=== PATIENT | female | born 1990 | race Caucasian/White ===

== ENCOUNTER → 2016-07-09 | Outpatient (CLI) | payer BC ==
[~2016-07-09] MED LIST: /DULO30CA PO; /MOXI40TA PO; /ONDA4TA PO; ACET50TA PO; ALBU17IN INH; AMIT50TA2 OR; ASTE137S; CALC0.5C OR; CALC0.5C PO; CALC0.5C6 PO; CALC12502 OR; CALC500C16 PO; CALC600T10 PO; CALC667C2 PO; CALC667T PO; CALCCHW12 OR; CALCIUM + VITAMIN D PO; CALCIUM PO; CALCTAB43 PO; CARA1TAB2 PO; CETI10TA PO; CIPR-250 PO; COLA100C3 PO; D 1010004 PO; FE T325T PO; FERR325T OR; FERR325T3 PO; FLEXERIL PO; GABA100C PO; HYDR1CR TOP; HYDR200T2 PO; HYDR200T3 PO; HYDROXYCHLOROQUINE PO; IBUP200T2 PO; IBUP400T OR; IBUP800T OR; LOPE-3 PO; MACR100C3 PO; MAG-400T7 PO; MAG400TA PO; MAGN400T PO; MAGN400T5 PO; MAGNESIUM OXIDE OR; MUCUTAB PO; NAPR250T2 PO; No Historical Meds; ONDASTERON BUC; PHOS667C PO; PHOS667C5 PO; PHOSLO667 MG OR; PLAQ200T PO; POTA-77 PO; PROM25TA PO; RENV2TAB PO; ROCA0.5C PO; SENN8.6T5 OR; SLOW MAG PO; SLOWTAB PO; SLOWTAB2 PO; STOO100C PO; TYLE325T5 PO; VENTAER IN; VIBR100C PO; VIT D PO; VITAMIN D OR; XANA0.5T PO; ZOFR20TA PO; ZOFR4TAB3 PO; [UNRECOGNIZED DRUG - MIXTURE] PO; [UNRECOGNIZED DRUG - OTHER]; z-pack PO
[2016-07-09 16:41] LABS: BASO % 0.4 % (0.0-1.0); EOS # 0.2 K/mm3 (0.0-0.50); EOS % 2.3 % (0.0-3.0); LYMPH % 21.8 % (24.0-44.0); MEAN CORPUSCULAR HGB CONC 34.5 g/dl (32.0-36.5); MEAN CORPUSCULAR VOLUME 83.9 fl (80.0-96.0); MONO # 0.5 K/mm3 (0.0-0.8); MONO % 5.6 % (0.0-5.0); NEUTROPHILS # 5.8 K/mm3 (1.8-7.7); NEUTROPHILS % 68.4 % (36.0-66.0); RED CELL DISTRIBUTION WIDTH 12.8 % (11.5-14.5); WHITE BLOOD COUNT 8.5 K/mm3 (4.0-10.0)
[2016-07-09 17:33] LABS: ALBUMIN/GLOBULIN RATIO 1.48 (1.00-1.93); ALKALINE PHOSPHATASE 51 U/L (45-117); ALT/SGPT 22 U/L (12-78); ANION GAP 9 MEQ/L (8-16); AST/SGOT 12 U/L (15-37); BILIRUBIN,TOTAL 0.3 MG/DL (0.2-1.0); BLOOD UREA NITROGEN 17 MG/DL (7-18); CALCIUM LEVEL 7.8 MG/DL (8.5-10.1); CARBON DIOXIDE LEVEL 28 MEQ/L (21-32); CHLORIDE LEVEL 105 MEQ/L (98-107); CREATININE FOR GFR 0.86 MG/DL (0.55-1.02); FREE T4 1.06 NG/DL (0.76-1.46); GLOMERULAR FILTRATION RATE > 60.0 (>60); GLUCOSE, FASTING 119 MG/DL (70-105); POTASSIUM SERUM 4.1 MEQ/L (3.5-5.1); SODIUM LEVEL 142 MEQ/L (136-145); TOTAL PROTEIN 6.7 GM/DL (6.4-8.2)
[2016-07-12 00:08] LABS: SJOGREN'S ANTI SS-A <0.2 AI (0.0-0.9)
== END ==
LOC: M WUC 13:38
PROVIDERS: ATTEND Family Medicine
DX: Z00.00 Encounter for general adult medical examination without abnormal findings (principal); E83.51 Hypocalcemia; M32.9 Systemic lupus erythematosus, unspecified

== ENCOUNTER 2016-09-27 10:06 | Emergency (ER) | payer BC ==
[~2016-09-27] VITALS: Ht 165.1 cm; Wt 104.8 kg
[~2016-09-27 10:06] MED LIST changes: -CALC600T10 PO; +CALC600T31 PO; -CALCTAB43 PO; +CALCTAB74 PO; -COLA100C3 PO; +COLA100C5 PO; -NAPR250T2 PO; +NAPR250T4 PO
[2016-09-27] MEDS ORDERED: NAPR250T4 PO (10:28)
[2016-09-27] MEDS ORDERED: ONDA4TAB6 PO (10:28)
[2016-09-27] MEDS ORDERED: NS 1,000 ML IV ONE (11:15)
[2016-09-27] MEDS ORDERED: methylPREDNISolone INJ 125 MG/2 ML VIAL (J2930) IV ONE (11:15)
[2016-09-27 12:05] LABS: BASO % 0.6 % (0.0-1.0); EOS # 0.2 K/mm3 (0.0-0.50); EOS % 2.5 % (0.0-3.0); LARGE UNSTAINED CELL # 0.1 K/mm3 (0.0-0.4); LARGE UNSTAINED CELL % 1.7 % (0.0-4.0); LYMPH # 1.9 K/mm3 (1.5-6.5); LYMPH % 23.5 % (24.0-44.0); MEAN CORPUSCULAR HEMOGLOBIN 29.5 pg (27.0-33.0); MEAN CORPUSCULAR HGB CONC 34.9 g/dl (32.0-36.5); MEAN CORPUSCULAR VOLUME 84.4 fl (80.0-96.0); MONO # 0.3 K/mm3 (0.0-0.8); NEUTROPHILS % 67.7 % (36.0-66.0); PLATELET COUNT, AUTOMATED 203 k/mm3 (150-450); WHITE BLOOD COUNT 7.4 K/mm3 (4.0-10.0)
[2016-09-27 12:49] LABS: ALBUMIN 4.2 GM/DL (3.2-5.2); ALBUMIN/GLOBULIN RATIO 1.24 (1.00-1.93); ALKALINE PHOSPHATASE 51 U/L (45-117); ALT/SGPT 18 U/L (12-78); ANION GAP 6 MEQ/L (8-16); AST/SGOT 13 U/L (15-37); BILIRUBIN,TOTAL 0.5 MG/DL (0.2-1.0); BLOOD UREA NITROGEN 20 MG/DL (7-18); CALCIUM LEVEL 8.1 MG/DL (8.5-10.1); CARBON DIOXIDE LEVEL 27 MEQ/L (21-32); CHLORIDE LEVEL 105 MEQ/L (98-107); CREATININE FOR GFR 0.91 MG/DL (0.55-1.02); GLOMERULAR FILTRATION RATE > 60.0 (>60); GLUCOSE, FASTING 79 MG/DL (70-105); MAGNESIUM LEVEL 2.2 MG/DL (1.8-2.4); SODIUM LEVEL 138 MEQ/L (136-145); TOTAL PROTEIN 7.6 GM/DL (6.4-8.2)
[2016-09-27 12:50] VITALS: BP 136/68
--- NOTE | 2016-09-28 07:31 | ECGEPIP ---
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
== END 2016-09-27 13:37 | disposition home or self-care (01) ==
LOC: M ED 10:06
DX: R11.0 Nausea (principal); R42 Dizziness and giddiness; M32.9 Systemic lupus erythematosus, unspecified; M79.7 Fibromyalgia; F50.89 Other specified eating disorder; E04.9 Nontoxic goiter, unspecified
CPT/HCPCS: 80053; 81025; 83735; 84443; 85025; 93005; 96361; 96374; 99284; J2930

== ENCOUNTER 2016-11-05 06:29 | Emergency (ER) | payer BC ==
[~2016-11-05 06:29] MED LIST changes: +ONDA4TAB6 PO
[2016-11-05] MEDS ORDERED: CLEO300C2 PO (06:45)
[2016-11-05] MEDS ORDERED: IBUP1TAB7 PO (06:45)
[2016-11-05] MEDS ORDERED: IBUP80TA PO (07:18)
[2016-11-05] MEDS ORDERED: ROBA500T PO (07:18)
[2016-11-05] MEDS ORDERED: ONDANSETRON 4 MG ORAL DISINTEGRATING TAB (S0181) PO ONE (07:30)
[2016-11-05] MEDS ORDERED: IBUPROFEN 800 MG TAB PO ONE (07:30)
[2016-11-05] MEDS ORDERED: NORCO, ANEXSIA 5/325MG TABLET (HYDROcodone/ACETAMINOPHEN) PO ONE (07:30)
[2016-11-05] MEDS ORDERED: METHOCARBAMOL 500 MG TAB PO ONE (07:30)
[2016-11-05 07:31] VITALS: BP 130/86
== END 2016-11-05 07:40 | disposition home or self-care (01) ==
LOC: M ED 06:29
DX: S16.1XXA Strain of muscle, fascia and tendon at neck level, initial encounter (principal); J45.909 Unspecified asthma, uncomplicated; M79.7 Fibromyalgia; M32.9 Systemic lupus erythematosus, unspecified; F41.9 Anxiety disorder, unspecified; X58.XXXA Exposure to other specified factors, initial encounter; Y92.9 Unspecified place or not applicable; Y99.9 Unspecified external cause status; Y93.9 Activity, unspecified; Z88.0 Allergy status to penicillin; Z88.5 Allergy status to narcotic agent; Z88.8 Allergy status to other drugs, medicaments and biological substances; Z79.899 Other long term (current) drug therapy

== ENCOUNTER 2017-01-11 08:18 | Emergency (ER) | payer BC ==
[~2017-01-11] VITALS: Ht 165.1 cm; Wt 109.1 kg
[~2017-01-11 08:18] MED LIST changes: +CLEO300C2 PO; +IBUP1TAB7 PO; +IBUP80TA PO; +ROBA500T PO
[2017-01-11] MEDS ORDERED: calcitrol PO (08:51)
[2017-01-11] MEDS ORDERED: ALPH50TA PO (08:51)
[2017-01-11] MEDS ORDERED: PRIL20CA9 PO (09:29)
[2017-01-11] MEDS ORDERED: ZOFR4TAB3 PO (09:29)
[2017-01-11] MEDS ORDERED: GI COCKTAIL 50ML BTL(HYOSCYAMINE/MAALOX/LIDOCAINE VISCOUS)(1:3:1) PO ONE (09:30)
[2017-01-11] MEDS ORDERED: ONDANSETRON 4 MG ORAL DISINTEGRATING TAB (S0181) PO ONE (09:30)
[2017-01-11 09:37] VITALS: BP 142/90
== END 2017-01-11 09:38 | disposition home or self-care (01) ==
LOC: M ED 08:18
DX: K29.50 Unspecified chronic gastritis without bleeding (principal); K21.9 Gastro-esophageal reflux disease without esophagitis; R10.13 Epigastric pain; M79.7 Fibromyalgia; I10 Essential (primary) hypertension; J45.909 Unspecified asthma, uncomplicated; E11.9 Type 2 diabetes mellitus without complications; M32.9 Systemic lupus erythematosus, unspecified; Z88.0 Allergy status to penicillin; Z88.5 Allergy status to narcotic agent; Z88.8 Allergy status to other drugs, medicaments and biological substances; Z79.899 Other long term (current) drug therapy

== ENCOUNTER 2017-01-14 08:44 | Observation (INO) | payer BC ==
[~2017-01-14] VITALS: Ht 165.1 cm; Wt 110.3 kg
[~2017-01-14 08:44] MED LIST changes: +ALPH50TA PO; +PRIL20CA9 PO; +calcitrol PO
[2017-01-14 10:22] LABS: BASO % 0.5 % (0.0-1.0); EOS # 0.2 10^3/uL (0.0-0.50); EOS % 2.1 % (0.0-3.0); IMMATURE GRANULOCYTE % 0.4 % (0-0); LYMPH # 1.9 10^3/uL (1.5-6.5); LYMPH % 25.3 % (24.0-44.0); MEAN CORPUSCULAR HEMOGLOBIN 29.3 pg (27.0-33.0); MEAN CORPUSCULAR HGB CONC 34.1 g/dl (32.0-36.5); MEAN CORPUSCULAR VOLUME 85.8 fl (80.0-96.0); MONO # 0.4 10^3/uL (0.0-0.8); MONO % 5.5 % (0.0-5.0); NEUTROPHILS % 66.2 % (36.0-66.0); PLATELET COUNT, AUTOMATED 205 10^3/uL (150-450); RED CELL DISTRIBUTION WIDTH 12.9 % (11.5-14.5); WHITE BLOOD COUNT 7.5 10^3/uL (4.0-10.0)
[2017-01-14 10:42] LABS: CONTROL LINE HCG INT CTR LINE PRESENT
[2017-01-14 10:57] LABS: ANION GAP 8 MEQ/L (8-16); BLOOD UREA NITROGEN 11 MG/DL (7-18); CALCIUM LEVEL 5.9 MG/DL (8.5-10.1); CARBON DIOXIDE LEVEL 28 MEQ/L (21-32); CHLORIDE LEVEL 106 MEQ/L (98-107); CREATININE FOR GFR 0.78 MG/DL (0.55-1.02); GLOMERULAR FILTRATION RATE > 60.0 (>60); GLUCOSE, FASTING 75 MG/DL (70-105); MAGNESIUM LEVEL 1.9 MG/DL (1.8-2.4); PHOSPHORUS LEVEL 5.7 MG/DL (2.5-4.9); POTASSIUM SERUM 4.2 MEQ/L (3.5-5.1); SODIUM LEVEL 142 MEQ/L (136-145)
[2017-01-14] MEDS ORDERED: CALCIUM GLUCONATE 1,000 MG in D5W MINI-BAG PLUS 100 ML IV ONE ×3 (11:30→16:00)
[2017-01-14] MEDS ORDERED: ACETAMINOPHEN TAB 650MG DOSE (2X325MG) PO PRN (12:00)
[2017-01-14] MEDS ORDERED: ONDANSETRON 4MG/2ML VIAL (J2405) IV PRN (12:00)
[2017-01-14] MEDS ORDERED: CALC1CAP31 PO (12:05)
[2017-01-14] MEDS ORDERED: CALC500C16 PO (12:05)
[2017-01-14] MEDS ORDERED: ZOFR4TAB3 PO (12:05)
[2017-01-14] MEDS ORDERED: ALPH300C PO (12:05)
[2017-01-14] MEDS ORDERED: OMEP20CA3 PO (12:05)
[2017-01-14 14:00] VITALS: BP 129/76
[2017-01-14] MEDS: CALCITRIOL 0.25 MCG CAP (S0169) PO SCH ×2 (15:43→20:48)
[2017-01-14] MEDS: HEPARIN SOD (PORCINE) 5000 UNITS/ML VIAL SC SCH ×2 (15:44→20:49)
--- NOTE | 2017-01-14 15:50 | HPE ---
DATE OF ADMISSION: 01/14/2017 PRIMARY CARE PROVIDER: Dr. 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 HISTORY OF PRESENT ILLNESS: The patient is a 26-year-old female with a past medical history significant for fibromyalgia, hypoparathyroidism who presented to [facility] on 01/14/2017 for worsening muscle cramp, nerve tingling, nausea and vomiting. The patient stated the symptoms started approximately 3-4 days ago and the symptoms are getting worse. The patient stated that she had similar episode usually due to severe hypocalcemia. Later, the laboratory tests show that the patient has extremely low calcium and ionized calcium. The patient stated due to financial reasons that the patient has been cutting down her calcium intake frequency. The patient was instructed by her primary care provider to take the calcium supplement three times a day. However, the patient was having difficulty affording the medication and therefore she has been using it once a day. ALLERGIES: 1. CODEINE (nausea and vomiting). 2. DIAMOX (hypoperfusion causing purplish skin color changes). 3. PENICILLIN (rash). HOME MEDICATIONS: - calcitriol 0.75 mcg by mouth three times a day - calcium carbonate 1500 mg by mouth twice a day - sertraline 10 mg by mouth at bedtime - docusate sodium 100 mg by mouth at bedtime - omeprazole 20 mg by mouth at bedtime - Zofran 4 mg by mouth every four hours as needed PAST MEDICAL HISTORY: 1. Fibromyalgia. 2. Hypothyroidism. PAST SURGICAL HISTORY: None. SOCIAL HISTORY: Denies smoking, alcohol use, or recreational drug use. REVIEW OF SYSTEMS: GENERAL: Denies fever or chills. HEENT: No vision changes. No auditory changes. CARDIOVASCULAR: No chest pain. No palpitations. RESPIRATORY: No shortness of breath. No cough or sputum production. GASTROINTESTINAL (GI): Nausea and vomiting for the past few days. MUSCULOSKELETAL: Complained about worsening muscle spasm and muscle cramp. NEUROLOGICAL: Worsening tingling sensation. Denies any numbness. OBJECTIVE: VITAL SIGNS: Temperature is 97.1, pulse is 67, respiratory rate 16, blood pressure 129/76, pulse oximetry is 98% in room air. GENERAL: No sign of acute distress, alert and oriented times three. HEENT: Normocephalic, atraumatic. Extraocular motor grossly intact. CARDIOVASCULAR: Positive heart murmur. Positive S1, S2, regular rate. LUNGS: Clear to auscultation bilaterally. No wheezes or crackles. ABDOMEN: Obese, soft, nontender, nondistended. Bowel sounds present. MUSCULOSKELETAL: No edema. No sign of cyanosis. NEUROLOGICAL: [place] sign. Sensation to fine touch grossly intact. Muscle strength 5/5. LABORATORY DATA: WBC is 7.5, hemoglobin 11.7, hematocrit 34.3, platelet count is 205. Sodium 142, potassium 4.2, chloride is 106, carbon dioxide 28, BUN 11, creatinine 0.78, GFR greater than 60, fasting glucose is 75, calcium is 5.9, ionized calcium 2.8, phosphorus 5.7, magnesium 1.9, TSH 1.69, hCG is 1.69, PTH level is less than 6.3. ASSESSMENT AND PLAN: 1. Severe hypokalemia. Follow with an EKG. The patient will be admitted on medical/surgical floor with telemetry. We will continue to supplement with IV calcium gluconate. Followup with the calcium level in a few hours. The patient also started on the oral calcitriol and oral calcium supplements. The patient does have a history of hospital admission due to uncontrolled hypocalcemia. The patient has not been compliant with the medication regimen due to financial reasons. 2. History of fibromyalgia. 3. Hypoparathyroidism. Currently being treated for acute hypocalcemia. 4. Deep vein thrombosis (DVT) prophylaxis, on heparin.
--- NOTE | 2017-01-14 18:54 | ECGEPIP ---
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
[2017-01-14] MEDS: OMEPRAZOLE 20 MG CAP PO SCH (20:48)
[2017-01-14] MEDS: CETIRIZINE (ZyrTEC) 10 MG TAB PO SCH (20:49)
[2017-01-14] MEDS: CALCIUM CARBONATE 500 MG CHEW U/D PO SCH (20:49)
[2017-01-14] MEDS: DOCUSATE SODIUM 100 MG CAP PO SCH (20:49)
[2017-01-14 22:00] VITALS: BP 140/103
--- NOTE | 2017-01-14 22:51 | ECGEPIP ---
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
[2017-01-15 06:00] VITALS: BP 119/61
[2017-01-15 06:15] LABS: MEAN CORPUSCULAR HEMOGLOBIN 28.8 pg (27.0-33.0); MEAN CORPUSCULAR HGB CONC 34.1 g/dl (32.0-36.5); MEAN CORPUSCULAR VOLUME 84.2 fl (80.0-96.0); RED CELL DISTRIBUTION WIDTH 12.7 % (11.5-14.5)
[2017-01-15 06:44] LABS: ANION GAP 9 MEQ/L (8-16); BLOOD UREA NITROGEN 12 MG/DL (7-18); CALCIUM LEVEL 6.5 MG/DL (8.5-10.1); CARBON DIOXIDE LEVEL 27 MEQ/L (21-32); CHLORIDE LEVEL 106 MEQ/L (98-107); CREATININE FOR GFR 0.71 MG/DL (0.55-1.02); GLOMERULAR FILTRATION RATE > 60.0 (>60); GLUCOSE, FASTING 88 MG/DL (70-105); POTASSIUM SERUM 3.9 MEQ/L (3.5-5.1); SODIUM LEVEL 142 MEQ/L (136-145)
[2017-01-15] MEDS: HEPARIN SOD (PORCINE) 5000 UNITS/ML VIAL SC SCH ×3 (07:41→20:23)
[2017-01-15] MEDS: CALCIUM CARBONATE 500 MG CHEW U/D PO SCH ×2 (09:13→20:22)
[2017-01-15] MEDS: CALCITRIOL 0.25 MCG CAP (S0169) PO SCH ×3 (09:14→20:21)
[2017-01-15] MEDS ORDERED: MAG SULF 1GM/100ML (MAG RUN) 1 GM in APPROPRIATE DILUENT 1 EA IV ONE (10:00)
[2017-01-15] MEDS: CALCIUM GLUCONATE 1,000 MG in D5W MINI-BAG PLUS 100 ML IV SCH ×3 (11:12→13:30)
[2017-01-15 14:00] VITALS: BP 147/83
--- NOTE | 2017-01-15 16:59 | IPN ---
DATE: 01/15/2017 OBJECTIVE: The patient tells me she is feeling significantly better today. She tells me that she is no longer constipated. She tells me that she is not having muscle spasms. She does not feel as weak. Her mind does not feel as clouded. She denies chest pain, shortness of breath, fevers, chills, nausea, vomiting, or diarrhea. OBJECTIVE: VITAL SIGNS: Temperature 98.1, pulse 63, respiratory rate 18, blood pressure (BP) 119/61, oxygen saturation 96% on room air. GENERAL: She is an obese, pleasant, young female sitting up in bed eating breakfast in no distress. HEENT: Cranial nerves II-XII grossly intact. Moist mucous membranes. No elevation in central venous pressure (CVP). CARDIOVASCULAR: S1, S2, regular. RESPIRATORY: Clear. ABDOMEN: Obese. Bowel sounds present. The abdomen is soft and nontender. EXTREMITIES: No clubbing, cyanosis, or edema. LABORATORY STUDIES: WBC 8.0, hemoglobin 11.3, platelet count 197. Chemistry panel: Sodium 142, potassium 3.9, chloride 106, bicarbonate 27, BUN 12, creatinine 0.7, calcium 6.5 today, up from 5.9. Ionized calcium is 3.4, up from 2.8 yesterday. She has a slight low vitamin D and low PTH. No new imaging. ASSESSMENT AND PLAN: This is a 26-year-old female with hypocalcemia related to medication noncompliance. 1. Hypocalcemia. Patient follows in the [facility] and is normally supposed to take Calcitriol 0.75 mg three times a day; however, she cannot afford this and only takes it once daily. It is likely the etiology for her hypoglycemia. She also did have some nausea and vomiting, which may have worsened her symptoms as well or may have been a symptom of her hypocalcemia in this setting. She has been hospitalized for this in the past. Patient and family services (PFS) consult has been placed. For the time being, she remains on Tums 1500 mg by mouth twice a day. I will give her 3 grams of calcium gluconate. We will continue with calcitriol 0.75 mg three times a day and continue to follow her calcium level tomorrow. 2. Seasonal allergies. Continue with Zyrtec. 3. Hypoparathyroidism, managed by the [facility]. 4. Gastroesophageal reflux disease. Continue with omeprazole. 5. Deep vein thrombosis (DVT) prophylaxis. The patient is up and ambulating. DISPOSITION: I suspect she may be able to be discharged as early as tomorrow.
[2017-01-15] MEDS: OMEPRAZOLE 20 MG CAP PO SCH (20:21)
[2017-01-15] MEDS: DOCUSATE SODIUM 100 MG CAP PO SCH (20:22)
[2017-01-15] MEDS: CETIRIZINE (ZyrTEC) 10 MG TAB PO SCH (20:22)
[2017-01-15 21:21] VITALS: BP 129/81
[2017-01-16] VITALS: BP 140/89
[2017-01-16 00:30] LABS: IONIZED CALCIUM 3.9 MG/DL (4.5-5.3)
[2017-01-16 00:50] LABS: BLOOD UREA NITROGEN 10 MG/DL (7-18); CHLORIDE LEVEL 104 MEQ/L (98-107); CREATININE FOR GFR 0.82 MG/DL (0.55-1.02); GLOMERULAR FILTRATION RATE > 60.0 (>60); GLUCOSE, FASTING 88 MG/DL (70-105); POTASSIUM SERUM 3.6 MEQ/L (3.5-5.1); SODIUM LEVEL 139 MEQ/L (136-145)
[2017-01-16 00:51] LABS: ANION GAP 6 MEQ/L (8-16); CALCIUM LEVEL 8.1 MG/DL (8.5-10.1); CARBON DIOXIDE LEVEL 29 MEQ/L (21-32); MAGNESIUM LEVEL 1.8 MG/DL (1.8-2.4)
--- NOTE | 2017-01-16 04:54 | IPNPDOC ---
Text Note Date of Service The patient was seen on 01/16/17. NOTE Evening resident and attending were called regarding patient was having more tingling sensation of right arm. Charts were reviewed and patient was also interviewed at bedside. It was found that patient had adequate Calcium during the day, therefore no more calcium was given, however we have checked her calcium level again and it was within normal range. Patient stated her symptoms was mild and it was improved since admission. Will continue current regiment without changes, patient agrees. Patient has been discussed with Dr. Myers. GME ATTESTATION My preceptor for this patient encounter was physically present in the building during the encounter and was fully available. As needed, all aspects of the patient interview, examination, medical decision making process, and medical care plan development were reviewed and approved by the preceptor. Preceptor is aware and concurs with the plan as stated in the body of this note and will attest to such by his/her cosignature. VS,Fishbone, I+O VS, Fishbone, I+O Laboratory Tests 01/15/17 05:43 Red Blood Count 3.93 L, Mean Corpuscular Volume 84.2, Mean Corpuscular Hemoglobin 28.8, Mean Corpuscular Hemoglobin Concent 34.1, Red Cell Distribution Width 12.7, Calcium Level 6.5 L 01/16/17 00:22 Calcium Level 8.1 #L Vital Signs Date Time Temp Pulse Resp B/P (MAP) Pulse Ox O2 Delivery O2 Flow Rate FiO2 01/16/17 00:00 99.5 60 18 140/89 (106) 99 Room Air MARTIN PAYNE DO Jan 16, 2017 04:54
[2017-01-16] MEDS ORDERED: MAG SULF 1GM/100ML (MAG RUN) 1 GM in APPROPRIATE DILUENT 1 EA IV ONE (07:00)
[2017-01-16 07:17] LABS: MEAN CORPUSCULAR HEMOGLOBIN 28.7 pg (27.0-33.0); MEAN CORPUSCULAR HGB CONC 33.9 g/dl (32.0-36.5); MEAN CORPUSCULAR VOLUME 84.8 fl (80.0-96.0); RED CELL DISTRIBUTION WIDTH 12.9 % (11.5-14.5); WHITE BLOOD COUNT 9.5 10^3/uL (4.0-10.0)
[2017-01-16 07:38] LABS: ANION GAP 8 MEQ/L (8-16); BLOOD UREA NITROGEN 10 MG/DL (7-18); CALCIUM LEVEL 7.8 MG/DL (8.5-10.1); CARBON DIOXIDE LEVEL 26 MEQ/L (21-32); CHLORIDE LEVEL 105 MEQ/L (98-107); CREATININE FOR GFR 0.74 MG/DL (0.55-1.02); GLOMERULAR FILTRATION RATE > 60.0 (>60); GLUCOSE, FASTING 84 MG/DL (70-105); MAGNESIUM LEVEL 1.9 MG/DL (1.8-2.4); POTASSIUM SERUM 4.7 MEQ/L (3.5-5.1); SODIUM LEVEL 139 MEQ/L (136-145)
[2017-01-16] MEDS: CALCIUM GLUCONATE 1,000 MG in D5W MINI-BAG PLUS 100 ML IV SCH ×2 (07:58→09:10)
[2017-01-16 08:00] VITALS: BP 113/82
[2017-01-16] MEDS: CALCIUM CARBONATE 500 MG CHEW U/D PO SCH (09:10)
[2017-01-16] MEDS: CALCITRIOL 0.25 MCG CAP (S0169) PO SCH (09:10)
[2017-01-16] MEDS: HEPARIN SOD (PORCINE) 5000 UNITS/ML VIAL SC SCH (09:10)
--- NOTE | 2017-01-16 15:52 | DSES ---
DATE OF ADMISSION: 01/14/2017 DATE OF DISCHARGE: 01/16/2017 DISCHARGE DIAGNOSIS: Hypocalcemia. SECONDARY DIAGNOSES: 1. Medication nonadherence. 2. Seasonal allergies. 3. Hypoparathyroidism. 4. Gastroesophageal reflux disease (GERD). HOSPITAL COURSE: The patient is a 26-year-old female who admits that she has not been taking her Calcitriol 0.75 mg three times a day as prescribed and instead has been taking it only once daily as she was having difficulty affording the three times a day dosing. She has began to have feelings of muscle spasm, constipation, clouding of her thoughts, and body aches, which she has felt in the past during episodes of hypocalcemia and she presented to the emergency room with the thought that her calcium was low. Laboratory studies did confirm this and potassium on arrival was 5.9. Her ionized was initially 2.8. She was restarted on Calcitriol, and she was continued on calcium carbonate. She did receive several doses of IV calcium gluconate as well. She did have progressive improvement in her calcium. At this point, her ionized calcium was 3.9 this morning and her symptoms have resolved. SUBJECTIVE: The patient tells me that she has had no more paresthesias, no more spasms, and she is no longer constipated and she is feeling back to normal and would like to go home. OBJECTIVE: VITAL SIGNS: Temperature 98.1, pulse 58, respiratory rate 18, blood pressure 113/82. Oxygen saturation 97% on room air. GENERAL: She is morbidly obese, young, female sitting on the edge of the bed. She does not appear to be in any acute distress. HEENT: Cranial nerves II through XII grossly intact. She has moist mucous membranes. No elevation in central venous pressure. CARDIOVASCULAR EXAM: S1, S2. Regular. RESPIRATORY EXAM: Clear. ABDOMINAL EXAM: Obese. EXTREMITIES: No clubbing, cyanosis or edema. LABORATORY STUDIES: WBC 9.5, hemoglobin 11.7, platelet count 198. Chemistry panel: Sodium 139, potassium 4.7, chloride 108, bicarbonate 25, BUN 10, creatinine 0.7. Ionized calcium this morning was 3.9. TSH within normal limits. HCG was negative. PTH intact was less than 6.3. ASSESSMENT AND PLAN: This is a 26-year-old female with hypocalcemia related to medication nonadherence. 1. Hypocalcemia. The patient normally follows with the [facility] and is supposed to take Calcitriol 0.75 mcg three times a day. However, she could not afford it and was only taking it once a day. This is likely the etiology for her uncontrolled hypocalcemia. Patient and family services (PFS) was able to help and provide her with several coupons, which should help alleviate her cost. The patient is to followup with the [facility] and continue to take all of her medications as prescribed, as her symptoms are controlled well while on this regimen. She is continued on calcium carbonate. 2. Seasonal allergies. She is continued on Zyrtec. 3. Hypoparathyroidism. As per the [facility]. 4. Gastroesophageal reflux disease (GERD). She is on omeprazole. 5. Deep vein thrombosis (DVT) prophylaxis. She is up and ambulating. DISPOSITION: The patient is provided a prescription to be off work for the days she has been in the hospital. She is to followup with primary care provider in 7 days and followup with her official greeter within 2 weeks. Her activity and diet are as prior to admission. She is to return to the emergency room if symptoms worsen. MEDICATIONS: At the time of discharge: - Calcitriol 0.75 mcg three times a day - calcium carbonate 55 mg twice a day - cetirizine 10 mg at night - Docusate 100 mg at night - lipoic acid 300 mg at night - Naproxen 250 mg as needed for pain - omeprazole 20 mg at night - Zofran 4 mg every 4 hours as needed for nausea Greater than 30 minutes was spent organizing disposition.
== END 2017-01-16 12:15 | disposition home or self-care (01) ==
LOC: M ED 08:44 → M ED INP 12:00 → M MSPAV 13:58 → M MS4PR 01-15 21:10
PROVIDERS: ADMIT Internal Medicine; ATTEND Internal Medicine
DX: E83.51 Hypocalcemia (principal); Z91.14 Patient's other noncompliance with medication regimen; J30.2 Other seasonal allergic rhinitis; E20.9 Hypoparathyroidism, unspecified; K21.9 Gastro-esophageal reflux disease without esophagitis; E03.9 Hypothyroidism, unspecified; Z79.899 Other long term (current) drug therapy; M79.7 Fibromyalgia; Z88.0 Allergy status to penicillin; Z88.5 Allergy status to narcotic agent; E87.6 Hypokalemia
CPT/HCPCS: 36415; 80048; 82306; 82330; 83735; 83970; 84100; 84443; 84703; 85025; 85027; 93005; 93041; 94760; 96365; 96366; 96367; 99285; J0610; J3475

== ENCOUNTER 2017-04-03 15:36 | Emergency (ER) | payer SELFPAY, BC ==
[2017-04-03 18:29] LABS: BASO % 0.5 % (0.0-1.0); EOS # 0.2 10^3/uL (0.0-0.50); EOS % 1.8 % (0.0-3.0); HEMATOCRIT 34.7 % (36.0-47.0); HEMOGLOBIN 11.6 g/dl (12.0-16.0); IMMATURE GRANULOCYTE % 0.5 % (0-0); LYMPH # 2.1 10^3/uL (1.5-6.5); LYMPH % 23.6 % (24.0-44.0); MEAN CORPUSCULAR HEMOGLOBIN 28.6 pg (27.0-33.0); MEAN CORPUSCULAR HGB CONC 33.4 g/dl (32.0-36.5); MEAN CORPUSCULAR VOLUME 85.5 fl (80.0-96.0); MONO # 0.5 10^3/uL (0.0-0.8); MONO % 5.6 % (0.0-5.0); PLATELET COUNT, AUTOMATED 271 10^3/uL (150-450); RED BLOOD COUNT 4.06 10^6/uL (4.00-5.40); RED CELL DISTRIBUTION WIDTH 12.9 % (11.5-14.5); WHITE BLOOD COUNT 8.8 10^3/uL (4.0-10.0)
[2017-04-03 18:33] LABS: APPEARANCE, URINE CLEAR (CLEAR); BACTERIA, URINE AUTO NEGATIVE (NEGATIVE); BILIRUBIN, URINE AUTO NEGATIVE (NEGATIVE); BLOOD, URINE BLOOD NEGATIVE (NEGATIVE); COLOR, URINE STRAW (YELLOW); GLUCOSE, URINE (UA) AUTO NEGATIVE (NEGATIVE); KETONE, URINE AUTO NEGATIVE (NEGATIVE); LEUKOCYTE ESTERASE, URINE AUTO NEGATIVE (NEGATIVE); MUCUS, URINE SMALL (NEGATIVE); NITRITE, URINE AUTO NEGATIVE (NEGATIVE); PROTEIN, URINE AUTO NEGATIVE (NEGATIVE); RBC, URINE AUTO 2 /HPF (0-3); SPECIFIC GRAVITY URINE AUTO 1.006 (1.002-1.035); SQUAMOUS EPITHELIAL CELL UR AU 0 /HPF (0-6); UROBILINOGEN, URINE AUTO 0.2 mg/dL (0.0-2.0); WBC, URINE AUTO 1 /HPF (0-3)
[2017-04-03 18:59] LABS: ANION GAP 6 MEQ/L (8-16); BLOOD UREA NITROGEN 17 MG/DL (7-18); CARBON DIOXIDE LEVEL 31 MEQ/L (21-32); CHLORIDE LEVEL 106 MEQ/L (98-107); CREATININE FOR GFR 0.83 MG/DL (0.55-1.02); GLOMERULAR FILTRATION RATE > 60.0 (>60); GLUCOSE, FASTING 74 MG/DL (70-105); MAGNESIUM LEVEL 1.9 MG/DL (1.8-2.4); POTASSIUM SERUM 3.6 MEQ/L (3.5-5.1); SODIUM LEVEL 143 MEQ/L (136-145)
[2017-04-03 19:15] LABS: PTH INTACT < 6.3 PG/ML (14.0-72.0)
[2017-04-03] MEDS: CALCIUM GLUCONATE 1,000 MG in D5W MINI-BAG PLUS 100 ML IV ×2 (20:29→22:00)
== END 2017-04-03 23:19 | disposition home or self-care (01) ==
LOC: M ED 15:36
DX: E20.9 Hypoparathyroidism, unspecified (principal); J45.909 Unspecified asthma, uncomplicated; M79.7 Fibromyalgia; F41.9 Anxiety disorder, unspecified; F33.9 Major depressive disorder, recurrent, unspecified; Z79.899 Other long term (current) drug therapy; Z88.0 Allergy status to penicillin; Z88.5 Allergy status to narcotic agent; Z88.8 Allergy status to other drugs, medicaments and biological substances; Z87.891 Personal history of nicotine dependence
CPT/HCPCS: J0610

== ENCOUNTER 2017-04-26 12:10 | Emergency (ER) | payer SELFPAY ==
[2017-04-26 13:47] LABS: BASO % 0.4 % (0.0-1.0); EOS # 0.1 10^3/uL (0.0-0.50); EOS % 1.9 % (0.0-3.0); HEMOGLOBIN 11.4 g/dl (12.0-16.0); IMMATURE GRANULOCYTE % 0.4 % (0-0); LYMPH # 1.3 10^3/uL (1.5-6.5); LYMPH % 19.1 % (24.0-44.0); MEAN CORPUSCULAR HEMOGLOBIN 28.5 pg (27.0-33.0); MEAN CORPUSCULAR HGB CONC 33.5 g/dl (32.0-36.5); MONO # 0.5 10^3/uL (0.0-0.8); MONO % 7.6 % (0.0-5.0); NEUTROPHILS # 4.8 10^3/uL (1.8-7.7); NEUTROPHILS % 70.6 % (36.0-66.0); PLATELET COUNT, AUTOMATED 213 10^3/uL (150-450); RED CELL DISTRIBUTION WIDTH 12.8 % (11.5-14.5); WHITE BLOOD COUNT 6.8 10^3/uL (4.0-10.0)
[2017-04-26 14:06] LABS: CONTROL LINE HCG INT CTR LINE PRESENT; HCG, SERUM QUALITATIVE NEGATIVE (NEGATIVE)
[2017-04-26 14:11] LABS: ANION GAP 8 MEQ/L (8-16); BLOOD UREA NITROGEN 14 MG/DL (7-18); CALCIUM LEVEL 6.8 MG/DL (8.5-10.1); CARBON DIOXIDE LEVEL 30 MEQ/L (21-32); CHLORIDE LEVEL 105 MEQ/L (98-107); CREATININE FOR GFR 0.75 MG/DL (0.55-1.02); GLOMERULAR FILTRATION RATE > 60.0 (>60); GLUCOSE, FASTING 74 MG/DL (70-100); PHOSPHORUS LEVEL 5.9 MG/DL (2.5-4.9); POTASSIUM SERUM 3.6 MEQ/L (3.5-5.1); SODIUM LEVEL 143 MEQ/L (136-145)
[2017-04-26 14:20] LABS: PTH INTACT < 6.3 PG/ML (14.0-72.0)
[2017-04-26] MEDS: CALCIUM GLUCONATE 1,000 MG in D5W MINI-BAG PLUS 100 ML IV ×2 (15:20→16:30)
== END 2017-04-26 17:49 | disposition home or self-care (01) ==
LOC: M ED 12:10
DX: E20.9 Hypoparathyroidism, unspecified (principal); M32.9 Systemic lupus erythematosus, unspecified; M79.7 Fibromyalgia; F50.89 Other specified eating disorder; Z79.899 Other long term (current) drug therapy; Z88.0 Allergy status to penicillin; Z88.5 Allergy status to narcotic agent; Z88.8 Allergy status to other drugs, medicaments and biological substances
CPT/HCPCS: J0610

== ENCOUNTER 2017-05-24 10:22 | Emergency (ER) | payer SELFPAY ==
[2017-05-24 12:03] LABS: BASO % 0.6 % (0.0-1.0); EOS # 0.1 10^3/uL (0.0-0.50); EOS % 2.3 % (0.0-3.0); HEMATOCRIT 33.2 % (36.0-47.0); HEMOGLOBIN 11.2 g/dl (12.0-16.0); IMMATURE GRANULOCYTE % 0.6 % (0-3.0); LYMPH # 1.6 10^3/uL (1.5-6.5); LYMPH % 48.1 % (24.0-44.0); MEAN CORPUSCULAR HEMOGLOBIN 29.3 pg (27.0-33.0); MEAN CORPUSCULAR HGB CONC 33.7 g/dl (32.0-36.5); MEAN CORPUSCULAR VOLUME 86.9 fl (80.0-96.0); MONO # 0.2 10^3/uL (0.0-0.8); NEUTROPHILS # 1.4 10^3/uL (1.8-7.7); NEUTROPHILS % 41.4 % (36.0-66.0); PLATELET COUNT, AUTOMATED 174 10^3/uL (150-450); RED BLOOD COUNT 3.82 10^6/uL (4.00-5.40); RED CELL DISTRIBUTION WIDTH 15.5 % (11.5-14.5); WHITE BLOOD COUNT 3.4 10^3/uL (4.0-10.0)
[2017-05-24 12:38] LABS: ALBUMIN 3.8 GM/DL (3.2-5.2); ALBUMIN/GLOBULIN RATIO 1.19 (1.00-1.93); ALKALINE PHOSPHATASE 57 U/L (45-117); ALT/SGPT 179 U/L (12-78); ANION GAP 9 MEQ/L (8-16); AST/SGOT 139 U/L (7-37); BILIRUBIN,TOTAL 0.5 MG/DL (0.2-1.0); BLOOD UREA NITROGEN 11 MG/DL (7-18); CARBON DIOXIDE LEVEL 27 MEQ/L (21-32); CHLORIDE LEVEL 108 MEQ/L (98-107); CREATININE FOR GFR 0.77 MG/DL (0.55-1.30); GLOMERULAR FILTRATION RATE > 60.0 (>60); GLUCOSE, FASTING 77 MG/DL (70-100); SODIUM LEVEL 144 MEQ/L (136-145)
[2017-05-24] MEDS: CALCIUM GLUCONATE 1,000 MG in D5W MINI-BAG PLUS 100 ML IV ×2 (13:09→14:07)
[2017-05-24 14:00] LABS: INFLUENZA A AMPLIFICATION NEGATIVE (NEGATIVE); INFLUENZA B AMPLIFICATION NEGATIVE (NEGATIVE)
== END 2017-05-24 15:17 | disposition home or self-care (01) ==
LOC: M ED 10:22
DX: E83.51 Hypocalcemia (principal); J45.909 Unspecified asthma, uncomplicated; E11.9 Type 2 diabetes mellitus without complications; I10 Essential (primary) hypertension; F50.89 Other specified eating disorder; F41.9 Anxiety disorder, unspecified; F33.9 Major depressive disorder, recurrent, unspecified; Z79.899 Other long term (current) drug therapy; Z88.8 Allergy status to other drugs, medicaments and biological substances; Z88.5 Allergy status to narcotic agent; Z88.0 Allergy status to penicillin; Z86.2 Personal history of diseases of the blood and blood-forming organs and certain disorders involving the immune mechanism; Z86.39 Personal history of other endocrine, nutritional and metabolic disease
CPT/HCPCS: J0610

== ENCOUNTER → 2017-07-24 | Outpatient (CLI) | payer BC ==
[2017-07-24 19:36] LABS: THYROGLOBULIN ANTIBODY 19.2 U/ML (<60.0); THYROID PEROXIDASE ANTIBODY 31.2 U/ML (<60.0)
[2017-07-24 19:54] LABS: FREE T3 2.7 PG/ML (2.2-4.0)
== END ==
LOC: M LAB 17:58
DX: E04.9 Nontoxic goiter, unspecified (principal)
CPT/HCPCS: 84443

== ENCOUNTER → 2017-07-24 | Outpatient (CLI) | payer BC | LOC: M RAD 18:11 | DX: E04.9 Nontoxic goiter, unspecified (principal) | CPT/HCPCS: 76536 ==

== ENCOUNTER → 2018-05-11 | Outpatient (CLI) | payer BC ==
[~2018-05-11] MED LIST changes: +ALPH300C PO; +ASPI1TAB20 PO; +CALC1CAP31 PO; +CALC1TAB19 PO; +CALC600T3 PO; +OMEP20CA3 PO; -ZOFR20TA PO; +ZOFR4TAB14 PO; +ZOFR4TAB16 PO
[2018-05-11 09:48] LABS: IONIZED CALCIUM 3.9 MG/DL (4.5-5.3)
[2018-05-11 09:55] LABS: BASO % 0.4 % (0.0-1.0); EOS # 0.2 10^3/uL (0.0-0.50); EOS % 2.5 % (0.0-3.0); HEMATOCRIT 36.8 % (36.0-47.0); HEMOGLOBIN 12.3 g/dl (12.0-15.5); LYMPH # 1.8 10^3/uL (1.5-6.5); LYMPH % 24.3 % (24.0-44.0); MEAN CORPUSCULAR HEMOGLOBIN 28.5 pg (27.0-33.0); MEAN CORPUSCULAR HGB CONC 33.4 g/dl (32.0-36.5); MEAN CORPUSCULAR VOLUME 85.2 fl (80.0-96.0); MONO # 0.4 10^3/uL (0.0-0.8); MONO % 5.6 % (0.0-5.0); NEUTROPHILS # 4.9 10^3/uL (1.8-7.7); NEUTROPHILS % 66.9 % (36.0-66.0); PLATELET COUNT, AUTOMATED 211 10^3/uL (150-450); RED BLOOD COUNT 4.32 10^6/uL (4.00-5.40); WHITE BLOOD COUNT 7.3 10^3/uL (4.0-10.0)
[2018-05-11 10:24] LABS: ALBUMIN 4.1 GM/DL (3.2-5.2); ALT/SGPT 18 U/L (12-78); BILIRUBIN,TOTAL 0.4 MG/DL (0.2-1.0); BLOOD UREA NITROGEN 19 MG/DL (7-18); CALCIUM LEVEL 7.1 MG/DL (8.5-10.1); CARBON DIOXIDE LEVEL 24 MEQ/L (21-32); CHLORIDE LEVEL 109 MEQ/L (98-107); CHOLESTEROL LEVEL 168 MG/DL (<200); CHOLESTEROL RISK RATIO 4.421 (<5); CREATININE FOR GFR 0.84 MG/DL (0.55-1.30); FREE T3 2.5 PG/ML (2.2-4.0); FREE T4 1.02 NG/DL (0.76-1.46); GLOMERULAR FILTRATION RATE > 60.0 (>60); GLUCOSE, FASTING 82 MG/DL (70-100); HDL CHOLESTEROL 38 MG/DL (>40); LDL CHOLESTEROL 110 MG/DL (<100); NON-HDL-C 130 MG/DL; POTASSIUM SERUM 4.4 MEQ/L (3.5-5.1); SODIUM LEVEL 139 MEQ/L (136-145); TOTAL PROTEIN 6.8 GM/DL (6.4-8.2); TRIGLYCERIDES LEVEL 101 MG/DL (<150)
[2018-05-12 10:05] LABS: PTH INTACT < 6.3 PG/ML (18.5-88.0)
== END ==
LOC: M WUC 08:52
PROVIDERS: ATTEND Nurse Practitioner Family
DX: E20.9 Hypoparathyroidism, unspecified (principal); M32.9 Systemic lupus erythematosus, unspecified; Z13.220 Encounter for screening for lipoid disorders; E66.09 Other obesity due to excess calories

== ENCOUNTER 2018-07-30 17:08 | Emergency (ER) | payer BC, SELFPAY ==
[~2018-07-30] VITALS: Ht 165.1 cm; Wt 111.4 kg
[~2018-07-30 17:08] MED LIST changes: -/DULO30CA PO; -/MOXI40TA PO; -/ONDA4TA PO; -ACET50TA PO; +AVEL1TAB2 PO; -CALC0.5C OR; -CALC0.5C PO; +CALC0.5C14 OR; +CALC0.5C14 PO; +CYMB1CAP5 PO; -HYDR1CR TOP; +HYDR1CRE93 TOP; +MAPA500T17 PO; +ONDA-1 PO; +ONDA-228 PO; +PROM-190 PO; -PROM25TA PO; -ZOFR4TAB3 PO
[2018-07-30] MEDS ORDERED: KETOROLAC 30 MG/ML VIAL (J1885) IV ONE (18:00)
[2018-07-30] MEDS ORDERED: NS 1,000 ML IV ONE (18:00)
[2018-07-30 19:21] LABS: BASO # 0.1 10^3/uL (0.0-0.2); BASO % 0.5 % (0.0-1.0); EOS # 0.2 10^3/uL (0.0-0.50); EOS % 1.7 % (0.0-3.0); HEMATOCRIT 36.6 % (36.0-47.0); HEMOGLOBIN 12.2 g/dl (12.0-15.5); LYMPH # 2.6 10^3/uL (1.5-6.5); LYMPH % 26.4 % (24.0-44.0); MEAN CORPUSCULAR HEMOGLOBIN 27.9 pg (27.0-33.0); MEAN CORPUSCULAR HGB CONC 33.3 g/dl (32.0-36.5); MEAN CORPUSCULAR VOLUME 83.8 fl (80.0-96.0); MONO # 0.6 10^3/uL (0.0-0.8); NEUTROPHILS # 6.3 10^3/uL (1.8-7.7); NEUTROPHILS % 65.1 % (36.0-66.0); PLATELET COUNT, AUTOMATED 249 10^3/uL (150-450); RED BLOOD COUNT 4.37 10^6/uL (4.00-5.40); WHITE BLOOD COUNT 9.7 10^3/uL (4.0-10.0)
[2018-07-30 19:31] LABS: HCG, SERUM QUALITATIVE NEGATIVE (NEGATIVE)
[2018-07-30 19:40] LABS: ALBUMIN 4.3 GM/DL (3.2-5.2); ALT/SGPT 23 U/L (12-78); AMYLASE 56 U/L (25-115); BILIRUBIN,DIRECT 0.1 MG/DL (0.0-0.2); BILIRUBIN,TOTAL 0.5 MG/DL (0.2-1.0); BLOOD UREA NITROGEN 14 MG/DL (7-18); CALCIUM LEVEL 7.9 MG/DL (8.5-10.1); CARBON DIOXIDE LEVEL 25 MEQ/L (21-32); CHLORIDE LEVEL 106 MEQ/L (98-107); CREATININE FOR GFR 0.81 MG/DL (0.55-1.30); GLOMERULAR FILTRATION RATE > 60.0 (>60); GLUCOSE, FASTING 74 MG/DL (70-100); LIPASE 124 U/L (73-393); SODIUM LEVEL 140 MEQ/L (136-145); TOTAL PROTEIN 6.8 GM/DL (6.4-8.2)
--- NOTE | 2018-07-30 20:59 | REPVR ---
EXAM: US Abdomen Complete EXAM DATE/TIME: 07/30/2018 8:04 PM CLINICAL HISTORY: 28 years old, female; Abdominal pain; Generalized; Additional info: Right upper quadrant, right flank pain, pelvic pain TECHNIQUE: Imaging protocol: Real-time ultrasound of the abdomen with image documentation. COMPARISON: GALLBLADDER US 03/14/2012 8:00 AM FINDINGS: Liver: The liver demonstrates no focal defects. Gallbladder: Shadowing gallstones are noted in the gallbladder which measure up to 2.2 cm. There is no gallbladder wall thickening. Common bile duct: The CBD measures 3 mm. Pancreas: The pancreas is normal. Right kidney: The right kidney is normal measuring 12.0 cm. Left kidney: The left kidney is normal measuring 12.5 cm. Spleen: The spleen is borderline measuring 13.0 cm. Aorta: The proximal aorta measures 2.6 cm, the mid aorta measures 1.6 cm and the distal aorta measures 1.4 cm. IMPRESSION: 1. Cholelithiasis. 2. Otherwise negative abdominal sonogram. No hydronephrosis is seen. Electronically signed by: Quan Rios On 07/30/2018 20:59:27 PM
[2018-07-30] MEDS ORDERED: ONDANSETRON 4MG/2ML VIAL (J2405) IV ONE (21:00)
--- NOTE | 2018-07-30 21:02 | REPVR ---
EXAM: US Pelvis Complete, Transabdominal EXAM DATE/TIME: 07/30/2018 8:04 PM CLINICAL HISTORY: 28 years old, female; Pelvic pain TECHNIQUE: Imaging protocol: Real-time transabdominal pelvic ultrasound with image documentation. Complete exam. COMPARISON: CT ABD PELVIS WITH CONTRAST 03/06/2014 9:33 AM FINDINGS: Uterus/cervix: The uterus measures 8.2 cm in its cephalocaudad dimension and 3.9 x 5.4 cm in its AP and lateral dimensions. The endometrium measures 3 mm. Right adnexa: The right ovary measures 3.3 x 3.0 x 3.0 cm and demonstrates blood flow and a small cyst/follicle measuring 2.2 x 1.8 x 1.5 cm. Left adnexa: The left ovary measures 3.8 x 1.8 x 2.4 cm. The left ovary measures 2.4 x 3.8 x 1.8 cm. Free fluid: None. Bladder: Normal. IMPRESSION: 1. Right ovarian cyst/follicle measuring 2.2 x 1.8 x 1.5 cm. 2. Otherwise negative pelvic sonogram. Electronically signed by: Quan Rios On 07/30/2018 21:02:21 PM
[2018-07-30] MEDS ORDERED: KETO10TAB PO (21:46)
[2018-07-30] MEDS ORDERED: ONDA4TAB6 PO (21:46)
[2018-07-30 22:01] VITALS: BP 131/79
== END 2018-07-30 22:03 | disposition home or self-care (01) ==
LOC: M ED 17:08
DX: K80.20 Calculus of gallbladder without cholecystitis without obstruction (principal); N83.299 Other ovarian cyst, unspecified side; E20.9 Hypoparathyroidism, unspecified; Z79.899 Other long term (current) drug therapy; Z88.0 Allergy status to penicillin; Z88.5 Allergy status to narcotic agent; Z88.8 Allergy status to other drugs, medicaments and biological substances
CPT/HCPCS: 76700; 76856; 80048; 80076; 81001; 82150; 83605; 83690; 84703; 85025; 96361; 96374; 96375; 99284; J1885; J2405

== ENCOUNTER 2018-08-20 16:48 | Emergency (ER) | payer SELFPAY ==
[~2018-08-20] VITALS: Ht 165.1 cm; Wt 110.5 kg
[~2018-08-20 16:48] MED LIST changes: +KETO10TAB PO
[2018-08-20 19:16] LABS: ALBUMIN 4.2 GM/DL (3.2-5.2); ALT/SGPT 24 U/L (12-78); BILIRUBIN,TOTAL 0.5 MG/DL (0.2-1.0); BLOOD UREA NITROGEN 13 MG/DL (7-18); CALCIUM LEVEL 7.3 MG/DL (8.5-10.1); CARBON DIOXIDE LEVEL 28 MEQ/L (21-32); CHLORIDE LEVEL 105 MEQ/L (98-107); CREATININE FOR GFR 0.87 MG/DL (0.55-1.30); GLOMERULAR FILTRATION RATE > 60.0 (>60); GLUCOSE, FASTING 78 MG/DL (70-100); POTASSIUM SERUM 4.6 MEQ/L (3.5-5.1); SODIUM LEVEL 141 MEQ/L (136-145); TOTAL PROTEIN 7.2 GM/DL (6.4-8.2)
[2018-08-20 20:43] VITALS: BP 147/84
[2018-08-20 20:45] LABS: PHOSPHORUS LEVEL 5.8 MG/DL (2.5-4.9); VITAMIN B12 LEVEL 477 PG/ML (247-911)
--- NOTE | 2018-08-21 20:19 | ECGEPIP ---
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 Order Number: [id number] Reading MD: Mushtaq Gutierrez Measurements Intervals [place] Rate: 59 P: 18 MD: 149 QRS: 44 QRSD: 89 T: 43 QT: 467 QTc: 464 Interpretive Statements SINUS BRADYCARDIA SIMILAR TO 09/09/17 Electronically Signed on 08-21-2018 20:18:40 EDT by Mushtaq Gutierrez
== END 2018-08-20 20:42 | disposition left against medical advice (07) ==
LOC: M ED 16:48
DX: E83.51 Hypocalcemia (principal); E21.3 Hyperparathyroidism, unspecified; Z79.899 Other long term (current) drug therapy; Z88.0 Allergy status to penicillin; Z88.5 Allergy status to narcotic agent; Z88.8 Allergy status to other drugs, medicaments and biological substances

== ENCOUNTER 2018-10-28 09:22 | Day surgery (SDC) | payer BC ==
[~2018-10-28] VITALS: Ht 165.1 cm; Wt 108.9 kg
[~2018-10-28 09:22] MED LIST changes: +ASPI-524 PO; -ASPI1TAB20 PO; +LR 1,000 ML IV ONE; +LevoFLOXacin IV 500 MG in APPROPRIATE DILUENT 1 EA IV ONE; +MM S100C PO; -OMEP20CA3 PO; +OMEP20CA4 PO; -STOO100C PO
[2018-10-28] MEDS ORDERED: ROCURONIUM BROMIDE 50 MG/5 ML VIAL As Ordered ONE (09:41)
[2018-10-28] MEDS ORDERED: ONDANSETRON 4MG/2ML VIAL (J2405) As Ordered ONE (09:41)
[2018-10-28] MEDS ORDERED: LIDOCAINE 2% INJ 100 MG/5 ML SDV (FOR ANES.) As Ordered ONE (09:41)
[2018-10-28] MEDS ORDERED: dexameTHASONE 4 MG/ML 1ML VIAL (J1100) As Ordered ONE (09:41)
[2018-10-28] MEDS ORDERED: PROPOFOL 200 MG/20 ML VIAL As Ordered ONE (09:41)
[2018-10-28] MEDS ORDERED: MIDAZOLAM INJ 2 MG/2 ML VIAL (J2250) As Ordered ONE (09:42)
[2018-10-28] MEDS ORDERED: KETOROLAC 60 MG/2 ML VIAL (J1885) As Ordered ONE (09:42)
[2018-10-28] MEDS ORDERED: fentaNYL 250 MCG/5 ML INJECTION (J3010) As Ordered ONE (09:42)
[2018-10-28 10:09] LABS: URINE PREG TEST NEGATIVE (NEGATIVE)
[2018-10-28] MEDS ORDERED: SCOPOLAMINE 1MG TRANSDERMAL PATCH TOP ONE (10:30)
[2018-10-28] MEDS ORDERED: BUPIVACAINE/EPIN 0.25% 30 ML VIAL As Ordered ONE (11:22)
[2018-10-28] MEDS ORDERED: CONRAY-60 60% 50ML VIAL (Q9961) As Ordered ONE (11:22)
[2018-10-28] MEDS ORDERED: METOCLOPRAMIDE INJ 10MG/2ML VIAL (J2765) As Ordered ONE (11:43)
[2018-10-28] MEDS ORDERED: ACETAMINOPHEN 1000MG 100ML IV BTL (OFIRMEV) (J0131 PER 10MG) As Ordered ONE (11:51)
[2018-10-28] MEDS ORDERED: GLYCOPYRROLATE INJ 0.2 MG/ML 2 ML VIAL As Ordered ONE (11:53)
[2018-10-28] MEDS ORDERED: NEOSTIGMINE 10 MG/10 ML VIAL (J2710) As Ordered ONE (11:53)
[2018-10-28] MEDS ORDERED: fentaNYL 100 MCG/2 ML INJECTION (J3010) As Ordered ONE (11:53)
[2018-10-28] MEDS ORDERED: LR 1,000 ML IV SCH ×2 (12:45→13:00)
[2018-10-28] MEDS ORDERED: traMADol 50 MG TAB As Ordered ONE ×2 (12:46→12:48)
--- NOTE | 2018-10-28 12:49 | RO ---
DATE OF PROCEDURE: 10/28/2018 PREOPERATIVE DIAGNOSIS: Symptomatic gallstones. POSTOPERATIVE DIAGNOSIS: Symptomatic gallstones. PROCEDURE: Laparoscopic cholecystectomy. SURGEON: Gene Tolentino Jr., MD BLOOD BANK SPECIALIST: ANESTHESIA: General endotracheal anesthesia. ESTIMATED BLOOD LOSS: Minimal. FLUIDS: Crystalloid. BRIEF PROCEDURE SUMMARY: The patient was brought to the operating room, was given general anesthesia. After adequate anesthesia and preoperative antibiotics were given, the patient was prepped and draped in the usual sterile fashion. Next, a supraumbilical incision was made with skin knife. Blunt dissection was carried down to fascia. Fascia grasped with Maria C clamps, elevated and Veress needle placed into the abdominal cavity and insufflated to 15 mm of pressure. A dilating 10 mm trocar was placed at this time and under direct visualization an epigastric and two lateral trocars were placed. Next, the gallbladder was grasped, retracted superiorly and the neck of the gallbladder was cleared of peritoneum using the hook cautery, continued on the anterior surface as well as over on the medial aspect where the cystic artery was well visualized. Further dissection behind the neck the gallbladder and the cystic duct area revealed good window behind the neck of the gallbladder revealing a critical view of safety. The cystic artery was taken at this time clipped proximally and distally and transected and the cystic duct was better visualized revealing good tapering from the neck to the cystic duct and the cystic duct was clipped proximally and distally and transected. The gallbladder was removed from the gallbladder bed, brought out through the umbilicus in an EndoCatch bag and the right upper quadrant was copiously irrigated until clear. All trocars were removed under direct visualization. #0 Vicryl was used to close the fascia at the umbilicus and all incisions were closed with #4-0 Vicryl. Steri-Strips and dry sterile dressing was applied. The patient was awakened, extubated, brought to the recovery room awake, alert, and hemodynamically stable. Sponge and needle counts were correct times two.
[2018-10-28] MEDS ORDERED: PERCOCET 5MG/325MG TAB PO PRN (13:00)
[2018-10-28] MEDS ORDERED: fentaNYL 100 MCG/2 ML INJECTION (J3010) IV PRN (13:00)
[2018-10-28] MEDS ORDERED: ONDANSETRON 4MG/2ML VIAL (J2405) IV PRN (13:00)
[2018-10-28] MEDS ORDERED: HYDROMORPHONE HCL 0.5 MG/ 0.5 ML SYRINGE (J1170 PER 1) IV PRN (13:00)
[2018-10-28 15:00] VITALS: BP 110/59
[2018-10-28] MEDS ORDERED: KETOROLAC 30 MG/ML VIAL (J1885) IV SCH (16:00)
[2018-10-28] MEDS ORDERED: traMADol 50 MG TAB PO SCH (18:00)
== END 2018-10-28 15:05 | disposition home or self-care (01) ==
LOC: M SDC 09:22
PROVIDERS: ATTEND Surgery
DX: K80.10 Calculus of gallbladder with chronic cholecystitis without obstruction (principal); K21.9 Gastro-esophageal reflux disease without esophagitis; M79.7 Fibromyalgia; F32.9 Major depressive disorder, single episode, unspecified; F41.9 Anxiety disorder, unspecified; Z88.0 Allergy status to penicillin; Z88.5 Allergy status to narcotic agent; Z79.899 Other long term (current) drug therapy; D64.9 Anemia, unspecified
CPT/HCPCS: 47562; 84703; 88304; J0131; J1100; J1170; J1885; J1956; J2250; J2405; J2710; J2765; J3010

== ENCOUNTER 2019-02-17 08:31 | Emergency (ER) | payer BC ==
[~2019-02-17] VITALS: Ht 165.1 cm; Wt 106.8 kg
[~2019-02-17 08:31] MED LIST changes: -ASPI-524 PO; +ASPI325T57 PO; -LR 1,000 ML IV ONE; -LevoFLOXacin IV 500 MG in APPROPRIATE DILUENT 1 EA IV ONE
--- NOTE | 2019-02-17 09:58 | REP ---
CHEST TWO VIEWS: There is no evidence of acute infiltrate. No pleural effusion is seen. The heart is normal in size. The mediastinal silhouette is unremarkable. The visualized osseous structures are intact. IMPRESSION: No acute pulmonary disease. Electronically Signed by Long Sanabria MD 02/18/2019 10:27 A
[2019-02-17] MEDS: ALBUTEROL SULFATE 2.5 MG/0.5 ML INH NEB SOLN NEB PRN ×3 (10:00→10:32)
[2019-02-17 10:05] LABS: BASO % 0.4 % (0.0-1.0); EOS # 0.3 10^3/uL (0.0-0.5); EOS % 4.2 % (0.0-3.0); HEMATOCRIT 38.8 % (36.0-47.0); HEMOGLOBIN 12.8 g/dl (12.0-15.5); LYMPH # 1.7 10^3/uL (1.5-5.0); LYMPH % 22.8 % (24.0-44.0); MEAN CORPUSCULAR HEMOGLOBIN 29.3 pg (27.0-33.0); MEAN CORPUSCULAR VOLUME 88.8 fl (80.0-96.0); MONO # 0.4 10^3/uL (0.0-0.8); MONO % 5.3 % (0.0-5.0); NEUTROPHILS # 5.1 10^3/uL (1.5-8.5); NEUTROPHILS % 66.9 % (36.0-66.0); PLATELET COUNT, AUTOMATED 231 10^3/uL (150-450); RED BLOOD COUNT 4.37 10^6/uL (4.00-5.40); WHITE BLOOD COUNT 7.6 10^3/uL (4.0-10.0)
[2019-02-17] MEDS ORDERED: methylPREDNISolone INJ 125 MG/2 ML VIAL (J2930) IV ONE (10:15)
[2019-02-17 10:33] LABS: BLOOD UREA NITROGEN 18 MG/DL (7-18); CALCIUM LEVEL 7.9 MG/DL (8.5-10.1); CARBON DIOXIDE LEVEL 29 MEQ/L (21-32); CHLORIDE LEVEL 106 MEQ/L (98-107); CREATININE FOR GFR 0.93 MG/DL (0.55-1.30); GLOMERULAR FILTRATION RATE > 60.0 (>60); GLUCOSE, FASTING 77 MG/DL (70-100); POTASSIUM SERUM 4.3 MEQ/L (3.5-5.1); SODIUM LEVEL 140 MEQ/L (136-145)
[2019-02-17 11:05] VITALS: BP 127/60
[2019-02-17] MEDS ORDERED: PRED20TA PO (11:14)
== END 2019-02-17 11:24 | disposition home or self-care (01) ==
LOC: M ED 08:31
DX: J45.901 Unspecified asthma with (acute) exacerbation (principal); J00 Acute nasopharyngitis [common cold]; J06.9 Acute upper respiratory infection, unspecified; J98.01 Acute bronchospasm; E20.9 Hypoparathyroidism, unspecified; E83.51 Hypocalcemia; Z79.899 Other long term (current) drug therapy; Z88.0 Allergy status to penicillin; Z88.5 Allergy status to narcotic agent; Z88.8 Allergy status to other drugs, medicaments and biological substances
CPT/HCPCS: 71046; 80048; 85025; 94640; 99284; J2930

== ENCOUNTER 2019-04-17 08:22 | Inpatient (IN) | payer SELFPAY ==
[~2019-04-17] VITALS: Ht 165.1 cm; Wt 108.7 kg
[~2019-04-17 08:22] MED LIST changes: +OMEP1CAP73 PO; -OMEP20CA4 PO; +PRED20TA PO
[2019-04-17 08:52] LABS: IONIZED CALCIUM 3.5 MG/DL (4.5-5.3)
[2019-04-17] MEDS: ENOXAPARIN 40 MG/0.4 ML SYRINGE (J1650) SC SCH ×2 (09:00→13:14)
[2019-04-17 09:04] LABS: HEMATOCRIT 36.6 % (36.0-47.0); MEAN CORPUSCULAR HEMOGLOBIN 28.4 pg (27.0-33.0); MEAN CORPUSCULAR HGB CONC 32.8 g/dl (32.0-36.5); MEAN CORPUSCULAR VOLUME 86.5 fl (80.0-96.0); PLATELET COUNT, AUTOMATED 221 10^3/uL (150-450); RED BLOOD COUNT 4.23 10^6/uL (4.00-5.40); WHITE BLOOD COUNT 5.8 10^3/uL (4.0-10.0)
[2019-04-17 09:23] LABS: BLOOD UREA NITROGEN 13 MG/DL (7-18); CALCIUM LEVEL 6.4 MG/DL (8.5-10.1); CARBON DIOXIDE LEVEL 26 MEQ/L (21-32); CHLORIDE LEVEL 109 MEQ/L (98-107); CREATININE FOR GFR 0.91 MG/DL (0.55-1.30); FREE T4 1.14 NG/DL (0.76-1.46); GLOMERULAR FILTRATION RATE > 60.0 (>60); GLUCOSE, FASTING 79 MG/DL (70-100); POTASSIUM SERUM 4.1 MEQ/L (3.5-5.1); SODIUM LEVEL 143 MEQ/L (136-145)
[2019-04-17] MEDS ORDERED: CALCIUM CHLORIDE 10% 1 GM in D5W 100 ML IV ONE (09:30)
[2019-04-17] MEDS ORDERED: ROCA0.5C PO (10:00)
[2019-04-17] MEDS ORDERED: ACETAMINOPHEN TAB 650MG DOSE (2X325MG) PO PRN (11:15)
[2019-04-17] MEDS ORDERED: DOCUSATE SODIUM 100 MG CAP PO PRN (11:30)
[2019-04-17] MEDS ORDERED: NAPROXEN 250 MG TAB PO PRN (11:30)
--- NOTE | 2019-04-17 11:57 | HPEPDOC ---
[facility] Medical History & Physical Date of Admission Apr 17, 2019 Date of Service: Apr 17, 2019 Attending Physician: AGATHA ASH MD History and Physical CHIEF COMPLAINT: Calf muscle cramping and bilateral numbness/tingling of face and lower extremities HISTORY OF PRESENT ILLNESS: Patient is a 28-year-old female with a significant past medical history of hypoparathyroidism and secondary hypocalcemia who presented to the [facility] emergency department complaining of calf muscle cramping and bilateral numbness/tingling of the face and calf muscle area. She began experiencing these symptoms 3 days ago, following a diarrheal disease of unknown etiology which has since resolved. She has baseline constipation with overflow diarrhea, but this was different from the persistent diarrhea that she was experiencing. She is now at the end of her menses, which she states normally induces tingling of her lips and perioral area which resolves at the end of menses. This menstrual period has not been different from her baseline. Pt has baseline urinary incontinence which has not changed. Pt is currently experiencing raspiness of her voice which she also stated is normal for one of her episodes of hypocalcemia per muscle spasm. She denies dysphagia at this time, but states that she has had dysphagia and sensation of her throat closing up during previous episodes. Pt has not had any known exposures to toxins. Patient does not have a history of radiation exposure to the neck, kidney stones, tuberculosis, or complications/toxin exposure while her mother was with her. Pt had been hospitalized at least every 3-4 months for episodes of hypocalcemia between the ages of 20 and 25. Her last hospitalization for hypocalcemia was in 2018. Pt states that her symptoms during this presentation have been consistent with her former hospitalizations. She is felt that her hypoparathyroidism has been well controlled during the interim. Patient follows with the [facility] for ongoing care of hypoparathyroidism. She is on outpatient scheduled calcium and calcitriol supplementation. She does not currently have a primary care physician. PAST MEDICAL HISTORY: 1. Hypoparathyroidism. 2. Episodes of hypocalcemia. 3. Fibromyalgia. 4. Anxiety and depression. 5. Obesity. 6. Urinary incontinence. 7. Positive DEREK worked up by rheumatology, negative for lupus, managed by rheumatology in [place] 8. Gallstones, s/p cholecystectomy PAST SURGICAL HISTORY: 1. Cholecystectomy October 2018. 2. Right fallopian tube cyst excision 2018. 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 REVIEW OF SYSTEMS: CONSTITUTIONAL: Denies fevers, chills, night sweats, fatigue, and unexpected weight loss/gain. HEENT: Denies change in vision and hearing. CARDIOVASCULAR: Denies chest pain, palpitations, exertional dyspnea, claudication, lightheadedness, and syncope. RESPIRATORY: Denies dyspnea, cough, and wheezing. GASTROINTESTINAL: Endorses baseline constipation with overflow diarrhea in addition to diarrheal disease of unknown etiology 3 days ago. Denies nausea, vomiting, abdominal pain, and hematochezia. GENITOURINARY: Endorses incontinence. Denies dysuria, urgency, incomplete emptying, and hematuria. SKIN: Denies rash, lesions, and pruritus. Several professionally-done tattoos present. MUSCULOSKELETAL: Denies arthralgias and myalgias. NEUROLOGICAL: Endorses numbness. Denies headache, weakness, and dizziness. ENDOCRINE: Denies excessive thirst, polyuria, heat intolerance, and cold intolerance. PSYCHIATRIC: Denies change in mood, suicidality, and homicidality. HOME MEDICATIONS: Please see below. PHYSICAL EXAMINATION: VITAL SIGNS: Temperature 97.7, pulse 70, respiratory rate 17, blood pressure 115/67, pulse oximetry 100% on room air. GENERAL: Pt appears stated age and obese and is sitting up in bed in no acute distress. Voice is raspy. HEENT: Normocephalic, atraumatic. CARDIOVASCULAR: Regular rate and rhythm. No murmurs, rubs, or gallops. PULMONARY: Clear to auscultation b/l. No wheezes, rales, or rhonchi. ABDOMEN: Obese abdomen. Bowel sounds present in all 4 quadrants. Abdomen soft with no organomegaly. No focal tenderness. EXTREMITIES: No peripheral edema. Pulses 2+ b/l in upper and lower extremities. MUSCULOSKELETAL: Elbow flexion 5/5 b/l. Elbow extension 5/5 b/l. Wrist extension 5/5 b/l. Finger abduction 5/5 b/l. 3rd finger DIP flexion 5/5 b/l. Hip flexion 5/5 b/l. Knee extension 5/5 b/l. Dorsiflexion 5/5 b/l. Great toe extension 5/5 b/l. Plantarflexion 5/5 b/l. NEUROLOGICAL: CN II-IV and CN -XII intact. CN V motor intact b/l. CN V1-V3 sensation diminished throughout b/l but present and symmetrical. No pronator drift. Jwouar-pf-bzei showed no dysmetria. C5-T1 dermatomes sensation symmetrica l bilaterally. L2-S1 dermatomes sensation symmetrical bilaterally. Diminished sensation b/l in calf area. Trousseau sign (+). Chvostek sign (+) b/l, more right than left. PSYCHIATRIC: Pt is calm and cooperative. Full affect. Pt answers questions appropriately. LABORATORY DATA: See below. MICROBIOLOGY: Please see below. EKG findings, pending official read: Sinus bradycardia without heart block, ST segment changes, or QTc prolongation. ASSESSMENT: Luisa Wilkerson is a 28-year-old female with significant past medical history of hypoparathyroidism and recurrent bouts of hypocalcemia who presented to the [facility] emergency department complaining of calf muscle cramps and numbness and tingling of the lower extremities and face and has been admitted to the hospital for evaluation and treatment of hypocalcemia. PLAN: 1. Hypocalcemia secondary to hypoparathyroidism - Pt is experiencing symptoms congruent with her past episodes of hypocalcemia. She is experiencing numbness, tingling, and cramping of the calf muscles. - Whole blood ionized calcium was found to be low at 3.5 in the emergency department. CBC was unremarkable. EKG showed no ST changes or QTc prolongation indicative of hypocalcemic involvement. - Magnesium was found to be low at 1.6 and phosphorus high at 6.4. Magnesium replacement by magnesium run IV was ordered with initiation of magnesium oxide 200 mg PO BID and follow-up lab tomorrow. - Pt had been given 1 unit of calcium gluconate in the emergency department. 1 g calcium gluconate (10mL) in 100 mL D5 water run at 110 mL/h was ordered. Repeat ionized calcium is ordered for later this afternoon. - Vitamin D3 was found to be within normal limits at 48.2 and home calcitriol 0.5 g PO BID was continued. - TSH (2.9) and free T4 (1.14) were found to be within normal limits. - Patient is placed on telemetry in the progressive care unit for continuous monitoring. Her respiratory status will also be monitored closely. 2. Fibromyalgia - Continue home naproxen 250 mg PO BID PRN pain 3. Obesity - Complicates care 4. DVT prophylaxis: Subcutaneous enoxaparin DISPOSITION: Discharge pending workup of hypocalcemia and stabilization. Likely hospital stay of 24-48 hours. Pt will need assistance in establishing with a new primary care physician. Vital Signs Vital Signs Date Time Temp Pulse Resp B/P (MAP) Pulse Ox O2 Delivery O2 Flow Rate FiO2 04/17/19 10:11 04/17/19 08:23 97.7 70 17 100 Room Air Laboratory Data Labs 24H Laboratory Tests 2 04/17/19 08:41: Nucleated Red Blood Cells % (auto) 0.0, Anion Gap 8, Glomerular Filtration Rate > 60.0, Calcium Level 6.4L, Whole Blood Ionized Calcium 3.5*L, Thyroid Stimulating Hormone (TSH) 2.900, Free Thyroxine 1.14 CBC/BMP Laboratory Tests 04/17/19 08:41 Home Medications Scheduled Calcitriol (Rocaltrol) 0.5 Mcg Capsule, 0.5 MCG PO BID Calcium Carbonate/Vitamin D3 (Calcium 600-Vit D3 800 Tablet) 1 Tab Tab, 3 TAB PO TID Cetirizine HCl (Cetirizine HCl) 10 Mg Tab, 10 MG PO QHS Omeprazole (Omeprazole) 20 Mg Cap, 20 MG PO QHS Scheduled PRN Docusate Sodium (Stool Softener) 100 Mg Cap, 100 MG PO QHS PRN for CONSTIPATION Naproxen (Naproxen) 250 Mg Tab, 250 MG PO BID PRN for PAIN Allergies Coded Allergies: Penicillins (Verified Allergy, Unknown, RASH, 04/17/19) acetazolamide (Verified Allergy, Unknown, MUSCLE CONTRACTIONS, 04/17/19) codeine (Verified Adverse Reaction, Mild, VOMIT, 10/28/18) hydrocodone (Verified Adverse Reaction, Mild, VOMIT, 10/28/18) A-FIB/CHADSVASC A-FIB History Current/History of A-Fib/PAF?: No GME ATTESTATION GME ATTESTATION My faculty preceptor for this patient encounter was physically present during the encounter and was fully available. All aspects of the patient interview, examination, medical decision making process, and medical care plan development were reviewed and approved by the faculty preceptor. The faculty preceptor is aware and concurs with the plan as stated in the body of this note and will attest to such by his/her cosignature. PRANEETH CORTEZ S-III Apr 17, 2019 11:57
[2019-04-17 11:58] LABS: MAGNESIUM LEVEL 1.6 MG/DL (1.8-2.4); PHOSPHORUS LEVEL 6.4 MG/DL (2.5-4.9)
[2019-04-17] MEDS ORDERED: CALCIUM GLUCONATE 1,000 MG in D5W MINI-BAG PLUS 100 ML IV ONE ×3 (12:00→15:45)
[2019-04-17 12:08] VITALS: BP 165/80
[2019-04-17 12:08] LABS: TOTAL 25(OH) VITAMIN D 48.2 NG/ML (30.0-100.0)
[2019-04-17] MEDS ORDERED: SLF 3 ML SYR IV PRN (13:15)
[2019-04-17] MEDS: CALCITRIOL 0.25 MCG CAP (S0169) PO SCH ×2 (13:15→20:13)
[2019-04-17] MEDS ORDERED: PILL CUTTER 1 EACH XX PRN (13:30)
[2019-04-17] MEDS ORDERED: MAG SULF 1GM/100ML (MAG RUN) 1 GM in IV 1 EA IV ONE (14:00)
[2019-04-17] MEDS: SLF 3 ML SYR IV SCH ×2 (14:34→22:00)
[2019-04-17] MEDS: MAGNESIUM OXIDE 400 MG TAB (MAG-OX) PO SCH ×2 (14:34→20:13)
[2019-04-17 16:00] VITALS: BP 127/84
[2019-04-17] MEDS: CALCIUM/VITAMIN D 500 MG TAB PO SCH ×2 (17:00→20:13)
[2019-04-17 20:00] VITALS: BP 148/90
[2019-04-17] MEDS: OMEPRAZOLE 20 MG CAP PO SCH (20:12)
[2019-04-17] MEDS: CETIRIZINE (ZyrTEC) 10 MG TAB PO SCH (20:13)
[2019-04-18] VITALS: BP 119/75
[2019-04-18 04:00] VITALS: BP 146/87
[2019-04-18 05:02] LABS: HEMATOCRIT 35.9 % (36.0-47.0); HEMOGLOBIN 11.8 g/dl (12.0-15.5); MEAN CORPUSCULAR HEMOGLOBIN 28.4 pg (27.0-33.0); MEAN CORPUSCULAR HGB CONC 32.9 g/dl (32.0-36.5); MEAN CORPUSCULAR VOLUME 86.3 fl (80.0-96.0); PLATELET COUNT, AUTOMATED 217 10^3/uL (150-450); RED BLOOD COUNT 4.16 10^6/uL (4.00-5.40); WHITE BLOOD COUNT 6.4 10^3/uL (4.0-10.0)
[2019-04-18] MEDS: SLF 3 ML SYR IV SCH ×3 (05:09→21:47)
[2019-04-18 05:24] LABS: BLOOD UREA NITROGEN 15 MG/DL (7-18); CALCIUM LEVEL 8.3 MG/DL (8.5-10.1); CARBON DIOXIDE LEVEL 28 MEQ/L (21-32); CHLORIDE LEVEL 105 MEQ/L (98-107); CREATININE FOR GFR 0.92 MG/DL (0.55-1.30); GLOMERULAR FILTRATION RATE > 60.0 (>60); GLUCOSE, FASTING 89 MG/DL (70-100); SODIUM LEVEL 140 MEQ/L (136-145)
[2019-04-18] MEDS ORDERED: ONDANSETRON 4MG/2ML VIAL (J2405) IV ONE (05:30)
[2019-04-18 05:52] LABS: ALBUMIN 3.6 GM/DL (3.2-5.2)
[2019-04-18 08:00] VITALS: BP 138/98
[2019-04-18] MEDS: ENOXAPARIN 40 MG/0.4 ML SYRINGE (J1650) SC SCH (09:00)
--- NOTE | 2019-04-18 09:53 | ECGEPIP ---
[facility] - ED Test Date: 2019-04-17 Pat Name: OLIVERIO THOMAS Department: Room: [place] [address] Gender: Female Clerical Coordinator: : 1990 Requested By: SHEILA Wyatt Order Number: [id number] Reading MD: Randi Almanza Measurements Intervals [place] Rate: 54 P: 8 AL: 149 QRS: 15 QRSD: 81 T: 24 QT: 444 QTc: 424 Interpretive Statements SINUS BRADYCARDIA WITH SINUS ARRHYTHMIA LOW QRS VOLTAGE IN PRECORDIAL LEADS NSTTW abnormalities SHORTER QTC COMPARED 08/20/18 Electronically Signed on 04-18-2019 9:53:05 EST by Randi Almanza
[2019-04-18] MEDS: CALCITRIOL 0.25 MCG CAP (S0169) PO SCH ×2 (09:57→21:47)
[2019-04-18] MEDS: MAGNESIUM OXIDE 400 MG TAB (MAG-OX) PO SCH ×2 (09:57→21:46)
[2019-04-18] MEDS: CALCIUM/VITAMIN D 500 MG TAB PO SCH ×3 (09:57→21:46)
[2019-04-18] MEDS: CALCIUM GLUCONATE 1,000 MG in D5W MINI-BAG PLUS 100 ML IV SCH ×2 (10:30→12:14)
[2019-04-18 12:00] VITALS: BP 134/82
[2019-04-18 16:00] VITALS: BP 138/72
[2019-04-18] MEDS ORDERED: CALCIUM GLUCONATE 1,000 MG in D5W MINI-BAG PLUS 100 ML IV ONE (17:00)
--- NOTE | 2019-04-18 18:07 | IPNPDOC ---
Date Seen The patient was seen on 04/18/19. Progress Note SUBJECTIVE: Luisa was seen and examined this morning while lying upright in bed. She reports no adverse events overnight, and that her facial and bilateral hand numbness has resolved. Patient's bilateral calf cramping has also resolved. She is eating and drinking without any incident. Patient denies fever, chills, night sweats, headache, lightheadedness, chest pain or pressure, shortness of breath, or abdominal pain. OBJECTIVE PHYSICAL EXAMINATION: VITAL SIGNS: Please see below. GENERAL: obese female who appears stated age. Well-developed, well- nourished. In no apparent acute distress. Alert and oriented 3. HEENT: Normocephalic, atraumatic. Anicteric and noninjected sclera. Neck is supple. Trachea is midline. CARDIOVASCULAR: Regular rate and regular rhythm. S1, S2 auscultated. No murmurs appreciated. RESPIRATORY: Clear to auscultation bilaterally with no appreciable wheezes, crackles or rhonchi. Speaking in full sentences, breathing on room air. ABDOMINAL: Soft, obese. Nontender, nondistended. Normoactive bowel sounds present all 4 quadrants. EXTREMITIES: No lower extremity edema, loading or cyanosis. 2+ radial and posterior tibial pulses. NEUROLOGICAL: Awake, alert and oriented 3. No focal neurologic deficits appreciated. Responds appropriately to questions commands. PSYCHOLOGICAL: Affect and mood appear appropriate LABORATORY DATA, IMAGING STUDIES, MICROBIOLOGY: Please see below. ASSESSMENT AND PLAN: Luisa Wilkerson is a 28-year-old female with pertinent past medical history of recurrent episodes of hypocalcemia secondary to hypoparathyroidism who presented to the ED complaining of bilateral calf muscle cramping with numbness and tingling of the lower extremities and face and has been admitted to the hospital for evaluation and treatment of hypocalcemia. Patient has received 5 IV doses of calcium gluconate to date with only moderate improvement of serum ionized calcium to 4.14.3. Patient is no longer symptomatic. As her numbness, paresthesias and muscle cramping have resolved, but due to only mild improvement. Serum ionized calcium, we will continue to infuse calcium gluconate and recheck labs. #Hypocalcemia secondary to hypoparathyroidism -Patient's presenting symptoms of her seizures, numbness, and muscle cramping have resolved -To date, patient has received five (5), 1 g calcium gluconate (10mL) in 100 mL D5 water run sat 110 mL/h. Serum ionized calcium is only moderately improved to between 4.1-4.3; has been 4.1 on successive measurements after IV repletion -At this stage, would like to see more significant improvement in her ionized serum calcium prior to discharge. Ultimate goal is to be above 4.5/closer to 5 - Patient on tele in the pcu for continuous monitoring. Her respiratory status will also be monitored. -On discharge, patient should increase daily oral calcium carbonate supplementation to 2400 mg 4 times a day and take oral magnesium oxide 200 mg daily for 7 days. Patient should not drink coffee, tea, or wine, which contains tannins with oral supplementation medication. #Fibromyalgia - Continue home naproxen 250 mg PO BID PRN pain #DVT prophylaxis: Subcutaneous enoxaparin DISPOSITION: Discharge home pending improvement in serum ionized calcium. VS, I&O, 24H, Fishbone Vital Signs/I&O Vital Signs Date Time Temp Pulse Resp B/P (MAP) Pulse Ox O2 Delivery O2 Flow Rate FiO2 04/18/19 16:00 98.0 70 16 138/72 (94) 99 Room Air I&O- Last 24 Hours up to 6 AM 04/18/19 06:00 Intake Total 890 ml Output Total 0 ml Balance 890 ml Laboratory Data 24H LABS Laboratory Tests 2 04/17/19 20:17: Whole Blood Ionized Calcium 3.7L, Magnesium Level 2.0 04/17/19 23:58: Whole Blood Ionized Calcium 3.8L 04/18/19 04:33: Whole Blood Ionized Calcium 4.1L, Nucleated Red Blood Cells % (auto) 0.0, Anion Gap 7L, Glomerular Filtration Rate > 60.0, Calcium Level 8.3L, Albumin 3.6 04/18/19 07:53: Whole Blood Ionized Calcium 4.1L 04/18/19 11:45: Whole Blood Ionized Calcium 4.3L 04/18/19 14:55: Whole Blood Ionized Calcium 4.1L CBC/BMP Laboratory Tests 04/18/19 04:33 RABIA NAIK D.O. Apr 18, 2019 18:07
[2019-04-18 20:00] VITALS: BP 138/71
[2019-04-18] MEDS: CETIRIZINE (ZyrTEC) 10 MG TAB PO SCH (21:46)
[2019-04-18] MEDS: OMEPRAZOLE 20 MG CAP PO SCH (21:47)
[2019-04-19] VITALS: BP 145/83
[2019-04-19 04:00] VITALS: BP 158/57
[2019-04-19] MEDS: SLF 3 ML SYR IV SCH (05:24)
[2019-04-19 05:28] LABS: IONIZED CALCIUM 4.1 MG/DL (4.5-5.3)
[2019-04-19 05:32] LABS: HEMATOCRIT 37.2 % (36.0-47.0); HEMOGLOBIN 12.3 g/dl (12.0-15.5); MEAN CORPUSCULAR HEMOGLOBIN 28.4 pg (27.0-33.0); MEAN CORPUSCULAR HGB CONC 33.1 g/dl (32.0-36.5); MEAN CORPUSCULAR VOLUME 85.9 fl (80.0-96.0); PLATELET COUNT, AUTOMATED 221 10^3/uL (150-450); RED BLOOD COUNT 4.33 10^6/uL (4.00-5.40); WHITE BLOOD COUNT 7.9 10^3/uL (4.0-10.0)
[2019-04-19 06:04] LABS: BLOOD UREA NITROGEN 17 MG/DL (7-18); CALCIUM LEVEL 7.8 MG/DL (8.5-10.1); CARBON DIOXIDE LEVEL 25 MEQ/L (21-32); CHLORIDE LEVEL 105 MEQ/L (98-107); CREATININE FOR GFR 0.97 MG/DL (0.55-1.30); GLOMERULAR FILTRATION RATE > 60.0 (>60); GLUCOSE, FASTING 88 MG/DL (70-100); MAGNESIUM LEVEL 1.9 MG/DL (1.8-2.4); POTASSIUM SERUM 4.2 MEQ/L (3.5-5.1); SODIUM LEVEL 140 MEQ/L (136-145)
--- NOTE | 2019-04-19 07:41 | IPNPDOC ---
Text Note Date of Service The patient was seen on 04/19/19. NOTE CANCELLED VS,Fishbone, I+O VS, Fishbone, I+O Laboratory Tests 04/19/19 05:21 Vital Signs Date Time Temp Pulse Resp B/P (MAP) Pulse Ox O2 Delivery O2 Flow Rate FiO2 04/19/19 04:00 96.8 64 16 158/57 (90) 98 Room Air I&O- Last 24 Hours up to 6 AM 04/19/19 06:00 Intake Total 790 ml Output Total 0 ml Balance 790 ml DHIRAJ BOJORQUEZ MD Apr 19, 2019 07:41
[2019-04-19 08:00] VITALS: BP 110/76
[2019-04-19] MEDS: CALCIUM/VITAMIN D 500 MG TAB PO SCH (08:01)
[2019-04-19] MEDS: CALCITRIOL 0.25 MCG CAP (S0169) PO SCH (08:01)
[2019-04-19] MEDS: ENOXAPARIN 40 MG/0.4 ML SYRINGE (J1650) SC SCH (08:02)
[2019-04-19] MEDS: MAGNESIUM OXIDE 400 MG TAB (MAG-OX) PO SCH (08:02)
[2019-04-19] MEDS ORDERED: MAGN250T11 PO (08:50)
--- NOTE | 2019-04-19 08:56 | DS.PDOC ---
Discharge Summary General Date of Admission Apr 17, 2019 at 10:18 Date of Discharge Apr 19 2019 Attending Physician: DHIRAJ BOJORQUEZ MD Discharge Summary Time of service 8:40 AM ADMITTING DIAGNOSES: Hypocalcemia secondary to hypoparathyroidism Fibromyalgia. Obesity with BMI of 39.9. DISCHARGE DIAGNOSES: Asymptomatic Hypocalcemia secondary to hypoparathyroidism -resolving Asymptomatic Bradycardia Fibromyalgia Obesity with BMI of 39.9. COMPLICATIONS/CHIEF COMPLAINT: Hypocalcemia,Hypoparathyroidism. HISTORY OF PRESENT ILLNESS: Per history of present illness Ms. Wilkerson" is a 28-year-old female with a significant past medical history of hypoparathyroidism and secondary hypocalc emia who presented to the [facility] emergency department complaining of calf muscle cramping and bilateral numbness/tingling of the face and calf muscle area. She began experiencing these symptoms 3 days ago, following a diarrheal disease of unknown etiology which has since resolved. She has baseline constipation with overflow diarrhea, but this was different from the persistent diarrhea that she was experiencing. She is now at the end of her menses, which she states normally induces tingling of her lips and perioral area which resolves at the end of menses. This menstrual period has not been different from her baseline. Pt has baseline urinary incontinence which has not changed. Pt is currently experiencing raspiness of her voice which she also stated is normal for one of her episodes of hypocalcemia per muscle spasm. She denies dysphagia at this time, but states that she has had dysphagia and sensation of her throat closing up during previous episodes. Pt has not had any known exposures to toxins. Patient does not have a history of radiation exposure to the neck, kidney stones, tuberculosis, or complications/toxin exposure while her mother was with her. Pt had been hospitalized at least every 3-4 months for episodes of hypocalcemia between the ages of 20 and 25. Her last hospitalization for hypocalcemia was in 2018. Pt states that her symptoms during this presentation have been consistent with her former hospitalizations. She is felt that her hypoparathyroidism has been well controlled during the interim. Patient follows with the [facility] for ongoing care of hypoparathyroidism. She is on outpatient scheduled calcium and calcitriol supplementation. She does not currently have a primary care physician." HOSPITAL COURSE: Shortly after receiving the first infusion of calcium. The patient's paresthesias and muscle cramps resolved. She received several doses of IV calcium gluconate along with calcium with vitamin D. She is noted to have transient bradycardia on telemetry with the last episode being on the morning of April 18 at around 3:30 in the morning. The patient denies having any awareness of episodes of bradycardia overnight. On the morning of her ionized calcium was still 4.1. Because of financial reasons the patient requested to be discharge home today. Unfortunately, her PCP has retired; I instructed her to return to the ER in one week to have her ionized calcium rechecked. I also instructed her to follow-up with an automotive finance manager within the next month or so. She was discharged with scripts for calcitriol, calcium with vitamin D along with magnesium. DISCHARGE MEDICATIONS: Please see below. ALLERGIES: Please see below. PHYSICAL EXAMINATION ON DISCHARGE: VITAL SIGNS: Please see below. GENERAL: Well-nourished, well-developed, not in apparent distress HEENT: Normocephalic, atraumatic. Mucous membranes moist and pink. Negative [place] sign CARDIOVASCULAR EXAMINATION: Regular rate and rhythm. No murmurs, rubs or gallops RESPIRATORY EXAMINATION: To auscultation bilaterally EXTREMITIES: Range of motion intact in all 4 extremities. Gait is normal PSYCHIATRIC EXAMINATION: Alert and oriented to person, place and time, able to understand and follow commands LABORATORY DATA: Please see below. PROGNOSIS: Fair ACTIVITY: [As tolerated]. DIET: Regular DISCHARGE PLAN: See above DISPOSITION: . DISCHARGE INSTRUCTIONS: 1. Return to the ER in one week to have calcium rechecked 2. Follow-up with automotive finance manager within the next month or so 3. Take calcitriol, calcium, vitamin D, and magnesium ITEMS TO FOLLOWUP ON ON OUTPATIENT: 1. Ionized calcium DISCHARGE CONDITION: [Stable]. TIME SPENT ON DISCHARGE: approx 20 minutes. Vital Signs/I&Os Vital Signs Date Time Temp Pulse Resp B/P (MAP) Pulse Ox O2 Delivery O2 Flow Rate FiO2 04/19/19 08:00 96.9 65 18 110/76 (87) 99 Room Air I&O- Last 24 Hours up to 6 AM 04/19/19 06:00 Intake Total 790 ml Output Total 0 ml Balance 790 ml Laboratory Data Labs 24H Laboratory Tests 2 04/18/19 11:45: Whole Blood Ionized Calcium 4.3L 04/18/19 14:55: Whole Blood Ionized Calcium 4.1L 04/19/19 05:21: Whole Blood Ionized Calcium 4.1L, Nucleated Red Blood Cells % (auto) 0.0, Anion Gap 10, Glomerular Filtration Rate > 60.0, Calcium Level 7.8L, Magnesium Level 1.9 CBC/BMP Laboratory Tests 04/19/19 05:21 Discharge Medications Scheduled Calcitriol (Rocaltrol) 0.5 Mcg Capsule, 0.5 MCG PO BID, (Reported) Calcium Carbonate/Vitamin D3 (Calcium 600-Vit D3 800 Tablet) 1 Tab Tab, 3 TAB PO TID, (Reported) Cetirizine HCl (Cetirizine HCl) 10 Mg Tab, 10 MG PO QHS, (Reported) Magnesium Oxide (Magnesium Oxide) 250 Mg Tablet, 250 MG PO DAILY Omeprazole (Omeprazole) 20 Mg Cap, 20 MG PO QHS, (Reported) Scheduled PRN Docusate Sodium (Stool Softener) 100 Mg Cap, 100 MG PO QHS PRN for CONSTIPATION, (Reported) Naproxen (Naproxen) 250 Mg Tab, 250 MG PO BID PRN for PAIN, (Reported) Allergies Coded Allergies: Penicillins (Verified Allergy, Unknown, RASH, 04/17/19) acetazolamide (Verified Allergy, Unknown, MUSCLE CONTRACTIONS, 04/17/19) codeine (Verified Adverse Reaction, Mild, VOMIT, 10/28/18) hydrocodone (Verified Adverse Reaction, Mild, VOMIT, 10/28/18) DHIRAJ BOJORQUEZ MD Apr 19, 2019 08:56
[2019-04-19] MEDS ORDERED: CALCIUM GLUCONATE 1,000 MG in D5W MINI-BAG PLUS 100 ML IV ONE (09:00)
== END 2019-04-19 09:58 | disposition home or self-care (01) | DRG 425 ==
LOC: M ED 08:22 → M ED INP 10:18 → ENRESERV 11:51 → M PCU 12:08
PROVIDERS: ADMIT Internal Medicine; ATTEND Internal Medicine
DX: E83.51 Hypocalcemia (principal); F32.9 Major depressive disorder, single episode, unspecified; M79.7 Fibromyalgia; F41.9 Anxiety disorder, unspecified; E66.9 Obesity, unspecified; Z68.39 Body mass index [BMI] 39.0-39.9, adult; R32 Unspecified urinary incontinence; R76.0 Raised antibody titer; K80.20 Calculus of gallbladder without cholecystitis without obstruction; Z79.899 Other long term (current) drug therapy; Z88.0 Allergy status to penicillin; Z88.6 Allergy status to analgesic agent; Z88.4 Allergy status to anesthetic agent; Z88.8 Allergy status to other drugs, medicaments and biological substances; R00.1 Bradycardia, unspecified

== ENCOUNTER → 2019-07-16 | Outpatient (REF) | payer BC ==
[~2019-07-16] MED LIST changes: +ALPR0.5T3 PO; +CLIN150C14 PO; +IBUP-1114 PO; +MAGN250T11 PO
== END ==
LOC: M SFHCPLAZ 16:43
DX: M32.9 Systemic lupus erythematosus, unspecified (principal); D50.9 Iron deficiency anemia, unspecified; E20.0 Idiopathic hypoparathyroidism; Z13.1 Encounter for screening for diabetes mellitus

== ENCOUNTER 2019-07-17 13:32 | Emergency (ER) | payer BC ==
[~2019-07-17] VITALS: Ht 165.1 cm; Wt 121.4 kg
[~2019-07-17 13:32] MED LIST changes: -ALPR0.5T3 PO; -CLIN150C14 PO; -IBUP-1114 PO
[2019-07-17] MEDS ORDERED: ALPR0.5T3 PO (13:40)
[2019-07-17] MEDS ORDERED: IBUP-1114 PO (13:40)
[2019-07-17] MEDS ORDERED: CLIN150C14 PO (13:40)
[2019-07-17 14:50] LABS: BASO % 0.5 % (0.0-1.0); EOS # 0.3 10^3/uL (0.0-0.5); EOS % 3.6 % (0.0-3.0); HEMATOCRIT 36.3 % (36.0-47.0); LYMPH % 23.9 % (24.0-44.0); MEAN CORPUSCULAR HEMOGLOBIN 28.2 pg (27.0-33.0); MEAN CORPUSCULAR HGB CONC 33.1 g/dl (32.0-36.5); MEAN CORPUSCULAR VOLUME 85.2 fl (80.0-96.0); MONO # 0.4 10^3/uL (0.0-0.8); MONO % 5.2 % (0.0-5.0); NEUTROPHILS # 5.5 10^3/uL (1.5-8.5); NEUTROPHILS % 66.4 % (36.0-66.0); PLATELET COUNT, AUTOMATED 242 10^3/uL (150-450); RED BLOOD COUNT 4.26 10^6/uL (4.00-5.40); WHITE BLOOD COUNT 8.2 10^3/uL (4.0-10.0)
[2019-07-17] MEDS ORDERED: CLEO300C2 PO (15:16)
[2019-07-17] MEDS ORDERED: PRED20TA PO (15:16)
[2019-07-17 15:24] VITALS: BP 148/87
== END 2019-07-17 15:24 | disposition home or self-care (01) ==
LOC: M ED 13:32
DX: K04.7 Periapical abscess without sinus (principal); Z79.899 Other long term (current) drug therapy; Z88.0 Allergy status to penicillin; Z88.5 Allergy status to narcotic agent; Z88.8 Allergy status to other drugs, medicaments and biological substances

== ENCOUNTER 2020-01-09 23:01 | Emergency (ER) | payer MEDICARE, OTHER ==
[~2020-01-09] VITALS: Ht 165.1 cm; Wt 122.7 kg
[~2020-01-09 23:01] MED LIST changes: +ALPR0.5T3 PO; -CALC600T3 PO; +CALC600T86 PO; +CLIN150C14 PO; +IBUP-1114 PO
[2020-01-09] MEDS ORDERED: NS 1,000 ML IV ONE (23:45)
[2020-01-09] MEDS ORDERED: METOCLOPRAMIDE INJ 10MG/2ML VIAL (J2765 PER 1) IV ONE (23:45)
[2020-01-09] MEDS ORDERED: KETOROLAC 30 MG/ML 1ML VIAL IV ONE (23:45)
[2020-01-10 00:21] LABS: BASO % 0.3 % (0.0-1.0); EOS # 0.2 10^3/uL (0.0-0.5); EOS % 2.2 % (0.0-3.0); HEMATOCRIT 34.8 % (36.0-47.0); HEMOGLOBIN 11.2 g/dl (12.0-15.5); LYMPH # 2.7 10^3/uL (1.5-5.0); LYMPH % 24.7 % (24.0-44.0); MEAN CORPUSCULAR HEMOGLOBIN 27.7 pg (27.0-33.0); MEAN CORPUSCULAR HGB CONC 32.2 g/dl (32.0-36.5); MEAN CORPUSCULAR VOLUME 85.9 fl (80.0-96.0); MONO # 0.6 10^3/uL (0.0-0.8); MONO % 5.7 % (0.0-5.0); NEUTROPHILS # 7.1 10^3/uL (1.5-8.5); NEUTROPHILS % 66.4 % (36.0-66.0); PLATELET COUNT, AUTOMATED 250 10^3/uL (150-450); RED BLOOD COUNT 4.05 10^6/uL (4.00-5.40); WHITE BLOOD COUNT 10.7 10^3/uL (4.0-10.0)
--- NOTE | 2020-01-10 00:50 | REPVR ---
PROCEDURE INFORMATION: Exam: XR Chest, 2 Views Exam date and time: 01/09/2020 12:37 AM Age: 29 years old Clinical indication: Other: Cp TECHNIQUE: Imaging protocol: XR of the chest Views: 2 views. COMPARISON: CR Chest, 2 view PA, Lat 02/17/2019 9:34 AM FINDINGS: Lungs: Unremarkable. No consolidation. Pleural space: Unremarkable. No pleural effusion. No pneumothorax. Heart/Mediastinum: Unremarkable. No cardiomegaly. Bones/joints: Unremarkable. IMPRESSION: No acute infiltrates. Electronically signed by: Thaddeus Self On 01/10/2020 00:49:54 AM
[2020-01-10 00:51] LABS: ALBUMIN 3.5 GM/DL (3.2-5.2); ALT/SGPT 27 U/L (12-78); BILIRUBIN,DIRECT < 0.1 MG/DL (0.0-0.2); BILIRUBIN,TOTAL 0.2 MG/DL (0.2-1.0); CALCIUM LEVEL 6.6 MG/DL (8.5-10.1); CK-MB VALUE MASS < 1.0 NG/ML (<3.6); CPK CREATINE PHOSPHOKINASE 175 U/L (26-192); LIPASE 129 U/L (73-393); MAGNESIUM LEVEL 1.8 MG/DL (1.8-2.4); MB/CK RELATIVE INDEX 0.57 (< OR =4); PHOSPHORUS LEVEL 5.4 MG/DL (2.5-4.9); TOTAL PROTEIN 6.7 GM/DL (6.4-8.2); TROPONIN I < 0.02 NG/ML (< 0.10)
[2020-01-10] MEDS ORDERED: CALC600T86 PO (01:40)
[2020-01-10] MEDS ORDERED: CALCIUM CARBONATE 500 MG CHEW U/D PO ONE (01:45)
[2020-01-10 01:53] VITALS: BP 107/67
--- NOTE | 2020-01-10 07:14 | ECGEPIP ---
[facility] - ED Test Date: 2020-01-09 Pat Name: OLIVERIO THOMAS Department: Room: - Gender: Female Manager Ambulatory: thelma galvan : 1990 Requested By: ELISE HANSEN Order Number: [id number] Reading MD: Randi Almanza Measurements Intervals [place] Rate: 84 P: 22 OR: 145 QRS: 29 QRSD: 84 T: 52 QT: 405 QTc: 480 Interpretive Statements SINUS RHYTHM LOW QRS VOLTAGE IN PRECORDIAL LEADS NSTTW abnormalities INCREASED RATE 04/17/19 Electronically Signed on 01-10-2020 7:14:12 EDT by Randi Almanza
== END 2020-01-10 01:59 | disposition home or self-care (01) ==
LOC: M ED 23:01
DX: R51.9 Headache, unspecified (principal); R20.2 Paresthesia of skin; E83.51 Hypocalcemia; E20.9 Hypoparathyroidism, unspecified; R07.89 Other chest pain; I10 Essential (primary) hypertension; K21.9 Gastro-esophageal reflux disease without esophagitis; J45.909 Unspecified asthma, uncomplicated; M79.7 Fibromyalgia; Z79.899 Other long term (current) drug therapy; Z88.0 Allergy status to penicillin; Z88.5 Allergy status to narcotic agent; Z88.8 Allergy status to other drugs, medicaments and biological substances
CPT/HCPCS: 71046; 80047; 80076; 82306; 82310; 82330; 82550; 82553; 83690; 83735; 84100; 84484; 85025; 85379; 93005; 96361; 96374; 96375; 99284; J1885; J2765

== ENCOUNTER → 2020-02-22 | Outpatient (CLI) | payer OTHER ==
[2020-02-22 17:33] LABS: BASO % 0.4 % (0.0-1.0); EOS # 0.2 10^3/uL (0.0-0.5); EOS % 1.8 % (0.0-3.0); HEMATOCRIT 35.7 % (36.0-47.0); HEMOGLOBIN 11.7 g/dl (12.0-15.5); LYMPH # 2.7 10^3/uL (1.5-5.0); LYMPH % 25.9 % (24.0-44.0); MEAN CORPUSCULAR HEMOGLOBIN 27.8 pg (27.0-33.0); MEAN CORPUSCULAR HGB CONC 32.8 g/dl (32.0-36.5); MEAN CORPUSCULAR VOLUME 84.8 fl (80.0-96.0); MONO # 0.6 10^3/uL (0.0-0.8); MONO % 5.4 % (0.0-5.0); NEUTROPHILS # 6.9 10^3/uL (1.5-8.5); NEUTROPHILS % 65.6 % (36.0-66.0); PLATELET COUNT, AUTOMATED 289 10^3/uL (150-450); RED BLOOD COUNT 4.21 10^6/uL (4.00-5.40); WHITE BLOOD COUNT 10.5 10^3/uL (4.0-10.0)
[2020-02-22 17:40] LABS: APPEARANCE, URINE CLEAR (CLEAR); BACTERIA, URINE AUTO NEGATIVE (NEGATIVE); BILIRUBIN, URINE AUTO NEGATIVE (NEGATIVE); BLOOD, URINE BLOOD NEGATIVE (NEGATIVE); COLOR, URINE YELLOW (YELLOW); GLUCOSE, URINE (UA) AUTO NEGATIVE (NEGATIVE); KETONE, URINE AUTO NEGATIVE (NEGATIVE); LEUKOCYTE ESTERASE, URINE AUTO NEGATIVE (NEGATIVE); NITRITE, URINE AUTO NEGATIVE (NEGATIVE); PROTEIN, URINE AUTO NEGATIVE (NEGATIVE); RBC, URINE AUTO 0 /HPF (0-3); SPECIFIC GRAVITY URINE AUTO 1.018 (1.002-1.035); SQUAMOUS EPITHELIAL CELL UR AU 0 /HPF (0-6); UROBILINOGEN, URINE AUTO 0.2 mg/dL (0.0-2.0); WBC, URINE AUTO 1 /HPF (0-3)
[2020-02-22 17:54] LABS: ALBUMIN 3.8 GM/DL (3.2-5.2); ALT/SGPT 38 U/L (12-78); BILIRUBIN,TOTAL 0.3 MG/DL (0.2-1.0); BLOOD UREA NITROGEN 16 MG/DL (7-18); C REACTIVE PROTEIN QUANTITATIV 1.34 MG/DL (0.00-0.30); CALCIUM LEVEL 7.9 MG/DL (8.5-10.1); CARBON DIOXIDE LEVEL 28 MEQ/L (21-32); CHLORIDE LEVEL 106 MEQ/L (98-107); COMPLEMENT C3 150 MG/DL (90-180); COMPLEMENT C4 32 MG/DL (10-40); CREATININE FOR GFR 1.02 MG/DL (0.55-1.30); FERRITIN 26 NG/ML (8-252); GLOMERULAR FILTRATION RATE > 60.0 (>60); GLUCOSE, FASTING 78 MG/DL (70-100); IRON (FE) 43 UG/DL (50-170); MAGNESIUM LEVEL 1.9 MG/DL (1.8-2.4); PERCENT SATURATION 13.2 % (13.2-45.0); PHOSPHORUS LEVEL 5.3 MG/DL (2.5-4.9); POTASSIUM SERUM 3.9 MEQ/L (3.5-5.1); SODIUM LEVEL 140 MEQ/L (136-145); TOTAL IRON BINDING CAPACITY 325 UG/DL (250-450); TOTAL PROTEIN 6.9 GM/DL (6.4-8.2)
[2020-02-22 17:56] LABS: ERYTHROCYTE SEDIMENTATION RATE 24 mm/hr (0-20)
[2020-02-22 18:28] LABS: PTH INTACT < 6.3 PG/ML (18.5-88.0); TOTAL 25(OH) VITAMIN D 40.7 NG/ML (30.0-100.0)
[2020-02-25 12:07] LABS: ANTI DS-DNA AB Negative (Negative); TRANSFERRIN 254 mg/dL (192-364)
== END ==
LOC: M LAB 16:49
PROVIDERS: ATTEND Hospitalist
DX: M32.9 Systemic lupus erythematosus, unspecified (principal); D50.9 Iron deficiency anemia, unspecified

== ENCOUNTER 2020-06-06 18:53 | Emergency (ER) | payer OTHER, SELFPAY ==
[~2020-06-06] VITALS: Ht 165.1 cm; Wt 127.9 kg
[~2020-06-06 18:53] MED LIST changes: -CLIN150C14 PO; +CLIN150C15 PO; +NAPR-849 PO; -NAPR250T4 PO
[2020-06-06 21:23] LABS: BASO % 0.3 % (0.0-1.0); EOS # 0.2 10^3/uL (0.0-0.5); EOS % 1.2 % (0.0-3.0); HEMATOCRIT 40.2 % (36.0-47.0); HEMOGLOBIN 12.7 g/dl (12.0-15.5); LYMPH # 2.6 10^3/uL (1.5-5.0); MEAN CORPUSCULAR HEMOGLOBIN 26.6 pg (27.0-33.0); MEAN CORPUSCULAR HGB CONC 31.6 g/dl (32.0-36.5); MEAN CORPUSCULAR VOLUME 84.1 fl (80.0-96.0); MONO # 0.8 10^3/uL (0.0-0.8); MONO % 5.2 % (2.0-8.0); NEUTROPHILS # 11.8 10^3/uL (1.5-8.5); NEUTROPHILS % 75.9 % (36.0-66.0); PLATELET COUNT, AUTOMATED 319 10^3/uL (150-450); RED BLOOD COUNT 4.78 10^6/uL (4.00-5.40); WHITE BLOOD COUNT 15.6 10^3/uL (4.0-10.0)
[2020-06-06 21:50] LABS: ALBUMIN 4.1 GM/DL (3.2-5.2); ALT/SGPT 37 U/L (12-78); BILIRUBIN,DIRECT < 0.1 MG/DL (0.0-0.2); BILIRUBIN,TOTAL 0.4 MG/DL (0.2-1.0); LIPASE 112 U/L (73-393); TOTAL PROTEIN 7.5 GM/DL (6.4-8.2)
[2020-06-06] MEDS ORDERED: ISOVUE-370 76% 100ML VIAL As Ordered ONE (22:12)
[2020-06-06] MEDS ORDERED: ONDANSETRON 4MG/2ML VIAL IV ONE (22:40)
--- NOTE | 2020-06-06 23:25 | REPVR ---
PROCEDURE INFORMATION: Exam: CT Abdomen And Pelvis With Contrast Exam date and time: 06/06/2020 10:36 PM Age: 30 years old Clinical indication: Abdominal pain; Generalized TECHNIQUE: Imaging protocol: Computed tomography of the abdomen and pelvis with contrast. Radiation optimization: All CT scans at this facility use at least one of these dose optimization techniques: automated exposure control; mA and/or kV adjustment per patient size (includes targeted exams where dose is matched to clinical indication); or iterative reconstruction. Contrast material: ISOVUE 370; Contrast volume: 100 ml; Contrast route: INTRAVENOUS (IV); COMPARISON: CT ABD PELVIS WITH CONTRAST 03/06/2014 9:33 AM FINDINGS: Liver: Normal. No mass. Gallbladder and bile ducts: Cholecystectomy clips. Pancreas: Normal. No ductal dilation. Spleen: Spleen measures 13 cm and is mildly enlarged. Adrenal glands: Normal. No mass. Kidneys and ureters: Normal. No hydronephrosis. Stomach and bowel: Unremarkable. No obstruction. No mucosal thickening. Appendix: No evidence of appendicitis. Intraperitoneal space: Unremarkable. No free air. No significant fluid collection. Vasculature: Unremarkable. No abdominal aortic aneurysm. Lymph nodes: Unremarkable. No enlarged lymph nodes. Urinary bladder: Unremarkable as visualized. Reproductive: Right ovary measures 2.8 cm. Bones/joints: Unremarkable. No acute fracture. Soft tissues: Unremarkable. Other findings: Nabothian cyst measuring 2 cm. IMPRESSION: No acute abdominal or pelvic abnormality. Mild splenomegaly. Electronically signed by: Chino Isaac On 06/06/2020 23:25:39 PM
[2020-06-07] MEDS ORDERED: CIPR-249 PO ×2 (00:11→00:17)
[2020-06-07] MEDS ORDERED: FLAG500T PO (00:15)
[2020-06-07] MEDS ORDERED: CIPROFLOXACIN 500MG TABLET PO ONE (00:25)
[2020-06-07] MEDS ORDERED: metroNIDAZOLE (FLAGYL) 500MG TABLET PO ONE (00:25)
[2020-06-07 00:30] VITALS: BP 132/79
== END 2020-06-07 00:40 | disposition home or self-care (01) ==
LOC: M ED 18:53
DX: K51.811 Other ulcerative colitis with rectal bleeding (principal); K52.9 Noninfective gastroenteritis and colitis, unspecified; M54.30 Sciatica, unspecified side; K92.2 Gastrointestinal hemorrhage, unspecified; I10 Essential (primary) hypertension; K21.9 Gastro-esophageal reflux disease without esophagitis; E20.9 Hypoparathyroidism, unspecified; M79.7 Fibromyalgia; J45.909 Unspecified asthma, uncomplicated; J44.9 Chronic obstructive pulmonary disease, unspecified; N93.9 Abnormal uterine and vaginal bleeding, unspecified; Z87.448 Personal history of other diseases of urinary system; F17.200 Nicotine dependence, unspecified, uncomplicated; Z79.899 Other long term (current) drug therapy; Z88.0 Allergy status to penicillin; Z88.8 Allergy status to other drugs, medicaments and biological substances; Z88.5 Allergy status to narcotic agent
CPT/HCPCS: 74177; 80047; 80076; 81001; 83690; 84702; 85025; 96374; 99284; J2405; Q9967

== ENCOUNTER → 2020-09-28 | Outpatient (REF) | payer OTHER ==
[~2020-09-28] MED LIST changes: +CALC600T60 PO; +CIPR-249 PO; +FLAG500T PO
[2020-09-28 17:53] LABS: BASO % 0.3 % (0.0-1.0); EOS # 0.2 10^3/uL (0.0-0.5); HEMATOCRIT 35.3 % (36.0-47.0); HEMOGLOBIN 11.5 g/dl (12.0-15.5); LYMPH # 1.9 10^3/uL (1.5-5.0); LYMPH % 19.8 % (24.0-44.0); MEAN CORPUSCULAR HEMOGLOBIN 27.4 pg (27.0-33.0); MEAN CORPUSCULAR HGB CONC 32.6 g/dl (32.0-36.5); MEAN CORPUSCULAR VOLUME 84.2 fl (80.0-96.0); MONO # 0.4 10^3/uL (0.0-0.8); MONO % 4.3 % (2.0-8.0); NEUTROPHILS # 7.1 10^3/uL (1.5-8.5); NEUTROPHILS % 73.1 % (36.0-66.0); PLATELET COUNT, AUTOMATED 262 10^3/uL (150-450); RED BLOOD COUNT 4.19 10^6/uL (4.00-5.40); WHITE BLOOD COUNT 9.7 10^3/uL (4.0-10.0)
[2020-09-28 18:21] LABS: ALBUMIN 3.6 GM/DL (3.2-5.2); ALT/SGPT 42 U/L (12-78); BILIRUBIN,TOTAL 0.3 MG/DL (0.2-1.0); BLOOD UREA NITROGEN 14 MG/DL (7-18); CALCIUM LEVEL 6.7 MG/DL (8.5-10.1); CARBON DIOXIDE LEVEL 25 MEQ/L (21-32); CHLORIDE LEVEL 106 MEQ/L (98-107); CHOLESTEROL LEVEL 160 MG/DL (<200); CHOLESTEROL RISK RATIO 6.666 (<5); CREATININE FOR GFR 0.73 MG/DL (0.55-1.30); GLOMERULAR FILTRATION RATE > 60.0 (>60); GLUCOSE, FASTING 105 MG/DL (70-100); HDL CHOLESTEROL 24 MG/DL (>40); LDL CHOLESTEROL 66 MG/DL (<100); NON-HDL-C 136 MG/DL; POTASSIUM SERUM 3.8 MEQ/L (3.5-5.1); SODIUM LEVEL 142 MEQ/L (136-145); TOTAL PROTEIN 6.6 GM/DL (6.4-8.2); TRIGLYCERIDES LEVEL 351 MG/DL (<150)
== END ==
LOC: M LAB REF 17:24
PROVIDERS: ATTEND Nurse Practitioner Family
DX: K51.019 Ulcerative (chronic) pancolitis with unspecified complications (principal)

== ENCOUNTER → 2020-10-18 | Outpatient (REF) | payer OTHER ==
[2020-10-18 18:36] LABS: BASO % 0.5 % (0.0-1.0); EOS # 0.2 10^3/uL (0.0-0.5); EOS % 2.7 % (0.0-3.0); HEMATOCRIT 35.6 % (36.0-47.0); HEMOGLOBIN 11.7 g/dl (12.0-15.5); LYMPH # 1.7 10^3/uL (1.5-5.0); LYMPH % 21.2 % (24.0-44.0); MEAN CORPUSCULAR HEMOGLOBIN 27.9 pg (27.0-33.0); MEAN CORPUSCULAR HGB CONC 32.9 g/dl (32.0-36.5); MEAN CORPUSCULAR VOLUME 84.8 fl (80.0-96.0); MONO # 0.5 10^3/uL (0.0-0.8); MONO % 6.3 % (2.0-8.0); NEUTROPHILS # 5.6 10^3/uL (1.5-8.5); NEUTROPHILS % 68.8 % (36.0-66.0); PLATELET COUNT, AUTOMATED 270 10^3/uL (150-450); WHITE BLOOD COUNT 8.2 10^3/uL (4.0-10.0)
[2020-10-18 19:05] LABS: ALBUMIN 3.6 GM/DL (3.2-5.2); ALT/SGPT 46 U/L (12-78); BILIRUBIN,TOTAL 0.3 MG/DL (0.2-1.0); BLOOD UREA NITROGEN 13 MG/DL (7-18); CALCIUM LEVEL 7.4 MG/DL (8.5-10.1); CARBON DIOXIDE LEVEL 26 MEQ/L (21-32); CHLORIDE LEVEL 109 MEQ/L (98-107); CREATININE FOR GFR 0.84 MG/DL (0.55-1.30); GLOMERULAR FILTRATION RATE > 60.0 (>60); GLUCOSE, FASTING 80 MG/DL (70-100); POTASSIUM SERUM 3.9 MEQ/L (3.5-5.1); SODIUM LEVEL 143 MEQ/L (136-145); TOTAL PROTEIN 6.7 GM/DL (6.4-8.2)
== END ==
LOC: M LAB REF 16:27
PROVIDERS: ATTEND Nurse Practitioner Family
DX: E21.3 Hyperparathyroidism, unspecified (principal)

== ENCOUNTER 2021-01-10 18:22 | Emergency (ER) | payer OTHER ==
[~2021-01-10] VITALS: Ht 165.1 cm; Wt 132.4 kg
[2021-01-10 18:22] VITALS: BP 139/85
[~2021-01-10 18:22] MED LIST changes: -CLIN150C15 PO; +CLIN150C17 PO
== END 2021-01-10 20:38 | disposition left against medical advice (07) ==
LOC: M ED 18:22
DX: Z53.21 Procedure and treatment not carried out due to patient leaving prior to being seen by health care provider (principal)

== ENCOUNTER → 2021-01-27 | Outpatient (REF) | payer OTHER | LOC: M LAB REF 14:01 | PROVIDERS: ATTEND Physician Assistant | DX: R50.9 Fever, unspecified (principal); R05.9 Cough, unspecified; R09.81 Nasal congestion ==

== ENCOUNTER → 2021-02-18 | Outpatient (REF) | payer OTHER | LOC: M LAB REF 12:28 | PROVIDERS: ATTEND Physician Assistant Medical | DX: R50.9 Fever, unspecified (principal) ==

== ENCOUNTER 2021-02-24 15:21 | Emergency (ER) | payer OTHER ==
[~2021-02-24] VITALS: Ht 165.1 cm; Wt 125.5 kg
--- OUTSIDE RECORDS SUMMARY | 2021-02-24 15:29 | CCD ---
Author Organization Unknown Address [address] [place] [address] Phone [phone] Care Team Providers Care Newspaper Inserter Name Role Phone [facility] 2 [phone] Allergies Code Code System Name Reaction Severity Status Onset 2670 RxNorm Codeine Active 07/15/2019 Penicillin Active 0 Notes: CODIENE Medications Name Status Start Date Stop Date alprazolam 0.5 mg tablet TAKE 1 TABLET BY MOUTHTWICE DAILY IF NEEDED. Active Not available calcitriol 0.5 mcg capsule Active Not a vailable calcium Active Not available calcium carbonate-vitamin D3 600 mg (1,5 00 mg)-800 unit tablet Take 1 tablet 3 times a day by oral route with meals. Active Not available cefdinir 300 mg capsule TAKE 1 CAPSULE BY MOUTH EVERY 12 HOURS FOR 7 DAYS Completed 09/09/2020 ciprofloxacin 500 mg tablet TAKE 1 TABLET BY MOUTH TWICE A DAY FOR 7 DAYS Completed 09/09/2020 clindamycin HCl 150 mg capsule TAKE 1 CAPSULE BY MOUTH EVERY 6 HOURS UNTIL GONE. TAKE WITH FOOD. Completed 09/09/2020 clindamycin HCl 300 mg capsule TAKE 1 CAPSULE BY MOUTH FOUR TIMES A DAY Completed 09/09/2020 escitalopram 10 mg tablet TAKE 1 TABLET BY MOUTH EVERY DAY Completed 2020 fluticasone propionate 50 mcg/actuation nasal spray,suspension A ctive Not available ibuprofen 800 mg tablet Completed 09/27/19 21 metronidazole 500 mg tablet TAKE 1 TABLET BY MOUTH 3 TIMES A DAY FOR 7 DAYS Completed 09/09/2020 Milk of Magnesia 400 mg/5 mL oral suspension Completed 02/16/2021 polyethylene glycol 3350 17 gram/dose oral powder Completed 02/16/2021 prednisone 10 mg tablet TAKE 4 TABLETS BY MOUTH ONCE DAILY FOR 5 DAYS Completed 09/09/2020 Prilosec OTC Active Not available Zyrtec 10 mg capsule Take by oral route. 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 History Dental Caries on Smooth Surface Penetrating into Pulp Active 10/12/2019 History Hyperparathyroidism Active 09/28/2020 Ulcerative Colitis Active 09/28/2020 Body Mass Index 40+ - Severely Obese Active 09/28/2020 Patient Asked to Attend Active 09/28/2020 Procedures Date Name Performed by Cholecystectomy Information not avai lable Results Lab Results Date Name Specimen Result Interpretation Description Value Range Status Address 10/18/2020 CBC W/ Auto Diff Normal White Blood Count 8.2 10 4.0-10.0 10 [facility]: [address] [place] [address] Normal Red Blood Count 4.20 10 4.00-5.40 10 [facility]: [address] [place] [address] Low Hemoglobin 11.7 g/dL 12.0-15.5 g/dL [facility]: [address] [place] [address] Low Hematocrit 35.6 % 36.0-47.0 % [facility]: [address] [place] [address] Normal Mean Corpuscular Volume 84.8 fL 80.0 -96.0 fL [facility]: [address] [place] [address] Normal Mean Corpuscular Hemoglobin 27.9 pg 27.0-33.0 pg [facility]: [address] [place] [address] Normal Mean Corpuscular HGB Conc 32.9 g/dL 32.0-36.5 g/dL [facility]: [address] [place] [address] Normal Red Cell Distribution Width 13.6 % 1 1.5-14.5 % [facility]: [address] [place] [address] Normal Platelet Count, Automated 270 10 150 -450 10 [facility]: 0 [facility] High Neutrophils % 68.8 % 36.0-66.0 % [facility]: 0 [facility] Low Lymph % 21.2 % 24.0-44.0 % [facility]: [address] [facility] Normal [place] % 6.3 % 2.0-8.0 % [facility]: 0 [facility] Normal Eos % 2.7 % 0.0-3.0 % [facility]: [address] [facility] Normal Baso % 0.5 % 0.0-1.0 % [facility]: [address] [place] [address] Normal Immature Granulocyte % 0.5 % 0-3.0 % [facility]: [address] [place] [address] Normal Nucleated Red Blood Cell % 0.0 % 0- 0 % [facility]: 0 [facility] Normal Neutrophils # 5.6 10 1.5-8.5 10 [facility]: [address] [facility] Normal Lymph # 1.7 10 1.5-5.0 10 [facility]: 0 [facility] Normal [place] # 0.5 10 0.0-0.8 10 [facility]: [address] [place] [address] Normal Eos # 0.2 10 0.0-0.5 10 [facility]: [address] [facility] Normal Baso # 0.0 10 0.0-0.2 10 [facility]: [address] [place] [address] 10/18/2020 CMP, Serum or Plasma Blood venous Normal Glu cose, Fasting 80 mg/dL 70-100 mg/dL [facility] nter: 0 [facility] Blood venous Normal Blood Urea Nitrogen 13 mg/dL 7-18 mg/dL [facility]: [address] [place] [address] Blood venous Normal Creatinine for GFR 0.84 mg/dL 0.55-1.30 mg/dL [facility]: [address] [place] [address] Blood venous Normal Glomerular Filtration Rate > 60.0 >60 [facility]: 0 [facility] Blood venous Normal Sodium Level 143 mEq/L 136-14 5 mEq/L [facility]: [address] [place] [address] Blood venous Normal Potassium Serum 3.9 mEq/L 3.5 -5.1 mEq/L [facility]: [address] [place] [address] Blood venous High Chloride Level 109 mEq/L 98-1 07 mEq/L [facility]: [address] [facility] Blood venous Normal Carbon Dioxide Level 26 mEq/L 21-32 mEq/L [facility]: [address] [facility] Blood venous Normal Anion Gap 8 mEq/L 8-16 mEq/L [facility]: [address] [facility] Blood venous Low Calcium Level 7.4 mg/dL 8.5-1 0.1 mg/dL [facility]: [address] [facility] Blood venous Normal AST/SGOT 28 U/L 7-37 U/L [facility]: [address] [facility] Blood venous Normal ALT/SGPT 46 U/L 12-78 U/L [facility]: [address] [facility] Blood venous Normal Alkaline Phosphatase 65 U/L 4 5-117 U/L [facility]: [address] [facility] Blood venous Normal Bilirubin,total 0.3 mg/dL 0.2 -1.0 mg/dL [facility]: [address] [facility] Blood venous Normal Total Protein 6.7 gm/dL 6.4-8 .2 gm/dL [facility]: [address] [facility] Blood venous Normal Albumin 3.6 gm/dL 3.2-5.2 gm/ dL [facility]: [address] [facility] Blood venous Normal Albumin/globulin Ratio 1.2 1.2-2.2 [facility]: [address] [facility] 09/28/2020 CBC W/ Auto Diff Blood venous Normal White Blood C ount 9.7 10 4.0-10.0 10 [facility]: [address] [facility] Blood venous Normal Red Blood Count 4.19 10 4.00- 5.40 10 [facility]: [address] [facility] Blood venous Low Hemoglobin 11.5 g/dL 12.0-15. 5 g/dL [facility]: [address] [facility] Blood venous Low Hematocrit 35.3 % 36.0-47.0 % [facility]: [address] [place] [address] Blood venous Normal Mean Corpuscular Volume 84.2 fL 80.0-96.0 fL [facility]: [address] [place] [address] Blood venous Normal Mean Corpuscular Hemoglob in 27.4 pg 27.0-33.0 pg [facility]: [address] [place] [address] Blood venous Normal Mean Corpuscular HGB Conc 32.6 g/dL 32.0-36.5 g/dL [facility]: [address] [place] [address] Blood venous Normal Red Cell Distribution Wid th 13.8 % 11.5-14.5 % [facility]: [address] [place] [address] Blood venous Normal Platelet Count, Automated 262 10 150-450 10 [facility]: [address] [place] [address] Blood venous High Neutrophils % 73.1 % 36.0-66. 0 % [facility]: [address] [place] [address] Blood venous Low Lymph % 19.8 % 24.0-44.0 % [facility]: [address] [place] [address] Blood venous Normal [place] % 4.3 % 2.0-8.0 % [facility]: [address] [place] [address] Blood venous Normal Eos % 2.0 % 0.0-3.0 % [facility]: [address] [place] [address] venous Normal Baso % 0.3 % 0.0-1.0 % [facility]: [address] [place] [address] Blood venous Normal Immature Granulocyte % 0.5 % 0-3.0 % [facility]: [address] [place] [address] Blood venous Normal Nucleated Red Blood Cell % 0. 0 % 0-0 % [facility]: [address] [place] [address] Blood venous Normal Neutrophils # 7.1 10 1.5-8.5 10 [facility]: [address] [place] [address] Blood venous Normal Lymph # 1.9 10 1.5-5.0 10 [facility]: [address] [place] [address] Blood venous Normal [place] # 0.4 10 0.0-0.8 10 [facility]: [address] [place] [address] Blood venous Normal Eos # 0.2 10 0.0-0.5 10 [facility]: [address] [place] [address] Blood venous Normal Baso # 0.0 10 0.0-0.2 10 [facility]: [address] [place] [address] 09/28/2020 CMP, Serum or Plasma Blood venous High Glu cose, Fasting 105 mg/dL 70-100 mg/dL [facility] nter: [address] [place] [address] Blood venous Normal Blood Urea Nitrogen 14 mg/dL 7-18 mg/dL [facility]: [address] [place] [address] Blood venous Normal Creatinine for GFR 0.73 mg/dL 0.55-1.30 mg/dL [facility]: [address] [place] [address] Blood venous Normal Glomerular Filtration Rate > 60.0 >60 [facility]: [address] [place] [address] Blood venous Normal Sodium Level 142 mEq/L 136-14 5 mEq/L [facility]: [address] [place] [address] Blood venous Normal Potassium Serum 3.8 mEq/L 3.5 -5.1 mEq/L [facility]: [address] [place] [address] Blood venous Normal Chloride Level 106 mEq/L 98-1 07 mEq/L [facility]: [address] [place] [address] Blood venous Normal Carbon Dioxide Level 25 mEq/L 21-32 mEq/L [facility]: [address] [place] [address] Blood venous Normal Anion Gap 11 mEq/L 8-16 mEq/L [facility]: [address] [place] [address] Blood venous Low Calcium Level 6.7 mg/dL 8.5-1 0.1 mg/dL [facility]: [address] [place] [address] Blood venous Normal AST/SGOT 26 U/L 7-37 U/L [facility]: [address] [place] [address] Blood venous Normal ALT/SGPT 42 U/L 12-78 U/L [facility]: [address] [facility] Blood venous Normal Alkaline Phosphatase 67 U/L 4 5-117 U/L [facility]: [address] [facility] Blood venous Normal Bilirubin,total 0.3 mg/dL 0.2 -1.0 mg/dL [facility]: [address] [facility] Blood venous Normal Total Protein 6.6 gm/dL 6.4-8 .2 gm/dL [facility]: [address] [facility] Blood venous Normal Albumin 3.6 gm/dL 3.2-5.2 gm/ dL [facility]: [address] [facility] Blood venous Normal Albumin/globulin Ratio 1.2 1.2-2.2 [facility]: [address] [facility] 09/28/2020 Lipid Panel, Blood Blood venous High Trigl ycerides Level 351 mg/dL <150 mg/dL [facility] nter: [address] [facility] Blood venous Normal Cholesterol Level 160 mg/dL < 200 mg/dL [facility]: [address] [facility] Blood venous Low HDL Cholesterol 24 mg/dL >40 mg/dL [facility]: [address] [facility] Blood venous Normal LDL Cholesterol 66 mg/dL <100 mg/dL [facility]: [address] [facility] Blood venous Normal Non-hdl-c 136 mg/dL [facility]: [address] [facility] Blood venous High Cholesterol Risk Ratio 6.666 <5 [facility]: [address] [facility] 09/19/2020 Lipid Panel, Serum Cholesterol, Tota l 149 mg/dL <200 mg/dL Final [facility]: [address], [place] Low HDL Cholesterol 31 mg/dL > or = 50 m g/dL Final [facility]: [address], [place] Triglycerides 140 mg/dL <150 mg/dL F inal [facility]: [address], [place] LDL-cholesterol 94 mg/dL (calc) <100 mg/dL (calc) Final [facility] [place]: [address] [facility] Chol/hdlc Ratio 4.8 calc <5.0 calc F [facility]: [address] [facility] Non HDL Cholesterol 118 mg/dL (calc) <130 mg/dL (calc) [facility]: [address] [facility] High LDL Particle Number 1237 nmol/L <113 8 nmol/L [facility]: [address] [facility] High LDL Small 302 nmol/L <142 nmol/L [facility]: [address] [facility] High LDL Medium 240 nmol/L <215 nmol/L Fi [facility]: [address] [facility] Low HDL Large 5879 nmol/L >6729 nmol/L F [facility]: [address] [facility] ABNORMAL LDL Pattern B pattern A pattern Fi [facility]: [address] [facility] Low LDL Peak Size 210.5 angstrom >222.9 angstrom [facility]: [address] [facility] Apolipoprotein B 86 mg/dL [facility]: [address] [facility] High Lipoprotein (a) 107 nmol/L <75 nmol/ L [facility]: [address] [facility] 09/19/2020 TSH + Free T4, Serum Normal Tsh 2.97 mIU/L [facility]: [address] [facility] Normal T4, Free 1.0 NG/dL 0.8-1.8 NG/dL [facility]: [address] [facility] 09/19/2020 CMP, Serum or Plasma Normal Glucose 94 mg/dL 6 5-99 mg/dL [facility]: [address] [facility] Normal Urea Nitrogen (BUN) 18 mg/dL 7-25 mg /dL [facility]: [address] [facility] Normal Creatinine 0.80 mg/dL 0.50-1.10 mg/d L [facility]: [address] [facility] Normal eGFR Non-afr. Panamanian 98 mL/m in/1.73m2 > or = 60 mL/min/1.73m2 [facility] [address] [facility] Normal eGFR 114 mL/m in/1.73m2 > or = 60 mL/min/1.73m2 [facility]: [address] [facility] BUN/creatinine Ratio not applicable (calc) 6-22 (calc) [facility]: [address] [facility] Normal Sodium 140 mmol/L 135-146 mmol/L Fin [facility]: [address] [facility] Normal Potassium 4.2 mmol/L 3.5-5.3 mmol/L [facility]: [address] [facility] Normal Chloride 106 mmol/L 98-110 mmol/L Fi nal [facility]: [address] [facility] Normal Carbon Dioxide 25 mmol/L 20-32 mmol/ L [facility]: [address] [facility] Low Calcium 8.0 mg/dL 8.6-10.2 mg/dL Fin [facility]: [address] [facility] Normal Protein, Total 6.6 g/dL 6.1-8.1 g/dL [facility]: [address] [facility] Normal Albumin 4.1 g/dL 3.6-5.1 g/dL [facility]: [address] [facility] Normal Globulin 2.5 g/dL (calc) 1.9-3.7 g/d L (calc) [facility]: [address] [facility] Normal Albumin/globulin Ratio 1.6 (calc) 1. 0-2.5 (calc) [facility]: [address] [facility] Normal Bilirubin, Total 0.3 mg/dL 0.2-1.2 m g/dL [facility]: [address] [facility] Normal Alkaline Phosphatase 57 U/L 31-125 U /L [facility]: [address] [facility] Normal Ast 18 U/L 10-30 U/L Final [facility] [address] [facility] High Alt 30 U/L 6-29 U/L Final [facility]: [address] [facility] 09/19/2020 Acth, Plasma Acth, Plasma 22 pg/mL 6-50 pg/mL Final [facility]: [address] [facility] 09/19/2020 Urinalysis Complete, Reflex Culture Normal Color yellow yellow Final [facility]: [address] [facility] ABNORMAL Appearance cloudy clear Final Qu est [facility]: [address] [facility] Normal Specific [place] 1.022 1.001-1.[address] [facility]: [address] [facility] Normal Ph 5.5 5.0-8.0 Final [facility] [address] [facility] Normal Glucose negative negative Final Que [facility]: [address] [facility] Normal Bilirubin negative negative Final Q uest [facility]: [address] [facility] Normal Ketones negative negative Final [facility]: [address] [facility] Normal Occult Blood negative negative Final [facility]: [address] [facility] Normal Protein negative negative Final Que [facility]: [address] [facility] Normal Nitrite negative negative Final Que [facility]: [address] [facility] Normal Leukocyte Esterase negative negative Final [facility]: [address] [facility] AB[facility] Wbc 6-10 /hpf < or = 5 /hpf Final [facility]: [address] [facility] Normal Rbc none seen /hpf < or = 2 /hpf Fi nal [facility]: [address] [facility] ABNORMAL Squamous Epithelial Cells 10-20 /h pf < or = 5 /hpf Final [facility]: [address] [facility] ABNORMAL Bacteria few /hpf none seen /hpf F inal [facility]: [address] [facility] ABNORMAL Calcium Oxalate Crystals many /hpf none or few /hpf Final [facility]: [address] [facility] Normal Hyaline Cast none seen /lpf none see n /lpf Final [facility]: [address] [facility] 09/19/2020 Culture, Urine Reflexive Urine Culture [facility]: [address] [facility] 09/19/2020 CBC W/ Auto Diff Normal White Blood Cell Co unt 7.7 thousand/uL 3.8-10.8 thousand/uL [facility] [address] [place] Normal Red Blood Cell Count 4.37 mill ion/uL 3.80-5.10 million/uL Final [facility] [place]: [address] [place] Normal Hemoglobin 12.0 g/dL 11.7-15.5 g/dL Final [facility] [place]: [address] [place] Normal Hematocrit 38.0 % 35.0-45.0 % Final [facility] [place]: [address] [place] Normal Mcv 87.0 fL 80.0-100.0 fL Final [facility] [place]: [address] [place] Normal Mch 27.5 pg 27.0-33.[address] [facility] [place]: [address] [place] Low Mchc 31.6 g/dL 32.0-36.0 g/dL Final [facility] [place]: [address] [place] Normal Rdw 14.4 % 11.0-15.0 % Final [facility] [address] Normal Platelet Count 245 thousand/uL 140-4 00 thousand/uL Final [facility]: [address] [facility] Normal Mpv 10.1 fL 7.5-12.5 fL Final [facility] [place]: [address] [place] Normal Absolute Neutrophils 5313 cells/uL 1 500-7800 cells/uL Final [facility] [place]: [address] [facility] Normal Absolute Lymphocytes 1748 cells/uL 8 50-3900 cells/uL Final [facility]: [address] [facility] Normal Absolute Monocytes 408 cells/uL 200- 950 cells/uL Final [facility]: [address] [facility] Normal Absolute Eosinophils 193 cells/uL 15 -500 cells/uL Final [facility] [place]: [address] Normal Absolute Basophils 39 cells/uL 0-200 cells/uL Final [facility] [place]: [address] [place] Normal Neutrophils 69 % 38-80 % Final [facility] [place]: [address] [facility] Normal Lymphocytes 22.7 % 15-49 % Final [facility] [place]: [address] [facility] Normal Monocytes 5.3 % 0-13 % Final [facility]: [address] [facility] Normal Eosinophils 2.5 % 0-8 % Final [facility]: [address] [facility] Normal Basophils 0.5 % 0-2 % Final [facility]: [address] , [place] 09/19/2020 Vitamin D, 25-Hydroxy, Total, Serum Normal Vitamin D,25- Oh,total,ia 33 NG/mL 30-100 NG/mL Final [facility]: [address] [facility] 09/19/2020 HbA1C (Hemoglobin a1C), Blood Normal Hemoglobin a1C 4.8 % of total HGB <5.7 % of total HGB Final [facility]: [address] , [place] 09/19/2020 Culture, Urine Culture, Urine, Routine see note [facility]: [address] , [place] Past Encounters 02/16/2021 Hyperparathyroidism; Vitamin D Deficiency; Menorrhagia; Depression Screening Lida Casillas PA-C: [address] [place] [phone], Ph. 10/18/2020 [facility] [address] [place] [phone], Ph. 09/28/2020 Michelle Persaud [facility]: [address] [place] [phone], Ph. 09/26/2020 Body Mass Index 40+ - Severely Obese; Ulcerative Colitis; Patient Asked to Attend; Hyperparathyroidism; [facility]-surgery Evaluation [facility] [address] [place] [phone], Ph. 09/09/2020 Hyperparathyroidism; Adult Health Examination; Obesity [facility] [address] [place] [phone], Ph. Social History Tobacco Smoking Status Never Smoker Vaccine List None recorded. Plan of Care Patient Instructions Lab results reviewed and discussed with you today. Please continue medications as prescribed. Please try to maintain good nutrition, adequate rest and adequate physical activities and adequate intake of water daily. Will medically optimize for colonoscopy from primary care standpoint after labs are done, results are reviewed and are within acceptable ranges. Lab results reviewed and are not within acceptable ranges. calcium level 6.7. Will delay colonoscopy for now and reevaluate in 3-4 weeks. Physical exam done today. Please continu e medications as prescribed. Please continue healthy diet and physical activities. Please try to limit sugars and carbohydrates in your diet. Please try to maintain adequate intake of water daily. Reminders Provider Appointments None recorded. Lab None recorded. Referral None recorded. Procedures None recorded. Surgeries None recorded. Imaging None recorded. Vitals 02/16/2021 04:20PM ESTABLISHED [id number] Height Weight BMI Blood Pressure 65 in 285 lbs 4 oz 47.5 kg/m2 128/85 mm[Hg] 10/18/2020 01:00PM NURSE LAB COLLECTION Height 65 in 09/26/2020 02:40PM ESTABLISHED [id number] Height Weight BMI Blood Pressure 65 in 290 lbs 6 oz 48.3 kg/m2 108/75 mm[Hg] 09/09/2020 04:20PM NEW PATIENT (11yrs - OLDER) Height Weight BMI Blood Pressure 65 in 287 lbs 2 oz 47.8 kg/m2 121/84 mm[Hg]
--- OUTSIDE RECORDS SUMMARY | 2021-02-24 15:30 | CCD ---
Author Author [facility] Organization [facility] Address Unknown Phone Unavailable Support Name Relationship Address Phone [facility] DOG CONTROL Next Of Kin [address] [place] [address] [address] [place] [address] DOG CONTROL Next Of Kin [address] [place] [address] [address] [place] [address] [facility] DOG CONTROL Next Of Kin [address] [place] [address] [place] [address] [facility] [place] [address] PETCO Next Of Kin [address] [place] [address] NICE EASY Next Of Kin [address] [place] [address] Unavailable CONVERGYS Next Of Kin [address] [place] [address] SARITHA [place] [address] KAREN THOMAS Next Of Kin Unknown Unavailable DISABILITY Next Of Kin [address] [place] [address] [place] [address] DISABLED Next Of Kin Unknown Unavailable Darrel THOMAS Next Of Kin [address] [place] [address] UE Next Of Kin Unknown Unavailable UNEMPLOYED Next Of Kin Unknown VIKTORIA GREGORY Next Of Kin [address] [place] [address] Umm THOMAS [address] [place] [address] Care Team Providers Care Control Technician Name Role Phone SHEILA GALINDO MD Unavailable Unavailable SHEILA GALINDO MD Unavailable Unavailable SHEILA GALINDO MD Unavailable Unavailable SHEILA GALINDO MD Unavailable Unavailable SHEILA GALINDO MD Unavailable Unavailable SHEILA GALINDO MD Unavailable Unavailable SHEILA GALINDO MD Unavailable Unavailable SHEILA GALINDO MD Unavailable Unavailable REINDL, SHEILA DOBBS Unavailable Unavailable REINDL, SHEILA DOBBS Unavailable Unavailable REINDL, SHEILA DOBBS Unavailable Unavailable REINDL, SHEILA DOBBS Unavailable Unavailable REINDL, SHEILA DOBBS Unavailable Unavailable REINDL, SHEILA DOBBS Unavailable Unavailable REINDL, SHEILA DOBBS Unavailable Unavailable REINDL, SHEILA DOBBS Unavailable Unavailable REINDL, SHEILA DOBBS Unavailable Unavailable REINDL, SHEILA DOBBS Unavailable Unavailable REINDL, SHEILA DOBBS Unavailable Unavailable REINDL, SHEILA DOBBS Unavailable Unavailable REINDL, SHEILA DOBBS Unavailable Unavailable REINDL, SHEILA DOBBS Unavailable Unavailable REINDL, SHEILA DOBBS Unavailable Unavailable REINDL, SHEILA DOBBS Unavailable Unavailable REINDL, SHEILA DOBBS Unavailable Unavailable REINDL, SHEILA DOBBS Unavailable Unavailable REINDL, SHEILA DOBBS Unavailable Unavailable REINDL, SHEILA DOBBS Unavailable Unavailable REINDL, SHEILA DOBBS Unavailable Unavailable REINDL, SHEILA DOBBS Unavailable Unavailable REINDL, SHEILA DOBBS Unavailable Unavailable REINDL, SHEILA DOBBS Unavailable Unavailable REINDL, SHEILA DOBBS Unavailable Unavailable REINDL, SHEILA DOBBS Unavailable Unavailable REINDL, SHEILA DOBBS Unavailable Unavailable REINDL, SHEILA DOBBS Unavailable Unavailable REINDL, SHEILA DOBBS Unavailable Unavailable REINDL, SHEILA DOBBS Unavailable Unavailable REINDL, SHEILA DOBBS Unavailable Unavailable REINDL, SHEILA DOBBS Unavailable Unavailable REINDL, SHEILA DOBBS Unavailable Unavailable REINDL, SHEILA DOBBS Unavailable Unavailable Feola, T Patricia PA Unavailable Unavailable Feola, T Patricia PA Unavailable Unavailable Feola, T Patricia PA Unavailable Unavailable Feola, T Patricia PA Unavailable Unavailable Feola, T Patricia PA Unavailable Unavailable Feola, T Patricia PA Unavailable Unavailable Feola, T Patricia PA Unavailable Unavailable Feola, T Patricia PA Unavailable Unavailable Feola, T Patricia PA Unavailable Unavailable Feola, T Patricia PA Unavailable Unavailable Feola, T Patricia PA Unavailable Unavailable Feola, T Patricia PA Unavailable Unavailable Feola, T Patricia PA Unavailable Unavailable Feola, T Patricia PA Unavailable Unavailable Feola, T Patricia PA Unavailable Unavailable Feola, T Patricia PA Unavailable Unavailable Feola, T Patricia PA Unavailable Unavailable Feola, T Patricia PA Unavailable Unavailable Feola, T Patricia PA Unavailable Unavailable Feola, T Patricia PA Unavailable Unavailable Feola, T Patricia PA Unavailable Unavailable Feola, T Patricia PA Unavailable Unavailable Feola, T Patricia PA Unavailable Unavailable Feola, T Patricia PA Unavailable Unavailable Feola, T Patricia PA Unavailable Unavailable Feola, T Patricia PA Unavailable Unavailable Feola, T Patricia PA Unavailable Unavailable Feola, T Patricia PA Unavailable Unavailable Feola, T Patricia PA Unavailable Unavailable Feola, T Patricia PA Unavailable Unavailable Feola, T Patricia PA Unavailable Unavailable Feola, T Patricia PA Unavailable Unavailable Feola, T Patricia PA Unavailable Unavailable Feola, T Patricia PA Unavailable Unavailable Feola, T Patricia PA Unavailable Unavailable Feola, T Patricia PA Unavailable Unavailable Feola, T Patricia PA Unavailable Unavailable Feola, T Patricia PA Unavailable Unavailable Feola, T Patricia PA Unavailable Unavailable Feola, T Patricia PA Unavailable Unavailable Feola, T Patricia PA Unavailable Unavailable Hung, A Michelle LAND SALES AGENT Unavailable Unavailable Hung, A Michelle LAND SALES AGENT Unavailable Unavailable Hung, A Michelle LAND SALES AGENT Unavailable Unavailable Hung, A Michelle LAND SALES AGENT Unavailable Unavailable Hung, A Michelle LAND SALES AGENT Unavailable Unavailable Hung, A Michelle LAND SALES AGENT Unavailable Unavailable Hung, A Michelle LAND SALES AGENT Unavailable Unavailable Hung, A Michelle LAND SALES AGENT Unavailable Unavailable Hung, A Michelle LAND SALES AGENT Unavailable Unavailable Hung, A Michelle LAND SALES AGENT Unavailable Unavailable Hung, A Michelle LAND SALES AGENT Unavailable Unavailable Hung, A Michelle LAND SALES AGENT Unavailable Unavailable Hung, A Michelle LAND SALES AGENT Unavailable Unavailable Hung, A Michelle LAND SALES AGENT Unavailable Unavailable Hung, A Michelle LAND SALES AGENT Unavailable Unavailable Hung, A Michelle LAND SALES AGENT Unavailable Unavailable Hung, A Michelle LAND SALES AGENT Unavailable Unavailable Hung, A Michelle LAND SALES AGENT Unavailable Unavailable Hung, A Michelle LAND SALES AGENT Unavailable Unavailable Hung, A Michelle LAND SALES AGENT Unavailable Unavailable Hung, A Michelle LAND SALES AGENT Unavailable Unavailable Hung, A Michelle LAND SALES AGENT Unavailable Unavailable Hung, A Michelle LAND SALES AGENT Unavailable Unavailable Hung, A Michelle LAND SALES AGENT Unavailable Unavailable Hung, A Michelle LAND SALES AGENT Unavailable Unavailable Hung, A Michelle LAND SALES AGENT Unavailable Unavailable Hung, A Michelle LAND SALES AGENT Unavailable Unavailable Hung, A Michelle LAND SALES AGENT Unavailable Unavailable Hung, A Michelle LAND SALES AGENT Unavailable Unavailable Hung, A Michelle LAND SALES AGENT Unavailable Unavailable Hung, A Michelle LAND SALES AGENT Unavailable Unavailable Candace Solo DDS Unavailable Unavailable DilCandace franco DDS Unavailable Unavailable DilCandace franco DDS Unavailable Unavailable DilCandace franco DDS Unavailable Unavailable Yana Casillas PA Unavailable Unavailable Yana Casillas PA Unavailable Unavailable Yana Casillas PA Unavailable Unavailable Yana Casillas PA Unavailable Unavailable Scordo, M Lida PA Unavailable Unavailable Scordo, M Lida PA Unavailable Unavailable Scordo, M Lida PA Unavailable Unavailable Scordo, M Lida PA Unavailable Unavailable Scordo, M Lida PA Unavailable Unavailable Scordo, M Lida PA Unavailable Unavailable Scordo, M Lida PA Unavailable Unavailable Scordo, M Lida PA Unavailable Unavailable Scordo, M Lida PA Unavailable Unavailable Scordo, M Lida PA Unavailable Unavailable Scordo, M Lida PA Unavailable Unavailable Scordo, M Lida PA Unavailable Unavailable Scordo, M Lida PA Unavailable Unavailable Scordo, M Lida PA Unavailable Unavailable Scordo, M Lida PA Unavailable Unavailable Scordo, M Lida PA Unavailable Unavailable Scordo, M Lida PA Unavailable Unavailable Scordo, M Lida PA Unavailable Unavailable Scordo, M Lida PA Unavailable Unavailable Scordo, M Lida PA Unavailable Unavailable Scordo, M Lida PA Unavailable Unavailable Scordo, M Lida PA Unavailable Unavailable Scordo, M Lida PA Unavailable Unavailable Scordo, M Lida PA Unavailable Unavailable Scordo, M Lida PA Unavailable Unavailable Scordo, M Lida PA Unavailable Unavailable Scordo, M Lida PA Unavailable Unavailable Scordo, M Lida PA Unavailable Unavailable Scordo, M Lida PA Unavailable Unavailable Scordo, M Lida PA Unavailable Unavailable Scordo, M Lida PA Unavailable Unavailable Scordo, M Lida PA Unavailable Unavailable Scordo, M Lida PA Unavailable Unavailable Scordo, M Lida PA Unavailable Unavailable Scordo, M Lida PA Unavailable Unavailable Scordo, M Lida PA Unavailable Unavailable Scordo, M Lida PA Unavailable Unavailable Scordo, M Lida PA Unavailable Unavailable Scordo, M Lida PA Unavailable Unavailable Scordo, M Lida PA Unavailable Unavailable Scordo, M Lida PA Unavailable Unavailable Scordo, M Lida PA Unavailable Unavailable Scordo, M Lida PA Unavailable Unavailable Re-disclosure Warning The records that you are about to access may contain information from federally-assisted alcohol or drug abuse programs. If such information is present, then the following federally mandated warning applies: This information has been disclosed to you from records protected by federal confidentiality rules (42 CFR part 2). The federal rules prohibit you from making any further disclosure of this information unless further disclosure is expressly permitted by the written consent of the person to whom it pertains or as otherwise permitted by 42 CFR part 2. A general authorization for the release of medical or other information is NOT sufficient for this purpose. The Federal rules restrict any use of the information to criminally investigate or prosecute any alcohol or drug abuse patient.The records that you are about to access may contain highly sensitive health information, the redisclosure of which is protected by Article 27-F of the [facility] Public Health law. If you continue you may have access to information: Regarding HIV / AIDS; Provided by facilities licensed or operated by the [facility] Office of Mental Health; or Provided by the [facility] Office for People With Developmental Disabilities. If such information is present, then the following [facility] mandated warning applies: This information has been disclosed to you from confidential records which are protected by state law. State law prohibits you from making any further disclosure of this information without the specific written consent of the person to whom it pertains, or as otherwise permitted by law. Any unauthorized further disclosure in violation of state law may result in a fine or assisted sentence or both. A general authorization for the release of medical or other information is NOT sufficient authorization for further disc losure. Family History Family Member Name Family Member Gender Family Member Status Date o f Status Description Data Source(s) Unknown Unknown Problem MEDENT ([facility]in [facility]) Encounters Encounter Providers Location Date Indications Data Source(s ) Lida Casillas PA-C: [address] [place] [address], Ph. Attender: Lida TELLES [facility] Medical 02/16/2021 12:00:00 AM EST [facility] ([facility]) [place] Acu[place]: [address] [place] [address], Ph. Attender: Michelle SIDDIQUI [facility] Medical 10/18/2020 12:00:00 AM EDT [facility] ([facility]) [place]: [address], [place] [address], Ph. Attender: Michelle Persaud [facility] Medical 10/18/2020 12:00:00 AM EDT [place] ([facility]) Michelle Persaud [facility]: [address], [place] [address], Ph. Attender: Michelle Persaud [facility] Medical 09/28/2020 12:00:00 AM EDT [place] ([facility]) Michelle Persaud [facility]: [address], [place] [address], Ph. Attender: Michelle Persaud [facility] Medical 09/28/2020 12:00:00 AM EDT [facility]) Michelle Persaud [facility]: [address], [place] [address], Ph. Attender: Michelle Persaud [facility] Medical 09/28/2020 12:00:00 AM EDT [place] ([facility]) Michelle Persaud [facility]: [address], [place] [address], Ph. Attender: Michelle Persaud [facility] Medical 09/28/2020 12:00:00 AM EDT [place] ([facility]) Michelle Persaud [facility]: [address], [place] [address], Ph. Attender: Michelle Persaud [facility] Medical 09/26/2020 12:00:00 AM EDT [facility]) Michelle Persaud [facility]: [address], [place] [address], Ph. Attender: Michelle Persaud [facility] Medical 09/26/2020 12:00:00 AM EDT [place] ([facility]) [facility] [address], [place] [address], Ph. Attender: Michelle Persaud [facility] Medical 09/26/2020 12:00:00 AM EDT [place] ([facility]) [facility] [address], [place] [address], Ph. Attender: Michelle Persaud [facility] Medical 09/26/2020 12:00:00 AM EDT [place] ([facility]) [facility] [address], [place] [address], Ph. Attender: Michelle Persaud [facility] Medical 09/26/2020 12:00:00 AM EDT [place] ([facility]) Unknown [address] [facility] [address] 09/14/2020 12:00:00 AM EDT eCW1 ([facility]) [facility] [address], [place] [address], Ph. Attender: Michelle Persaud [facility] Medical 09/09/2020 12:00:00 AM EDT [place] ([facility]) Michelle Persaud [facility]: [address], [place] [address], Ph. Attender: Michelle Persaud [facility] Medical 09/09/2020 12:00:00 AM EDT [place] ([facility]) Michelle Persaud [facility]: [address], [place] [address], Ph. Attender: Michelle Persaud [facility] Medical 09/09/2020 12:00:00 AM EDT [place] ([facility]) Michelle Persaud [facility]: [address], [place] [address], Ph. Attender: Michelle Persaud [facility] Medical 09/09/2020 12:00:00 AM EDT [place] ([facility]) Michelle Presaud [facility]: [address], [place] [address], Ph. Attender: Michelle Persaud [facility] Medical 09/09/2020 12:00:00 AM EDT [place] ([facility]) Michelle Persaud [facility]: [address], [place] [address], Ph. Attender: Michelle Persaud [facility] Medical 09/09/2020 12:00:00 AM EDT [place] ([facility]) Unknown [address] [facility] [address] 08/17/2020 12:00:00 AM EDT eCW1 ([facility]) Outpatient Attender: SHEILA Rosas/Courtney/Gustavo/Karen elmore 08/04/2020 11:00:00 AM EDT MED[facility] ([facility]) Outpatient Attender: Patricia TELLES 021 11:21:40 AM EDT - 07/20/2020 12:33:43 PM EDT [facility] ([facility] ) Unknown [address] [facility] [address] 07/19/2020 12:00:00 AM EDT eCW1 ([facility]) [place] [address] [facility] [address] 06/21/2020 12:00:00 AM EDT eCW1 ([facility]) [place] [address] [facility] [address] 06/09/2020 12:00:00 AM EST eCW1 ([facility]) Unknown [address] [facility] [address] 06/09/2020 12:00:00 AM EST eCW1 ([facility]) Unknown [address] [facility] [address] 05/12/2020 12:00:00 AM EST eCW1 ([facility]) [place] [address] [facility] [address] 05/05/2020 12:00:00 AM EST eCW1 ([facility]) Unknown [address] [facility] [address] 02/25/2020 12:00:00 AM EST eCW1 ([facility]) [place] [address] [facility] [address] 02/24/2020 12:00:00 AM EST eCW1 ([facility]) Out[place] [address] [facility] [address] 02/23/2020 12:00:00 AM EST eCW1 ([facility]) Outpatient Attender: Lynsey FRYE 02/03/2020 12:02:00 A M [facility] Outpatient Attender: Lynsey FRYE 02/02/2020 02:56:05 P M [facility] Outpatient Attender: Lynsey FRYE 02/02/2020 02:56:04 P M [facility] Outpatient Attender: Lynsey FRYE 02/02/2020 02:02:00 P M [facility] Outpatient Attender: Lynsey FRYE 02/02/2020 02:01:00 P M EST [facility] Unknown [address] [facility] [address] 01/29/2020 12:00:00 AM EDT eCW1 ([facility]) [place] [address] [facility] [address] 01/20/2020 12:00:00 AM EDT eCW1 ([facility]) Medications Medication Brand Name Start Date Product Form Dose Route Admi nistrative Instructions Pharmacy Instructions Status Indications Reaction Description Data Source(s) POLYETHYLENE GLYCOL 3350 142 MG/ML Oral Solution [Miralax] M iralax 08/04/2020 12:00:00 AM EDT active M EDENT ([facility], ) Magnesium Hydroxide 80 MG/ML Oral Suspension Milk Of Magnesi a 08/04/2020 12:00:00 AM EDT ORAL active M EDENT ([facility], ) Escitalopram 10 MG Oral Tablet Escitalopram Oxalate 10 MG Escitalopram Oxalate 10 MG 02/25/2020 12:00:00 AM EST 1.0 {tablet} activ e Escitalopram Oxalate 10 MG eCW1 ([facility]) Escitalopram 10 MG Oral Tablet Escitalopram Oxalate 10 MG Escitalopram Oxalate 10 MG 02/25/2020 12:00:00 AM EST 1.0 {tablet} activ e Escitalopram Oxalate 10 MG eCW1 ([facility]) Escitalopram 10 MG Oral Tablet Escitalopram Oxalate 10 MG Escitalopram Oxalate 10 MG 02/25/2020 12:00:00 AM EST 1.0 {tablet} activ e Escitalopram Oxalate 10 MG eCW1 ([facility]) Metronidazole 500 MG Oral Tablet metroni dazole 500 mg tablet TAKE 1 TABLET BY MOUTH 3 TIMES A DAY FOR 7 DAYS metronidazole 500 mg tablet TAKE 1 TABLE T BY MOUTH 3 TIMES A DAY FOR 7 DAYS complet ed metronidazole 500 MG Oral Tablet [place] ([facility]) Clindamycin 300 MG Oral Capsule clindamy gino HCl 300 mg capsule TAKE 1 CAPSULE BY MOUTH FOUR TIMES A DAY clindamycin HCl 300 mg capsule TAKE 1 CA PSULE BY MOUTH FOUR TIMES A DAY completed clind amycin 300 MG Oral Capsule [place] ([facility]) Prednisone 10 MG Oral Tablet prednisone 10 mg tablet TAKE 4 TABLETS BY MOUTH ONCE DAILY FOR 5 DAYS prednisone 10 mg tablet TAKE 4 TABLETS B Y MOUTH ONCE DAILY FOR 5 DAYS completed prednisone 10 MG Oral Tablet [place] ([facility]) Ciprofloxacin 500 MG Oral Tablet ciprofl oxacin 500 mg tablet TAKE 1 TABLET BY MOUTH TWICE A DAY FOR 7 DAYS ciprofloxacin 500 mg tablet TAKE 1 TABLE T BY MOUTH TWICE A DAY FOR 7 DAYS completed ciprofloxacin 500 MG Oral Tablet [place] ([facility]) Metronidazole 500 MG Oral Tablet metroni dazole 500 mg tablet TAKE 1 TABLET BY MOUTH 3 TIMES A DAY FOR 7 DAYS metronidazole 500 mg tablet TAKE 1 TABLE T BY MOUTH 3 TIMES A DAY FOR 7 DAYS complet ed metronidazole 500 MG Oral Tablet [place] ([facility]) Prednisone 10 MG Oral Tablet prednisone 10 mg tablet TAKE 4 TABLETS BY MOUTH ONCE DAILY FOR 5 DAYS prednisone 10 mg tablet TAKE 4 TABLETS B Y MOUTH ONCE DAILY FOR 5 DAYS completed prednisone 10 MG Oral Tablet [place] ([facility]) Escitalopram 10 MG Oral Tablet escitalop kamilah 10 mg tablet TAKE 1 TABLET BY MOUTH EVERY DAY escitalopram 10 mg tablet TAKE 1 TABLET BY MOUTH EVERY DAY completed escitalopram 10 MG Oral Tabl et [place] ([facility]) Ibuprofen 800 MG Oral Tablet ibuprofen 800 mg tablet ibuprofen 8 00 mg tablet completed ibuprofen 800 MG Oral Tablet [place] ([facility]) cefdinir 300 MG Oral Capsule cefdinir 30 0 mg capsule TAKE 1 CAPSULE BY MOUTH EVERY 12 HOURS FOR 7 DAYS cefdinir 300 mg capsule TAKE 1 CAPSULE B Y MOUTH EVERY 12 HOURS FOR 7 DAYS completed ce fdinir 300 MG Oral Capsule [place] ([facility]) Escitalopram 10 MG Oral Tablet escitalop kamilah 10 mg tablet TAKE 1 TABLET BY MOUTH EVERY DAY escitalopram 10 mg tablet TAKE 1 TABLET BY MOUTH EVERY DAY completed escitalopram 10 MG Oral Tabl et [place] ([facility]) Escitalopram 10 MG Oral Tablet escitalop kamilah 10 mg tablet TAKE 1 TABLET BY MOUTH EVERY DAY escitalopram 10 mg tablet TAKE 1 TABLET BY MOUTH EVERY DAY completed escitalopram 10 MG Oral Tabl et [place] ([facility]) Prednisone 10 MG Oral Tablet prednisone 10 mg tablet TAKE 4 TABLETS BY MOUTH ONCE DAILY FOR 5 DAYS prednisone 10 mg tablet TAKE 4 TABLETS B Y MOUTH ONCE DAILY FOR 5 DAYS completed prednisone 10 MG Oral Tablet [place] ([facility]) Ciprofloxacin 500 MG Oral Tablet ciprofl oxacin 500 mg tablet TAKE 1 TABLET BY MOUTH TWICE A DAY FOR 7 DAYS ciprofloxacin 500 mg tablet TAKE 1 TABLE T BY MOUTH TWICE A DAY FOR 7 DAYS completed ciprofloxacin 500 MG Oral Tablet [facility] ([facility]) cefdinir 300 MG Oral Capsule cefdinir 30 0 mg capsule TAKE 1 CAPSULE BY MOUTH EVERY 12 HOURS FOR 7 DAYS cefdinir 300 mg capsule TAKE 1 CAPSULE B Y MOUTH EVERY 12 HOURS FOR 7 DAYS completed ce fdinir 300 MG Oral Capsule [place] ([facility]) cefdinir 300 MG Oral Capsule cefdinir 30 0 mg capsule TAKE 1 CAPSULE BY MOUTH EVERY 12 HOURS FOR 7 DAYS cefdinir 300 mg capsule TAKE 1 CAPSULE B Y MOUTH EVERY 12 HOURS FOR 7 DAYS completed ce fdinir 300 MG Oral Capsule [place] ([facility]) Clindamycin 300 MG Oral Capsule clindamy gino HCl 300 mg capsule TAKE 1 CAPSULE BY MOUTH FOUR TIMES A DAY clindamycin HCl 300 mg capsule TAKE 1 CA PSULE BY MOUTH FOUR TIMES A DAY completed clind amycin 300 MG Oral Capsule [place] ([facility]) cefdinir 300 MG Oral Capsule cefdinir 30 0 mg capsule TAKE 1 CAPSULE BY MOUTH EVERY 12 HOURS FOR 7 DAYS cefdinir 300 mg capsule TAKE 1 CAPSULE B Y MOUTH EVERY 12 HOURS FOR 7 DAYS completed ce fdinir 300 MG Oral Capsule [place] ([facility]) Ibuprofen 800 MG Oral Tablet ibuprofen 800 mg tablet ibuprofen 8 00 mg tablet completed ibuprofen 800 MG Oral Tablet [place] ([facility]) Escitalopram 10 MG Oral Tablet escitalop kamilah 10 mg tablet TAKE 1 TABLET BY MOUTH EVERY DAY escitalopram 10 mg tablet TAKE 1 TABLET BY MOUTH EVERY DAY completed escitalopram 10 MG Oral Tabl et [place] ([facility]) cefdinir 300 MG Oral Capsule cefdinir 30 0 mg capsule TAKE 1 CAPSULE BY MOUTH EVERY 12 HOURS FOR 7 DAYS cefdinir 300 mg capsule TAKE 1 CAPSULE B Y MOUTH EVERY 12 HOURS FOR 7 DAYS completed ce fdinir 300 MG Oral Capsule [place] ([facility]) Prednisone 10 MG Oral Tablet prednisone 10 mg tablet TAKE 4 TABLETS BY MOUTH ONCE DAILY FOR 5 DAYS prednisone 10 mg tablet TAKE 4 TABLETS B Y MOUTH ONCE DAILY FOR 5 DAYS completed prednisone 10 MG Oral Tablet [facility] ([facility]) Clindamycin 150 MG Oral Capsule clindamy gino HCl 150 mg capsule TAKE 1 CAPSULE BY MOUTH EVERY 6 HOURS UNTIL GONE. TAKE WITH FOOD. clindamycin HCl 150 mg capsule TAKE 1 CAPSULE BY MOUTH EVERY 6 HOURS UNTIL GONE. TAKE WITH FOOD. completed clindamycin 150 MG Oral Capsule [place] ([facility]) Prednisone 10 MG Oral Tablet prednisone 10 mg tablet TAKE 4 TABLETS BY MOUTH ONCE DAILY FOR 5 DAYS prednisone 10 mg tablet TAKE 4 TABLETS B Y MOUTH ONCE DAILY FOR 5 DAYS completed prednisone 10 MG Oral Tablet [place] ([facility]) Clindamycin 150 MG Oral Capsule clindamy gino HCl 150 mg capsule TAKE 1 CAPSULE BY MOUTH EVERY 6 HOURS UNTIL GONE. TAKE WITH FOOD. clindamycin HCl 150 mg capsule TAKE 1 CAPSULE BY MOUTH EVERY 6 HOURS UNTIL GONE. TAKE WITH FOOD. completed clindamycin 150 MG Oral Capsule [place] ([facility]) Ciprofloxacin 500 MG Oral Tablet ciprofl oxacin 500 mg tablet TAKE 1 TABLET BY MOUTH TWICE A DAY FOR 7 DAYS ciprofloxacin 500 mg tablet TAKE 1 TABLE T BY MOUTH TWICE A DAY FOR 7 DAYS completed ciprofloxacin 500 MG Oral Tablet [place] ([facility]) Ciprofloxacin 500 MG Oral Tablet ciprofl oxacin 500 mg tablet TAKE 1 TABLET BY MOUTH TWICE A DAY FOR 7 DAYS ciprofloxacin 500 mg tablet TAKE 1 TABLE T BY MOUTH TWICE A DAY FOR 7 DAYS completed ciprofloxacin 500 MG Oral Tablet [place] ([facility]) Clindamycin 150 MG Oral Capsule clindamy gino HCl 150 mg capsule TAKE 1 CAPSULE BY MOUTH EVERY 6 HOURS UNTIL GONE. TAKE WITH FOOD. clindamycin HCl 150 mg capsule TAKE 1 CAPSULE BY MOUTH EVERY 6 HOURS UNTIL GONE. TAKE WITH FOOD. completed clindamycin 150 MG Oral Capsule [place] ([facility]) Prednisone 10 MG Oral Tablet prednisone 10 mg tablet TAKE 4 TABLETS BY MOUTH ONCE DAILY FOR 5 DAYS prednisone 10 mg tablet TAKE 4 TABLETS B Y MOUTH ONCE DAILY FOR 5 DAYS completed prednisone 10 MG Oral Tablet [place] ([facility]) Clindamycin 300 MG Oral Capsule clindamy gino HCl 300 mg capsule TAKE 1 CAPSULE BY MOUTH FOUR TIMES A DAY clindamycin HCl 300 mg capsule TAKE 1 CA PSULE BY MOUTH FOUR TIMES A DAY completed clind amycin 300 MG Oral Capsule [place] ([facility]) Clindamycin 150 MG Oral Capsule clindamy gino HCl 150 mg capsule TAKE 1 CAPSULE BY MOUTH EVERY 6 HOURS UNTIL GONE. TAKE WITH FOOD. clindamycin HCl 150 mg capsule TAKE 1 CAPSULE BY MOUTH EVERY 6 HOURS UNTIL GONE. TAKE WITH FOOD. completed clindamycin 150 MG Oral Capsule [place] ([facility]) Clindamycin 150 MG Oral Capsule clindamy gino HCl 150 mg capsule TAKE 1 CAPSULE BY MOUTH EVERY 6 HOURS UNTIL GONE. TAKE WITH FOOD. clindamycin HCl 150 mg capsule TAKE 1 CAPSULE BY MOUTH EVERY 6 HOURS UNTIL GONE. TAKE WITH FOOD. completed clindamycin 150 MG Oral Capsule [place] ([facility]) POLYETHYLENE GLYCOL 3350 142 MG/ML Oral Solution polyethylene glycol 3350 17 gram/dose oral powder polyethylene glycol 3350 17 gram/dose oral powder completed polyethylene glycol 3350 67590 MG Powder for Oral Solution [place] ([facility]) Clindamycin 150 MG Oral Capsule clindamy gino HCl 150 mg capsule TAKE 1 CAPSULE BY MOUTH EVERY 6 HOURS UNTIL GONE. TAKE WITH FOOD. clindamycin HCl 150 mg capsule TAKE 1 CAPSULE BY MOUTH EVERY 6 HOURS UNTIL GONE. TAKE WITH FOOD. completed clindamycin 150 MG Oral Capsule [place] ([facility]) Metronidazole 500 MG Oral Tablet metroni dazole 500 mg tablet TAKE 1 TABLET BY MOUTH 3 TIMES A DAY FOR 7 DAYS metronidazole 500 mg tablet TAKE 1 TABLE T BY MOUTH 3 TIMES A DAY FOR 7 DAYS complet ed metronidazole 500 MG Oral Tablet [facility] ([facility] Ibuprofen 800 MG Oral Tablet ibuprofen 800 mg tablet ibuprofen 8 00 mg tablet completed ibuprofen 800 MG Oral Tablet [place] ([facility]) Magnesium Hydroxide 80 MG/ML Oral Suspen edwige Milk of Magnesia 400 mg/5 mL oral suspension Milk of Magnesia 400 mg/5 mL oral suspension completed magnesium hydroxide 80 MG/ML Oral Suspension [place] ([facility]) Clindamycin 300 MG Oral Capsule clindamy gino HCl 300 mg capsule TAKE 1 CAPSULE BY MOUTH FOUR TIMES A DAY clindamycin HCl 300 mg capsule TAKE 1 CA PSULE BY MOUTH FOUR TIMES A DAY completed clind amycin 300 MG Oral Capsule [place] ([facility]) Ibuprofen 800 MG Oral Tablet ibuprofen 800 mg tablet ibuprofen 8 00 mg tablet completed ibuprofen 800 MG Oral Tablet [place] ([facility]) Escitalopram 10 MG Oral Tablet escitalop kamilah 10 mg tablet TAKE 1 TABLET BY MOUTH EVERY DAY escitalopram 10 mg tablet TAKE 1 TABLET BY MOUTH EVERY DAY completed escitalopram 10 MG Oral Tabl et [place] ([facility]) Metronidazole 500 MG Oral Tablet metroni dazole 500 mg tablet TAKE 1 TABLET BY MOUTH 3 TIMES A DAY FOR 7 DAYS metronidazole 500 mg tablet TAKE 1 TABLE T BY MOUTH 3 TIMES A DAY FOR 7 DAYS complet ed metronidazole 500 MG Oral Tablet [place] ([facility]) cefdinir 300 MG Oral Capsule cefdinir 30 0 mg capsule TAKE 1 CAPSULE BY MOUTH EVERY 12 HOURS FOR 7 DAYS cefdinir 300 mg capsule TAKE 1 CAPSULE B Y MOUTH EVERY 12 HOURS FOR 7 DAYS completed ce fdinir 300 MG Oral Capsule [place] ([facility]) Ibuprofen 800 MG Oral Tablet ibuprofen 800 mg tablet ibuprofen 8 00 mg tablet completed ibuprofen 800 MG Oral Tablet [place] ([facility]) Metronidazole 500 MG Oral Tablet metroni dazole 500 mg tablet TAKE 1 TABLET BY MOUTH 3 TIMES A DAY FOR 7 DAYS metronidazole 500 mg tablet TAKE 1 TABLE T BY MOUTH 3 TIMES A DAY FOR 7 DAYS complet ed metronidazole 500 MG Oral Tablet [place] ([facility]) Escitalopram 10 MG Oral Tablet escitalop kamilah 10 mg tablet TAKE 1 TABLET BY MOUTH EVERY DAY escitalopram 10 mg tablet TAKE 1 TABLET BY MOUTH EVERY DAY completed escitalopram 10 MG Oral Tabl et [place] ([facility]) Clindamycin 300 MG Oral Capsule clindamy gino HCl 300 mg capsule TAKE 1 CAPSULE BY MOUTH FOUR TIMES A DAY clindamycin HCl 300 mg capsule TAKE 1 CA PSULE BY MOUTH FOUR TIMES A DAY completed clind amycin 300 MG Oral Capsule [place] ([facility]) Ciprofloxacin 500 MG Oral Tablet ciprofl oxacin 500 mg tablet TAKE 1 TABLET BY MOUTH TWICE A DAY FOR 7 DAYS ciprofloxacin 500 mg tablet TAKE 1 TABLE T BY MOUTH TWICE A DAY FOR 7 DAYS completed ciprofloxacin 500 MG Oral Tablet [place] ([facility]) Clindamycin 300 MG Oral Capsule clindamy gino HCl 300 mg capsule TAKE 1 CAPSULE BY MOUTH FOUR TIMES A DAY clindamycin HCl 300 mg capsule TAKE 1 CA PSULE BY MOUTH FOUR TIMES A DAY completed clind amycin 300 MG Oral Capsule [place] ([facility]) Ciprofloxacin 500 MG Oral Tablet ciprofl oxacin 500 mg tablet TAKE 1 TABLET BY MOUTH TWICE A DAY FOR 7 DAYS ciprofloxacin 500 mg tablet TAKE 1 TABLE T BY MOUTH TWICE A DAY FOR 7 DAYS completed ciprofloxacin 500 MG Oral Tablet [place] ([facility]) Metronidazole 500 MG Oral Tablet metroni dazole 500 mg tablet TAKE 1 TABLET BY MOUTH 3 TIMES A DAY FOR 7 DAYS metronidazole 500 mg tablet TAKE 1 TABLE T BY MOUTH 3 TIMES A DAY FOR 7 DAYS complet ed metronidazole 500 MG Oral Tablet [place] ([facility]) Insurance Providers Payer name Policy type / Coverage type Policy ID Covered green party ID Covered green party's relationship to rob Policy Rob Plan Information EXCELLUS I [id number] Self [id number] BS iFACETS Medigap Part B [id number] Self [id number] MEDICAID M [id number] Self [id number] [facility] Medicaid [id number] [facility] I [id number] Self [id number] MEDICARE A [id number] Self [id number] MEDICAID M [id number] Self [id number] MEDICAID [id number] SP [id number] MEDICARE [id number] SP [id number] A B/S BLUE PPO/HSA (33) [id number] EXCELLUS H [id number] Spouse [id number] BS [place] Commercial [id number] Family Dependent BLUE SHIELD ESSENTIAL (308) [id number] B/S BLUE PPO/HSA (33) [id number] [place] PPO 302/307 [id number] BS Of [place] Commercial [id number] Self [id number] [facility] [employer] [id number] Self [id number] O BLUE [id number] SP [id number] BCBS OF [place] 306/806 [id number] [facility] Commercial [id number] Family Dependent [place] [id number] [facility] BS [id number] Sharmila RUBI [facility] Commercial [id number] Family Dependent [place] [id number] Sharmila RUBI [facility] [employer] [id number] Family Dependent [place] [id number] BLUE CROSS BLUE SHIELD -O/P BS [id number] Sharmila RUBI [facility] [place] [id number] Family Dependent [place] [id number] Sharmila RUTLEDGE [facility] [employer] [id number] Family Dependent [place] [id number] Sharmila RUBI [facility] [place] [id number] Family Dependent [place] [id number] Sharmila Makani [employer] [facility] [employer] [id number] Family Dependen t BLUE CROSS BLUE SHIELD -PHYSICIAN [id number] MEDICAID M [id number] S [id number] UNHC AMERICHOICE XIX HMO [id number] 18 [id number] MEDICARE C [id number] S [id number] A MEDICAID [id number] S [id number] BLUE CHOICE OPTION O [id number] S [id number] HMO BLUE OPTION W [id number] S V [id number] BLUE CROSS GARCÍA PLAN [id number] SP [id number] SELF PAY UNAVAILABLE SP UNAVAILA BLE HMO BLUE [id number] SP [id number] UNHC COMMUNITY PLAN MCDHMO [id number] SP [id number] UNHC COMMUNITY PLAN MCDHMO [id number] SP [id number] SELF PAY ONLY [id number] SP [id number] [facility] O [id number] S [id number] MEDICARE [id number] SP [id number] Self Pay P UNAVAILABLE S UNAVAILA BLE UNHC COMMUNITY PLAN MCDHMO [id number] SP [id number] BCBS [place] O [id number] SP [id number] BCBS [place] 306/806 [id number] SP [id number] [place] BCBS P [id number] S [id number] BCBS [place] HMO [id number] SP [id number] EXCELLUS BCBS B [id number] P [id number] BCBS OF [place] 306/806 [id number] SP [id number] BCBS [place] PPO 302/307 [id number] SP [id number] BCBS [place] PPO 302/307 [id number] SP [id number] EXCELLUS BCBS B [id number] S [id number] HMO BLUE [id number] SP [id number] Problems, Conditions, and Diagnoses Code Display Name Description Problem Type Effective Dates Data Source(s) [id number] Patient asked to attend Patient Asked to Attend [facility] 09/28/2020 12:00:00 AM EDT [place] ([facility]) [id number] Body mass index 40+ - severely obese Bod y Mass Index 40+ - Severely Obese Problem 09/28/2020 12:00:00 AM EDT [facility]) [id number] Ulcerative colitis Ulcerative Colitis Problem 12:00:00 AM EDT [facility]) 62422530 Hyperparathyroidism Hyperparathyroidism Problem 0 09/28/2020 12:00:00 AM EDT [place] ([facility]) [id number] Patient asked to attend Patient Asked to Attend [facility] 09/28/2020 12:00:00 AM EDT [facility]) 386815129 Body mass index 40+ - severely obese Bod y Mass Index 40+ - Severely Obese Problem 09/28/2020 12:00:00 AM EDT [facility]) 18489542 Ulcerative colitis Ulcerative Colitis Problem 12:00:00 AM EDT [place] ([facility]) 16951623 Hyperparathyroidism Hyperparathyroidism Problem 0 09/28/2020 12:00:00 AM EDT [place] ([facility]) [id number] Patient asked to attend Patient Asked to Attend [facility] 09/28/2020 12:00:00 AM EDT [place] ([facility]) 121067403 Body mass index 40+ - severely obese Bod y Mass Index 40+ - Severely Obese Problem 09/28/2020 12:00:00 AM EDT [place] ([facility]) 69778389 Ulcerative colitis Ulcerative Colitis Problem 12:00:00 AM EDT [place] ([facility]) 25539220 Hyperparathyroidism Hyperparathyroidism Problem 0 09/28/2020 12:00:00 AM EDT [place] ([facility]) [id number] Patient asked to attend Patient Asked to Attend [facility] 09/28/2020 12:00:00 AM EDT [place] ([facility]) 246984738 Body mass index 40+ - severely obese Bod y Mass Index 40+ - Severely Obese Problem 09/28/2020 12:00:00 AM EDT [place] ([facility]) 71431136 Ulcerative colitis Ulcerative Colitis Problem 12:00:00 AM EDT [place] ([facility]) 60010773 Hyperparathyroidism Hyperparathyroidism Problem 0 09/28/2020 12:00:00 AM EDT [place] ([facility]) [id number] Patient asked to attend Patient Asked to Attend [facility] 09/28/2020 12:00:00 AM EDT [place] ([facility]) 999972324 Body mass index 40+ - severely obese Bod y Mass Index 40+ - Severely Obese Problem 09/28/2020 12:00:00 AM EDT [place] ([facility]) 34652494 Ulcerative colitis Ulcerative Colitis Problem 12:00:00 AM EDT [place] ([facility]) 27053732 Hyperparathyroidism Hyperparathyroidism Problem 0 09/28/2020 12:00:00 AM EDT [place] ([facility]) F33.1 Moderate recurrent major depression Mode rate episode of recurrent major depressive disorder Problem 02/25/2020 12:00:00 AM EST [place]1 ([facility]) N92.6 [id number] Irregular periods Problem 02/24/2020 12:00:0 0 AM EST [facility] ([facility]) V45.84 DENTAL PENTECOSTALISM STATUS DENTAL PENTECOSTALISM STATUS 02/02/2020 02:55:04 PM EST [facility] Surgeries/Procedures No Information Results ID Date Data Source [id number] 01/27/2021 12:00:00 PM EDT [facility] Name Value Range Interpretation Code Description Data Kezia rce(s) Supporting Document(s) SARS-CoV-2 (COVID 19) NEGATIVE - SARS-CoV-2 (COVID19) [facility] This lab was ordered by [facility] a nd reported by [facility]. ID Date Data Source [id number] 10/18/2020 01:14:00 PM [facility] Name Value Range Interpretation Code Description Data Kezia rce(s) Supporting Document(s) glucose, fasting 80 mg/dL 70-100 Glucose, Fasting AT [facility]) blood urea nitrogen 13 mg/dL 7-18 Blood Urea Nitro gen [place] ([facility]) creatinine for GFR 0.84 mg/dL 0.55-1.30 Creatinine for GF R [place] ([facility]) glomerular filtration rate > 60.0 >60 Glomerula r Filtration Rate [place] ([facility]) sodium level 143 mEq/L 136-145 Sodium Level [place] ([facility]) potassium serum 3.9 mEq/L 3.5-5.1 Potassium Serum [place] ([facility]) chloride level 109 mEq/L 98-107 Above high normal Chloride Level [place] ([facility]) anion gap 8 mEq/L 8-16 Anion Gap [place] ([facility]) carbon dioxide level 26 mEq/L 21-32 Carbon Dioxide Level [place] ([facility]) AST/SGOT 28 U/L 7-37 AST/SGOT [place] ([facility]) calcium level 7.4 mg/dL 8.5-10.1 Below low normal Calcium Level AT [facility]) ALT/SGPT 46 U/L 12-78 ALT/SGPT [place] ([facility]) alkaline phosphatase 65 U/L 45-117 Alkaline Phosph atase [place] ([facility]) bilirubin,total 0.3 mg/dL 0.2-1.0 Bilirubin,total [place] NA ([facility]) total protein 6.7 gm/dL 6.4-8.2 Total Protein [place] ( [facility]) albumin 3.6 gm/dL 3.2-5.2 Albumin [place] ([facility]) albumin/globulin ratio 1.2-2.2 Albumin/globu ryan Ratio [place] ([facility]) ID Date Data Source [id number] 10/18/2020 01:14:00 PM EDT [place] ([facility]) Name Value Range Interpretation Code Description Data Kezia rce(s) Supporting Document(s) white blood count 8.2 10 4.0-10.0 White Blood Count [place] ([facility]) hemoglobin 11.7 g/dL 12.0-15.5 Below low normal Hemoglobin [place] ( [facility]) red blood count 4.20 10 4.00-5.40 Red Blood Count [place] ([facility]) hematocrit 35.6 % 36.0-47.0 Below low normal Hematocrit [place] ( [facility]) mean corpuscular volume 84.8 fL 80.0-96.0 Mean Corpusc ular Volume [place] ([facility]) mean corpuscular hemoglobin 27.9 pg 27.0-33.0 Mean Cor puscular Hemoglobin [place] ([facility]) red cell distribution width 13.6 % 11.5-14.5 Red Cell Distribution Width [place] ([facility]) mean corpuscular HGB conc 32.9 g/dL 32.0-36.5 Mean Corpu scular HGB Conc [place] ([facility]) neutrophils % 68.8 % 36.0-66.0 Above high normal Neutrophils % A [place] ([facility]) platelet count, automated 270 10 150-450 Platelet C ount, Automated [place] ([facility]) mono % 6.3 % 2.0-8.0 [place] % [place] ([facility]) lymph % 21.2 % 24.0-44.0 Below low normal Lymph % [place] ( [facility]) eos % 2.7 % 0.0-3.0 Eos % [place] ([facility]) baso % 0.5 % 0.0-1.0 Baso % [place] ([facility]) immature granulocyte % 0.5 % 0-3.0 Immature Gran ulocyte % [place] ([facility]) nucleated red blood cell % 0.0 % 0-0 Nucleated Red Blood Cell % [place] ([facility]) neutrophils # 5.6 10 1.5-8.5 Neutrophils # [place] ( [facility]) mono # 0.5 10 0.0-0.8 [place] # [place] ([facility]) lymph # 1.7 10 1.5-5.0 Lymph # [place] ([facility]) baso # 0.0 10 0.0-0.2 Baso # [place] ([facility]) eos # 0.2 10 0.0-0.5 Eos # [place] ([facility]) ID Date Data Source [id number] 09/28/2020 03:55:00 PM EDT [place] ([facility]) Name Value Range Interpretation Code Description Data Kezia rce(s) Supporting Document(s) triglycerides level 351 mg/dL <150 Above high normal Triglycer ides Level [place] ([facility]) HDL cholesterol 24 mg/dL >40 Below low normal HDL Cholestero l [place] ([facility]) cholesterol level 160 mg/dL <200 Cholesterol Level [place] ([facility]) Cholesterol in LDL [Mass/volume] in Serum or Plasma 66 mg/dL <1 00 LDL Cholesterol [place] ([facility]) cholesterol risk ratio <5 Above high normal Choles terol Risk Ratio [place] ([facility]) non-HDL-C 136 mg/dL Non-hdl-c [place] ([facility]) ID Date Data Source [id number] 09/28/2020 03:55:00 PM EDT [place] ([facility]) Name Value Range Interpretation Code Description Data Kezia rce(s) Supporting Document(s) glucose, fasting 105 mg/dL 70-100 Above high normal Glucose, Fas ting [place] ([facility]) blood urea nitrogen 14 mg/dL 7-18 Blood Urea Nitro gen [place] ([facility]) creatinine for GFR 0.73 mg/dL 0.55-1.30 Creatinine for GF R [place] ([facility]) glomerular filtration rate > 60.0 >60 Glomerula r Filtration Rate [place] ([facility]) sodium level 142 mEq/L 136-145 Sodium Level [place] ([facility]) chloride level 106 mEq/L 98-107 Chloride Level [place] ([facility]) potassium serum 3.8 mEq/L 3.5-5.1 Potassium Serum [place] NA ([facility]) carbon dioxide level 25 mEq/L 21-32 Carbon Dioxide Level [place] ([facility]) anion gap 11 mEq/L 8-16 Anion Gap [place] ([facility]) calcium level 6.7 mg/dL 8.5-10.1 Below low normal Calcium Level AT [place] ([facility]) AST/SGOT 26 U/L 7-37 AST/SGOT [place] ([facility]) ALT/SGPT 42 U/L 12-78 ALT/SGPT [place] ([facility]) alkaline phosphatase 67 U/L 45-117 Alkaline Phosph atase [place] ([facility]) bilirubin,total 0.3 mg/dL 0.2-1.0 Bilirubin,total [place] ([facility]) albumin 3.6 gm/dL 3.2-5.2 Albumin [place] ([facility]) total protein 6.6 gm/dL 6.4-8.2 Total Protein [place] ( [facility]) albumin/globulin ratio 1.2-2.2 Albumin/globu ryan Ratio [place] ([facility]) ID Date Data Source [id number] 09/28/2020 03:55:00 PM EDT [place] ([facility]) Name Value Range Interpretation Code Description Data Kezia rce(s) Supporting Document(s) white blood count 9.7 10 4.0-10.0 White Blood Count [place] ([facility]) hemoglobin 11.5 g/dL 12.0-15.5 Below low normal Hemoglobin [place] ( [facility]) red blood count 4.19 10 4.00-5.40 Red Blood Count [place] ([facility]) hematocrit 35.3 % 36.0-47.0 Below low normal Hematocrit [place] ( [facility]) mean corpuscular volume 84.2 fL 80.0-96.0 Mean Corpusc ular Volume [place] ([facility]) mean corpuscular HGB conc 32.6 g/dL 32.0-36.5 Mean Corpu scular HGB Conc [place] ([facility]) mean corpuscular hemoglobin 27.4 pg 27.0-33.0 Mean Cor puscular Hemoglobin [place] ([facility]) red cell distribution width 13.8 % 11.5-14.5 Red Cell Distribution Width [place] ([facility]) platelet count, automated 262 10 150-450 Platelet C ount, Automated [place] ([facility]) neutrophils % 73.1 % 36.0-66.0 Above high normal Neutrophils % A [place] ([facility]) lymph % 19.8 % 24.0-44.0 Below low normal Lymph % [place] ( [facility]) mono % 4.3 % 2.0-8.0 [place] % [place] ([facility]) eos % 2.0 % 0.0-3.0 Eos % [place] ([facility]) baso % 0.3 % 0.0-1.0 Baso % [place] ([facility]) immature granulocyte % 0.5 % 0-3.0 Immature Gran ulocyte % [place] ([facility]) nucleated red blood cell % 0.0 % 0-0 Nucleated Red Blood Cell % [place] ([facility]) lymph # 1.9 10 1.5-5.0 Lymph # [place] ([facility]) neutrophils # 7.1 10 1.5-8.5 Neutrophils # [place] ( [facility]) eos # 0.2 10 0.0-0.5 Eos # [place] ([facility]) mono # 0.4 10 0.0-0.8 [place] # [place] ([facility]) baso # 0.0 10 0.0-0.2 Baso # [place] ([facility]) ID Date Data Source [id number] 09/28/2020 03:55:00 PM EDT [place] ([facility]) Name Value Range Interpretation Code Description Data Kezia rce(s) Supporting Document(s) triglycerides level 351 mg/dL <150 Above high normal Triglycer ides Level [place] ([facility]) cholesterol level 160 mg/dL <200 Cholesterol Level [place] ([facility]) non-HDL-C 136 mg/dL Non-hdl-c [place] ([facility]) Cholesterol in LDL [Mass/volume] in Serum or Plasma 66 mg/dL <1 00 LDL Cholesterol [place] ([facility]) HDL cholesterol 24 mg/dL >40 Below low normal HDL Cholestero l [place] ([facility]) cholesterol risk ratio <5 Above high normal Choles terol Risk Ratio EL[place] ([facility]) ID Date Data Source [id number] 09/28/2020 03:55:00 PM EDT [place] ([facility]) Name Value Range Interpretation Code Description Data Kezia rce(s) Supporting Document(s) blood urea nitrogen 14 mg/dL 7-18 Blood Urea Nitro gen [place] ([facility]) glucose, fasting 105 mg/dL 70-100 Above high normal Glucose, Fas ting [place] ([facility]) glomerular filtration rate > 60.0 >60 [place]omer[place] r Filtration Rate [place] ([facility]) creatinine for GFR 0.73 mg/dL 0.55-1.30 Creatinine for GF R [place] ([facility]) sodium level 142 mEq/L 136-145 Sodium Level ELZA ([facility]) potassium serum 3.8 mEq/L 3.5-5.1 Potassium Serum ATHE NA ([facility]) chloride level 106 mEq/L 98-107 Chloride Level EZLA ([facility]) anion gap 11 mEq/L 8-16 Anion Gap [place] ([facility]) carbon dioxide level 25 mEq/L 21-32 Carbon Dioxide Level [place] ([facility]) calcium level 6.7 mg/dL 8.5-10.1 Below low normal Calcium Level AT [place] [facility]) AST/SGOT 26 U/L 7-37 AST/SGOT [place] ([facility]) ALT/SGPT 42 U/L 12-78 ALT/SGPT [place] ([facility]) bilirubin,total 0.3 mg/dL 0.2-1.0 Bilirubin,total ATHE ([facility]) alkaline phosphatase 67 U/L 45-117 Alkaline Phosph atase [place] ([facility]) total protein 6.6 gm/dL 6.4-8.2 Total Protein [place] ( [facility]) albumin 3.6 gm/dL 3.2-5.2 Albumin [place] ([facility]) albumin/globulin ratio 1.2-2.2 Albumin/globu ryan Ratio [facility] ([facility]) ID Date Data Source [id number] 09/28/2020 03:55:00 PM EDT [place] ([facility]) Name Value Range Interpretation Code Description Data Kezia rce(s) Supporting Document(s) white blood count 9.7 10 4.0-10.0 White Blood Count [place] ([facility]) red blood count 4.19 10 4.00-5.40 Red Blood Count AT[place] ([facility]) hemoglobin 11.5 g/dL 12.0-15.5 Below low normal Hemoglobin [place] ( [facility]) mean corpuscular volume 84.2 fL 80.0-96.0 Mean Corpusc ular Volume [place] ([facility]) hematocrit 35.3 % 36.0-47.0 Below low normal Hematocrit [place] ( [facility]) mean corpuscular hemoglobin 27.4 pg 27.0-33.0 Mean Cor puscular Hemoglobin [place] ([facility]) mean corpuscular HGB conc 32.6 g/dL 32.0-36.5 Mean Corpu scular HGB Conc [place] ([facility]) platelet count, automated 262 10 150-450 Platelet C ount, Automated [place] ([facility]) red cell distribution width 13.8 % 11.5-14.5 Red Cell Distribution Width [place] ([facility]) neutrophils % 73.1 % 36.0-66.0 Above high normal Neutrophils % A [place] ([facility]) mono % 4.3 % 2.0-8.0 [place] % [place] ([facility]) lymph % 19.8 % 24.0-44.0 Below low normal Lymph % [place] ( [facility]) baso % 0.3 % 0.0-1.0 Baso % [place] ([facility]) eos % 2.0 % 0.0-3.0 Eos % [place] ([facility]) nucleated red blood cell % 0.0 % 0-0 Nucleated Red Blood Cell % [place] ([facility]) immature granulocyte % 0.5 % 0-3.0 Immature Gran ulocyte % [place] ([facility]) mono # 0.4 10 0.0-0.8 [place] # [place] ([facility]) neutrophils # 7.1 10 1.5-8.5 Neutrophils # [place] ( [facility]) lymph # 1.9 10 1.5-5.0 Lymph # [place] ([facility]) baso # 0.0 10 0.0-0.2 Baso # [place] ([facility]) eos # 0.2 10 0.0-0.5 Eos # [place] ([facility]) ID Date Data Source [id number] 09/28/2020 03:55:00 PM EDT [place] ([facility]) Name Value Range Interpretation Code Description Data Kezia rce(s) Supporting Document(s) cholesterol level 160 mg/dL <200 Cholesterol Level [place] ([facility]) HDL cholesterol 24 mg/dL >40 Below low normal HDL Cholestero l [place] ([facility]) triglycerides level 351 mg/dL <150 Above high normal Triglycer ides Level [place] ([facility]) Cholesterol in LDL [Mass/volume] in Serum or Plasma 66 mg/dL <1 00 LDL Cholesterol [place] ([facility]) non-HDL-C 136 mg/dL Non-hdl-c [place] ([facility]) cholesterol risk ratio <5 Above high normal Choles terol Risk Ratio [place] ([facility]) ID Date Data Source [id number] 09/28/2020 03:55:00 PM EDT [place] ([facility]) Name Value Range Interpretation Code Description Data Kezia rce(s) Supporting Document(s) glucose, fasting 105 mg/dL 70-100 Above high normal Glucose, Fas ting [place] ([facility]) blood urea nitrogen 14 mg/dL 7-18 Blood Urea Nitro gen [place] ([facility]) creatinine for GFR 0.73 mg/dL 0.55-1.30 Creatinine for GF R [place] ([facility]) sodium level 142 mEq/L 136-145 Sodium Level [place] ([facility]) glomerular filtration rate > 60.0 >60 Glomerula r Filtration Rate [place] ([facility]) chloride level 106 mEq/L 98-107 Chloride Level [place] ([facility]) potassium serum 3.8 mEq/L 3.5-5.1 Potassium Serum ATHE NA ([facility]) carbon dioxide level 25 mEq/L 21-32 Carbon Dioxide Level [place] ([facility]) anion gap 11 mEq/L 8-16 Anion Gap [place] ([facility]) AST/SGOT 26 U/L 7-37 AST/SGOT [place] ([facility]) calcium level 6.7 mg/dL 8.5-10.1 Below low normal Calcium Level AT [place] ([facility]) bilirubin,total 0.3 mg/dL 0.2-1.0 Bilirubin,total ATHE NA ([facility]) alkaline phosphatase 67 U/L 45-117 Alkaline Phosph atase [place] ([facility]) ALT/SGPT 42 U/L 12-78 ALT/SGPT [place] ([facility]) total protein 6.6 gm/dL 6.4-8.2 Total Protein [place] ( [facility]) albumin 3.6 gm/dL 3.2-5.2 Albumin [place] ([facility]) albumin/globulin ratio 1.2-2.2 Albumin/globu ryan Ratio [place] ([facility]) ID Date Data Source [id number] 09/28/2020 03:55:00 PM EDT [place] ([facility]) Name Value Range Interpretation Code Description Data Kezia rce(s) Supporting Document(s) red blood count 4.19 10 4.00-5.40 Red Blood Count [place] ([facility]) white blood count 9.7 10 4.0-10.0 White Blood Count [place] ([facility]) hemoglobin 11.5 g/dL 12.0-15.5 Below low normal Hemoglobin [place] ( [facility]) hematocrit 35.3 % 36.0-47.0 Below low normal Hematocrit [place] ( [facility]) mean corpuscular volume 84.2 fL 80.0-96.0 Mean Corpusc ular Volume [place] ([facility]) mean corpuscular HGB conc 32.6 g/dL 32.0-36.5 Mean Corpu scular HGB Conc [place] ([facility]) mean corpuscular hemoglobin 27.4 pg 27.0-33.0 Mean Cor puscular Hemoglobin [place] ([facility]) red cell distribution width 13.8 % 11.5-14.5 Red Cell Distribution Width [place] ([facility]) platelet count, automated 262 10 150-450 Platelet C ount, Automated [place] ([facility]) lymph % 19.8 % 24.0-44.0 Below low normal Lymph % [place] ( [facility]) neutrophils % 73.1 % 36.0-66.0 Above high normal Neutrophils % A [place] ([facility]) mono % 4.3 % 2.0-8.0 [place] % [place] ([facility]) baso % 0.3 % 0.0-1.0 Baso % [place] ([facility]) eos % 2.0 % 0.0-3.0 Eos % [place] ([facility]) immature granulocyte % 0.5 % 0-3.0 Immature Gran ulocyte % [place] ([facility]) nucleated red blood cell % 0.0 % 0-0 Nucleated Red Blood Cell % [place] ([facility]) neutrophils # 7.1 10 1.5-8.5 Neutrophils # [place] ( [facility]) lymph # 1.9 10 1.5-5.0 Lymph # [place] ([facility]) mono # 0.4 10 0.0-0.8 [place] # [place] ([facility]) eos # 0.2 10 0.0-0.5 Eos # [place] ([facility]) baso # 0.0 10 0.0-0.2 Baso # [place] ([facility]) ID Date Data Source [id number] 09/28/2020 03:55:00 PM EDT [place] ([facility]) Name Value Range Interpretation Code Description Data Kezia rce(s) Supporting Document(s) triglycerides level 351 mg/dL <150 Above high normal Triglycer ides Level [place] ([facility]) cholesterol level 160 mg/dL <200 Cholesterol Level [place] ([facility]) Cholesterol in LDL [Mass/volume] in Serum or Plasma 66 mg/dL <1 00 LDL Cholesterol [facility] ([facility]) HDL cholesterol 24 mg/dL >40 Below low normal HDL Cholestero l [place] ([facility]) cholesterol risk ratio <5 Above high normal Choles terol Risk Ratio [place] ([facility]) non-HDL-C 136 mg/dL Non-hdl-c [place] ([facility]) ID Date Data Source [id number] 09/28/2020 03:55:00 PM EDT [place] ([facility]) Name Value Range Interpretation Code Description Data Kezia rce(s) Supporting Document(s) glucose, fasting 105 mg/dL 70-100 Above high normal Glucose, Fas ting [place] ([facility]) creatinine for GFR 0.73 mg/dL 0.55-1.30 Creatinine for GF R [place] ([facility]) blood urea nitrogen 14 mg/dL 7-18 Blood Urea Nitro gen [place] ([facility]) glomerular filtration rate > 60.0 >60 Glomerula r Filtration Rate [place] ([facility]) sodium level 142 mEq/L 136-145 Sodium Level ELZA ([facility]) potassium serum 3.8 mEq/L 3.5-5.1 Potassium Serum ATHE NA ([facility]) chloride level 106 mEq/L 98-107 Chloride Level [place] ([facility]) carbon dioxide level 25 mEq/L 21-32 Carbon Dioxide Level [place] ([facility]) anion gap 11 mEq/L 8-16 Anion Gap ELZA ([facility]) ALT/SGPT 42 U/L 12-78 ALT/SGPT [place] ([facility]) AST/SGOT 26 U/L 7-37 AST/SGOT [place] ([facility]) calcium level 6.7 mg/dL 8.5-10.1 Below low normal Calcium Level [place] ([facility]) alkaline phosphatase 67 U/L 45-117 Alkaline Phosph atase [place] ([facility]) bilirubin,total 0.3 mg/dL 0.2-1.0 Bilirubin,total ATHE NA ([facility]) albumin 3.6 gm/dL 3.2-5.2 Albumin [place] ([facility]) albumin/globulin ratio 1.2-2.2 Albumin/globu ryan Ratio [place] ([facility]) total protein 6.6 gm/dL 6.4-8.2 Total Protein [place] ( [facility]) ID Date Data Source [id number] 09/28/2020 03:55:00 PM EDT [place] ([facility]) Name Value Range Interpretation Code Description Data Ekzia rce(s) Supporting Document(s) white blood count 9.7 10 4.0-10.0 White Blood Count [place] ([facility]) red blood count 4.19 10 4.00-5.40 Red Blood Count ATHE NA ([facility]) hemoglobin 11.5 g/dL 12.0-15.5 Below low normal Hemoglobin [place] ( [facility]) hematocrit 35.3 % 36.0-47.0 Below low normal Hematocrit [place] ( [facility]) mean corpuscular volume 84.2 fL 80.0-96.0 Mean Corpusc ular Volume [place] ([facility]) mean corpuscular HGB conc 32.6 g/dL 32.0-36.5 Mean Corpu scular HGB Conc [place] ([facility]) mean corpuscular hemoglobin 27.4 pg 27.0-33.0 Mean Cor puscular Hemoglobin [place] ([facility]) red cell distribution width 13.8 % 11.5-14.5 Red Cell Distribution Width [place] ([facility]) platelet count, automated 262 10 150-450 Platelet C ount, Automated [place] ([facility]) lymph % 19.8 % 24.0-44.0 Below low normal Lymph % [place] ( [facility]) mono % 4.3 % 2.0-8.0 [place] % [place] ([facility]) neutrophils % 73.1 % 36.0-66.0 Above high normal Neutrophils % A [place] ([facility]) baso % 0.3 % 0.0-1.0 Baso % [place] ([facility]) eos % 2.0 % 0.0-3.0 Eos % [place] ([facility]) nucleated red blood cell % 0.0 % 0-0 Nucleated Red Blood Cell % [place] ([facility]) immature granulocyte % 0.5 % 0-3.0 Immature Gran ulocyte % [place] ([facility]) neutrophils # 7.1 10 1.5-8.5 Neutrophils # [place] ( [facility]) lymph # 1.9 10 1.5-5.0 Lymph # [place] ([facility]) eos # 0.2 10 0.0-0.5 Eos # [place] ([facility]) mono # 0.4 10 0.0-0.8 [place] # [place] ([facility]) baso # 0.0 10 0.0-0.2 Baso # [place] ([facility]) ID Date Data Source [id number] 09/19/2020 08:41:00 AM EDT [facility]) Name Value Range Interpretation Code Description Data Kezia rce(s) Supporting Document(s) Bacteria identified in Urine by Culture see note Culture, Urine, Routine [facility]) ID Date Data Source [id number] 09/19/2020 08:41:00 AM EDT [facility]) Name Value Range Interpretation Code Description Data Kezia rce(s) Supporting Document(s) Hemoglobin A1c/Hemoglobin.total in Blood 4.8 %_of_total_HGB <5.7 Hemoglobin a1C [place] ([facility]) ID Date Data Source [id number] 09/19/2020 08:41:00 AM EDT [facility]) Name Value Range Interpretation Code Description Data Kezia rce(s) Supporting Document(s) Calcidiol [Mass/volume] in Serum or Plasma 33 NG/mL 30-100 Vitamin D,25-Oh,total,ia [facility]) ID Date Data Source [id number] 09/19/2020 08:41:00 AM EDT [facility]) Name Value Range Interpretation Code Description Data Kezia rce(s) Supporting Document(s) Leukocytes [#/volume] in Blood by Automated count 7.7 thousand/uL 3 .8-10.8 White Blood Cell Count [place] ([facility]) Hemoglobin [Mass/volume] in Blood 12.0 g/dL 11.7-15.5 He moglobin [place] ([facility]) Hematocrit [Volume Fraction] of Blood by Automated count 38.0 % 35.0-45.0 Hematocrit [place] ([facility]) Erythrocytes [#/volume] in Blood by Automated count 4.37 million/uL 3.80-5.10 Red Blood Cell Count [place] ([facility]) Erythrocyte mean corpuscular hemoglobin [Entitic mass] by Automated count 27.5 pg 27.0-33.0 Mch [place] ([facility]) Erythrocyte mean corpuscular volume [Entitic volume] by Auto mated count 87.0 fL 80.0-100.0 Mcv EL[facility] ([facility]) Erythrocyte mean corpuscular hemoglobin concentration [Mass/volume] by Automated count 31.6 g/dL 32.0-36.0 Below low normal Mchc [facility] ([facility]) Platelet mean volume [Entitic volume] in Blood by Christa 10.1 f L 7.5-12.5 Mpv [place] ([facility]) Erythrocyte distribution width [Ratio] by Automated count 14.4 % 11.0-15.0 Rdw [place] ([facility]) Platelets [#/volume] in Blood by Automated count 245 thousand/uL 14 0-400 Platelet Count [place] ([facility]) Monocytes [#/volume] in Blood by Automated count 408 cells/uL 200-9 50 Absolute Monocytes [place] ([facility]) Lymphocytes [#/volume] in Blood by Automated count 1748 cells/uL 85 0-3900 Absolute Lymphocytes [place] ([facility]) Neutrophils [#/volume] in Blood by Automated count 5313 cells/uL 15 00-7800 [facility] Eosinophils [#/volume] in Blood by Automated count 193 cells/uL 15- 500 Absolute Eosinophils [place] ([facility]) Neutrophils/100 leukocytes in Blood by Automated count 69 % 38- 80 Neutrophils [place] ([facility]) Basophils [#/volume] in Blood by Automated count 39 cells/uL 0-200 Absolute Basophils [place] ([facility]) Lymphocytes/100 leukocytes in Blood by Automated count 22.7 % 15-49 Lymphocytes [place] ([facility]) Eosinophils/100 leukocytes in Blood by Automated count 2.5 % 0-8 Eosinophils [place] ([facility]) Basophils/100 leukocytes in Blood by Automated count 0.5 % 0-2 Basophils [place] ([facility]) Monocytes/100 leukocytes in Blood by Automated count 5.3 % 0-13 Monocytes [place] ([facility]) ID Date Data Source [id number] 09/19/2020 08:41:00 AM EDT [facility]) Name Value Range Interpretation Code Description Data Kezia rce(s) Supporting Document(s) Bacteria identified in Urine by Culture Reflexive Urine Culture [facility]) ID Date Data Source [id number] 09/19/2020 08:41:00 AM EDT [facility]) Name Value Range Interpretation Code Description Data Kezia rce(s) Supporting Document(s) Color of Urine yellow yellow Color [facility] ([facility]) Specific gravity of Urine by Test strip 1.001-1.035 Specific [place] ([facility]) pH of Urine by Test strip 5.0-8.0 Ph [place] ([facility]) Appearance of Urine cloudy clear Abnormal (applies to non-numeric results) Appearance [place] ([facility]) Bilirubin.total [Presence] in Urine by Test strip negative negative Bilirubin [place] ([facility]) Glucose [Presence] in Urine by Test strip negative negative Glucose [place] ([facility]) Ketones [Presence] in Urine by Test strip negative negative Ketones [place] ([facility]) Nitrite [Presence] in Urine by Test strip negative negative Nitrite [place] ([facility]) Protein [Presence] in Urine by Test strip negative negative Protein [place] ([facility]) Hemoglobin [Presence] in Urine by Test strip negative negative Occult Blood [place] ([facility]) Leukocytes [#/area] in Urine sediment by Microscopy high pow er field 6-10 < or = 5 Abnormal (applies to non-numeric results) Wbc [place] ([facility]) Erythrocytes [#/area] in Urine sediment by Microscopy high power field none seen < or = 2 Rbc [place] ([facility]) Leukocyte esterase [Presence] in Urine by Test strip negative n egative Leukocyte Esterase [place] ([facility]) Calcium oxalate crystals [#/area] in Uri ne sediment by Microscopy high power field many none or few Abnormal (applies to non-numeric results) Calcium Oxalate Crystals [place] ([facility]) Epithelial cells.squamous [#/area] in Ur ine sediment by Microscopy high power field 10-20 < or = 5 Abnormal (applies to non-numeric results) Squamous Epithelial Cells [facility] ([facility]) Bacteria [#/area] in Urine sediment by Microscopy high power field few none seen Abnormal (applies to non-numeric results) Bacteria [place] ([facility]) Hyaline casts [#/area] in Urine sediment by Microscopy low power field none seen none seen Hyaline Cast [place] ([facility]) ID Date Data Source [id number] 09/19/2020 08:41:00 AM EDT [facility]) Name Value Range Interpretation Code Description Data Kezia rce(s) Supporting Document(s) Corticotropin [Mass/volume] in Plasma 22 pg/mL 6-50 Acth, Plasma [place] ([facility]) ID Date Data Source [id number] 09/19/2020 08:41:00 AM EDT [facility]) Name Value Range Interpretation Code Description Data Kezia rce(s) Supporting Document(s) Creatinine [Mass/volume] in Serum or Plasma 0.80 mg/dL 0.50-1.10 Creatinine [place] ([facility]) Glucose [Mass/volume] in Serum or Plasma 94 mg/dL 65-99 Glucose [place] ([facility]) Urea nitrogen [Mass/volume] in Serum or Plasma 18 mg/dL 7-25 Urea Nitrogen (BUN) [place] ([facility]) Glomerular filtration rate/1.73 sq M.pre dicted among blacks [Volume Rate/Area] in Serum, Plasma or Blood by Creatinine-based formula (CKD-EPI) 114 mL/min/1.73m2 > or = 60 eGFR [place] ([facility]) Glomerular filtration rate/1.73 sq M.pre dicted among non-blacks [Volume Rate/Area] in Serum, Plasma or Blood by Creatinine-based formula (CKD-EPI) 98 mL/min/1.73m2 > or = 60 eGFR Non-afr. [place] EL[place] ([facility]) Urea nitrogen/Creatinine [Mass Ratio] in Serum or Plasma not applic able 6-22 BUN/creatinine Ratio [place] ([facility]) Sodium [Moles/volume] in Serum or Plasma 140 mmol/L 135-146 Sodium [place] ([facility]) Chloride [Moles/volume] in Serum or Plasma 106 mmol/L 98-110 Chloride [place] ([facility]) Carbon dioxide, total [Moles/volume] in Serum or Plasma 25 mmol/L 20-32 Carbon Dioxide [place] ([facility]) Potassium [Moles/volume] in Serum or Plasma 4.2 mmol/L 3.5-5.3 Potassium [place] ([facility]) Albumin [Mass/volume] in Serum or Plasma 4.1 g/dL 3.6-5.1 Albumin [place] ([facility]) Calcium [Mass/volume] in Serum or Plasma 8.0 mg/dL 8.6-10.2 Below low normal Calcium [place] ([facility]) Protein [Mass/volume] in Serum or Plasma 6.6 g/dL 6.1-8.1 Protein, Total [place] ([facility]) Albumin/Globulin [Mass Ratio] in Serum or Plasma 1.6 (calc) 1.0-2 .5 Albumin/globulin [facility] Globulin [Mass/volume] in Serum by calculation 2.5 g/dL_(calc) 1.9- 3.7 Globulin [place] ([facility]) Bilirubin.total [Mass/volume] in Serum or Plasma 0.3 mg/dL 0.2-1 .2 Bilirubin, Total [place] ([facility]) Aspartate aminotransferase [Enzymatic activity/volume] in Serum or Plasma 18 U/L 10-30 Ast [place] ([facility]) Alkaline phosphatase [Enzymatic activity/volume] in Serum or Plasma 57 U/L 31-125 Alkaline Phosphatase [facility] ([facility]) Alanine aminotransferase [Enzymatic activity/volume] in Seru m or Plasma 30 U/L 6-29 Above high normal Alt [place] ([facility]) ID Date Data Source [id number] 09/19/2020 08:41:00 AM EDT [facility]) Name Value Range Interpretation Code Description Data Kezia rce(s) Supporting Document(s) Thyrotropin [Units/volume] in Serum or Plasma 2.97 mIU/L Tsh [place] ([facility]) Thyroxine (T4) free [Mass/volume] in Serum or Plasma 1.0 NG/dL 0 .8-1.8 T4, Free [place] ([facility]) ID Date Data Source [id number] 09/19/2020 08:41:00 AM EDT [place] ([facility]) Name Value Range Interpretation Code Description Data Kezia rce(s) Supporting Document(s) Cholesterol in HDL [Mass/volume] in Serum or Plasma 31 mg/dL > or = 50 Below low normal HDL Cholesterol [facility] ([facility]) Cholesterol [Mass/volume] in Serum or Plasma 149 mg/dL <200 Cholesterol, Total [place] ([facility]) Triglyceride [Mass/volume] in Serum or Plasma 140 mg/dL <150 Triglycerides [facility] ([facility]) Cholesterol in LDL [Mass/volume] in Serum or Plasma by calculation 94 mg/dL_(calc) <100 LDL-cholesterol [facility] ([facility]) Cholesterol non HDL [Mass/volume] in Serum or Plasma 118 mg/dL_(marry c) <130 Non HDL Cholesterol [facility] ([facility]) Cholesterol.total/Cholesterol in HDL [Mass Ratio] in Serum o r Plasma 4.8 calc <5.0 Chol/hdlc Ratio [place] ([facility]) Lipoprotein.beta.subparticle.small [Moles/volume] in Serum o r Plasma 302 nmol/L <142 Above high normal LDL Small [place] ([facility]) Lipoprotein.alpha 3 [Moles/volume] in Serum 240 nmol/L <215 Above high normal LDL Medium [place] ([facility]) Lipoprotein.beta.subparticle [Moles/volume] in Serum or Plas ma 1237 nmol/L <1138 Above high normal LDL Particle Number [place] ([facility]) Lipoprotein.alpha.subparticle.large [Moles/volume] in Serum or Plasma 5879 nmol/L >6729 Below low normal HDL Large [facility] ([facility]) Cholesterol in LDL real size pattern [Identifier] in Serum or Pl asma B A Abnormal (applies to non-numeric results) LDL Pattern [facility] ([facility]) Lipoprotein a [Moles/volume] in Serum or Plasma 107 nmol/L <75 Above high normal Lipoprotein (a) [facility] ([facility]) Lipoprotein.beta.subparticle [Entitic length] in Serum or Pl asma 210.5 angstrom >222.9 Below low normal LDL Peak Size [facility] ([facility]) Apolipoprotein B [Mass/volume] in Serum or Plasma 86 mg/dL Apolipoprotein B [facility] ([facility]) ID Date Data Source [id number] 09/19/2020 08:41:00 AM EDT [place] ([facility]) Name Value Range Interpretation Code Description Data Kezia rce(s) Supporting Document(s) Bacteria identified in Urine by Culture see note Culture, Urine, Routine [place] ([facility]) ID Date Data Source [id number] 09/19/2020 08:41:00 AM EDT [facility]) Name Value Range Interpretation Code Description Data Kezia rce(s) Supporting Document(s) Hemoglobin A1c/Hemoglobin.total in Blood 4.8 %_of_total_HGB <5.7 Hemoglobin a1C [place] ([facility]) ID Date Data Source [id number] 09/19/2020 08:41:00 AM EDT [place] ([facility]) Name Value Range Interpretation Code Description Data Kezia rce(s) Supporting Document(s) Calcidiol [Mass/volume] in Serum or Plasma 33 NG/mL 30-100 Vitamin D,25-Oh,total,ia [place] ([facility]) ID Date Data Source [id number] 09/19/2020 08:41:00 AM EDT [place] ([facility]) Name Value Range Interpretation Code Description Data Kezia rce(s) Supporting Document(s) Leukocytes [#/volume] in Blood by Automated count 7.7 thousand/uL 3 .8-10.8 White Blood Cell Count [place] ([facility]) Erythrocytes [#/volume] in Blood by Automated count 4.37 million/uL 3.80-5.10 Red Blood Cell Count [place] ([facility]) Hemoglobin [Mass/volume] in Blood 12.0 g/dL 11.7-15.5 He moglobin [facility]) Erythrocyte mean corpuscular hemoglobin concentration [Mass/volume] by Automated count 31.6 g/dL 32.0-36.0 Below low normal Mchc [place] ([facility]) Erythrocyte mean corpuscular hemoglobin [Entitic mass] by Automated count 27.5 pg 27.0-33.0 Mch [place] ([facility]) Erythrocyte mean corpuscular volume [Entitic volume] by Auto mated count 87.0 fL 80.0-100.0 Mcv [place] ([facility]) Hematocrit [Volume Fraction] of Blood by Automated count 38.0 % 35.0-45.0 Hematocrit [facility]) Erythrocyte distribution width [Ratio] by Automated count 14.4 % 11.0-15.0 Rdw [place] ([facility]) Platelets [#/volume] in Blood by Automated count 245 thousand/uL 14 0-400 Platelet Count [place] ([facility]) Platelet mean volume [Entitic volume] in Blood by Christa 10.1 f L 7.5-12.5 Mpv [place] ([facility]) Neutrophils [#/volume] in Blood by Automated count 5313 cells/uL 15 00-7800 Absolute Neutrophils [place] ([facility]) Lymphocytes [#/volume] in Blood by Automated count 1748 cells/uL 85 0-3900 Absolute Lymphocytes [place] ([facility]) Monocytes [#/volume] in Blood by Automated count 408 cells/uL 200-9 50 Absolute Monocytes [place] ([facility]) Eosinophils [#/volume] in Blood by Automated count 193 cells/uL 15- 500 Absolute Eosinophils [place] ([facility]) Basophils [#/volume] in Blood by Automated count 39 cells/uL 0-200 Absolute Basophils [place] ([facility]) Lymphocytes/100 leukocytes in Blood by Automated count 22.7 % 15-49 Lymphocytes [place] ([facility]) Neutrophils/100 leukocytes in Blood by Automated count 69 % 38- 80 Neutrophils [place] ([facility]) Monocytes/100 leukocytes in Blood by Automated count 5.3 % 0-13 Monocytes [place] ([facility]) Eosinophils/100 leukocytes in Blood by Automated count 2.5 % 0-8 Eosinophils [place] ([facility]) Basophils/100 leukocytes in Blood by Automated count 0.5 % 0-2 Basophils [place] ([facility]) ID Date Data Source [id number] 09/19/2020 08:41:00 AM EDT [place] ([facility]) Name Value Range Interpretation Code Description Data Kezia rce(s) Supporting Document(s) Bacteria identified in Urine by Culture Reflexive Urine Culture [place] ([facility]) ID Date Data Source [id number] 09/19/2020 08:41:00 AM EDT [place] ([facility]) Name Value Range Interpretation Code Description Data Kezia rce(s) Supporting Document(s) Color of Urine yellow yellow Color [facility] ([facility]) Specific gravity of Urine by Test strip 1.001-1.035 Specific [place] ([facility]) pH of Urine by Test strip 5.0-8.0 Ph [place] ([facility]) Appearance of Urine cloudy clear Abnormal (applies to non-numeric results) Appearance [place] ([facility]) Bilirubin.total [Presence] in Urine by Test strip negative negative Bilirubin [place] ([facility]) Ketones [Presence] in Urine by Test strip negative negative Ketones [place] ([facility]) Glucose [Presence] in Urine by Test strip negative negative Glucose [place] ([facility]) Hemoglobin [Presence] in Urine by Test strip negative negative Occult Blood [place] ([facility]) Nitrite [Presence] in Urine by Test strip negative negative Nitrite [place] ([facility]) Protein [Presence] in Urine by Test strip negative negative Protein [place] ([facility]) Erythrocytes [#/area] in Urine sediment by Microscopy high power field none seen < or = 2 Rbc [place] ([facility]) Leukocytes [#/area] in Urine sediment by Microscopy high pow er field 6-10 < or = 5 Abnormal (applies to non-numeric results) Wbc [place] ([facility]) Leukocyte esterase [Presence] in Urine by Test strip negative n egative Leukocyte Esterase [place] ([facility]) Bacteria [#/area] in Urine sediment by Microscopy high power field few none seen Abnormal (applies to non-numeric results) Bacteria [place] ([facility]) Hyaline casts [#/area] in Urine sediment by Microscopy low power field none seen none seen Hyaline Cast [place] ([facility]) Calcium oxalate crystals [#/area] in Uri ne sediment by Microscopy high power field many none or few Abnormal (applies to non-numeric results) Calcium Oxalate Crystals [place] ([facility]) Epithelial cells.squamous [#/area] in Ur ine sediment by Microscopy high power field 10-20 < or = 5 Abnormal (applies to non-numeric results) Squamous Epithelial Cells [place] ([facility]) ID Date Data Source [id number] 09/19/2020 08:41:00 AM EDT [facility]) Name Value Range Interpretation Code Description Data Kezia rce(s) Supporting Document(s) Corticotropin [Mass/volume] in Plasma 22 pg/mL 6-50 Acth, Plasma [facility]) ID Date Data Source [id number] 09/19/2020 08:41:00 AM EDT [place] ([facility]) Name Value Range Interpretation Code Description Data Kezia rce(s) Supporting Document(s) Urea nitrogen [Mass/volume] in Serum or Plasma 18 mg/dL 7-25 Urea Nitrogen (BUN) [place] ([facility]) Glucose [Mass/volume] in Serum or Plasma 94 mg/dL 65-99 Glucose [place] ([facility]) Glomerular filtration rate/1.73 sq M.pre dicted among blacks [Volume Rate/Area] in Serum, Plasma or Blood by Creatinine-based formula (CKD-EPI) 114 mL/min/1.73m2 > or = 60 eGFR [place] ([facility]) Glomerular filtration rate/1.73 sq M.pre dicted among non-blacks [Volume Rate/Area] in Serum, Plasma or Blood by Creatinine-based formula (CKD-EPI) 98 mL/min/1.73m2 > or = 60 eGFR Non-afr. [place]ran [facility] ([facility]) Creatinine [Mass/volume] in Serum or Plasma 0.80 mg/dL 0.50-1.10 Creatinine [place] ([facility]) Sodium [Moles/volume] in Serum or Plasma 140 mmol/L 135-146 Sodium [place] ([facility]) Urea nitrogen/Creatinine [Mass Ratio] in Serum or Plasma not applic able 6-22 BUN/creatinine Ratio [place] ([facility]) Potassium [Moles/volume] in Serum or Plasma 4.2 mmol/L 3.5-5.3 Potassium [place] ([facility]) Chloride [Moles/volume] in Serum or Plasma 106 mmol/L 98-110 Chloride [place] ([facility]) Carbon dioxide, total [Moles/volume] in Serum or Plasma 25 mmol/L 20-32 Carbon Dioxide [place] ([facility]) Calcium [Mass/volume] in Serum or Plasma 8.0 mg/dL 8.6-10.2 Below low normal Calcium [place] ([facility]) Protein [Mass/volume] in Serum or Plasma 6.6 g/dL 6.1-8.1 Protein, Total [place] ([facility]) Albumin [Mass/volume] in Serum or Plasma 4.1 g/dL 3.6-5.1 Albumin [place] ([facility]) Albumin/Globulin [Mass Ratio] in Serum or Plasma 1.6 (calc) 1.0-2 .5 Albumin/globulin Ratio [place] ([facility]) Globulin [Mass/volume] in Serum by calculation 2.5 g/dL_(calc) 1.9- 3.7 Globulin [place] ([facility]) Bilirubin.total [Mass/volume] in Serum or Plasma 0.3 mg/dL 0.2-1 .2 Bilirubin, Total [place] ([facility]) Alkaline phosphatase [Enzymatic activity/volume] in Serum or Plasma 57 U/L 31-125 Alkaline Phosphatase [place] ([facility]) Aspartate aminotransferase [Enzymatic activity/volume] in Serum or Plasma 18 U/L 10-30 Ast [place] ([facility]) Alanine aminotransferase [Enzymatic activity/volume] in Seru m or Plasma 30 U/L 6-29 Above high normal Alt [place] ([facility]) ID Date Data Source [id number] 09/19/2020 08:41:00 AM EDT [facility]) Name Value Range Interpretation Code Description Data Kezia rce(s) Supporting Document(s) Thyrotropin [Units/volume] in Serum or Plasma 2.97 mIU/L Tsh [facility]) Thyroxine (T4) free [Mass/volume] in Serum or Plasma 1.0 NG/dL 0 .8-1.8 T4, Free [facility]) ID Date Data Source [id number] 09/19/2020 08:41:00 AM EDT [facility]) Name Value Range Interpretation Code Description Data Kezia rce(s) Supporting Document(s) Cholesterol [Mass/volume] in Serum or Plasma 149 mg/dL <200 Cholesterol, Total [place] ([facility]) Triglyceride [Mass/volume] in Serum or Plasma 140 mg/dL <150 Triglycerides [place] ([facility]) Cholesterol in HDL [Mass/volume] in Serum or Plasma 31 mg/dL > or = 50 Below low normal HDL Cholesterol [facility] ([facility]) Cholesterol.total/Cholesterol in HDL [Mass Ratio] in Serum o r Plasma 4.8 calc <5.0 Chol/hdlc Ratio [facility] ([facility]) Cholesterol in LDL [Mass/volume] in Serum or Plasma by calculation 94 mg/dL_(calc) <100 LDL-cholesterol [place] ([facility]) Lipoprotein.beta.subparticle.small [Moles/volume] in Serum o r Plasma 302 nmol/L <142 Above high normal LDL Small [place] ([facility]) Cholesterol non HDL [Mass/volume] in Serum or Plasma 118 mg/dL_(marry c) <130 Non HDL Cholesterol [place] ([facility]) Lipoprotein.beta.subparticle [Moles/volume] in Serum or Plas ma 1237 nmol/L <1138 Above high normal LDL Particle Number [place] ([facility]) Lipoprotein.alpha.subparticle.large [Moles/volume] in Serum or Plasma 5879 nmol/L >6729 Below low normal HDL Large [facility] ([facility]) Lipoprotein.alpha 3 [Moles/volume] in Serum 240 nmol/L <215 Above high normal LDL Medium [place] ([facility]) Apolipoprotein B [Mass/volume] in Serum or Plasma 86 mg/dL Apolipoprotein B [place] ([facility]) Cholesterol in LDL real size pattern [Identifier] in Serum or Pl asma B A Abnormal (applies to non-numeric results) LDL Pattern [facility] ([facility]) Lipoprotein.beta.subparticle [Entitic length] in Serum or Pl asma 210.5 angstrom >222.9 Below low normal LDL Peak Size [facility] ([facility]) Lipoprotein a [Moles/volume] in Serum or Plasma 107 nmol/L <75 Above high normal Lipoprotein (a) [place] ([facility]) ID Date Data Source [id number] 09/19/2020 08:41:00 AM EDT [facility]) Name Value Range Interpretation Code Description Data Kezia rce(s) Supporting Document(s) Bacteria identified in Urine by Culture see note Culture, Urine, Routine [facility]) ID Date Data Source [id number] 09/19/2020 08:41:00 AM EDT [facility]) Name Value Range Interpretation Code Description Data Kezia rce(s) Supporting Document(s) Hemoglobin A1c/Hemoglobin.total in Blood 4.8 %_of_total_HGB <5.7 Hemoglobin a1C [facility]) ID Date Data Source [id number] 09/19/2020 08:41:00 AM EDT [facility]) Name Value Range Interpretation Code Description Data Kezia rce(s) Supporting Document(s) Calcidiol [Mass/volume] in Serum or Plasma 33 NG/mL 30-100 Vitamin D,25-Oh,total,ia [facility]) ID Date Data Source [id number] 09/19/2020 08:41:00 AM EDT [facility]) Name Value Range Interpretation Code Description Data Kezia rce(s) Supporting Document(s) Hemoglobin [Mass/volume] in Blood 12.0 g/dL 11.7-15.5 He moglobin [place] ([facility]) Leukocytes [#/volume] in Blood by Automated count 7.7 thousand/uL 3 .8-10.8 White Blood Cell Count [place] ([facility]) Erythrocytes [#/volume] in Blood by Automated count 4.37 million/uL 3.80-5.10 Red Blood Cell Count [place] ([facility]) Hematocrit [Volume Fraction] of Blood by Automated count 38.0 % 35.0-45.0 Hematocrit [place] ([facility]) Erythrocyte mean corpuscular hemoglobin concentration [Mass/volume] by Automated count 31.6 g/dL 32.0-36.0 Below low normal Mchc [place] ([facility]) Erythrocyte mean corpuscular volume [Entitic volume] by Auto mated count 87.0 fL 80.0-100.0 Mcv [place] ([facility]) Erythrocyte mean corpuscular hemoglobin [Entitic mass] by Automated count 27.5 pg 27.0-33.0 Mch [place] ([facility]) Neutrophils [#/volume] in Blood by Automated count 5313 cells/uL 15 00-7800 Absolute Neutrophils [place] ([facility]) Platelets [#/volume] in Blood by Automated count 245 thousand/uL 14 0-400 Platelet Count [place] ([facility]) Erythrocyte distribution width [Ratio] by Automated count 14.4 % 11.0-15.0 Rdw [place] ([facility]) Platelet mean volume [Entitic volume] in Blood by Christa 10.1 f L 7.5-12.5 Mpv [place] ([facility]) Eosinophils [#/volume] in Blood by Automated count 193 cells/uL 15- 500 Absolute Eosinophils [place] ([facility]) Basophils [#/volume] in Blood by Automated count 39 cells/uL 0-200 Absolute Basophils [place] ([facility]) Lymphocytes [#/volume] in Blood by Automated count 1748 cells/uL 85 0-3900 Absolute Lymphocytes [place] ([facility]) Monocytes [#/volume] in Blood by Automated count 408 cells/uL 200-9 50 Absolute Monocytes [place] ([facility]) Eosinophils/100 leukocytes in Blood by Automated count 2.5 % 0-8 Eosinophils [place] ([facility]) Lymphocytes/100 leukocytes in Blood by Automated count 22.7 % 15-49 Lymphocytes [place] ([facility]) Neutrophils/100 leukocytes in Blood by Automated count 69 % 38- 80 [facility] Monocytes/100 leukocytes in Blood by Automated count 5.3 % 0-13 Monocytes [facility] Basophils/100 leukocytes in Blood by Automated count 0.5 % 0-2 Basophils [place] ([facility]) ID Date Data Source [id number] 09/19/2020 08:41:00 AM EDT [place] ([facility]) Name Value Range Interpretation Code Description Data Kezia rce(s) Supporting Document(s) Bacteria identified in Urine by Culture Reflexive Urine Culture [place] ([facility]) ID Date Data Source [id number] 09/19/2020 08:41:00 AM EDT [place] ([facility]) Name Value Range Interpretation Code Description Data Kezia rce(s) Supporting Document(s) Color of Urine yellow yellow Color [facility] ([facility]) Appearance of Urine cloudy clear Abnormal (applies to non-numeric results) Appearance [place] ([facility]) Glucose [Presence] in Urine by Test strip negative negative Glucose [place] ([facility]) pH of Urine by Test strip 5.0-8.0 Ph [place] ([facility]) Bilirubin.total [Presence] in Urine by Test strip negative negative Bilirubin [place] ([facility]) Specific gravity of Urine by Test strip 1.001-1.035 Specific [place] ([facility]) Ketones [Presence] in Urine by Test strip negative negative Ketones [place] ([facility]) Hemoglobin [Presence] in Urine by Test strip negative negative Occult Blood [place] ([facility]) Protein [Presence] in Urine by Test strip negative negative Protein [place] ([facility]) Erythrocytes [#/area] in Urine sediment by Microscopy high power field none seen < or = 2 Rbc [place] ([facility]) Nitrite [Presence] in Urine by Test strip negative negative Nitrite [place] ([facility]) Leukocytes [#/area] in Urine sediment by Microscopy high pow er field 6-10 < or = 5 Abnormal (applies to non-numeric results) Wbc [place] ([facility]) Leukocyte esterase [Presence] in Urine by Test strip negative n egative Leukocyte Esterase [place] ([facility]) Epithelial cells.squamous [#/area] in Ur ine sediment by Microscopy high power field 10-20 < or = 5 Abnormal (applies to non-numeric results) Squamous Epithelial Cells [place] ([facility]) Calcium oxalate crystals [#/area] in Uri ne sediment by Microscopy high power field many none or few Abnormal (applies to non-numeric results) Calcium Oxalate Crystals [place] ([facility]) Bacteria [#/area] in Urine sediment by Microscopy high power field few none seen Abnormal (applies to non-numeric results) Bacteria [place] ([facility]) Hyaline casts [#/area] in Urine sediment by Microscopy low power field none seen none seen Hyaline Cast [place] ([facility]) ID Date Data Source [id number] 09/19/2020 08:41:00 AM EDT [facility]) Name Value Range Interpretation Code Description Data Kezia rce(s) Supporting Document(s) Corticotropin [Mass/volume] in Plasma 22 pg/mL 6-50 Acth, Plasma [facility]) ID Date Data Source [id number] 09/19/2020 08:41:00 AM EDT [facility]) Name Value Range Interpretation Code Description Data Kezia rce(s) Supporting Document(s) Urea nitrogen [Mass/volume] in Serum or Plasma 18 mg/dL 7-25 Urea Nitrogen (BUN) [place] ([facility]) Creatinine [Mass/volume] in Serum or Plasma 0.80 mg/dL 0.50-1.10 Creatinine [place] ([facility]) Glucose [Mass/volume] in Serum or Plasma 94 mg/dL 65-99 Glucose [place] ([facility]) Glomerular filtration rate/1.73 sq M.pre dicted among blacks [Volume Rate/Area] in Serum, Plasma or Blood by Creatinine-based formula (CKD-EPI) 114 mL/min/1.73m2 > or = 60 eGFR [place] ([facility]) Glomerular filtration rate/1.73 sq M.pre dicted among non-blacks [Volume Rate/Area] in Serum, Plasma or Blood by Creatinine-based formula (CKD-EPI) 98 mL/min/1.73m2 > or = 60 eGFR Non-afr. [place] ([facility]) Urea nitrogen/Creatinine [Mass Ratio] in Serum or Plasma not applic able 6-22 BUN/creatinine Ratio [place] ([facility]) Carbon dioxide, total [Moles/volume] in Serum or Plasma 25 mmol/L 20-32 Carbon Dioxide [place] ([facility]) Chloride [Moles/volume] in Serum or Plasma 106 mmol/L 98-110 Chloride [place] ([facility]) Sodium [Moles/volume] in Serum or Plasma 140 mmol/L 135-146 Sodium [place] ([facility]) Potassium [Moles/volume] in Serum or Plasma 4.2 mmol/L 3.5-5.3 Potassium [place] ([facility]) Albumin [Mass/volume] in Serum or Plasma 4.1 g/dL 3.6-5.1 Albumin [place] ([facility]) Protein [Mass/volume] in Serum or Plasma 6.6 g/dL 6.1-8.1 [facility], [facility] Calcium [Mass/volume] in Serum or Plasma 8.0 mg/dL 8.6-10.2 Below low normal Calcium [place] ([facility]) Globulin [Mass/volume] in Serum by calculation 2.5 g/dL_(calc) 1.9- 3.7 Globulin [facility]) Bilirubin.total [Mass/volume] in Serum or Plasma 0.3 mg/dL 0.2-1 .2 Bilirubin, [facility] Albumin/Globulin [Mass Ratio] in Serum or Plasma 1.6 (calc) 1.0-2 .5 Albumin/globulin Ratio [place] ([facility]) Aspartate aminotransferase [Enzymatic activity/volume] in Serum or Plasma 18 U/L 10-30 Ast [place] ([facility]) Alkaline phosphatase [Enzymatic activity/volume] in Serum or Plasma 57 U/L 31-125 Alkaline Phosphatase [place] ([facility]) Alanine aminotransferase [Enzymatic activity/volume] in Seru m or Plasma 30 U/L 6-29 Above high normal Alt [place] ([facility]) ID Date Data Source [id number] 09/19/2020 08:41:00 AM EDT [facility]) Name Value Range Interpretation Code Description Data Kezia rce(s) Supporting Document(s) Thyrotropin [Units/volume] in Serum or Plasma 2.97 mIU/L Tsh [place] ([facility]) Thyroxine (T4) free [Mass/volume] in Serum or Plasma 1.0 NG/dL 0 .8-1.8 T4, Free [place] ([facility]) ID Date Data Source [id number] 09/19/2020 08:41:00 AM EDT [facility]) Name Value Range Interpretation Code Description Data Kezia rce(s) Supporting Document(s) Cholesterol [Mass/volume] in Serum or Plasma 149 mg/dL <200 Cholesterol, Total [place] ([facility]) Cholesterol in LDL [Mass/volume] in Serum or Plasma by calculation 94 mg/dL_(calc) <100 LDL-cholesterol [place] ([facility]) Cholesterol in HDL [Mass/volume] in Serum or Plasma 31 mg/dL > or = 50 Below low normal HDL Cholesterol [place] ([facility]) Triglyceride [Mass/volume] in Serum or Plasma 140 mg/dL <150 Triglycerides [place] ([facility]) Cholesterol.total/Cholesterol in HDL [Mass Ratio] in Serum o r Plasma 4.8 calc <5.0 Chol/hdlc Ratio [place] ([facility]) Lipoprotein.beta.subparticle [Moles/volume] in Serum or Plas ma 1237 nmol/L <1138 Above high normal LDL Particle Number [place] ([facility]) Cholesterol non HDL [Mass/volume] in Serum or Plasma 118 mg/dL_(marry c) <130 Non HDL Cholesterol [place] ([facility]) Lipoprotein.beta.subparticle.small [Moles/volume] in Serum o r Plasma 302 nmol/L <142 Above high normal LDL Small [place] ([facility]) Lipoprotein.alpha 3 [Moles/volume] in Serum 240 nmol/L <215 Above high normal LDL Medium [place] ([facility]) Lipoprotein.alpha.subparticle.large [Moles/volume] in Serum or Plasma 5879 nmol/L >6729 Below low normal HDL Large [place] ([facility]) Cholesterol in LDL real size pattern [Identifier] in Serum or Pl asma B A Abnormal (applies to non-numeric results) LDL Pattern [place] ([facility]) Lipoprotein.beta.subparticle [Entitic length] in Serum or Pl asma 210.5 angstrom >222.9 Below low normal LDL Peak Size [place] ([facility]) Apolipoprotein B [Mass/volume] in Serum or Plasma 86 mg/dL Apolipoprotein B [place] ([facility]) Lipoprotein a [Moles/volume] in Serum or Plasma 107 nmol/L <75 Above high normal Lipoprotein (a) [place] ([facility]) ID Date Data Source [id number] 09/19/2020 08:41:00 AM EDT [facility]) Name Value Range Interpretation Code Description Data Kezia rce(s) Supporting Document(s) Bacteria identified in Urine by Culture see note Culture, Urine, Routine [facility]) ID Date Data Source [id number] 09/19/2020 08:41:00 AM EDT [facility]) Name Value Range Interpretation Code Description Data Kezia rce(s) Supporting Document(s) Hemoglobin A1c/Hemoglobin.total in Blood 4.8 %_of_total_HGB <5.7 Hemoglobin a1C [place] ([facility]) ID Date Data Source [id number] 09/19/2020 08:41:00 AM EDT [facility]) Name Value Range Interpretation Code Description Data Kezia rce(s) Supporting Document(s) Calcidiol [Mass/volume] in Serum or Plasma 33 NG/mL 30-100 Vitamin D,25-Oh,total,ia [facility]) ID Date Data Source [id number] 09/19/2020 08:41:00 AM EDT [place] ([facility]) Name Value Range Interpretation Code Description Data Kezia rce(s) Supporting Document(s) Erythrocytes [#/volume] in Blood by Automated count 4.37 million/uL 3.80-5.10 Red Blood Cell Count [place] ([facility]) Hemoglobin [Mass/volume] in Blood 12.0 g/dL 11.7-15.5 He moglobin [place] ([facility]) Leukocytes [#/volume] in Blood by Automated count 7.7 thousand/uL 3 .8-10.8 White Blood Cell Count [place] ([facility]) Erythrocyte mean corpuscular volume [Entitic volume] by Auto mated count 87.0 fL 80.0-100.0 Mcv [place] ([facility]) Erythrocyte mean corpuscular hemoglobin concentration [Mass/volume] by Automated count 31.6 g/dL 32.0-36.0 Below low normal Mchc [place] ([facility]) Hematocrit [Volume Fraction] of Blood by Automated count 38.0 % 35.0-45.0 Hematocrit [place] ([facility]) Erythrocyte mean corpuscular hemoglobin [Entitic mass] by Automated count 27.5 pg 27.0-33.0 Mch [place] ([facility]) Erythrocyte distribution width [Ratio] by Automated count 14.4 % 11.0-15.0 Rdw [place] ([facility]) Platelets [#/volume] in Blood by Automated count 245 thousand/uL 14 0-400 Platelet Count [place] ([facility]) Lymphocytes [#/volume] in Blood by Automated count 1748 cells/uL 85 0-3900 Absolute Lymphocytes [place] ([facility]) Platelet mean volume [Entitic volume] in Blood by Christa 10.1 f L 7.5-12.5 Mpv [place] ([facility]) Neutrophils [#/volume] in Blood by Automated count 5313 cells/uL 15 00-7800 Absolute Neutrophils [place] ([facility]) Basophils [#/volume] in Blood by Automated count 39 cells/uL 0-200 Absolute Basophils [place] ([facility]) Monocytes [#/volume] in Blood by Automated count 408 cells/uL 200-9 50 Absolute Monocytes [place] ([facility]) Neutrophils/100 leukocytes in Blood by Automated count 69 % 38- 80 Neutrophils [place] ([facility]) Eosinophils [#/volume] in Blood by Automated count 193 cells/uL 15- 500 Absolute Eosinophils [place] ([facility]) Eosinophils/100 leukocytes in Blood by Automated count 2.5 % 0-8 Eosinophils [place] ([facility]) Monocytes/100 leukocytes in Blood by Automated count 5.3 % 0-13 Monocytes [place] ([facility]) Lymphocytes/100 leukocytes in Blood by Automated count 22.7 % 15-49 Lymphocytes [place] ([facility]) Basophils/100 leukocytes in Blood by Automated count 0.5 % 0-2 Basophils [place] ([facility]) ID Date Data Source [id number] 09/19/2020 08:41:00 AM EDT [facility]) Name Value Range Interpretation Code Description Data Kezia rce(s) Supporting Document(s) Bacteria identified in Urine by Culture Reflexive Urine Culture [facility]) ID Date Data Source [id number] 09/19/2020 08:41:00 AM EDT [facility]) Name Value Range Interpretation Code Description Data Kezia rce(s) Supporting Document(s) Color of Urine yellow yellow Color [place] ([facility]) Appearance of Urine cloudy clear Abnormal (applies to non-numeric results) Appearance [place] ([facility]) pH of Urine by Test strip 5.0-8.0 Ph [place] ([facility]) Bilirubin.total [Presence] in Urine by Test strip negative negative Bilirubin [place] ([facility]) Glucose [Presence] in Urine by Test strip negative negative Glucose [place] ([facility]) Specific gravity of Urine by Test strip 1.001-1.035 Specific [place] ([facility]) Ketones [Presence] in Urine by Test strip negative negative Ketones [place] ([facility]) Nitrite [Presence] in Urine by Test strip negative negative Nitrite [place] ([facility]) Protein [Presence] in Urine by Test strip negative negative Protein [place] ([facility]) Hemoglobin [Presence] in Urine by Test strip negative negative Occult Blood [place] ([facility]) Leukocyte esterase [Presence] in Urine by Test strip negative n egative Leukocyte Esterase [place] ([facility]) Epithelial cells.squamous [#/area] in Ur ine sediment by Microscopy high power field 10-20 < or = 5 Abnormal (applies to non-numeric results) Squamous Epithelial Cells [place] ([facility]) Erythrocytes [#/area] in Urine sediment by Microscopy high power field none seen < or = 2 Rbc [place] ([facility]) Leukocytes [#/area] in Urine sediment by Microscopy high pow er field 6-10 < or = 5 Abnormal (applies to non-numeric results) Wbc [place] ([facility]) Calcium oxalate crystals [#/area] in Uri ne sediment by Microscopy high power field many none or few Abnormal (applies to non-numeric results) Calcium Oxalate Crystals [place] ([facility]) Hyaline casts [#/area] in Urine sediment by Microscopy low power field none seen none seen Hyaline Cast [place] ([facility]) Bacteria [#/area] in Urine sediment by Microscopy high power field few none seen Abnormal (applies to non-numeric results) Bacteria [place] ([facility]) ID Date Data Source [id number] 09/19/2020 08:41:00 AM EDT [place] ([facility]) Name Value Range Interpretation Code Description Data Kezai rce(s) Supporting Document(s) Corticotropin [Mass/volume] in Plasma 22 pg/mL 6-50 Acth, Plasma [place] ([facility]) ID Date Data Source [id number] 09/19/2020 08:41:00 AM EDT [facility]) Name Value Range Interpretation Code Description Data Kezia rce(s) Supporting Document(s) Urea nitrogen [Mass/volume] in Serum or Plasma 18 mg/dL 7-25 Urea Nitrogen (BUN) [place] ([facility]) Creatinine [Mass/volume] in Serum or Plasma 0.80 mg/dL 0.50-1.10 Creatinine [place] ([facility]) Glucose [Mass/volume] in Serum or Plasma 94 mg/dL 65-99 Glucose [place] ([facility]) Sodium [Moles/volume] in Serum or Plasma 140 mmol/L 135-146 Sodium [place] ([facility]) Glomerular filtration rate/1.73 sq M.pre dicted among blacks [Volume Rate/Area] in Serum, Plasma or Blood by Creatinine-based formula (CKD-EPI) 114 mL/min/1.73m2 > or = 60 eGFR [place] ([facility]) Glomerular filtration rate/1.73 sq M.pre dicted among non-blacks [Volume Rate/Area] in Serum, Plasma or Blood by Creatinine-based formula (CKD-EPI) 98 mL/min/1.73m2 > or = 60 eGFR Non-afr. [place] ([facility]) Urea nitrogen/Creatinine [Mass Ratio] in Serum or Plasma not applic able 6-22 BUN/creatinine Ratio [place] ([facility]) Chloride [Moles/volume] in Serum or Plasma 106 mmol/L 98-110 Chloride [place] ([facility]) Carbon dioxide, total [Moles/volume] in Serum or Plasma 25 mmol/L 20-32 Carbon Dioxide [place] ([facility]) Potassium [Moles/volume] in Serum or Plasma 4.2 mmol/L 3.5-5.3 Potassium [place] ([facility]) Albumin [Mass/volume] in Serum or Plasma 4.1 g/dL 3.6-5.1 Albumin [place] ([facility]) Calcium [Mass/volume] in Serum or Plasma 8.0 mg/dL 8.6-10.2 Below low normal Calcium [place] ([facility]) Protein [Mass/volume] in Serum or Plasma 6.6 g/dL 6.1-8.1 [facility], [facility] Globulin [Mass/volume] in Serum by calculation 2.5 g/dL_(calc) 1.9- 3.7 Globulin [facility]) Bilirubin.total [Mass/volume] in Serum or Plasma 0.3 mg/dL 0.2-1 .2 Bilirubin, Total [place] ([facility]) Albumin/Globulin [Mass Ratio] in Serum or Plasma 1.6 (calc) 1.0-2 .5 Albumin/globulin Ratio [place] ([facility]) Aspartate aminotransferase [Enzymatic activity/volume] in Serum or Plasma 18 U/L 10-30 Ast [place] ([facility]) Alkaline phosphatase [Enzymatic activity/volume] in Serum or Plasma 57 U/L 31-125 Alkaline Phosphatase [place] ([facility]) Alanine aminotransferase [Enzymatic activity/volume] in Seru m or Plasma 30 U/L 6-29 Above high normal Alt [place] ([facility]) ID Date Data Source [id number] 09/19/2020 08:41:00 AM EDT [place] ([facility]) Name Value Range Interpretation Code Description Data Keiza rce(s) Supporting Document(s) Thyroxine (T4) free [Mass/volume] in Serum or Plasma 1.0 NG/dL 0 .8-1.8 T4, Free [place] ([facility]) Thyrotropin [Units/volume] in Serum or Plasma 2.97 mIU/L Tsh [place] ([facility]) ID Date Data Source [id number] 09/19/2020 08:41:00 AM EDT [place] ([facility]) Name Value Range Interpretation Code Description Data Keiza rce(s) Supporting Document(s) Cholesterol [Mass/volume] in Serum or Plasma 149 mg/dL <200 Cholesterol, Total [place] ([facility]) Triglyceride [Mass/volume] in Serum or Plasma 140 mg/dL <150 Triglycerides [place] ([facility]) Cholesterol in HDL [Mass/volume] in Serum or Plasma 31 mg/dL > or = 50 Below low normal HDL Cholesterol [place] ([facility]) Cholesterol in LDL [Mass/volume] in Serum or Plasma by calculation 94 mg/dL_(calc) <100 LDL-cholesterol [place] ([facility]) Cholesterol non HDL [Mass/volume] in Serum or Plasma 118 mg/dL_(marry c) <130 Non HDL Cholesterol [place] ([facility]) Cholesterol.total/Cholesterol in HDL [Mass Ratio] in Serum o r Plasma 4.8 calc <5.0 Chol/hdlc Ratio [place] ([facility]) Lipoprotein.beta.subparticle [Moles/volume] in Serum or Plas ma 1237 nmol/L <1138 Above high normal LDL Particle Number [place] ([facility]) Lipoprotein.alpha.subparticle.large [Moles/volume] in Serum or Plasma 5879 nmol/L >6729 Below low normal HDL Large [place] ([facility]) Lipoprotein.beta.subparticle.small [Moles/volume] in Serum o r Plasma 302 nmol/L <142 Above high normal LDL Small [place] ([facility]) Lipoprotein.alpha 3 [Moles/volume] in Serum 240 nmol/L <215 Above high normal LDL Medium [place] ([facility]) Cholesterol in LDL real size pattern [Identifier] in Serum or Pl asma B A Abnormal (applies to non-numeric results) LDL Pattern [place] ([facility]) Lipoprotein.beta.subparticle [Entitic length] in Serum or Pl asma 210.5 angstrom >222.9 Below low normal LDL Peak Size [place] ([facility]) Apolipoprotein B [Mass/volume] in Serum or Plasma 86 mg/dL Apolipoprotein B [place] ([facility]) Lipoprotein a [Moles/volume] in Serum or Plasma 107 nmol/L <75 Above high normal Lipoprotein (a) [place] ([facility]) ID Date Data Source [id number] 09/19/2020 08:41:00 AM EDT [place] ([facility]) Name Value Range Interpretation Code Description Data Kezia rce(s) Supporting Document(s) Bacteria identified in Urine by Culture see note Culture, Urine, Routine [place] ([facility]) ID Date Data Source [id number] 09/19/2020 08:41:00 AM EDT [place] ([facility]) Name Value Range Interpretation Code Description Data Kezia rce(s) Supporting Document(s) Hemoglobin A1c/Hemoglobin.total in Blood 4.8 %_of_total_HGB <5.7 Hemoglobin a1C [place] ([facility]) ID Date Data Source [id number] 09/19/2020 08:41:00 AM EDT [place] ([facility]) Name Value Range Interpretation Code Description Data Kezia rce(s) Supporting Document(s) Calcidiol [Mass/volume] in Serum or Plasma 33 NG/mL 30-100 Vitamin D,25-Oh,total,ia [place] ([facility]) ID Date Data Source [id number] 09/19/2020 08:41:00 AM EDT [place] ([facility]) Name Value Range Interpretation Code Description Data Kezia rce(s) Supporting Document(s) Leukocytes [#/volume] in Blood by Automated count 7.7 thousand/uL 3 .8-10.8 White Blood Cell Count [place] ([facility]) Erythrocytes [#/volume] in Blood by Automated count 4.37 million/uL 3.80-5.10 Red Blood Cell Count [place] ([facility]) Erythrocyte mean corpuscular hemoglobin [Entitic mass] by Automated count 27.5 pg 27.0-33.0 Mch [place] ([facility]) Erythrocyte mean corpuscular volume [Entitic volume] by Auto mated count 87.0 fL 80.0-100.0 Mcv [place] ([facility]) Hematocrit [Volume Fraction] of Blood by Automated count 38.0 % 35.0-45.0 Hematocrit [place] ([facility]) Hemoglobin [Mass/volume] in Blood 12.0 g/dL 11.7-15.5 He moglobin [place] ([facility]) Erythrocyte mean corpuscular hemoglobin concentration [Mass/volume] by Automated count 31.6 g/dL 32.0-36.0 Below low normal Mchc [place] ([facility]) Platelets [#/volume] in Blood by Automated count 245 thousand/uL 14 0-400 Platelet Count [place] ([facility]) Erythrocyte distribution width [Ratio] by Automated count 14.4 % 11.0-15.0 Rdw [place] ([facility]) Neutrophils [#/volume] in Blood by Automated count 5313 cells/uL 15 00-7800 Absolute Neutrophils [place] ([facility]) Platelet mean volume [Entitic volume] in Blood by [place] 10.1 f L 7.5-12.5 Mpv [place] ([facility]) Eosinophils [#/volume] in Blood by Automated count 193 cells/uL 15- 500 Absolute Eosinophils [place] ([facility]) Monocytes [#/volume] in Blood by Automated count 408 cells/uL 200-9 50 Absolute Monocytes [place] ([facility]) Basophils [#/volume] in Blood by Automated count 39 cells/uL 0-200 Absolute Basophils [place] ([facility]) Lymphocytes [#/volume] in Blood by Automated count 1748 cells/uL 85 0-3900 Absolute Lymphocytes [place] ([facility]) Lymphocytes/100 leukocytes in Blood by Automated count 22.7 % 15-49 Lymphocytes [place] ([facility]) Basophils/100 leukocytes in Blood by Automated count 0.5 % 0-2 Basophils [place] ([facility]) Monocytes/100 leukocytes in Blood by Automated count 5.3 % 0-13 Monocytes [place] ([facility]) Eosinophils/100 leukocytes in Blood by Automated count 2.5 % 0-8 Eosinophils [place] ([facility]) Neutrophils/100 leukocytes in Blood by Automated count 69 % 38- 80 Neutrophils [place] ([facility]) ID Date Data Source [id number] 09/19/2020 08:41:00 AM EDT [place] ([facility]) Name Value Range Interpretation Code Description Data Kezia rce(s) Supporting Document(s) Bacteria identified in Urine by Culture Reflexive Urine Culture [place] ([facility]) ID Date Data Source [id number] 09/19/2020 08:41:00 AM EDT [place] ([facility]) Name Value Range Interpretation Code Description Data Kezia rce(s) Supporting Document(s) pH of Urine by Test strip 5.0-8.0 Ph [place] ([facility]) Color of Urine yellow yellow Color [place] ([facility]) Appearance of Urine cloudy clear Abnormal (applies to non-numeric results) Appearance [place] ([facility]) Specific gravity of Urine by Test strip 1.001-1.035 Specific [place] ([facility]) Bilirubin.total [Presence] in Urine by Test strip negative negative Bilirubin [place] ([facility]) Ketones [Presence] in Urine by Test strip negative negative Ketones [place] ([facility]) Glucose [Presence] in Urine by Test strip negative negative Glucose [place] ([facility]) Hemoglobin [Presence] in Urine by Test strip negative negative Occult Blood [place] ([facility]) Leukocytes [#/area] in Urine sediment by Microscopy high pow er field 6-10 < or = 5 Abnormal (applies to non-numeric results) Wbc [place] ([facility]) Nitrite [Presence] in Urine by Test strip negative negative Nitrite [place] ([facility]) Protein [Presence] in Urine by Test strip negative negative Protein [place] ([facility]) Leukocyte esterase [Presence] in Urine by Test strip negative n egative Leukocyte Esterase [place] ([facility]) Bacteria [#/area] in Urine sediment by Microscopy high power field few none seen Abnormal (applies to non-numeric results) Bacteria [place] ([facility]) Calcium oxalate crystals [#/area] in Uri ne sediment by Microscopy high power field many none or few Abnormal (applies to non-numeric results) Calcium Oxalate Crystals [place] ([facility]) Erythrocytes [#/area] in Urine sediment by Microscopy high power field none seen < or = 2 Rbc [place] ([facility]) Epithelial cells.squamous [#/area] in Ur ine sediment by Microscopy high power field 10-20 < or = 5 Abnormal (applies to non-numeric results) Squamous Epithelial Cells [place] ([facility]) Hyaline casts [#/area] in Urine sediment by Microscopy low power field none seen none seen Hyaline Cast [place] ([facility]) ID Date Data Source [id number] 09/19/2020 08:41:00 AM EDT [facility]) Name Value Range Interpretation Code Description Data Kezia rce(s) Supporting Document(s) Corticotropin [Mass/volume] in Plasma 22 pg/mL 6-50 Acth, Plasma [facility]) ID Date Data Source [id number] 09/19/2020 08:41:00 AM EDT [facility]) Name Value Range Interpretation Code Description Data Kezia rce(s) Supporting Document(s) Creatinine [Mass/volume] in Serum or Plasma 0.80 mg/dL 0.50-1.10 Creatinine [place] ([facility]) Urea nitrogen [Mass/volume] in Serum or Plasma 18 mg/dL 7-25 Urea Nitrogen (BUN) [facility]) Glucose [Mass/volume] in Serum or Plasma 94 mg/dL 65-99 Glucose [facility]) Glomerular filtration rate/1.73 sq M.pre dicted among non-blacks [Volume Rate/Area] in Serum, Plasma or Blood by Creatinine-based formula (CKD-EPI) 98 mL/min/1.73m2 > or = 60 eGFR Non-afr. [place] ([facility]) Urea nitrogen/Creatinine [Mass Ratio] in Serum or Plasma not applic able 6-22 BUN/creatinine Ratio [facility]) Glomerular filtration rate/1.73 sq M.pre dicted among blacks [Volume Rate/Area] in Serum, Plasma or Blood by Creatinine-based formula (CKD-EPI) 114 mL/min/1.73m2 > or = 60 eGFR [place] ([facility]) Sodium [Moles/volume] in Serum or Plasma 140 mmol/L 135-146 Sodium [place] ([facility]) Chloride [Moles/volume] in Serum or Plasma 106 mmol/L 98-110 Chloride [facility]) Carbon dioxide, total [Moles/volume] in Serum or Plasma 25 mmol/L 20-32 Carbon Dioxide [place] ([facility]) Potassium [Moles/volume] in Serum or Plasma 4.2 mmol/L 3.5-5.3 Potassium [place] ([facility]) Globulin [Mass/volume] in Serum by calculation 2.5 g/dL_(calc) 1.9- 3.7 Globulin [place] ([facility]) Albumin [Mass/volume] in Serum or Plasma 4.1 g/dL 3.6-5.1 Albumin [place] ([facility]) Protein [Mass/volume] in Serum or Plasma 6.6 g/dL 6.1-8.1 Protein, Total [place] ([facility]) Calcium [Mass/volume] in Serum or Plasma 8.0 mg/dL 8.6-10.2 Below low normal Calcium [place] ([facility]) Bilirubin.total [Mass/volume] in Serum or Plasma 0.3 mg/dL 0.2-1 .2 Bilirubin, Total [place] ([facility]) Alkaline phosphatase [Enzymatic activity/volume] in Serum or Plasma 57 U/L 31-125 Alkaline Phosphatase [place] ([facility]) Albumin/Globulin [Mass Ratio] in Serum or Plasma 1.6 (calc) 1.0-2 .5 Albumin/globulin Ratio [place] ([facility]) Aspartate aminotransferase [Enzymatic activity/volume] in Serum or Plasma 18 U/L 10-30 Ast [place] ([facility]) Alanine aminotransferase [Enzymatic activity/volume] in Seru m or Plasma 30 U/L 6-29 Above high normal Alt [place] ([facility]) ID Date Data Source [id number] 09/19/2020 08:41:00 AM EDT [place] ([facility]) Name Value Range Interpretation Code Description Data Kezia rce(s) Supporting Document(s) Thyroxine (T4) free [Mass/volume] in Serum or Plasma 1.0 NG/dL 0 .8-1.8 T4, Free [place] ([facility]) Thyrotropin [Units/volume] in Serum or Plasma 2.97 mIU/L Tsh [place] ([facility]) ID Date Data Source [id number] 09/19/2020 08:41:00 AM EDT [place] ([facility]) Name Value Range Interpretation Code Description Data Kezia rce(s) Supporting Document(s) Triglyceride [Mass/volume] in Serum or Plasma 140 mg/dL <150 Triglycerides [place] ([facility]) Cholesterol [Mass/volume] in Serum or Plasma 149 mg/dL <200 Cholesterol, Total [place] ([facility]) Cholesterol in HDL [Mass/volume] in Serum or Plasma 31 mg/dL > or = 50 Below low normal HDL Cholesterol [place] ([facility]) Cholesterol in LDL [Mass/volume] in Serum or Plasma by calculation 94 mg/dL_(calc) <100 LDL-cholesterol [place] ([facility]) Cholesterol.total/Cholesterol in HDL [Mass Ratio] in Serum o r Plasma 4.8 calc <5.0 Chol/hdlc Ratio [place] ([facility]) Cholesterol non HDL [Mass/volume] in Serum or Plasma 118 mg/dL_(marry c) <130 Non HDL Cholesterol [place] ([facility]) Lipoprotein.beta.subparticle [Moles/volume] in Serum or Plas ma 1237 nmol/L <1138 Above high normal LDL Particle Number [place] ([facility]) Lipoprotein.alpha 3 [Moles/volume] in Serum 240 nmol/L <215 Above high normal LDL Medium [facility] Lipoprotein.beta.subparticle.small [Moles/volume] in Serum o r Plasma 302 nmol/L <142 Above high normal LDL Small [place] ([facility]) Lipoprotein.beta.subparticle [Entitic length] in Serum or Pl asma 210.5 angstrom >222.9 Below low normal LDL Peak Size [place] ([facility]) Lipoprotein.alpha.subparticle.large [Moles/volume] in Serum or Plasma 5879 nmol/L >6729 Below low normal HDL Large [place] ([facility]) Cholesterol in LDL real size pattern [Identifier] in Serum or Pl asma B A Abnormal (applies to non-numeric results) LDL Pattern [place] ([facility]) Lipoprotein a [Moles/volume] in Serum or Plasma 107 nmol/L <75 Above high normal Lipoprotein (a) [place] ([facility]) Apolipoprotein B [Mass/volume] in Serum or Plasma 86 mg/dL Apolipoprotein B [place] ([facility]) ID Date Data Source [id number] 07/21/2020 07:52:00 AM EDT [facility] Name Value Range Interpretation Code Description Data Kezia rce(s) Supporting Document(s) COVID-19 RT-PCR ABSTRACT CLERK SWAB Not Detected Not Detected [employer] [facility] A not detected (negative) test result fo r this test means that SARS-CoV-2 RNA was not present in the specimen above the limit ofdetection. Laboratory test results should always be considered in thecontext of clinical observations and epidemiological data in making afinal diagnosis and patient management decisions. Results will bereported to government agencies as required.This test has received Emergency Use Authorization (EUA). We will continue to follow federal and state requirements for COVID-19 reporting. This test has been authorized only for the detection of RNAfrom SARS-CoV-2 virus and diagnosis of SARS-CoV-2 virus infection, notfor any other viruses or pathogens. This test is only authorized for the duration of the declaration that circumstances exist justifying the authorization of the emergency use of in vitro diagnostic tests for detection of SARS-CoV-2 virus and/or diagnosis of SARS-CoV-2 virusinfection under section 564(b)(1) of the Act, 21 U.S.C. section 360bbb-3(b)(1), unless the authorization is terminated or revoked sooner. We will continue to follow federal and state requirements for both notification of results and any confirmatory testing that is required by another agency. This test was developed and its performance characteristics determined by [employer] and verified at [employer]. It has not been cleared or approved by the U.S. Food and Drug Administration for diagnostic use. This test has been authorized by FDA under an EUA for use by authorized laboratories. Results should be used in conjunction with clinical findings, and should not form the sole basis for a diagnosis or treatment decision. Methods: SARS-CoV-2 Multiplex RT-PCR Assay ID Date Data Source [id number] 07/20/2020 11:45:00 AM EDT [facility] Name Value Range Interpretation Code Description Data Kezia rce(s) Supporting Document(s) SARS-CoV-2 (COVID-19) N gene [Presence] in Respiratory specimen by STAN with probe detection NEGATIVE [facility] This lab was ordered by Stacey Alford and reported by [employer]. ID Date Data Source [id number] 07/20/2020 12:00:00 AM EDT [facility] Name Value Range Interpretation Code Description Data Kezia rce(s) Supporting Document(s) Carestart Rapid COVID Antigen Test Negative [facility] This lab was reported by Stacey turcios. ID Date Data Source [id number] 02/02/2020 02:06:17 PM [facility] Vital SignsBlood Pressure: 117/78 Patient History Medical History:hypothryoidismFamily History:Social/Personal History: Smoking Status: never smokerCurrent Problems: DENTAL PENTECOSTALISM STATUS (ICD-V45.84) (ICD10- Z98.811)DENTAL CARIES EXTENDING INTO PULP (ICD-521.03) (OZS04-U86.63)Teeth extraction (ICD-525.10) (CQN42-U32.499)Problem list reviewed during this update.Current Medications: CLINDAMYCIN HCL 150 MG CAPS (CLINDAMYCIN HCL) take one q6h until gone. take with food; Route: ORALMedication list reviewed during this update.Current Allergies: * PENICILLIN (Critical)* CODIENE (Critical)Allerg y list reviewed during this update.Past Medical History:(reviewed - no changes required) hypothryoidism Dental Chart: Procedures:Type - CDT Code - Description B - (D0274) Bitewings, 4 radiographic images (Performed by Evie Alvarenga RDH) B - (D0150) Comprehensive oral evaluation - new or established patient (Performed by Lynsey Solo DDS) B - (D0230) Intraoral, periapical, each additional radiographic image on Tooth # 11 (Performed by Evie Alvarenga RDH) B - (D0220) Intraoral, periapical, first radiographic image on Tooth # 6 (Performed by Evie Alvarenga RDH) B - (D0230) Intraoral, periapical, each additional radiographic image on Tooth # 9 (Performed by Evie Alvarenga RDH) Treatments:Type - CDT Code - Description T - (D2150) Amalgam, 2 surfaces, primary or permanent on Tooth # 2 on Tooth Surface OM (Performed by Evie Alvarenga RDH) T - (D2740) [place], porcelain/ceramic substrate on Tooth # 31 (Performed by Evie Alvarenga RDH) T - (D2140) Amalgam- one surface, primary or permanent on Tooth # 3 on Tooth Surface O (Performed by Evie Alvarenga RDH) T - (D2150) Amalgam, 2 surfaces, primary or permanent on Tooth # 4 on Tooth Surface DO (Performed by Evie Alvarenga RDH) Existing:Type - CDT Code - Description[E] Not Erupted On #1, #32[E] Decay On #2 Surface MO, #3 Surface O, #4 Surface OD[E] Amalgam Zoroastrianism On #13 Surface DO, #14 Surface O, #15 Surface MO, #2 Surface MO, #20 Surface DO, #3 Surface DO, #30 Surface DOM[E] Root Canal On #31 Region DM[E] Resin-Based Composite - Direct On #14 Surface D, #31 Surface OM[E] Missing - [place] and Root On #16 Surface O Region XR, #17 Surface O Region XR, #18 Surface O Region XR Chart Notes:eren (Feb 02 2020 2:54PM): DILEEP(-). CC: none. Reviewed Xrays. Exam: caries detected. OCS: WNL, IO/ EO completed, No significant hard findings upon clinical exam.Additional PPE requirements due to COVID-19 in the dental setting, N95, surgical mask, hair covering, gown and shieldPt was cooperative. OHI given Referral: # 31 crown. NV:recallEvie Alvarenga RDH by eren (02/02/2020 2:54 PM): ; desiree (Feb 02 2020 2:37PM): [facility] with NEW patient- No changes. She wants to finish her root canal tooth. 4 BW's, 3 PA's, C exam 1-4 mm probingOH-Patient brushes twice/day and NOT flossing regularlyLT gen marginal biofilm and marginal/introproximal calculus on LA. Marginal tissue is slightly inflamed with red with light bleeding on BOP.OHI- Advise to brush 2x a day and floss everyday. Went over brushing along the gum line better and give more on cleaning day. Patient is cooperative. Referred for #31 for a crown. NV- 45 A prophy/fillingsRasEvie ruiz RDH by desiree (02/02/2020 2:37 PM): Tooth Notes and Watches:- Tooth 2 Note: do firstRasEvie ruiz RDH by desiree (02/02/2020 2:33 PM): Assessment & Plan Problems:Added: DENTAL PENTECOSTALISM STATUS (ICD-V45.84) (UME29-J05.811)Medications:CLINDAMYCIN HCL 150 MG CAPSAllergies:* PENICILLIN (Critical)* CODIENE (Critical)Orders:Site Medical Director Referral [[id number]] Name Value Range Interpretation Code Description Data Kezia rce(s) Supporting Document(s) Procedure Social History Code Duration Value Status Description Data Source(s ) Smoking 06/09/2020 12:00:00 AM EST Never Smoker completed Never S moker eCW1 ([facility]) Smoking 06/09/2020 12:00:00 AM EST Never Smoker completed Never S moker eCW1 ([facility]) Smoking 06/09/2020 12:00:00 AM EST Never Smoker completed Never S moker eCW1 ([facility]) Smoking 06/09/2020 12:00:00 AM EST Never Smoker completed Never S moker eCW1 ([facility]) Smoking 06/09/2020 12:00:00 AM EST Never Smoker completed Never S moker eCW1 ([facility]) Smoking 06/09/2020 12:00:00 AM EST Never Smoker completed Never S moker eCW1 ([facility]) Smoking 02/23/2020 12:00:00 AM EST Never Smoker completed Never S moker eCW1 ([facility]) Smoking 02/23/2020 12:00:00 AM EST Never Smoker completed Never S moker eCW1 ([facility]) Smoking 02/23/2020 12:00:00 AM EST Never Smoker completed Never S moker eCW1 ([facility]) Smoking 02/23/2020 12:00:00 AM EST Never Smoker completed Never S moker eCW1 ([facility]) Smoking 02/23/2020 12:00:00 AM EST Never Smoker completed Never S moker eCW1 ([facility]) Smoking 01/20/2020 12:00:00 AM EDT Never Smoker completed Never S moker eCW1 ([facility]) Smoking 01/20/2020 12:00:00 AM EDT Never Smoker completed Never S moker eCW1 ([facility]) Vital Signs ID Date Data Source UNK Name Value Range Interpretation Code Description Data Source(s) Body height 65 [in_i] 65 [in_i] [place] ([facility]) Diastolic blood pressure 85 mm[Hg] 85 mm[Hg] [place] ([facility]) Body mass index (BMI) [Ratio] 47.5 kg/m2 47.5 k g/m2 [place] ([facility]) Systolic blood pressure 128 mm[Hg] 128 mm[Hg] A [place] ([facility]) Body weight 4564 [oz_av] 4564 [oz_av] [place] ([facility]) Body height 65 [in_i] 65 [in_i] [place] ([facility]) Body height 65 [in_i] 65 [in_i] [place] ([facility]) Diastolic blood pressure 75 mm[Hg] 75 mm[Hg] [place] ([facility]) Body height 65 [in_i] 65 [in_i] [place] ([facility]) Body mass index (BMI) [Ratio] 48.3 kg/m2 48.3 k g/m2 [place] ([facility]) Systolic blood pressure 108 mm[Hg] 108 mm[Hg] [facility] Body weight 4646 [oz_av] 4646 [oz_av] [place] ([facility]) Diastolic blood pressure 75 mm[Hg] 75 mm[Hg] [place] ([facility]) Body height 65 [in_i] 65 [in_i] [place] ([facility]) Body mass index (BMI) [Ratio] 48.3 kg/m2 48.3 k g/m2 [place] ([facility]) Systolic blood pressure 108 mm[Hg] 108 mm[Hg] [facility] Body weight 4646 [oz_av] 4646 [oz_av] [place] ([facility]) Diastolic blood pressure 75 mm[Hg] 75 mm[Hg] [place] ([facility]) Systolic blood pressure 108 mm[Hg] 108 mm[Hg] [facility] Body height 65 [in_i] 65 [in_i] [place] ([facility]) Body weight 4646 [oz_av] 4646 [oz_av] [place] ([facility]) Body mass index (BMI) [Ratio] 48.3 kg/m2 48.3 k g/m2 [place] ([facility]) Body height 65 [in_i] 65 [in_i] [place] ([facility]) Body mass index (BMI) [Ratio] 48.3 kg/m2 48.3 k g/m2 [place] ([facility]) Systolic blood pressure 108 mm[Hg] 108 mm[Hg] A [place] ([facility]) Body weight 4646 [oz_av] 4646 [oz_av] [place] ([facility]) Diastolic blood pressure 75 mm[Hg] 75 mm[Hg] [place] ([facility]) Diastolic blood pressure 75 mm[Hg] 75 mm[Hg] [place] ([facility]) Body height 65 [in_i] 65 [in_i] [place] ([facility]) Body mass index (BMI) [Ratio] 48.3 kg/m2 48.3 k g/m2 [place] ([facility]) Systolic blood pressure 108 mm[Hg] 108 mm[Hg] A [place] ([facility]) Body weight 4646 [oz_av] 4646 [oz_av] [place] ([facility]) Diastolic blood pressure 84 mm[Hg] 84 mm[Hg] [place] ([facility]) Body height 65 [in_i] 65 [in_i] [place] ([facility]) Body mass index (BMI) [Ratio] 47.8 kg/m2 47.8 k g/m2 [place] ([facility]) Systolic blood pressure 121 mm[Hg] 121 mm[Hg] [facility] Body weight 4594 [oz_av] 4594 [oz_av] [place] ([facility]) Diastolic blood pressure 84 mm[Hg] 84 mm[Hg] [place] ([facility]) Body height 65 [in_i] 65 [in_i] [place] ([facility]) Body mass index (BMI) [Ratio] 47.8 kg/m2 47.8 k g/m2 [place] ([facility]) Systolic blood pressure 121 mm[Hg] 121 mm[Hg] [facility] Body weight 4594 [oz_av] 4594 [oz_av] [place] ([facility]) Body mass index (BMI) [Ratio] 47.8 kg/m2 47.8 k g/m2 [place] ([facility]) Diastolic blood pressure 84 mm[Hg] 84 mm[Hg] [place] ([facility]) Body height 65 [in_i] 65 [in_i] [place] ([facility]) Systolic blood pressure 121 mm[Hg] 121 mm[Hg] A [place] ([facility]) Body weight 4594 [oz_av] 4594 [oz_av] [place] ([facility]) Body mass index (BMI) [Ratio] 47.8 kg/m2 47.8 k g/m2 [place] ([facility]) Systolic blood pressure 121 mm[Hg] 121 mm[Hg] A [place] ([facility]) Body weight 4594 [oz_av] 4594 [oz_av] [place] ([facility]) Diastolic blood pressure 84 mm[Hg] 84 mm[Hg] [place] ([facility]) Body height 65 [in_i] 65 [in_i] [place] ([facility]) Body mass index (BMI) [Ratio] 47.8 kg/m2 47.8 k g/m2 [place] ([facility]) Body height 65 [in_i] 65 [in_i] [place] ([facility]) Diastolic blood pressure 84 mm[Hg] 84 mm[Hg] [place] ([facility]) Systolic blood pressure 121 mm[Hg] 121 mm[Hg] A [place] ([facility]) Body weight 4594 [oz_av] 4594 [oz_av] [place] ([facility]) Diastolic blood pressure 84 mm[Hg] 84 mm[Hg] [place] ([facility]) Body height 65 [in_i] 65 [in_i] [place] ([facility]) Body mass index (BMI) [Ratio] 47.8 kg/m2 47.8 k g/m2 [place] ([facility]) Systolic blood pressure 121 mm[Hg] 121 mm[Hg] A [place] ([facility]) Body weight 4594 [oz_av] 4594 [oz_av] [place] ([facility]) Body height 65.5 [in_i] 65.5 [in_i] PAUL ([facility], ) 5'5.50" Systolic blood pressure 135 mm[Hg] 135 mm[Hg] Yana SEGURA ([facility], ) Body weight 282.00 [lb_av] 282.00 [lb_av] MEDEN T ([facility], ) Diastolic blood pressure 69 mm[Hg] 69 mm[Hg] [place] ([facility], ) Body mass index (BMI) [Ratio] 46.2 kg/m2 46.2 k g/m2 [place] ([facility], ) [place] body weight 125 [lb_av] 125 [lb_av] MEDEN T ([facility], ) Body weight 127.915 kg 127.915 kg PAUL ([facility], ) Body surface area Derived from formula 2.30 m2 2.30 m2 MEDENT ([facility], ) Body weight 281 [lb_av] 281 [lb_av] eCW1 ([facility]) Body height 65 [in_i] 65 [in_i] eCW1 ([facility]) Body mass index (BMI) [Ratio] 46.76 kg/m2 46.76 kg/m2 eCW1 ([facility]) Heart rate 108 /min 108 /min eCW1 ([facility]) Respiratory rate 18 /min 18 /min eCW1 ([facility]) Body temperature 97.7 [degF] 97.7 [degF] eCW1 ( [facility]) Systolic blood pressure 134 mm[Hg] 134 mm[Hg] e CW1 ([facility]) Diastolic blood pressure 86 mm[Hg] 86 mm[Hg] eCW1 ([facility]) Body weight 277 [lb_av] 277 [lb_av] eCW1 ([facility]) Body height 65 [in_i] 65 [in_i] eCW1 ([facility]) Body mass index (BMI) [Ratio] 46.09 kg/m2 46.09 kg/m2 eCW1 ([facility]) Heart rate 99 /min 99 /min eCW1 ([facility]) Respiratory rate 18 /min 18 /min eCW1 ([facility]) Body temperature 96.6 [degF] 96.6 [degF] eCW1 ( [facility]) Systolic blood pressure 116 mm[Hg] 116 mm[Hg] e CW1 ([facility]) Diastolic blood pressure 82 mm[Hg] 82 mm[Hg] eCW1 ([facility]) Body weight 270 [lb_av] 270 [lb_av] eCW1 ([facility]) Body height 65 [in_i] 65 [in_i] eCW1 ([facility]) Body mass index (BMI) [Ratio] 44.93 kg/m2 44.93 kg/m2 eCW1 ([facility]) Heart rate 111 /min 111 /min eCW1 ([facility]) Respiratory rate 19 /min 19 /min eCW1 ([facility]) Body temperature 98.3 [degF] 98.3 [degF] eCW1 ( [facility]) Systolic blood pressure 138 mm[Hg] 138 mm[Hg] e CW1 ([facility]) Diastolic blood pressure 88 mm[Hg] 88 mm[Hg] eCW1 ([facility]) Patient Treatment Plan of Care Planned Activity Planned Date Details Description Data Source (s) Escitalopram 10 MG Oral Tablet 02/25/2020 12:00:00 AM EST eCW1 ([facility]) Escitalopram 10 MG Oral Tablet 02/25/2020 12:00:00 AM EST eCW1 ([facility]) Escitalopram 10 MG Oral Tablet 02/25/2020 12:00:00 AM EST eCW1 ([facility]) Prednisone 10 MG Oral Tablet [place] ([facility]) POLYETHYLENE GLYCOL 3350 142 MG/ML Oral Solution [place] ([facility]) Magnesium Hydroxide 80 MG/ML Oral Suspension [place] ([facility]) Metronidazole 500 MG Oral Tablet [place] ([facility]) Ibuprofen 800 MG Oral Tablet [place] ([facility]) Escitalopram 10 MG Oral Tablet [place] ([facility]) Clindamycin 300 MG Oral Capsule [place] ([facility]) Clindamycin 150 MG Oral Capsule [place] ([facility]) Ciprofloxacin 500 MG Oral Tablet [place] ([facility]) cefdinir 300 MG Oral Capsule [place] ([facility]) Prednisone 10 MG Oral Tablet [place] ([facility]) Metronidazole 500 MG Oral Tablet [place] ([facility]) Ibuprofen 800 MG Oral Tablet [place] ([facility]) Escitalopram 10 MG Oral Tablet [place] ([facility]) Clindamycin 300 MG Oral Capsule [place] ([facility]) Clindamycin 150 MG Oral Capsule [place] ([facility]) Ciprofloxacin 500 MG Oral Tablet [place] ([facility]) cefdinir 300 MG Oral Capsule [place] ([facility]) Prednisone 10 MG Oral Tablet [place] ([facility]) Metronidazole 500 MG Oral Tablet [place] ([facility]) Ibuprofen 800 MG Oral Tablet [place] ([facility]) Escitalopram 10 MG Oral Tablet [place] ([facility]) Clindamycin 300 MG Oral Capsule [place] ([facility]) Clindamycin 150 MG Oral Capsule [place] ([facility] Ciprofloxacin 500 MG Oral Tablet [place] ([facility]) cefdinir 300 MG Oral Capsule [place] ([facility]) Prednisone 10 MG Oral Tablet [place] ([facility] Metronidazole 500 MG Oral Tablet [place] ([facility]) Ibuprofen 800 MG Oral Tablet [place] ([facility]) Escitalopram 10 MG Oral Tablet [place] ([facility]) Clindamycin 300 MG Oral Capsule [place] ([facility]) Clindamycin 150 MG Oral Capsule [place] ([facility]) Ciprofloxacin 500 MG Oral Tablet [place] ([facility]) cefdinir 300 MG Oral Capsule [place] ([facility]) Prednisone 10 MG Oral Tablet [place] ([facility]) Metronidazole 500 MG Oral Tablet [place] ([facility]) Ibuprofen 800 MG Oral Tablet [place] ([facility]) Escitalopram 10 MG Oral Tablet [place] ([facility]) Clindamycin 300 MG Oral Capsule [place] ([facility]) Clindamycin 150 MG Oral Capsule [place] ([facility]) Ciprofloxacin 500 MG Oral Tablet [place] ([facility]) cefdinir 300 MG Oral Capsule [place] ([facility]) Prednisone 10 MG Oral Tablet [place] ([facility]) Metronidazole 500 MG Oral Tablet [place] ([facility]) Escitalopram 10 MG Oral Tablet [place] ([facility]) Clindamycin 300 MG Oral Capsule [place] ([facility]) Clindamycin 150 MG Oral Capsule EL[place] ([facility]) Ciprofloxacin 500 MG Oral Tablet [place] ([facility]) cefdinir 300 MG Oral Capsule EL[place] ([facility])
[2021-02-24] MEDS ORDERED: ONDANSETRON 4MG/2ML VIAL IV ONE (21:30)
[2021-02-24] MEDS ORDERED: NS 1,000 ML IV ONE (21:30)
[2021-02-24] MEDS ORDERED: KETOROLAC 30 MG/ML 1ML VIAL IV ONE (21:50)
[2021-02-24 22:32] LABS: EOS % 0.2 % (0.0-3.0); HEMOGLOBIN 12.2 g/dl (12.0-15.5); LYMPH % 22.7 % (24.0-44.0); MEAN CORPUSCULAR HEMOGLOBIN 27.2 pg (27.0-33.0); MEAN CORPUSCULAR HGB CONC 32.1 g/dl (32.0-36.5); MEAN CORPUSCULAR VOLUME 84.8 fl (80.0-96.0); MONO # 0.3 10^3/uL (0.0-0.8); MONO % 7.2 % (2.0-8.0); NEUTROPHILS # 2.9 10^3/uL (1.5-8.5); NEUTROPHILS % 69.4 % (36.0-66.0); PLATELET COUNT, AUTOMATED 173 10^3/uL (150-450); RED BLOOD COUNT 4.48 10^6/uL (4.00-5.40); WHITE BLOOD COUNT 4.2 10^3/uL (4.0-10.0)
--- NOTE | 2021-02-24 22:41 | REPVR ---
PROCEDURE INFORMATION: Exam: XR Chest Exam date and time: 02/24/2021 10:07 PM Age: 30 years old Clinical indication: Cough; Additional info: Covid, eval for pneumonia TECHNIQUE: Imaging protocol: XR of the chest. Views: 1 view. COMPARISON: 1. CR Chest, 2 view PA, Lat 2020-01-09 23:55 2. CR Chest, 2 view PA, Lat 2019-02-17 09:[address] ABD/PEL W/IV CONTRAST ONLY 2020-06-06 22:23 FINDINGS: Limitations: Limited by patient's body habitus. Lungs: Mild diffuse bilateral lung opacities. Pleural spaces: Unremarkable. No pleural effusion. No pneumothorax. Heart/Mediastinum: Unremarkable. No cardiomegaly. Bones/joints: Unremarkable. IMPRESSION: Mild diffuse bilateral lung opacities. Electronically signed by: Aman Emanuel On 02/24/2021 22:40:59 PM
[2021-02-24] MEDS ORDERED: CALCIUM CARBONATE 500 MG CHEW U/D PO ONE (22:55)
[2021-02-24 22:58] LABS: ALBUMIN 3.7 GM/DL (3.2-5.2); ALT/SGPT 59 U/L (12-78); BILIRUBIN,TOTAL 0.6 MG/DL (0.2-1.0); BLOOD UREA NITROGEN 14 MG/DL (7-18); CALCIUM LEVEL 6.2 MG/DL (8.5-10.1); CARBON DIOXIDE LEVEL 27 MEQ/L (21-32); CHLORIDE LEVEL 107 MEQ/L (98-107); CREATININE FOR GFR 0.93 MG/DL (0.55-1.30); GLOMERULAR FILTRATION RATE > 60.0 (>60); GLUCOSE, FASTING 97 MG/DL (70-100); POTASSIUM SERUM 4.2 MEQ/L (3.5-5.1); SODIUM LEVEL 141 MEQ/L (136-145); TOTAL PROTEIN 6.9 GM/DL (6.4-8.2)
--- OUTSIDE RECORDS SUMMARY | 2021-02-24 23:51 | CCD ---
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 [place] 306/806 [id number] SP [id number] [employer] BCBS P [id number] S [id number] BCBS [place] HMO [id number] SP [id number] EXCELLUS BCBS B [id number] P [id number] BCBS OF [place] 306/806 [id number] SP [id number] BCBS [place] PPO 302/307 [id number] SP [id number] BCBS [place] PPO 302/307 [id number] SP [id number] EXCELLUS BCBS B [id number] S [id number] HMO BLUE [id number] SP [id number] Problems, Conditions, and Diagnoses Code Display Name Description Problem Type Effective Dates Data Source(s) [id number] Patient asked to attend Patient Asked to Attend [facility] 09/28/2020 12:00:00 AM EDT [facility]) [id number] Body mass index 40+ - severely obese Bod y Mass Index 40+ - Severely Obese Problem 09/28/2020 12:00:00 AM EDT [facility]) [id number] Ulcerative colitis Ulcerative Colitis Problem 12:00:00 AM EDT [facility] ([facility]) [id number] Hyperparathyroidism Hyperparathyroidism Problem 0 09/28/2020 12:00:00 AM EDT [place] ([facility]) [id number] Patient asked to attend Patient Asked to Attend [facility] 09/28/2020 12:00:00 AM EDT [place] ([facility]) [id number] Body mass index 40+ - severely obese Bod y Mass Index 40+ - Severely Obese Problem 09/28/2020 12:00:00 AM EDT [facility]) [id number] Ulcerative colitis Ulcerative Colitis Problem 12:00:00 AM EDT [facility] ([facility]) [id number] Hyperparathyroidism Hyperparathyroidism Problem 0 09/28/2020 12:00:00 AM EDT [facility] ([facility]) [id number] Patient asked to attend Patient Asked to Attend Proble 09/28/2020 12:00:00 AM EDT [facility] ([facility]) [id number] Body mass index 40+ - severely obese Bod y Mass Index 40+ - Severely Obese Problem 09/28/2020 12:00:00 AM EDT [facility] ([facility]) [id number] Ulcerative colitis Ulcerative Colitis Problem 12:00:00 AM EDT [facility] ([facility]) [id number] Hyperparathyroidism Hyperparathyroidism Problem 0 09/28/2020 12:00:00 AM EDT [facility] ([facility]) [id number] Patient asked to attend Patient Asked to Attend Proble 09/28/2020 12:00:00 AM EDT [facility] ([facility]) [id number] Body mass index 40+ - severely obese Bod y Mass Index 40+ - Severely Obese Problem 09/28/2020 12:00:00 AM EDT [facility] ([facility]) [id number] Ulcerative colitis Ulcerative Colitis Problem 12:00:00 AM EDT [facility] ([facility]) [id number] Hyperparathyroidism Hyperparathyroidism Problem 0 09/28/2020 12:00:00 AM EDT [facility] ([facility]) [id number] Patient asked to attend Patient Asked to Attend Proble 09/28/2020 12:00:00 AM EDT [facility] ([facility]) [id number] Body mass index 40+ - severely obese Bod y Mass Index 40+ - Severely Obese Problem 09/28/2020 12:00:00 AM EDT [facility] ([facility]) [id number] Ulcerative colitis Ulcerative Colitis Problem 12:00:00 AM EDT [facility] ([facility]) [id number] Hyperparathyroidism Hyperparathyroidism Problem 0 09/28/2020 12:00:00 AM EDT [facility] ([facility]) F33.1 Moderate recurrent major depression Mode rate episode of recurrent major depressive disorder Problem 02/25/2020 12:00:00 AM EST W1 ([facility]) N92.6 [id number] Irregular periods Problem 02/24/2020 12:00:0 0 AM EST W1 ([facility]) V45.84 DENTAL JEWISH STATUS DENTAL JEWISH STATUS 02/02/2020 02:55:[address] [facility] Surgeries/Procedures No Information Results ID Date Data Source [id number] 01/27/2021 12:00:00 PM EDT [facility] Name Value Range Interpretation Code Description Data Kezia rce(s) Supporting Document(s) SARS-CoV-2 (COVID 19) NEGATIVE - SARS-CoV-2 (COVID19) [facility] This lab was ordered by [facility] a nd reported by [facility]. ID Date Data Source [id number] 10/18/2020 01:14:00 PM EDT [facility]) Name Value Range Interpretation Code Description Data Kezia rce(s) Supporting Document(s) glucose, fasting 80 mg/dL 70-100 Glucose, Fasting AT [facility]) blood urea nitrogen 13 mg/dL 7-18 Blood Urea Nitro gen [place] ([facility]) creatinine for GFR 0.84 mg/dL 0.55-1.30 Creatinine for GF R [place] ([facility]) glomerular filtration rate > 60.0 >60 Glomerula r Filtration Rate [place] ([facility]) sodium level 143 mEq/L 136-145 Sodium Level [facility] ([facility]) potassium serum 3.9 mEq/L 3.5-5.1 Potassium Serum [facility] ([facility]) chloride level 109 mEq/L 98-107 Above high normal Chloride Level [place] ([facility]) anion gap 8 mEq/L 8-16 Anion Gap [facility] ([facility]) carbon dioxide level 26 mEq/L 21-32 Carbon Dioxide Level [facility] ([facility]) AST/SGOT 28 U/L 7-37 AST/SGOT [place] ([facility]) calcium level 7.4 mg/dL 8.5-10.1 Below low normal Calcium Level AT [facility] ([facility]) ALT/SGPT 46 U/L 12-78 ALT/SGPT [facility] ([facility]) alkaline phosphatase 65 U/L 45-117 Alkaline Phosph atase [facility] ([facility]) bilirubin,total 0.3 mg/dL 0.2-1.0 Bilirubin,total ATHE NA ([facility]) total protein 6.7 gm/dL 6.4-8.2 Total Protein [facility] ( [facility]) albumin 3.6 gm/dL 3.2-5.2 Albumin [facility] ([facility]) albumin/globulin ratio 1.2-2.2 Albumin/globu ryan Ratio [facility] ([facility]) ID Date Data Source [id number] 10/18/2020 01:14:00 PM EDT [facility] ([facility]) Name Value Range Interpretation Code Description Data Kezia rce(s) Supporting Document(s) white blood count 8.2 10 4.0-10.0 White Blood Count [facility] ([facility]) hemoglobin 11.7 g/dL 12.0-15.5 Below low normal Hemoglobin [facility] ( [facility]) red blood count 4.20 10 4.00-5.40 Red Blood Count AT[facility] ([facility]) hematocrit 35.6 % 36.0-47.0 Below low normal Hematocrit [facility] ( [facility]) mean corpuscular volume 84.8 fL 80.0-96.0 Mean Corpusc ular Volume [facility] ([facility]) mean corpuscular hemoglobin 27.9 pg 27.0-33.0 Mean Cor puscular Hemoglobin [facility] ([facility]) red cell distribution width 13.6 % 11.5-14.5 Red Cell Distribution Width [facility] ([facility]) mean corpuscular HGB conc 32.9 g/dL 32.0-36.5 Mean Corpu scular HGB Conc [facility] ([facility]) neutrophils % 68.8 % 36.0-66.0 Above high normal Neutrophils % A [facility] ([facility]) platelet count, automated 270 10 150-450 Platelet C ount, Automated [facility] ([facility]) mono % 6.3 % 2.0-8.0 Sharkey % [facility] ([facility]) lymph % 21.2 % 24.0-44.0 Below low normal Lymph % [facility] ( [facility]) eos % 2.7 % 0.0-3.0 Eos % [facility] ([facility]) baso % 0.5 % 0.0-1.0 Baso % [place] ([facility]) immature granulocyte % 0.5 % 0-3.0 Immature Gran ulocyte % [facility] ([facility]) nucleated red blood cell % 0.0 % 0-0 Nucleated Red Blood Cell % [facility] ([facility]) neutrophils # 5.6 10 1.5-8.5 Neutrophils # [facility] ( [facility]) mono # 0.5 10 0.0-0.8 Sharkey # [facility] ([facility]) lymph # 1.7 10 1.5-5.0 Lymph # [facility] ([facility]) baso # 0.0 10 0.0-0.2 Baso # [facility] ([facility]) eos # 0.2 10 0.0-0.5 Eos # [facility] ([facility]) ID Date Data Source [id number] 09/28/2020 03:55:00 PM EDT [facility] ([facility]) Name Value Range Interpretation Code Description Data Kezia rce(s) Supporting Document(s) triglycerides level 351 mg/dL <150 Above high normal Triglycer ides Level [facility] ([facility]) HDL cholesterol 24 mg/dL >40 Below low normal HDL Cholestero l [facility] ([facility]) cholesterol level 160 mg/dL <200 Cholesterol Level [facility] ([facility]) Cholesterol in LDL [Mass/volume] in Serum or Plasma 66 mg/dL <1 00 LDL Cholesterol [facility] ([facility]) cholesterol risk ratio <5 Above high normal Choles terol Risk Ratio [facility] ([facility]) non-HDL-C 136 mg/dL Non-hdl-c [facility] ([facility]) ID Date Data Source [id number] 09/28/2020 03:55:00 PM EDT [facility] ([facility]) Name Value Range Interpretation Code Description Data Kezia rce(s) Supporting Document(s) glucose, fasting 105 mg/dL 70-100 Above high normal Glucose, Fas ting [facility] ([facility]) blood urea nitrogen 14 mg/dL 7-18 Blood Urea Nitro gen [facility] ([facility]) creatinine for GFR 0.73 mg/dL 0.55-1.30 Creatinine for GF R [facility] ([facility]) glomerular filtration rate > 60.0 >60 Glomerula r Filtration Rate [facility] ([facility]) sodium level 142 mEq/L 136-145 Sodium Level [facility] ([facility]) chloride level 106 mEq/L 98-107 Chloride Level [facility] ([facility]) potassium serum 3.8 mEq/L 3.5-5.1 Potassium Serum [facility] ([facility]) carbon dioxide level 25 mEq/L 21-32 Carbon Dioxide Level [facility] ([facility]) anion gap 11 mEq/L 8-16 Anion Gap [facility] ([facility]) calcium level 6.7 mg/dL 8.5-10.1 Below low normal Calcium Level AT [facility] ([facility]) AST/SGOT 26 U/L 7-37 AST/SGOT [facility] ([facility]) ALT/SGPT 42 U/L 12-78 ALT/SGPT [facility] ([facility]) alkaline phosphatase 67 U/L 45-117 Alkaline Phosph atase [facility] ([facility]) bilirubin,total 0.3 mg/dL 0.2-1.0 Bilirubin,total ATHE NA ([facility]) albumin 3.6 gm/dL 3.2-5.2 Albumin [facility] ([facility]) total protein 6.6 gm/dL 6.4-8.2 Total Protein [facility] ( [facility]) albumin/globulin ratio 1.2-2.2 Albumin/globu ryan Ratio [facility] ([facility]) ID Date Data Source [id number] 09/28/2020 03:55:00 PM EDT [facility] ([facility]) Name Value Range Interpretation Code Description Data Kezia rce(s) Supporting Document(s) white blood count 9.7 10 4.0-10.0 White Blood Count [facility] ([facility]) hemoglobin 11.5 g/dL 12.0-15.5 Below low normal Hemoglobin [facility] ( [facility]) red blood count 4.19 10 4.00-5.40 Red Blood Count [facility] ([facility]) hematocrit 35.3 % 36.0-47.0 Below low normal Hematocrit [facility] ( [facility]) mean corpuscular volume 84.2 fL 80.0-96.0 Mean Corpusc ular Volume [facility] ([facility]) mean corpuscular HGB conc 32.6 g/dL 32.0-36.5 Mean Corpu scular HGB Conc [facility] ([facility]) mean corpuscular hemoglobin 27.4 pg 27.0-33.0 Mean Cor puscular Hemoglobin [facility] ([facility]) red cell distribution width 13.8 % 11.5-14.5 Red Cell Distribution Width [facility] ([facility]) platelet count, automated 262 10 150-450 Platelet C ount, Automated [facility] ([facility]) neutrophils % 73.1 % 36.0-66.0 Above high normal Neutrophils % A THENA ([facility]) lymph % 19.8 % 24.0-44.0 Below low normal Lymph % [facility] ( [facility]) mono % 4.3 % 2.0-8.0 Sharkey % [facility] ([facility]) eos % 2.0 % 0.0-3.0 Eos % [facility] ([facility]) baso % 0.3 % 0.0-1.0 Baso % [facility] ([facility]) immature granulocyte % 0.5 % 0-3.0 Immature Gran ulocyte % [facility] ([facility]) nucleated red blood cell % 0.0 % 0-0 Nucleated Red Blood Cell % [facility] ([facility]) lymph # 1.9 10 1.5-5.0 Lymph # [facility] ([facility]) neutrophils # 7.1 10 1.5-8.5 Neutrophils # [facility] ( [facility]) eos # 0.2 10 0.0-0.5 Eos # [facility] ([facility]) mono # 0.4 10 0.0-0.8 Sharkey # [facility] ([facility]) baso # 0.0 10 0.0-0.2 Baso # [facility] ([facility]) ID Date Data Source [id number] 09/28/2020 03:55:00 PM EDT [place] ([facility]) Name Value Range Interpretation Code Description Data Kezia rce(s) Supporting Document(s) triglycerides level 351 mg/dL <150 Above high normal Triglycer ides Level [facility] ([facility]) cholesterol level 160 mg/dL <200 Cholesterol Level [facility] ([facility]) non-HDL-C 136 mg/dL Non-hdl-c [facility] ([facility]) Cholesterol in LDL [Mass/volume] in Serum or Plasma 66 mg/dL <1 00 LDL Cholesterol [facility] ([facility]) HDL cholesterol 24 mg/dL >40 Below low normal HDL Cholestero l [facility] ([facility]) cholesterol risk ratio <5 Above high normal Choles terol Risk Ratio [facility] ([facility]) ID Date Data Source [id number] 09/28/2020 03:55:00 PM EDT [place] ([facility]) Name Value Range Interpretation Code Description Data Kezia rce(s) Supporting Document(s) blood urea nitrogen 14 mg/dL 7-18 Blood Urea Nitro gen [facility] ([facility]) glucose, fasting 105 mg/dL 70-100 Above high normal Glucose, Fas ting [facility] ([facility]) glomerular filtration rate > 60.0 >60 Glomerula r Filtration Rate [facility] ([facility]) creatinine for GFR 0.73 mg/dL 0.55-1.30 Creatinine for GF R [facility] ([facility]) sodium level 142 mEq/L 136-145 Sodium Level [facility] ([facility]) potassium serum 3.8 mEq/L 3.5-5.1 Potassium Serum AT[facility] NA ([facility]) chloride level 106 mEq/L 98-107 Chloride Level [facility] ([facility]) anion gap 11 mEq/L 8-16 Anion Gap [facility] ([facility]) carbon dioxide level 25 mEq/L 21-32 Carbon Dioxide Level [facility] ([facility]) calcium level 6.7 mg/dL 8.5-10.1 Below low normal Calcium Level AT [facility]) AST/SGOT 26 U/L 7-37 AST/SGOT [facility] ([facility]) ALT/SGPT 42 U/L 12-78 ALT/SGPT [facility] ([facility]) bilirubin,total 0.3 mg/dL 0.2-1.0 Bilirubin,total AT[facility] ([facility]) alkaline phosphatase 67 U/L 45-117 Alkaline Phosph atase [facility] ([facility]) total protein 6.6 gm/dL 6.4-8.2 Total Protein [facility] ( [facility]) albumin 3.6 gm/dL 3.2-5.2 Albumin [facility] ([facility]) albumin/globulin ratio 1.2-2.2 Albumin/globu ryan Ratio [facility] ([facility]) ID Date Data Source [id number] 09/28/2020 03:55:00 PM EDT [facility] ([facility]) Name Value Range Interpretation Code Description Data Kezia rce(s) Supporting Document(s) white blood count 9.7 10 4.0-10.0 White Blood Count [facility] ([facility]) red blood count 4.19 10 4.00-5.40 Red Blood Count [facility] ([facility]) hemoglobin 11.5 g/dL 12.0-15.5 Below low normal Hemoglobin [facility] ( [facility]) mean corpuscular volume 84.2 fL 80.0-96.0 Mean Corpusc ular Volume [facility] ([facility]) hematocrit 35.3 % 36.0-47.0 Below low normal Hematocrit [facility] ( [facility]) mean corpuscular hemoglobin 27.4 pg 27.0-33.0 Mean Cor puscular Hemoglobin [facility] ([facility]) mean corpuscular HGB conc 32.6 g/dL 32.0-36.5 Mean Corpu scular HGB Conc [facility] ([facility]) platelet count, automated 262 10 150-450 Platelet C ount, Automated [facility] ([facility]) red cell distribution width 13.8 % 11.5-14.5 Red Cell Distribution Width [facility] ([facility]) neutrophils % 73.1 % 36.0-66.0 Above high normal Neutrophils % A THENA ([facility]) mono % 4.3 % 2.0-8.0 Sharkey % [place] ([facility]) lymph % 19.8 % 24.0-44.0 Below low normal Lymph % [facility] ( [facility]) baso % 0.3 % 0.0-1.0 Baso % [facility] ([facility]) eos % 2.0 % 0.0-3.0 Eos % [place] ([facility]) nucleated red blood cell % 0.0 % 0-0 Nucleated Red Blood Cell % [facility] ([facility]) immature granulocyte % 0.5 % 0-3.0 Immature Gran ulocyte % [facility] ([facility]) mono # 0.4 10 0.0-0.8 Sharkey # [facility] ([facility]) neutrophils # 7.1 10 1.5-8.5 Neutrophils # [facility] ( [facility]) lymph # 1.9 10 1.5-5.0 Lymph # [facility] ([facility]) baso # 0.0 10 0.0-0.2 Baso # [facility] ([facility]) eos # 0.2 10 0.0-0.5 Eos # [facility] ([facility]) ID Date Data Source [id number] 09/28/2020 03:55:00 PM EDT [facility] ([facility]) Name Value Range Interpretation Code Description Data Kezia rce(s) Supporting Document(s) cholesterol level 160 mg/dL <200 Cholesterol Level [facility] ([facility]) HDL cholesterol 24 mg/dL >40 Below low normal HDL Cholestero l [facility] ([facility]) triglycerides level 351 mg/dL <150 Above high normal Triglycer ides Level [facility] ([facility]) Cholesterol in LDL [Mass/volume] in Serum or Plasma 66 mg/dL <1 00 LDL Cholesterol [facility] ([facility]) non-HDL-C 136 mg/dL Non-hdl-c [facility] ([facility]) cholesterol risk ratio <5 Above high normal Choles terol Risk Ratio [facility] ([facility]) ID Date Data Source [id number] 09/28/2020 03:55:00 PM EDT [facility] ([facility]) Name Value Range Interpretation Code Description Data Kezia rce(s) Supporting Document(s) glucose, fasting 105 mg/dL 70-100 Above high normal Glucose, Fas ting [facility] ([facility]) blood urea nitrogen 14 mg/dL 7-18 Blood Urea Nitro gen [facility] ([facility]) creatinine for GFR 0.73 mg/dL 0.55-1.30 Creatinine for GF R [facility] ([facility]) sodium level 142 mEq/L 136-145 Sodium Level [facility] ([facility]) glomerular filtration rate > 60.0 >60 Glomerula r Filtration Rate [facility] ([facility]) chloride level 106 mEq/L 98-107 Chloride Level [facility] ([facility]) potassium serum 3.8 mEq/L 3.5-5.1 Potassium Serum AT[facility] NA ([facility]) carbon dioxide level 25 mEq/L 21-32 Carbon Dioxide Level [facility] ([facility]) anion gap 11 mEq/L 8-16 Anion Gap [facility] ([facility]) AST/SGOT 26 U/L 7-37 AST/SGOT [facility] ([facility]) calcium level 6.7 mg/dL 8.5-10.1 Below low normal Calcium Level AT [facility] ([facility]) bilirubin,total 0.3 mg/dL 0.2-1.0 Bilirubin,total AT[facility] ([facility]) alkaline phosphatase 67 U/L 45-117 Alkaline Phosph atase [facility] ([facility]) ALT/SGPT 42 U/L 12-78 ALT/SGPT [facility] ([facility]) total protein 6.6 gm/dL 6.4-8.2 Total Protein [facility] ( [facility]) albumin 3.6 gm/dL 3.2-5.2 Albumin [facility] ([facility]) albumin/globulin ratio 1.2-2.2 Albumin/globu ryan Ratio [facility] ([facility]) ID Date Data Source [id number] 09/28/2020 03:55:00 PM EDT [place] ([facility]) Name Value Range Interpretation Code Description Data Kezia rce(s) Supporting Document(s) red blood count 4.19 10 4.00-5.40 Red Blood Count [facility] ([facility]) white blood count 9.7 10 4.0-10.0 White Blood Count [facility] ([facility]) hemoglobin 11.5 g/dL 12.0-15.5 Below low normal Hemoglobin [facility] ( [facility]) hematocrit 35.3 % 36.0-47.0 Below low normal Hematocrit [facility] ( [facility]) mean corpuscular volume 84.2 fL 80.0-96.0 Mean Corpusc ular Volume [facility] ([facility]) mean corpuscular HGB conc 32.6 g/dL 32.0-36.5 Mean Corpu scular HGB Conc [facility] ([facility]) mean corpuscular hemoglobin 27.4 pg 27.0-33.0 Mean Cor puscular Hemoglobin [facility] ([facility]) red cell distribution width 13.8 % 11.5-14.5 Red Cell Distribution Width [facility] ([facility]) platelet count, automated 262 10 150-450 Platelet C ount, Automated [facility] ([facility]) lymph % 19.8 % 24.0-44.0 Below low normal Lymph % [facility] ( [facility]) neutrophils % 73.1 % 36.0-66.0 Above high normal Neutrophils % A [facility] ([facility]) mono % 4.3 % 2.0-8.0 Sharkey % [facility] ([facility]) baso % 0.3 % 0.0-1.0 Baso % [facility] ([facility]) eos % 2.0 % 0.0-3.0 Eos % [facility] ([facility]) immature granulocyte % 0.5 % 0-3.0 Immature Gran ulocyte % [facility] ([facility]) nucleated red blood cell % 0.0 % 0-0 Nucleated Red Blood Cell % [place] ([facility]) neutrophils # 7.1 10 1.5-8.5 Neutrophils # [place] ( [facility]) lymph # 1.9 10 1.5-5.0 Lymph # [facility] ([facility]) mono # 0.4 10 0.0-0.8 Sharkey # [facility] ([facility]) eos # 0.2 10 0.0-0.5 Eos # [facility] ([facility]) baso # 0.0 10 0.0-0.2 Baso # [facility] ([facility] [facility]) ID Date Data Source [id number] 09/28/2020 03:55:00 PM EDT [place] ([facility]) Name Value Range Interpretation Code Description Data Kezia rce(s) Supporting Document(s) triglycerides level 351 mg/dL <150 Above high normal Triglycer ides Level ELZA ([facility]) cholesterol level 160 mg/dL <200 Cholesterol Level ELZA ([facility]) Cholesterol in LDL [Mass/volume] in Serum or Plasma 66 mg/dL <1 00 LDL Cholesterol ELZA ([facility]) HDL cholesterol 24 mg/dL >40 Below low normal HDL Cholestero l ELZA ([facility]) cholesterol risk ratio <5 Above high normal Choles terol Risk Ratio ELZA ([facility]) non-HDL-C 136 mg/dL Non-hdl-c ELZA ([facility]) ID Date Data Source [id number] 09/28/2020 03:55:00 PM EDT ELZA ([facility]) Name Value Range Interpretation Code Description Data Kezia rce(s) Supporting Document(s) glucose, fasting 105 mg/dL 70-100 Above high normal Glucose, Fas ting ELZA ([facility]) creatinine for GFR 0.73 mg/dL 0.55-1.30 Creatinine for GF R ELZA ([facility]) blood urea nitrogen 14 mg/dL 7-18 Blood Urea Nitro gen ELZA ([facility]) glomerular filtration rate > 60.0 >60 Glomerula r Filtration Rate ELZA ([facility]) sodium level 142 mEq/L 136-145 Sodium Level ELZA ([facility]) potassium serum 3.8 mEq/L 3.5-5.1 Potassium Serum ATHE NA ([facility]) chloride level 106 mEq/L 98-107 Chloride Level ELZA ([facility]) carbon dioxide level 25 mEq/L 21-32 Carbon Dioxide Level ELZA ([facility]) anion gap 11 mEq/L 8-16 Anion Gap ELZA ([facility]) ALT/SGPT 42 U/L 12-78 ALT/SGPT EL[facility] ([facility]) AST/SGOT 26 U/L 7-37 AST/SGOT EL[facility] ([facility]) calcium level 6.7 mg/dL 8.5-10.1 Below low normal Calcium Level AT CARMEN ([facility]) alkaline phosphatase 67 U/L 45-117 Alkaline Phosph atase ELZA ([facility]) bilirubin,total 0.3 mg/dL 0.2-1.0 Bilirubin,total ATHE NA ([facility]) albumin 3.6 gm/dL 3.2-5.2 Albumin ELZA ([facility]) albumin/globulin ratio 1.2-2.2 Albumin/globu ryan Ratio ELZA ([facility]) total protein 6.6 gm/dL 6.4-8.2 Total Protein ELZA ( [facility]) ID Date Data Source [id number] 09/28/2020 03:55:00 PM EDT ELZA ([facility]) Name Value Range Interpretation Code Description Data Kezia rce(s) Supporting Document(s) white blood count 9.7 10 4.0-10.0 White Blood Count ELZA ([facility]) red blood count 4.19 10 4.00-5.40 Red Blood Count ATHE NA ([facility]) hemoglobin 11.5 g/dL 12.0-15.5 Below low normal Hemoglobin ELZA ( [facility]) hematocrit 35.3 % 36.0-47.0 Below low normal Hematocrit ELZA ( [facility]) mean corpuscular volume 84.2 fL 80.0-96.0 Mean Corpusc ular Volume ELZA ([facility]) mean corpuscular HGB conc 32.6 g/dL 32.0-36.5 Mean Corpu scular HGB Conc ELZA ([facility]) mean corpuscular hemoglobin 27.4 pg 27.0-33.0 Mean Cor puscular Hemoglobin ELZA ([facility]) red cell distribution width 13.8 % 11.5-14.5 Red Cell Distribution Width ELZA ([facility]) platelet count, automated 262 10 150-450 Platelet C ount, Automated ELZA ([facility]) lymph % 19.8 % 24.0-44.0 Below low normal Lymph % ELZA ( [facility]) mono % 4.3 % 2.0-8.0 Sharkey % ELZA ([facility]) neutrophils % 73.1 % 36.0-66.0 Above high normal Neutrophils % A THENA ([facility]) baso % 0.3 % 0.0-1.0 Baso % ELZA ([facility]) eos % 2.0 % 0.0-3.0 Eos % ELZA ([facility]) nucleated red blood cell % 0.0 % 0-0 Nucleated Red Blood Cell % ELZA ([facility]) immature granulocyte % 0.5 % 0-3.0 Immature Gran ulocyte % ELZA ([facility]) neutrophils # 7.1 10 1.5-8.5 Neutrophils # ELZA ( [facility]) lymph # 1.9 10 1.5-5.0 Lymph # ELZA ([facility]) eos # 0.2 10 0.0-0.5 Eos # ELZA ([facility]) mono # 0.4 10 0.0-0.8 Sharkey # ELZA ([facility]) baso # 0.0 10 0.0-0.2 Baso # [place] ([facility]) ID Date Data Source [id number] 09/19/2020 08:41:00 AM EDT [place] ([facility]) Name Value Range Interpretation Code Description Data Kezia rce(s) Supporting Document(s) Bacteria identified in Urine by Culture see note Culture, Urine, Routine [place] ([facility]) ID Date Data Source [id number] 09/19/2020 08:41:00 AM EDT [facility]) Name Value Range Interpretation Code Description Data Kezia rce(s) Supporting Document(s) Hemoglobin A1c/Hemoglobin.total in Blood 4.8 %_of_total_HGB <5.7 Hemoglobin a1C [place] ([facility]) ID Date Data Source [id number] 09/19/2020 08:41:00 AM EDT [place] ([facility]) Name Value Range Interpretation Code Description Data Kezia rce(s) Supporting Document(s) Calcidiol [Mass/volume] in Serum or Plasma 33 NG/mL 30-100 Vitamin D,25-Oh,total,ia [place] ([facility]) ID Date Data Source [id number] 09/19/2020 08:41:00 AM EDT [facility]) Name Value Range Interpretation Code Description Data Kezia rce(s) Supporting Document(s) Leukocytes [#/volume] in Blood by Automated count 7.7 thousand/uL 3 .8-10.8 White Blood Cell Count ELZA ([facility]) Hemoglobin [Mass/volume] in Blood 12.0 g/dL 11.7-15.5 He moglobin ELZA ([facility]) Hematocrit [Volume Fraction] of Blood by Automated count 38.0 % 35.0-45.0 Hematocrit EL[facility] ([facility]) Erythrocytes [#/volume] in Blood by Automated count 4.37 million/uL 3.80-5.10 Red Blood Cell Count ELZA ([facility]) Erythrocyte mean corpuscular hemoglobin [Entitic mass] by Automated count 27.5 pg 27.0-33.0 Mch ELZA ([facility]) Erythrocyte mean corpuscular volume [Entitic volume] by Auto mated count 87.0 fL 80.0-100.0 Mcv ELZA ([facility]) Erythrocyte mean corpuscular hemoglobin concentration [Mass/volume] by Automated count 31.6 g/dL 32.0-36.0 Below low normal Mchc ELZA ([facility]) Platelet mean volume [Entitic volume] in Blood by Christa 10.1 f L 7.5-12.5 Mpv EL[facility] ([facility]) Erythrocyte distribution width [Ratio] by Automated count 14.4 % 11.0-15.0 Rdw EL[facility] ([facility]) Platelets [#/volume] in Blood by Automated count 245 thousand/uL 14 0-400 Platelet Count [facility] ([facility]) Monocytes [#/volume] in Blood by Automated count 408 cells/uL 200-9 50 Absolute Monocytes EL[facility] ([facility]) Lymphocytes [#/volume] in Blood by Automated count 1748 cells/uL 85 0-3900 Absolute Lymphocytes EL[facility] ([facility]) Neutrophils [#/volume] in Blood by Automated count 5313 cells/uL 15 00-7800 [facility] Eosinophils [#/volume] in Blood by Automated count 193 cells/uL 15- 500 Absolute Eosinophils EL[facility] ([facility]) Neutrophils/100 leukocytes in Blood by Automated count 69 % 38- 80 Neutrophils EL[facility] ([facility]) Basophils [#/volume] in Blood by Automated count 39 cells/uL 0-200 Absolute Basophils EL[facility] ([facility]) Lymphocytes/100 leukocytes in Blood by Automated count 22.7 % 15-49 Lymphocytes EL[facility] ([facility]) Eosinophils/100 leukocytes in Blood by Automated count 2.5 % 0-8 Eosinophils EL[facility] ([facility]) Basophils/100 leukocytes in Blood by Automated count 0.5 % 0-2 Basophils EL[facility] ([facility]) Monocytes/100 leukocytes in Blood by Automated count 5.3 % 0-13 Monocytes EL[facility] ([facility]) ID Date Data Source [id number] 09/19/2020 08:41:00 AM EDT [facility]) Name Value Range Interpretation Code Description Data Kezia rce(s) Supporting Document(s) Bacteria identified in Urine by Culture Reflexive Urine Culture [facility]) ID Date Data Source [id number] 09/19/2020 08:41:00 AM EDT [facility]) Name Value Range Interpretation Code Description Data Kezia rce(s) Supporting Document(s) Color of Urine yellow yellow Color ELZA ([facility]) Specific gravity of Urine by Test strip 1.001-1.035 Specific [place] ELZA ([facility]) pH of Urine by Test strip 5.0-8.0 Ph [place] ([facility]) Appearance of Urine cloudy clear Abnormal (applies to non-numeric results) Appearance ELZA ([facility]) Bilirubin.total [Presence] in Urine by Test strip negative negative Bilirubin EL[facility] ([facility]) Glucose [Presence] in Urine by Test strip negative negative Glucose EL[facility] ([facility]) Ketones [Presence] in Urine by Test strip negative negative Ketones EL[facility] ([facility]) Nitrite [Presence] in Urine by Test strip negative negative Nitrite EL[facility] ([facility]) Protein [Presence] in Urine by Test strip negative negative Protein ELZA ([facility]) Hemoglobin [Presence] in Urine by Test strip negative negative Occult Blood ELZA ([facility]) Leukocytes [#/area] in Urine sediment by Microscopy high pow er field 6-10 < or = 5 Abnormal (applies to non-numeric results) Wbc ELZA ([facility]) Erythrocytes [#/area] in Urine sediment by Microscopy high power field none seen < or = 2 Rbc ELZA ([facility]) Leukocyte esterase [Presence] in Urine by Test strip negative n egative Leukocyte Esterase ELZA ([facility]) Calcium oxalate crystals [#/area] in Uri ne sediment by Microscopy high power field many none or few Abnormal (applies to non-numeric results) Calcium Oxalate Crystals ELZA ([facility]) Epithelial cells.squamous [#/area] in Ur ine sediment by Microscopy high power field 10-20 < or = 5 Abnormal (applies to non-numeric results) Squamous Epithelial Cells ELZA ([facility]) Bacteria [#/area] in Urine sediment by Microscopy high power field few none seen Abnormal (applies to non-numeric results) Bacteria ELZA ([facility]) Hyaline casts [#/area] in Urine sediment by Microscopy low power field none seen none seen Hyaline Cast EL[facility] ([facility]) ID Date Data Source [id number] 09/19/2020 08:41:00 AM EDT [facility]) Name Value Range Interpretation Code Description Data Kezia rce(s) Supporting Document(s) Corticotropin [Mass/volume] in Plasma 22 pg/mL 6-50 Acth, Plasma ELZA ([facility]) ID Date Data Source [id number] 09/19/2020 08:41:00 AM EDT [facility]) Name Value Range Interpretation Code Description Data Kezia rce(s) Supporting Document(s) Creatinine [Mass/volume] in Serum or Plasma 0.80 mg/dL 0.50-1.10 [facility]inine [facility] Glucose [Mass/volume] in Serum or Plasma 94 mg/dL 65-99 Glucose ELZA ([facility]) Urea nitrogen [Mass/volume] in Serum or Plasma 18 mg/dL 7-25 Urea Nitrogen (BUN) ELZA ([facility]) Glomerular filtration rate/1.73 sq M.pre dicted among blacks [Volume Rate/Area] in Serum, Plasma or Blood by Creatinine-based formula (CKD-EPI) 114 mL/min/1.73m2 > or = 60 eGFR [facility] ([facility]) Glomerular filtration rate/1.73 sq M.pre dicted among non-blacks [Volume Rate/Area] in Serum, Plasma or Blood by Creatinine-based formula (CKD-EPI) 98 mL/min/1.73m2 > or = 60 eGFR Non-afr. [place] ELZA ([facility]) Urea nitrogen/Creatinine [Mass Ratio] in Serum or Plasma not applic able 6-22 BUN/creatinine Ratio ELZA ([facility]) Sodium [Moles/volume] in Serum or Plasma 140 mmol/L 135-146 Sodium ELZA ([facility]) Chloride [Moles/volume] in Serum or Plasma 106 mmol/L 98-110 Chloride ELZA ([facility]) Carbon dioxide, total [Moles/volume] in Serum or Plasma 25 mmol/L 20-32 Carbon Dioxide ELZA ([facility]) Potassium [Moles/volume] in Serum or Plasma 4.2 mmol/L 3.5-5.3 Potassium EL[facility] ([facility]) Albumin [Mass/volume] in Serum or Plasma 4.1 g/dL 3.6-5.1 Albumin ELZA ([facility]) Calcium [Mass/volume] in Serum or Plasma 8.0 mg/dL 8.6-10.2 Below low normal Calcium ELZA ([facility]) Protein [Mass/volume] in Serum or Plasma 6.6 g/dL 6.1-8.1 Protein, Total ELZA ([facility]) Albumin/Globulin [Mass Ratio] in Serum or Plasma 1.6 (calc) 1.0-2 .5 Albumin/globulin [facility] Globulin [Mass/volume] in Serum by calculation 2.5 g/dL_(calc) 1.9- 3.7 Globulin ELZA ([facility]) Bilirubin.total [Mass/volume] in Serum or Plasma 0.3 mg/dL 0.2-1 .2 Bilirubin, Total ELZA ([facility]) Aspartate aminotransferase [Enzymatic activity/volume] in Serum or Plasma 18 U/L 10-30 Ast ELZA ([facility]) Alkaline phosphatase [Enzymatic activity/volume] in Serum or Plasma 57 U/L 31-125 Alkaline Phosphatase EL[facility] ([facility]) Alanine aminotransferase [Enzymatic activity/volume] in Seru m or Plasma 30 U/L 6-29 Above high normal Alt ELZA ([facility]) ID Date Data Source [id number] 09/19/2020 08:41:00 AM EDT [facility]) Name Value Range Interpretation Code Description Data Kezia rce(s) Supporting Document(s) Thyrotropin [Units/volume] in Serum or Plasma 2.97 mIU/L Tsh [place] ([facility]) Thyroxine (T4) free [Mass/volume] in Serum or Plasma 1.0 NG/dL 0 .8-1.8 T4, Free [facility] ID Date Data Source [id number] 09/19/2020 08:41:00 AM EDT [place] ([facility]) Name Value Range Interpretation Code Description Data Kezia rce(s) Supporting Document(s) Cholesterol in HDL [Mass/volume] in Serum or Plasma 31 mg/dL > or = 50 Below low normal HDL Cholesterol EL[facility] ([facility]) Cholesterol [Mass/volume] in Serum or Plasma 149 mg/dL <200 Cholesterol, Total ELZA ([facility]) Triglyceride [Mass/volume] in Serum or Plasma 140 mg/dL <150 Triglycerides ELZA ([facility]) Cholesterol in LDL [Mass/volume] in Serum or Plasma by calculation 94 mg/dL_(calc) <100 LDL-cholesterol ELZA ([facility]) Cholesterol non HDL [Mass/volume] in Serum or Plasma 118 mg/dL_(marry c) <130 Non HDL Cholesterol ELZA ([facility]) Cholesterol.total/Cholesterol in HDL [Mass Ratio] in Serum o r Plasma 4.8 calc <5.0 Chol/hdlc Ratio EL[facility] ([facility]) Lipoprotein.beta.subparticle.small [Moles/volume] in Serum o r Plasma 302 nmol/L <142 Above high normal LDL Small ELZA ([facility]) Lipoprotein.alpha 3 [Moles/volume] in Serum 240 nmol/L <215 Above high normal LDL Medium EL[facility] ([facility]) Lipoprotein.beta.subparticle [Moles/volume] in Serum or Plas ma 1237 nmol/L <1138 Above high normal LDL Particle Number ELZA ([facility]) Lipoprotein.alpha.subparticle.large [Moles/volume] in Serum or Plasma 5879 nmol/L >6729 Below low normal HDL Large EL[facility] ([facility]) Cholesterol in LDL real size pattern [Identifier] in Serum or Pl asma B A Abnormal (applies to non-numeric results) LDL Pattern ELZA ([facility]) Lipoprotein a [Moles/volume] in Serum or Plasma 107 nmol/L <75 Above high normal Lipoprotein (a) EL[facility] ([facility]) Lipoprotein.beta.subparticle [Entitic length] in Serum or Pl asma 210.5 angstrom >222.9 Below low normal LDL Peak Size ELZA ([facility]) Apolipoprotein B [Mass/volume] in Serum or Plasma 86 mg/dL Apolipoprotein B EL[facility] ([facility]) ID Date Data Source [id number] 09/19/2020 08:41:00 AM EDT ELZA ([facility]) Name Value Range Interpretation Code Description Data Kezia rce(s) Supporting Document(s) Bacteria identified in Urine by Culture see note Culture, Urine, Routine ELZA ([facility]) ID Date Data Source [id number] 09/19/2020 08:41:00 AM EDT [place] ([facility]) Name Value Range Interpretation Code Description Data Kezia rce(s) Supporting Document(s) Hemoglobin A1c/Hemoglobin.total in Blood 4.8 %_of_total_HGB <5.7 Hemoglobin a1C [place] ([facility]) ID Date Data Source [id number] 09/19/2020 08:41:00 AM EDT [place] ([facility]) Name Value Range Interpretation Code Description Data Kezia rce(s) Supporting Document(s) Calcidiol [Mass/volume] in Serum or Plasma 33 NG/mL 30-100 Vitamin D,25-Oh,total,ia [place] ([facility]) ID Date Data Source [id number] 09/19/2020 08:41:00 AM EDT [place] ([facility]) Name Value Range Interpretation Code Description Data Kezia rce(s) Supporting Document(s) Leukocytes [#/volume] in Blood by Automated count 7.7 thousand/uL 3 .8-10.8 White Blood Cell Count [place] ([facility]) Erythrocytes [#/volume] in Blood by Automated count 4.37 million/uL 3.80-5.10 Red Blood Cell Count [place] ([facility]) Hemoglobin [Mass/volume] in Blood 12.0 g/dL 11.7-15.5 He moglobin ELZA ([facility]) Erythrocyte mean corpuscular hemoglobin concentration [Mass/volume] by Automated count 31.6 g/dL 32.0-36.0 Below low normal Mchc ELZA ([facility]) Erythrocyte mean corpuscular hemoglobin [Entitic mass] by Automated count 27.5 pg 27.0-33.0 Mch [place] ([facility]) Erythrocyte mean corpuscular volume [Entitic volume] by Auto mated count 87.0 fL 80.0-100.0 Mcv EL[facility] ([facility]) Hematocrit [Volume Fraction] of Blood by Automated count 38.0 % 35.0-45.0 Hematocrit [place] ([facility]) Erythrocyte distribution width [Ratio] by Automated count 14.4 % 11.0-15.0 Rdw [place] ([facility]) Platelets [#/volume] in Blood by Automated count 245 thousand/uL 14 0-400 Platelet Count EL[facility] ([facility]) Platelet mean volume [Entitic volume] in Blood by Christa 10.1 f L 7.5-12.5 Mpv EL[facility] ([facility]) Neutrophils [#/volume] in Blood by Automated count 5313 cells/uL 15 00-7800 Absolute Neutrophils ELZA ([facility]) Lymphocytes [#/volume] in Blood by Automated count 1748 cells/uL 85 0-3900 Absolute Lymphocytes EL[facility] ([facility]) Monocytes [#/volume] in Blood by Automated count 408 cells/uL 200-9 50 Absolute Monocytes EL[facility] ([facility]) Eosinophils [#/volume] in Blood by Automated count 193 cells/uL 15- 500 Absolute Eosinophils ELZA ([facility]) Basophils [#/volume] in Blood by Automated count 39 cells/uL 0-200 Absolute Basophils EL[facility] ([facility]) Lymphocytes/100 leukocytes in Blood by Automated count 22.7 % 15-49 Lymphocytes EL[facility] ([facility]) Neutrophils/100 leukocytes in Blood by Automated count 69 % 38- 80 Neutrophils EL[facility] ([facility]) Monocytes/100 leukocytes in Blood by Automated count 5.3 % 0-13 Monocytes EL[facility] ([facility]) Eosinophils/100 leukocytes in Blood by Automated count 2.5 % 0-8 Eosinophils [facility] ([facility]) Basophils/100 leukocytes in Blood by Automated count 0.5 % 0-2 Basophils [facility] ([facility]) ID Date Data Source [id number] 09/19/2020 08:41:00 AM EDT [place] ([facility]) Name Value Range Interpretation Code Description Data Kezia rce(s) Supporting Document(s) Bacteria identified in Urine by Culture Reflexive Urine Culture ELZA ([facility]) ID Date Data Source [id number] 09/19/2020 08:41:00 AM EDT [place] ([facility]) Name Value Range Interpretation Code Description Data Kezia rce(s) Supporting Document(s) Color of Urine yellow yellow Color [facility] ([facility]) Specific gravity of Urine by Test strip 1.001-1.035 Specific [place] ELZA ([facility]) pH of Urine by Test strip 5.0-8.0 Ph ELZA ([facility]) Appearance of Urine cloudy clear Abnormal (applies to non-numeric results) Appearance ELZA ([facility]) Bilirubin.total [Presence] in Urine by Test strip negative negative Bilirubin EL[facility] ([facility]) Ketones [Presence] in Urine by Test strip negative negative Ketones EL[facility] ([facility]) Glucose [Presence] in Urine by Test strip negative negative Glucose EL[facility] ([facility]) Hemoglobin [Presence] in Urine by Test strip negative negative Occult Blood ELZA ([facility]) Nitrite [Presence] in Urine by Test strip negative negative Nitrite EL[facility] ([facility]) Protein [Presence] in Urine by Test strip negative negative Protein EL[facility] ([facility]) Erythrocytes [#/area] in Urine sediment by Microscopy high power field none seen < or = 2 Rbc EL[facility] ([facility]) Leukocytes [#/area] in Urine sediment by Microscopy high pow er field 6-10 < or = 5 Abnormal (applies to non-numeric results) Wbc EL[facility] ([facility]) Leukocyte esterase [Presence] in Urine by Test strip negative n egative Leukocyte Esterase EL[facility] ([facility]) Bacteria [#/area] in Urine sediment by Microscopy high power field few none seen Abnormal (applies to non-numeric results) Bacteria ELZA ([facility]) Hyaline casts [#/area] in Urine sediment by Microscopy low power field none seen none seen Hyaline Cast ELZA ([facility]) Calcium oxalate crystals [#/area] in Uri ne sediment by Microscopy high power field many none or few Abnormal (applies to non-numeric results) Calcium Oxalate Crystals ELZA ([facility]) Epithelial cells.squamous [#/area] in Ur ine sediment by Microscopy high power field 10-20 < or = 5 Abnormal (applies to non-numeric results) Squamous Epithelial Cells ELZA ([facility]) ID Date Data Source [id number] 09/19/2020 08:41:00 AM EDT [facility]) Name Value Range Interpretation Code Description Data Kezia rce(s) Supporting Document(s) Corticotropin [Mass/volume] in Plasma 22 pg/mL 6-50 Acth, Plasma [facility]) ID Date Data Source [id number] 09/19/2020 08:41:00 AM EDT ELZA ([facility]) Name Value Range Interpretation Code Description Data Kezia rce(s) Supporting Document(s) Urea nitrogen [Mass/volume] in Serum or Plasma 18 mg/dL 7-25 Urea Nitrogen (BUN) EL[facility] ([facility]) Glucose [Mass/volume] in Serum or Plasma 94 mg/dL 65-99 Glucose [place] ([facility]) Glomerular filtration rate/1.73 sq M.pre dicted among blacks [Volume Rate/Area] in Serum, Plasma or Blood by Creatinine-based formula (CKD-EPI) 114 mL/min/1.73m2 > or = 60 eGFR [facility] ([facility]) Glomerular filtration rate/1.73 sq M.pre dicted among non-blacks [Volume Rate/Area] in Serum, Plasma or Blood by Creatinine-based formula (CKD-EPI) 98 mL/min/1.73m2 > or = 60 eGFR Non-afr. [place] ELZA ([facility]) Creatinine [Mass/volume] in Serum or Plasma 0.80 mg/dL 0.50-1.10 Creatinine [facility] ([facility]) Sodium [Moles/volume] in Serum or Plasma 140 mmol/L 135-146 Sodium EL[facility] ([facility]) Urea nitrogen/Creatinine [Mass Ratio] in Serum or Plasma not applic able 6-22 BUN/creatinine Ratio [facility] ([facility]) Potassium [Moles/volume] in Serum or Plasma 4.2 mmol/L 3.5-5.3 Potassium [facility] ([facility]) Chloride [Moles/volume] in Serum or Plasma 106 mmol/L 98-110 Chloride [facility] Carbon dioxide, total [Moles/volume] in Serum or Plasma 25 mmol/L 20-32 Carbon Dioxide EL[facility] ([facility]) Calcium [Mass/volume] in Serum or Plasma 8.0 mg/dL 8.6-10.2 Below low normal Calcium EL[facility] ([facility]) Protein [Mass/volume] in Serum or Plasma 6.6 g/dL 6.1-8.1 Protein, Total [facility] ([facility]) Albumin [Mass/volume] in Serum or Plasma 4.1 g/dL 3.6-5.1 Albumin [facility] [facility] Albumin/Globulin [Mass Ratio] in Serum or Plasma 1.6 (calc) 1.0-2 .5 Albumin/globulin Ratio [facility] ([facility]) Globulin [Mass/volume] in Serum by calculation 2.5 g/dL_(calc) 1.9- 3.7 Globulin [place] ([facility]) Bilirubin.total [Mass/volume] in Serum or Plasma 0.3 mg/dL 0.2-1 .2 Bilirubin, Total ELZA ([facility]) Alkaline phosphatase [Enzymatic activity/volume] in Serum or Plasma 57 U/L 31-125 Alkaline Phosphatase ELZA ([facility]) Aspartate aminotransferase [Enzymatic activity/volume] in Serum or Plasma 18 U/L 10-30 Ast ELZA ([facility]) Alanine aminotransferase [Enzymatic activity/volume] in Seru m or Plasma 30 U/L 6-29 Above high normal Alt ELZA ([facility]) ID Date Data Source [id number] 09/19/2020 08:41:00 AM EDT [facility]) Name Value Range Interpretation Code Description Data Kezia rce(s) Supporting Document(s) Thyrotropin [Units/volume] in Serum or Plasma 2.97 mIU/L Tsh [facility]) Thyroxine (T4) free [Mass/volume] in Serum or Plasma 1.0 NG/dL 0 .8-1.8 T4, Free [facility]) ID Date Data Source [id number] 09/19/2020 08:41:00 AM EDT [facility]) Name Value Range Interpretation Code Description Data Kezia rce(s) Supporting Document(s) Cholesterol [Mass/volume] in Serum or Plasma 149 mg/dL <200 Cholesterol, Total ELZA ([facility]) Triglyceride [Mass/volume] in Serum or Plasma 140 mg/dL <150 Triglycerides ELZA ([facility]) Cholesterol in HDL [Mass/volume] in Serum or Plasma 31 mg/dL > or = 50 Below low normal HDL Cholesterol ELZA ([facility]) Cholesterol.total/Cholesterol in HDL [Mass Ratio] in Serum o r Plasma 4.8 calc <5.0 Chol/hdlc Ratio ELZA ([facility]) Cholesterol in LDL [Mass/volume] in Serum or Plasma by calculation 94 mg/dL_(calc) <100 LDL-cholesterol ELZA ([facility]) Lipoprotein.beta.subparticle.small [Moles/volume] in Serum o r Plasma 302 nmol/L <142 Above high normal LDL Small ELZA ([facility]) Cholesterol non HDL [Mass/volume] in Serum or Plasma 118 mg/dL_(marry c) <130 Non HDL Cholesterol ELZA ([facility]) Lipoprotein.beta.subparticle [Moles/volume] in Serum or Plas ma 1237 nmol/L <1138 Above high normal LDL Particle Number ELZA ([facility]) Lipoprotein.alpha.subparticle.large [Moles/volume] in Serum or Plasma 5879 nmol/L >6729 Below low normal HDL Large ELZA ([facility]) Lipoprotein.alpha 3 [Moles/volume] in Serum 240 nmol/L <215 Above high normal LDL Medium ELZA ([facility]) Apolipoprotein B [Mass/volume] in Serum or Plasma 86 mg/dL Apolipoprotein B ELZA ([facility]) Cholesterol in LDL real size pattern [Identifier] in Serum or Pl asma B A Abnormal (applies to non-numeric results) LDL Pattern ELZA ([facility]) Lipoprotein.beta.subparticle [Entitic length] in Serum or Pl asma 210.5 angstrom >222.9 Below low normal LDL Peak Size ELZA ([facility]) Lipoprotein a [Moles/volume] in Serum or Plasma 107 nmol/L <75 Above high normal Lipoprotein (a) [facility]TEL ([facility]) ID Date Data Source [id number] 09/19/2020 08:41:00 AM EDT [facility]) Name Value Range Interpretation Code Description Data Kezia rce(s) Supporting Document(s) Bacteria identified in Urine by Culture see note Culture, Urine, Routine [facility]) ID Date Data Source [id number] 09/19/2020 08:41:00 AM EDT [facility]) Name Value Range Interpretation Code Description Data Kezia rce(s) Supporting Document(s) Hemoglobin A1c/Hemoglobin.total in Blood 4.8 %_of_total_HGB <5.7 Hemoglobin a1C [facility]) ID Date Data Source [id number] 09/19/2020 08:41:00 AM EDT [facility]) Name Value Range Interpretation Code Description Data Kezia rce(s) Supporting Document(s) Calcidiol [Mass/volume] in Serum or Plasma 33 NG/mL 30-100 Vitamin D,25-Oh,total,ia [facility]) ID Date Data Source [id number] 09/19/2020 08:41:00 AM EDT [facility]) Name Value Range Interpretation Code Description Data Kezia rce(s) Supporting Document(s) Hemoglobin [Mass/volume] in Blood 12.0 g/dL 11.7-15.5 He moglobin ELZA ([facility]) Leukocytes [#/volume] in Blood by Automated count 7.7 thousand/uL 3 .8-10.8 White Blood Cell Count ELZA ([facility]) Erythrocytes [#/volume] in Blood by Automated count 4.37 million/uL 3.80-5.10 Red Blood Cell Count ELZA ([facility]) Hematocrit [Volume Fraction] of Blood by Automated count 38.0 % 35.0-45.0 Hematocrit ELZA ([facility]) Erythrocyte mean corpuscular hemoglobin concentration [Mass/volume] by Automated count 31.6 g/dL 32.0-36.0 Below low normal Mchc ELZA ([facility]) Erythrocyte mean corpuscular volume [Entitic volume] by Auto mated count 87.0 fL 80.0-100.0 Mcv ELZA ([facility]) Erythrocyte mean corpuscular hemoglobin [Entitic mass] by Automated count 27.5 pg 27.0-33.0 Mch ELZA ([facility]) Neutrophils [#/volume] in Blood by Automated count 5313 cells/uL 15 00-7800 Absolute Neutrophils ELZA ([facility]) Platelets [#/volume] in Blood by Automated count 245 thousand/uL 14 0-400 Platelet Count [place] ([facility]) Erythrocyte distribution width [Ratio] by Automated count 14.4 % 11.0-15.0 Rdw ELZA ([facility]) Platelet mean volume [Entitic volume] in Blood by Christa 10.1 f L 7.5-12.5 Mpv ELZA ([facility]) Eosinophils [#/volume] in Blood by Automated count 193 cells/uL 15- 500 Absolute Eosinophils [place] ([facility]) Basophils [#/volume] in Blood by Automated count 39 cells/uL 0-200 Absolute Basophils ELZA ([facility]) Lymphocytes [#/volume] in Blood by Automated count 1748 cells/uL 85 0-3900 [facility] Monocytes [#/volume] in Blood by Automated count 408 cells/uL 200-9 50 Absolute Monocytes ELZA ([facility]) Eosinophils/100 leukocytes in Blood by Automated count 2.5 % 0-8 Eosinophils ELZA ([facility]) Lymphocytes/100 leukocytes in Blood by Automated count 22.7 % 15-49 Lymphocytes ELZA ([facility]) Neutrophils/100 leukocytes in Blood by Automated count 69 % 38- 80 [facility]rophils [facility] Monocytes/100 leukocytes in Blood by Automated count 5.3 % 0-13 Monocytes ELZA ([facility]) Basophils/100 leukocytes in Blood by Automated count 0.5 % 0-2 Basophils ELZA ([facility]) ID Date Data Source [id number] 09/19/2020 08:41:00 AM EDT [place] ([facility]) Name Value Range Interpretation Code Description Data Kezia rce(s) Supporting Document(s) Bacteria identified in Urine by Culture Reflexive Urine Culture ELZA ([facility]) ID Date Data Source [id number] 09/19/2020 08:41:00 AM EDT [place] ([facility]) Name Value Range Interpretation Code Description Data Kezia rce(s) Supporting Document(s) Color of Urine yellow yellow Color ELZA ([facility]) Appearance of Urine cloudy clear Abnormal (applies to non-numeric results) Appearance ELZA ([facility]) Glucose [Presence] in Urine by Test strip negative negative Glucose ELZA ([facility]) pH of Urine by Test strip 5.0-8.0 Ph [place] ([facility]) Bilirubin.total [Presence] in Urine by Test strip negative negative Bilirubin ELZA ([facility]) Specific gravity of Urine by Test strip 1.001-1.035 Specific [place] ELZA ([facility]) Ketones [Presence] in Urine by Test strip negative negative Ketones ELZA ([facility]) Hemoglobin [Presence] in Urine by Test strip negative negative Occult Blood ELZA ([facility]) Protein [Presence] in Urine by Test strip negative negative Protein ELZA ([facility]) Erythrocytes [#/area] in Urine sediment by Microscopy high power field none seen < or = 2 Rbc ELZA ([facility]) Nitrite [Presence] in Urine by Test strip negative negative Nitrite ELZA ([facility]) Leukocytes [#/area] in Urine sediment by Microscopy high pow er field 6-10 < or = 5 Abnormal (applies to non-numeric results) Wbc ELZA ([facility]) Leukocyte esterase [Presence] in Urine by Test strip negative n egative Leukocyte Esterase ELZA ([facility]) Epithelial cells.squamous [#/area] in Ur ine sediment by Microscopy high power field 10-20 < or = 5 Abnormal (applies to non-numeric results) Squamous Epithelial Cells ELZA ([facility]) Calcium oxalate crystals [#/area] in Uri ne sediment by Microscopy high power field many none or few Abnormal (applies to non-numeric results) Calcium Oxalate Crystals ELZA ([facility]) Bacteria [#/area] in Urine sediment by Microscopy high power field few none seen Abnormal (applies to non-numeric results) Bacteria ELZA ([facility]) Hyaline casts [#/area] in Urine sediment by Microscopy low power field none seen none seen Hyaline Cast ELZA ([facility]) ID Date Data Source [id number] 09/19/2020 08:41:00 AM EDT [facility]) Name Value Range Interpretation Code Description Data Kezia rce(s) Supporting Document(s) Corticotropin [Mass/volume] in Plasma 22 pg/mL 6-50 Acth, Plasma [facility]) ID Date Data Source [id number] 09/19/2020 08:41:00 AM EDT [facility]) Name Value Range Interpretation Code Description Data Kezia rce(s) Supporting Document(s) Urea nitrogen [Mass/volume] in Serum or Plasma 18 mg/dL 7-25 Urea Nitrogen (BUN) ELZA ([facility]) Creatinine [Mass/volume] in Serum or Plasma 0.80 mg/dL 0.50-1.10 Creatinine [place] ([facility]) Glucose [Mass/volume] in Serum or Plasma 94 mg/dL 65-99 Glucose ELZA ([facility]) Glomerular filtration rate/1.73 sq M.pre dicted among blacks [Volume Rate/Area] in Serum, Plasma or Blood by Creatinine-based formula (CKD-EPI) 114 mL/min/1.73m2 > or = 60 eGFR ELZA ([facility]) Glomerular filtration rate/1.73 sq M.pre dicted among non-blacks [Volume Rate/Area] in Serum, Plasma or Blood by Creatinine-based formula (CKD-EPI) 98 mL/min/1.73m2 > or = 60 eGFR Non-afr. [place] ELZA ([facility]) Urea nitrogen/Creatinine [Mass Ratio] in Serum or Plasma not applic able 6-22 BUN/creatinine Ratio [facility] Carbon dioxide, total [Moles/volume] in Serum or Plasma 25 mmol/L 20-32 Carbon Dioxide ELZA ([facility]) Chloride [Moles/volume] in Serum or Plasma 106 mmol/L 98-110 Chloride ELZA ([facility]) Sodium [Moles/volume] in Serum or Plasma 140 mmol/L 135-146 Sodium ELZA ([facility]) Potassium [Moles/volume] in Serum or Plasma 4.2 mmol/L 3.5-5.3 Potassium [place] ([facility]) Albumin [Mass/volume] in Serum or Plasma 4.1 g/dL 3.6-5.1 Albumin [facility]) Protein [Mass/volume] in Serum or Plasma 6.6 g/dL 6.1-8.1 Protein, Total [facility]) Calcium [Mass/volume] in Serum or Plasma 8.0 mg/dL 8.6-10.2 Below low normal Calcium [place] ([facility]) Globulin [Mass/volume] in Serum by calculation 2.5 g/dL_(calc) 1.9- 3.7 Globulin [facility]) Bilirubin.total [Mass/volume] in Serum or Plasma 0.3 mg/dL 0.2-1 .2 Bilirubin, Total [facility]) Albumin/Globulin [Mass Ratio] in Serum or Plasma 1.6 (calc) 1.0-2 .5 Albumin/globulin Ratio ELZA ([facility]) Aspartate aminotransferase [Enzymatic activity/volume] in Serum or Plasma 18 U/L 10-30 Ast ELZA ([facility]) Alkaline phosphatase [Enzymatic activity/volume] in Serum or Plasma 57 U/L 31-125 Alkaline Phosphatase ELZA ([facility]) Alanine aminotransferase [Enzymatic activity/volume] in Seru m or Plasma 30 U/L 6-29 Above high normal Alt ELZA ([facility]) ID Date Data Source [id number] 09/19/2020 08:41:00 AM EDT [place] ([facility]) Name Value Range Interpretation Code Description Data Kezia rce(s) Supporting Document(s) Thyrotropin [Units/volume] in Serum or Plasma 2.97 mIU/L Tsh [facility] ([facility]) Thyroxine (T4) free [Mass/volume] in Serum or Plasma 1.0 NG/dL 0 .8-1.8 T4, Free ELZA ([facility]) ID Date Data Source [id number] 09/19/2020 08:41:00 AM EDT [place] ([facility]) Name Value Range Interpretation Code Description Data Kezia rce(s) Supporting Document(s) Cholesterol [Mass/volume] in Serum or Plasma 149 mg/dL <200 Cholesterol, Total ELZA ([facility]) Cholesterol in LDL [Mass/volume] in Serum or Plasma by calculation 94 mg/dL_(calc) <100 LDL-cholesterol ELZA ([facility]) Cholesterol in HDL [Mass/volume] in Serum or Plasma 31 mg/dL > or = 50 Below low normal HDL Cholesterol ELZA ([facility]) Triglyceride [Mass/volume] in Serum or Plasma 140 mg/dL <150 Triglycerides ELZA ([facility]) Cholesterol.total/Cholesterol in HDL [Mass Ratio] in Serum o r Plasma 4.8 calc <5.0 Chol/hdlc Ratio ELZA ([facility]) Lipoprotein.beta.subparticle [Moles/volume] in Serum or Plas ma 1237 nmol/L <1138 Above high normal LDL Particle Number ELZA ([facility]) Cholesterol non HDL [Mass/volume] in Serum or Plasma 118 mg/dL_(marry c) <130 Non HDL Cholesterol ELZA ([facility]) Lipoprotein.beta.subparticle.small [Moles/volume] in Serum o r Plasma 302 nmol/L <142 Above high normal LDL Small ELZA ([facility]) Lipoprotein.alpha 3 [Moles/volume] in Serum 240 nmol/L <215 Above high normal LDL Medium ELZA ([facility]) Lipoprotein.alpha.subparticle.large [Moles/volume] in Serum or Plasma 5879 nmol/L >6729 Below low normal HDL Large ELZA ([facility]) Cholesterol in LDL real size pattern [Identifier] in Serum or Pl asma B A Abnormal (applies to non-numeric results) LDL Pattern ELZA ([facility]) Lipoprotein.beta.subparticle [Entitic length] in Serum or Pl asma 210.5 angstrom >222.9 Below low normal LDL Peak Size ELZA ([facility]) Apolipoprotein B [Mass/volume] in Serum or Plasma 86 mg/dL Apolipoprotein B [place] ([facility]) Lipoprotein a [Moles/volume] in Serum or Plasma 107 nmol/L <75 Above high normal Lipoprotein (a) [facility] ([facility]) ID Date Data Source [id number] 09/19/2020 08:41:00 AM EDT [facility]) Name Value Range Interpretation Code Description Data Kezia rce(s) Supporting Document(s) Bacteria identified in Urine by Culture see note Culture, Urine, Routine [facility]) ID Date Data Source [id number] 09/19/2020 08:41:00 AM EDT [facility]) Name Value Range Interpretation Code Description Data Kezia rce(s) Supporting Document(s) Hemoglobin A1c/Hemoglobin.total in Blood 4.8 %_of_total_HGB <5.7 Hemoglobin a1C [place] ([facility]) ID Date Data Source [id number] 09/19/2020 08:41:00 AM EDT [facility]) Name Value Range Interpretation Code Description Data Kezia rce(s) Supporting Document(s) Calcidiol [Mass/volume] in Serum or Plasma 33 NG/mL 30-100 Vitamin D,25-Oh,total,ia [facility]) ID Date Data Source [id number] 09/19/2020 08:41:00 AM EDT [place] ([facility]) Name Value Range Interpretation Code Description Data Kezia rce(s) Supporting Document(s) Erythrocytes [#/volume] in Blood by Automated count 4.37 million/uL 3.80-5.10 Red Blood Cell Count ELZA ([facility]) Hemoglobin [Mass/volume] in Blood 12.0 g/dL 11.7-15.5 He moglobin ELZA ([facility]) Leukocytes [#/volume] in Blood by Automated count 7.7 thousand/uL 3 .8-10.8 White Blood Cell Count ELZA ([facility]) Erythrocyte mean corpuscular volume [Entitic volume] by Auto mated count 87.0 fL 80.0-100.0 Mcv ELZA ([facility]) Erythrocyte mean corpuscular hemoglobin concentration [Mass/volume] by Automated count 31.6 g/dL 32.0-36.0 Below low normal Mchc ELZA ([facility]) Hematocrit [Volume Fraction] of Blood by Automated count 38.0 % 35.0-45.0 Hematocrit ELZA ([facility]) Erythrocyte mean corpuscular hemoglobin [Entitic mass] by Automated count 27.5 pg 27.0-33.0 Mch ELZA ([facility]) Erythrocyte distribution width [Ratio] by Automated count 14.4 % 11.0-15.0 Rdw ELZA ([facility]) Platelets [#/volume] in Blood by Automated count 245 thousand/uL 14 0-400 Platelet Count EL[facility] ([facility]) Lymphocytes [#/volume] in Blood by Automated count 1748 cells/uL 85 0-3900 Absolute Lymphocytes ELZA ([facility]) Platelet mean volume [Entitic volume] in Blood by Christa 10.1 f L 7.5-12.5 Mpv ELZA ([facility]) Neutrophils [#/volume] in Blood by Automated count 5313 cells/uL 15 00-7800 Absolute Neutrophils ELZA ([facility]) Basophils [#/volume] in Blood by Automated count 39 cells/uL 0-200 Absolute Basophils ELZA ([facility]) Monocytes [#/volume] in Blood by Automated count 408 cells/uL 200-9 50 Absolute Monocytes ELZA ([facility]) Neutrophils/100 leukocytes in Blood by Automated count 69 % 38- 80 Neutrophils ELZA ([facility]) Eosinophils [#/volume] in Blood by Automated count 193 cells/uL 15- 500 Absolute Eosinophils ELZA ([facility]) Eosinophils/100 leukocytes in Blood by Automated count 2.5 % 0-8 Eosinophils EL[facility] ([facility]) Monocytes/100 leukocytes in Blood by Automated count 5.3 % 0-13 Monocytes ELZA ([facility]) Lymphocytes/100 leukocytes in Blood by Automated count 22.7 % 15-49 Lymphocytes ELZA ([facility]) Basophils/100 leukocytes in Blood by Automated count 0.5 % 0-2 Basophils ELZA ([facility]) ID Date Data Source [id number] 09/19/2020 08:41:00 AM EDT [facility]) Name Value Range Interpretation Code Description Data Kezia rce(s) Supporting Document(s) Bacteria identified in Urine by Culture Reflexive Urine Culture [facility]) ID Date Data Source [id number] 09/19/2020 08:41:00 AM EDT [facility]) Name Value Range Interpretation Code Description Data Kezia rce(s) Supporting Document(s) Color of Urine yellow yellow Color ELZA ([facility]) Appearance of Urine cloudy clear Abnormal (applies to non-numeric results) Appearance ELZA ([facility]) pH of Urine by Test strip 5.0-8.0 Ph [place] ([facility]) Bilirubin.total [Presence] in Urine by Test strip negative negative Bilirubin ELZA ([facility]) Glucose [Presence] in Urine by Test strip negative negative Glucose ELZA ([facility]) Specific gravity of Urine by Test strip 1.001-1.035 Specific [place] ELZA ([facility]) Ketones [Presence] in Urine by Test strip negative negative Ketones ELZA ([facility]) Nitrite [Presence] in Urine by Test strip negative negative Nitrite ELZA ([facility]) Protein [Presence] in Urine by Test strip negative negative Protein ELZA ([facility]) Hemoglobin [Presence] in Urine by Test strip negative negative Occult Blood ELZA ([facility]) Leukocyte esterase [Presence] in Urine by Test strip negative n egative Leukocyte Esterase ELZA ([facility]) Epithelial cells.squamous [#/area] in Ur ine sediment by Microscopy high power field 10-20 < or = 5 Abnormal (applies to non-numeric results) Squamous Epithelial Cells ELZA ([facility]) Erythrocytes [#/area] in Urine sediment by Microscopy high power field none seen < or = 2 Rbc ELZA ([facility]) Leukocytes [#/area] in Urine sediment by Microscopy high pow er field 6-10 < or = 5 Abnormal (applies to non-numeric results) Wbc ELZA ([facility]) Calcium oxalate crystals [#/area] in Uri ne sediment by Microscopy high power field many none or few Abnormal (applies to non-numeric results) Calcium Oxalate Crystals ELZA ([facility]) Hyaline casts [#/area] in Urine sediment by Microscopy low power field none seen none seen Hyaline Cast ELZA ([facility]) Bacteria [#/area] in Urine sediment by Microscopy high power field few none seen Abnormal (applies to non-numeric results) Bacteria ELAZ ([facility]) ID Date Data Source [id number] 09/19/2020 08:41:00 AM EDT [place] ([facility]) Name Value Range Interpretation Code Description Data Kezia rce(s) Supporting Document(s) Corticotropin [Mass/volume] in Plasma 22 pg/mL 6-50 Acth, Plasma ELZA ([facility]) ID Date Data Source [id number] 09/19/2020 08:41:00 AM EDT [facility]) Name Value Range Interpretation Code Description Data Kezia rce(s) Supporting Document(s) Urea nitrogen [Mass/volume] in Serum or Plasma 18 mg/dL 7-25 Urea Nitrogen (BUN) ELZA ([facility]) Creatinine [Mass/volume] in Serum or Plasma 0.80 mg/dL 0.50-1.10 Creatinine ELZA ([facility]) Glucose [Mass/volume] in Serum or Plasma 94 mg/dL 65-99 Glucose ELZA ([facility]) Sodium [Moles/volume] in Serum or Plasma 140 mmol/L 135-146 Sodium ELZA ([facility]) Glomerular filtration rate/1.73 sq M.pre dicted among blacks [Volume Rate/Area] in Serum, Plasma or Blood by Creatinine-based formula (CKD-EPI) 114 mL/min/1.73m2 > or = 60 eGFR ELZA ([facility]) Glomerular filtration rate/1.73 sq M.pre dicted among non-blacks [Volume Rate/Area] in Serum, Plasma or Blood by Creatinine-based formula (CKD-EPI) 98 mL/min/1.73m2 > or = 60 eGFR Non-afr. [place] ELZA ([facility]) Urea nitrogen/Creatinine [Mass Ratio] in Serum or Plasma not applic able 6-22 BUN/creatinine Ratio ELZA ([facility]) Chloride [Moles/volume] in Serum or Plasma 106 mmol/L 98-110 Chloride ELZA ([facility]) Carbon dioxide, total [Moles/volume] in Serum or Plasma 25 mmol/L 20-32 Carbon Dioxide ELZA ([facility]) Potassium [Moles/volume] in Serum or Plasma 4.2 mmol/L 3.5-5.3 Potassium EL[facility] ([facility]) Albumin [Mass/volume] in Serum or Plasma 4.1 g/dL 3.6-5.1 Albumin EL[facility] ([facility]) Calcium [Mass/volume] in Serum or Plasma 8.0 mg/dL 8.6-10.2 Below low normal Calcium ELZA ([facility]) Protein [Mass/volume] in Serum or Plasma 6.6 g/dL 6.1-8.1 Protein, [facility] Globulin [Mass/volume] in Serum by calculation 2.5 g/dL_(calc) 1.9- 3.7 Globulin [facility]) Bilirubin.total [Mass/volume] in Serum or Plasma 0.3 mg/dL 0.2-1 .2 Bilirubin, Total ELZA ([facility]) Albumin/Globulin [Mass Ratio] in Serum or Plasma 1.6 (calc) 1.0-2 .5 Albumin/globulin Ratio ELZA ([facility]) Aspartate aminotransferase [Enzymatic activity/volume] in Serum or Plasma 18 U/L 10-30 Ast ELZA ([facility]) Alkaline phosphatase [Enzymatic activity/volume] in Serum or Plasma 57 U/L 31-125 Alkaline Phosphatase [facility] ([facility]) Alanine aminotransferase [Enzymatic activity/volume] in Seru m or Plasma 30 U/L 6-29 Above high normal Alt ELZA ([facility]) ID Date Data Source [id number] 09/19/2020 08:41:00 AM EDT ELZA ([facility]) Name Value Range Interpretation Code Description Data Kezia rce(s) Supporting Document(s) Thyroxine (T4) free [Mass/volume] in Serum or Plasma 1.0 NG/dL 0 .8-1.8 T4, Free ELZA ([facility]) Thyrotropin [Units/volume] in Serum or Plasma 2.97 mIU/L Tsh [facility]) ID Date Data Source [id number] 09/19/2020 08:41:00 AM EDT ELZA ([facility]) Name Value Range Interpretation Code Description Data Kezia rce(s) Supporting Document(s) Cholesterol [Mass/volume] in Serum or Plasma 149 mg/dL <200 Cholesterol, Total ELZA ([facility]) Triglyceride [Mass/volume] in Serum or Plasma 140 mg/dL <150 Triglycerides ELZA ([facility]) Cholesterol in HDL [Mass/volume] in Serum or Plasma 31 mg/dL > or = 50 Below low normal HDL Cholesterol ELZA ([facility]) Cholesterol in LDL [Mass/volume] in Serum or Plasma by calculation 94 mg/dL_(calc) <100 LDL-cholesterol ELZA ([facility]) Cholesterol non HDL [Mass/volume] in Serum or Plasma 118 mg/dL_(marry c) <130 Non HDL Cholesterol ELZA ([facility]) Cholesterol.total/Cholesterol in HDL [Mass Ratio] in Serum o r Plasma 4.8 calc <5.0 Chol/hdlc Ratio ELZA ([facility]) Lipoprotein.beta.subparticle [Moles/volume] in Serum or Plas ma 1237 nmol/L <1138 Above high normal LDL Particle Number ELZA ([facility]) Lipoprotein.alpha.subparticle.large [Moles/volume] in Serum or Plasma 5879 nmol/L >6729 Below low normal HDL Large ELZA ([facility]) Lipoprotein.beta.subparticle.small [Moles/volume] in Serum o r Plasma 302 nmol/L <142 Above high normal LDL Small ELZA ([facility]) Lipoprotein.alpha 3 [Moles/volume] in Serum 240 nmol/L <215 Above high normal LDL Medium ELZA ([facility]) Cholesterol in LDL real size pattern [Identifier] in Serum or Pl asma B A Abnormal (applies to non-numeric results) LDL Pattern ELZA ([facility]) Lipoprotein.beta.subparticle [Entitic length] in Serum or Pl asma 210.5 angstrom >222.9 Below low normal LDL Peak Size ELZA ([facility]) Apolipoprotein B [Mass/volume] in Serum or Plasma 86 mg/dL Apolipoprotein B ELZA ([facility]) Lipoprotein a [Moles/volume] in Serum or Plasma 107 nmol/L <75 Above high normal Lipoprotein (a) ELZA ([facility]) ID Date Data Source [id number] 09/19/2020 08:41:00 AM EDT BUCHTEL ([facility]) Name Value Range Interpretation Code Description Data Kezia rce(s) Supporting Document(s) Bacteria identified in Urine by Culture see note Culture, Urine, Routine ELZA ([facility]) ID Date Data Source [id number] 09/19/2020 08:41:00 AM EDT BUCHTEL ([facility]) Name Value Range Interpretation Code Description Data Kezia rce(s) Supporting Document(s) Hemoglobin A1c/Hemoglobin.total in Blood 4.8 %_of_total_HGB <5.7 Hemoglobin a1C BUCHTEL ([facility]) ID Date Data Source [id number] 09/19/2020 08:41:00 AM EDT BUCHTEL ([facility]) Name Value Range Interpretation Code Description Data Kezia rce(s) Supporting Document(s) Calcidiol [Mass/volume] in Serum or Plasma 33 NG/mL 30-100 Vitamin D,25-Oh,total,ia BUCHTEL ([facility]) ID Date Data Source [id number] 09/19/2020 08:41:00 AM EDT BUCHTEL ([facility]) Name Value Range Interpretation Code Description Data Kezia rce(s) Supporting Document(s) Leukocytes [#/volume] in Blood by Automated count 7.7 thousand/uL 3 .8-10.8 White Blood Cell Count BUCHTEL ([facility]) Erythrocytes [#/volume] in Blood by Automated count 4.37 million/uL 3.80-5.10 Red Blood Cell Count BUCHTEL ([facility]) Erythrocyte mean corpuscular hemoglobin [Entitic mass] by Automated count 27.5 pg 27.0-33.0 Mch ELZA ([facility]) Erythrocyte mean corpuscular volume [Entitic volume] by Auto mated count 87.0 fL 80.0-100.0 Mcv ELZA ([facility]) Hematocrit [Volume Fraction] of Blood by Automated count 38.0 % 35.0-45.0 Hematocrit BUCHTEL ([facility]) Hemoglobin [Mass/volume] in Blood 12.0 g/dL 11.7-15.5 He moglobin ELZA ([facility]) Erythrocyte mean corpuscular hemoglobin concentration [Mass/volume] by Automated count 31.6 g/dL 32.0-36.0 Below low normal Mchc ELZA ([facility]) Platelets [#/volume] in Blood by Automated count 245 thousand/uL 14 0-400 Platelet Count ELZA ([facility]) Erythrocyte distribution width [Ratio] by Automated count 14.4 % 11.0-15.0 Rdw ELZA ([facility]) Neutrophils [#/volume] in Blood by Automated count 5313 cells/uL 15 00-7800 Absolute Neutrophils ELZA ([facility]) Platelet mean volume [Entitic volume] in Blood by Christa 10.1 f L 7.5-12.5 Mpv ELZA ([facility]) Eosinophils [#/volume] in Blood by Automated count 193 cells/uL 15- 500 Absolute Eosinophils ELZA ([facility]) Monocytes [#/volume] in Blood by Automated count 408 cells/uL 200-9 50 Absolute Monocytes ELZA ([facility]) Basophils [#/volume] in Blood by Automated count 39 cells/uL 0-200 Absolute Basophils ELZA ([facility]) Lymphocytes [#/volume] in Blood by Automated count 1748 cells/uL 85 0-3900 Absolute Lymphocytes ELZA ([facility]) Lymphocytes/100 leukocytes in Blood by Automated count 22.7 % 15-49 Lymphocytes ELZA ([facility]) Basophils/100 leukocytes in Blood by Automated count 0.5 % 0-2 Basophils ELZA ([facility]) Monocytes/100 leukocytes in Blood by Automated count 5.3 % 0-13 Monocytes ELZA ([facility]) Eosinophils/100 leukocytes in Blood by Automated count 2.5 % 0-8 Eosinophils ELZA ([facility]) Neutrophils/100 leukocytes in Blood by Automated count 69 % 38- 80 Neutrophils ELZA ([facility]) ID Date Data Source [id number] 09/19/2020 08:41:00 AM EDT ELZA ([facility]) Name Value Range Interpretation Code Description Data Kezia rce(s) Supporting Document(s) Bacteria identified in Urine by Culture [facility] ID Date Data Source [id number] 09/19/2020 08:41:00 AM EDT ELZA ([facility]) Name Value Range Interpretation Code Description Data Kezia rce(s) Supporting Document(s) pH of Urine by Test strip 5.0-8.0 Ph ELZA ([facility]) Color of Urine yellow yellow Color ELZA ([facility]) Appearance of Urine cloudy clear Abnormal (applies to non-numeric results) Appearance ELZA ([facility]) Specific gravity of Urine by Test strip 1.001-1.035 Specific [place] ELZA ([facility]) Bilirubin.total [Presence] in Urine by Test strip negative negative Bilirubin ELZA ([facility]) Ketones [Presence] in Urine by Test strip negative negative Ketones ELZA ([facility]) Glucose [Presence] in Urine by Test strip negative negative Glucose ELZA ([facility]) Hemoglobin [Presence] in Urine by Test strip negative negative Occult Blood ELZA ([facility]) Leukocytes [#/area] in Urine sediment by Microscopy high pow er field 6-10 < or = 5 Abnormal (applies to non-numeric results) Wbc ELZA ([facility]) Nitrite [Presence] in Urine by Test strip negative negative Nitrite ELZA ([facility]) Protein [Presence] in Urine by Test strip negative negative Protein ELZA ([facility]) Leukocyte esterase [Presence] in Urine by Test strip negative n egative Leukocyte Esterase ELZA ([facility]) Bacteria [#/area] in Urine sediment by Microscopy high power field few none seen Abnormal (applies to non-numeric results) Bacteria ELZA ([facility]) Calcium oxalate crystals [#/area] in Uri ne sediment by Microscopy high power field many none or few Abnormal (applies to non-numeric results) Calcium Oxalate Crystals ELZA ([facility]) Erythrocytes [#/area] in Urine sediment by Microscopy high power field none seen < or = 2 Rbc ELZA ([facility]) Epithelial cells.squamous [#/area] in Ur ine sediment by Microscopy high power field 10-20 < or = 5 Abnormal (applies to non-numeric results) Squamous Epithelial Cells ELZA ([facility]) Hyaline casts [#/area] in Urine sediment by Microscopy low power field none seen none seen Hyaline Cast ELZA ([facility]) ID Date Data Source [id number] 09/19/2020 08:41:00 AM EDT [facility]) Name Value Range Interpretation Code Description Data Kezia rce(s) Supporting Document(s) Corticotropin [Mass/volume] in Plasma 22 pg/mL 6-50 Acth, Plasma [facility]) ID Date Data Source [id number] 09/19/2020 08:41:00 AM EDT [facility]) Name Value Range Interpretation Code Description Data Kezia rce(s) Supporting Document(s) Creatinine [Mass/volume] in Serum or Plasma 0.80 mg/dL 0.50-1.10 Creatinine [facility]) Urea nitrogen [Mass/volume] in Serum or Plasma 18 mg/dL 7-25 Urea Nitrogen (BUN) [facility]) Glucose [Mass/volume] in Serum or Plasma 94 mg/dL 65-99 Glucose [facility]) Glomerular filtration rate/1.73 sq M.pre dicted among non-blacks [Volume Rate/Area] in Serum, Plasma or Blood by Creatinine-based formula (CKD-EPI) 98 mL/min/1.73m2 > or = 60 eGFR Non-afr. [place] ELZA ([facility]) Urea nitrogen/Creatinine [Mass Ratio] in Serum or Plasma not applic able 6-22 BUN/creatinine Ratio [facility]) Glomerular filtration rate/1.73 sq M.pre dicted among blacks [Volume Rate/Area] in Serum, Plasma or Blood by Creatinine-based formula (CKD-EPI) 114 mL/min/1.73m2 > or = 60 eGFR ELZA ([facility] Sodium [Moles/volume] in Serum or Plasma 140 mmol/L 135-146 Sodium [facility]) Chloride [Moles/volume] in Serum or Plasma 106 mmol/L 98-110 Chloride [place] ([facility]) Carbon dioxide, total [Moles/volume] in Serum or Plasma 25 mmol/L 20-32 Carbon Dioxide ELZA ([facility]) Potassium [Moles/volume] in Serum or Plasma 4.2 mmol/L 3.5-5.3 Potassium ELZA ([facility]) Globulin [Mass/volume] in Serum by calculation 2.5 g/dL_(calc) 1.9- 3.7 Globulin ELZA ([facility]) Albumin [Mass/volume] in Serum or Plasma 4.1 g/dL 3.6-5.1 Albumin ELZA ([facility]) Protein [Mass/volume] in Serum or Plasma 6.6 g/dL 6.1-8.1 Protein, Total ELZA ([facility]) Calcium [Mass/volume] in Serum or Plasma 8.0 mg/dL 8.6-10.2 Below low normal Calcium [place] ([facility]) Bilirubin.total [Mass/volume] in Serum or Plasma 0.3 mg/dL 0.2-1 .2 Bilirubin, Total ELZA ([facility]) Alkaline phosphatase [Enzymatic activity/volume] in Serum or Plasma 57 U/L 31-125 Alkaline Phosphatase ELZA ([facility]) Albumin/Globulin [Mass Ratio] in Serum or Plasma 1.6 (calc) 1.0-2 .5 Albumin/globulin Ratio ELZA ([facility]) Aspartate aminotransferase [Enzymatic activity/volume] in Serum or Plasma 18 U/L 10-30 Ast [place] ([facility]) Alanine aminotransferase [Enzymatic activity/volume] in Seru m or Plasma 30 U/L 6-29 Above high normal Alt ELZA ([facility]) ID Date Data Source [id number] 09/19/2020 08:41:00 AM EDT [place] ([facility]) Name Value Range Interpretation Code Description Data Kezia rce(s) Supporting Document(s) Thyroxine (T4) free [Mass/volume] in Serum or Plasma 1.0 NG/dL 0 .8-1.8 T4, Free [facility] Thyrotropin [Units/volume] in Serum or Plasma 2.97 mIU/L Tsh [place] ([facility]) ID Date Data Source [id number] 09/19/2020 08:41:00 AM EDT [place] ([facility]) Name Value Range Interpretation Code Description Data Kezia rce(s) Supporting Document(s) Triglyceride [Mass/volume] in Serum or Plasma 140 mg/dL <150 Triglycerides ELZA ([facility]) Cholesterol [Mass/volume] in Serum or Plasma 149 mg/dL <200 Cholesterol, Total ELZA ([facility]) Cholesterol in HDL [Mass/volume] in Serum or Plasma 31 mg/dL > or = 50 Below low normal HDL Cholesterol ELZA ([facility]) Cholesterol in LDL [Mass/volume] in Serum or Plasma by calculation 94 mg/dL_(calc) <100 LDL-cholesterol ELZA ([facility]) Cholesterol.total/Cholesterol in HDL [Mass Ratio] in Serum o r Plasma 4.8 calc <5.0 Chol/hdlc Ratio ELZA ([facility]) Cholesterol non HDL [Mass/volume] in Serum or Plasma 118 mg/dL_(marry c) <130 Non HDL Cholesterol ELZA ([facility]) Lipoprotein.beta.subparticle [Moles/volume] in Serum or Plas ma 1237 nmol/L <1138 Above high normal LDL Particle Number ELZA ([facility]) Lipoprotein.alpha 3 [Moles/volume] in Serum 240 nmol/L <215 Above high normal LDL Medium [facility] Lipoprotein.beta.subparticle.small [Moles/volume] in Serum o r Plasma 302 nmol/L <142 Above high normal LDL Small ELZA ([facility]) Lipoprotein.beta.subparticle [Entitic length] in Serum or Pl asma 210.5 angstrom >222.9 Below low normal LDL Peak Size ELZA ([facility]) Lipoprotein.alpha.subparticle.large [Moles/volume] in Serum or Plasma 5879 nmol/L >6729 Below low normal HDL Large ELZA ([facility]) Cholesterol in LDL real size pattern [Identifier] in Serum or Pl asma B A Abnormal (applies to non-numeric results) LDL Pattern ELZA ([facility]) Lipoprotein a [Moles/volume] in Serum or Plasma 107 nmol/L <75 Above high normal Lipoprotein (a) ELZA ([facility]) Apolipoprotein B [Mass/volume] in Serum or Plasma 86 mg/dL Apolipoprotein B ELZA ([facility]) ID Date Data Source [id number] 07/21/2020 07:52:00 AM EDT [facility] Name Value Range Interpretation Code Description Data Kezia rce(s) Supporting Document(s) COVID-19 RT-PCR IMPLEMENTATION LEAD SWAB Not Detected Not Detected [facility] A not detected (negative) test result [...] developed and its performance characteristics determined by [employer] and verified at [employer]. It has not been cleared or approved by the U.S. Food and Drug Administration for diagnostic use. This test has been authorized by FDA under an EUA for use by authorized laboratories. Results should be used in conjunction with clinical findings, and should not form the sole basis for a diagnosis or treatment decision. Methods: SARS-CoV-2 Multiplex RT-PCR Assay ID Date Data Source [id number] 07/20/2020 11:45:00 AM EDT [facility] Name Value Range Interpretation Code Description Data Kezia rce(s) Supporting Document(s) SARS-CoV-2 (COVID-19) N gene [Presence] in Respiratory specimen by STAN with probe detection NEGATIVE [facility] This lab was ordered by Stacey Alford and reported by [employer]. ID Date Data Source [id number] 07/20/2020 12:00:00 AM EDT [facility] Name Value Range Interpretation Code Description Data Kezia rce(s) Supporting Document(s) Carestart Rapid COVID Antigen Test Negative [facility] This lab was reported by Stacey turcios. 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 CC: none. Reviewed Xrays. Exam: caries detected. OCS: WNL, IO/ EO completed, No significant hard findings upon clinical exam.Additional PPE requirements due to COVID-19 in the dental setting, N95, surgical mask, hair covering, gown and shieldPt was cooperative. OHI given Referral: # 31 crown. NV:recallEvie Alvarenga RDH by eren (02/02/2020 2:54 PM): ; desiree (Feb 02 2020 2:37PM): [facility] with NEW patient- No changes. She wants [...] #31 for a crown. NV- 45 A prophy/fillingsRaso Eive BEASLEY by desiree (02/02/2020 2:37 PM): Tooth Notes and Watches:- Tooth 2 Note: do firstRasEvie ruiz RDH by desiree (02/02/2020 2:33 PM): Assessment & Plan Problems:Added: DENTAL JEWISH STATUS (ICD-V45.84) (AFQ83-H81.811)Medications:CLINDAMYCIN HCL 150 MG CAPSAllergies:* PENICILLIN (Critical)* CODIENE (Critical)Orders:Boarding Specialist Referral [CPT-60845] Name Value Range Interpretation Code Description Data Kezia rce(s) Supporting Document(s) Procedure Social History Code Duration Value Status Description Data Source(s ) Smoking 06/09/2020 12:00:00 AM EST Never Smoker completed Never S moker eCW1 ([facility]) Smoking 06/09/2020 12:00:00 AM EST Never Smoker completed Never S moker eCW1 ([facility]) Smoking 06/09/2020 12:00:00 AM EST Never Smoker completed Never S moker eCW1 ([facility]) Smoking 06/09/2020 12:00:00 AM EST Never Smoker completed Never S moker eCW1 ([facility]) Smoking 06/09/2020 12:00:00 AM EST Never Smoker completed Never S moker eCW1 ([facility]) Smoking 06/09/2020 12:00:00 AM EST Never Smoker completed Never S moker eCW1 ([facility]) Smoking 02/23/2020 12:00:00 AM EST Never Smoker completed Never S moker eCW1 ([facility]) Smoking 02/23/2020 12:00:00 AM EST Never Smoker completed Never S moker eCW1 ([facility]) Smoking 02/23/2020 12:00:00 AM EST Never Smoker completed Never S moker eCW1 ([facility]) Smoking 02/23/2020 12:00:00 AM EST Never Smoker completed Never S moker eCW1 ([facility]) Smoking 02/23/2020 12:00:00 AM EST Never Smoker completed Never S moker eCW1 ([facility]) Smoking 01/20/2020 12:00:00 AM EDT Never Smoker completed Never S moker eCW1 ([facility]) Smoking 01/20/2020 12:00:00 AM EDT Never Smoker completed Never S moker eCW1 ([facility]) Vital Signs ID Date Data Source [id number] Name Value Range Interpretation Code Description Data Source(s) Diastolic blood pressure 85 mm[Hg] 85 mm[Hg] ELZA ([facility]) Body height 65 [in_i] 65 [in_i] ELZA ([facility]) Body mass index (BMI) [Ratio] 47.5 kg/m2 47.5 k g/m2 ELZA ([facility]) Systolic blood pressure 128 mm[Hg] 128 mm[Hg] Darrel THENA ([facility]) Body weight 4564 [oz_av] 4564 [oz_av] ELZA ([facility]) Body height 65 [in_i] 65 [in_i] ELZA ([facility]) Body height 65 [in_i] 65 [in_i] ELZA ([facility]) Diastolic blood pressure 75 mm[Hg] 75 mm[Hg] ELZA ([facility]) Body height 65 [in_i] 65 [in_i] ELZA ([facility]) Body mass index (BMI) [Ratio] 48.3 kg/m2 48.3 k g/m2 ELZA ([facility]) Systolic blood pressure 108 mm[Hg] 108 mm[Hg] A THENA ([facility]) Body weight 4646 [oz_av] 4646 [oz_av] ELZA ([facility]) Diastolic blood pressure 75 mm[Hg] 75 mm[Hg] ELZA ([facility]) Body height 65 [in_i] 65 [in_i] ELZA ([facility]) Body mass index (BMI) [Ratio] 48.3 kg/m2 48.3 k g/m2 ELZA ([facility]) Systolic blood pressure 108 mm[Hg] 108 [facility]Hg] [facility] Body weight 4646 [oz_av] 4646 [oz_av] ELZA ([facility]) Diastolic blood pressure 75 mm[Hg] 75 mm[Hg] ELZA ([facility]) Body height 65 [in_i] 65 [in_i] ELZA ([facility]) Systolic blood pressure 108 mm[Hg] 108 mm[Hg] A THENA ([facility]) Body weight 4646 [oz_av] 4646 [oz_av] ELZA ([facility]) Body mass index (BMI) [Ratio] 48.3 kg/m2 48.3 k g/m2 ELZA ([facility]) Body mass index (BMI) [Ratio] 48.3 kg/m2 48.3 k g/m2 ELZA ([facility]) Systolic blood pressure 108 mm[Hg] 108 mm[Hg] A THENA ([facility]) Body weight 4646 [oz_av] 4646 [oz_av] ELZA ([facility]) Diastolic blood pressure 75 mm[Hg] 75 mm[Hg] ELZA ([facility]) Body height 65 [in_i] 65 [in_i] ELZA ([facility]) Diastolic blood pressure 75 mm[Hg] 75 mm[Hg] ELZA ([facility]) Body height 65 [in_i] 65 [in_i] ELZA ([facility]) Body mass index (BMI) [Ratio] 48.3 kg/m2 48.3 k g/m2 ELZA ([facility]) Systolic blood pressure 108 mm[Hg] 108 mm[Hg] A THENA ([facility]) Body weight 4646 [oz_av] 4646 [oz_av] ELZA ([facility]) Diastolic blood pressure 84 mm[Hg] 84 mm[Hg] ELZA ([facility]) Body height 65 [in_i] 65 [in_i] ELZA ([facility]) Body mass index (BMI) [Ratio] 47.8 kg/m2 47.8 k g/m2 ELZA ([facility]) Systolic blood pressure 121 mm[Hg] 121 mm[Hg] [facility] Body weight 4594 [oz_av] 4594 [oz_av] ELZA ([facility]) Diastolic blood pressure 84 mm[Hg] 84 mm[Hg] ELZA ([facility]) Body height 65 [in_i] 65 [in_i] ELZA ([facility]) Body mass index (BMI) [Ratio] 47.8 kg/m2 47.8 k g/m2 EZLA ([facility]) Systolic blood pressure 121 mm[Hg] 121 mm[Hg] [facility] Body weight 4594 [oz_av] 4594 [oz_av] ELZA ([facility]) Body mass index (BMI) [Ratio] 47.8 kg/m2 47.8 k g/m2 ELZA ([facility]) Systolic blood pressure 121 mm[Hg] 121 mm[Hg] A THENA ([facility]) Body weight 4594 [oz_av] 4594 [oz_av] ELZA ([facility]) Diastolic blood pressure 84 mm[Hg] 84 mm[Hg] ELZA ([facility]) Body height 65 [in_i] 65 [in_i] ELZA ([facility]) Diastolic blood pressure 84 mm[Hg] 84 mm[Hg] ELZA ([facility]) Body height 65 [in_i] 65 [in_i] ELZA ([facility]) Body mass index (BMI) [Ratio] 47.8 kg/m2 47.8 k g/m2 ELZA ([facility]) Systolic blood pressure 121 mm[Hg] 121 mm[Hg] A THENA ([facility]) Body weight 4594 [oz_av] 4594 [oz_av] ELZA ([facility]) Diastolic blood pressure 84 mm[Hg] 84 mm[Hg] ELZA ([facility]) Body height 65 [in_i] 65 [in_i] ELZA ([facility]) Body mass index (BMI) [Ratio] 47.8 kg/m2 47.8 k g/m2 ELZA ([facility]) Systolic blood pressure 121 mm[Hg] 121 mm[Hg] A THENA ([facility]) Body weight 4594 [oz_av] 4594 [oz_av] ELZA ([facility]) Diastolic blood pressure 84 mm[Hg] 84 mm[Hg] ELZA ([facility]) Body height 65 [in_i] 65 [in_i] ELZA ([facility]) Body mass index (BMI) [Ratio] 47.8 kg/m2 47.8 k g/m2 ELZA ([facility]) Systolic blood pressure 121 mm[Hg] 121 mm[Hg] A THENA ([facility]) Body weight 4594 [oz_av] 4594 [oz_av] ELZA ([facility]) Systolic blood pressure 135 mm[Hg] 135 mm[Hg] Yana SEGURA ([facility], ) Body height 65.5 [in_i] 65.5 [in_i] PAUL ([facility], ) 5'5.50" Diastolic blood pressure 69 mm[Hg] 69 mm[Hg] MEDDEONDRE ([facility], ) Body weight 282.00 [lb_av] 282.00 [lb_av] MEDEN T ([facility], ) Body mass index (BMI) [Ratio] 46.2 kg/m2 46.2 k g/m2 [facility] ([facility], ) [place] body weight 125 [lb_av] 125 [lb_av] MEDEN T ([facility], ) Body weight 127.915 kg 127.915 kg [facility] ([facility], ) Body surface area Derived from formula 2.30 m2 2.30 m2 [facility]DE[facility]RE ([facility], ) Body weight 281 [lb_av] 281 [lb_av] eCW1 ([facility]) Body height 65 [in_i] 65 [in_i] eCW1 ([facility]) Body mass index (BMI) [Ratio] 46.76 kg/m2 46.76 kg/m2 eCW1 ([facility]) Heart rate 108 /min 108 /min eCW1 ([facility]) Respiratory rate 18 /min 18 /min eCW1 ([facility]) Body temperature 97.7 [degF] 97.7 [degF] eCW1 ( [facility]) Systolic blood pressure 134 mm[Hg] 134 mm[Hg] e CW1 ([facility]) Diastolic blood pressure 86 mm[Hg] 86 mm[Hg] eCW1 ([facility]) Body weight 277 [lb_av] 277 [lb_av] eCW1 ([facility]) Body height 65 [in_i] 65 [in_i] eCW1 ([facility]) Body mass index (BMI) [Ratio] 46.09 kg/m2 46.09 kg/m2 eCW1 ([facility]) Heart rate 99 /min 99 /min eCW1 ([facility]) Respiratory rate 18 /min 18 /min eCW1 ([facility]) Body temperature 96.6 [degF] 96.6 [degF] eCW1 ( [facility]) Systolic blood pressure 116 mm[Hg] 116 mm[Hg] e CW1 ([facility]) Diastolic blood pressure 82 mm[Hg] 82 mm[Hg] eCW1 ([facility]) Body weight 270 [lb_av] 270 [lb_av] eCW1 ([facility]) Body height 65 [in_i] 65 [in_i] eCW1 ([facility]) Body mass index (BMI) [Ratio] 44.93 kg/m2 44.93 kg/m2 eCW1 ([facility]) Heart rate 111 /min 111 /min eCW1 ([facility]) Respiratory rate 19 /min 19 /min eCW1 ([facility]) Body temperature 98.3 [degF] 98.3 [degF] eCW1 ( [facility]) Systolic blood pressure 138 mm[Hg] 138 mm[Hg] e CW1 ([facility]) Diastolic blood pressure 88 mm[Hg] 88 mm[Hg] eCW1 ([facility]) Patient Treatment Plan of Care Planned Activity Planned Date Details Description Data Source (s) Escitalopram 10 MG Oral Tablet 02/25/2020 12:00:00 AM EST eCW1 ([facility]) Escitalopram 10 MG Oral Tablet 02/25/2020 12:00:00 AM EST eCW1 ([facility]) Escitalopram 10 MG Oral Tablet 02/25/2020 12:00:00 AM EST eCW1 ([facility]) Prednisone 10 MG Oral Tablet ELZA ([facility]) POLYETHYLENE GLYCOL 3350 142 MG/ML Oral Solution ELZA ([facility]) Magnesium Hydroxide 80 MG/ML Oral Suspension ELZA ([facility]) Metronidazole 500 MG Oral Tablet ELZA ([facility]) Ibuprofen 800 MG Oral Tablet ELZA ([facility]) Escitalopram 10 MG Oral Tablet ELZA ([facility]) Clindamycin 300 MG Oral Capsule ELZA ([facility]) Clindamycin 150 MG Oral Capsule ELZA ([facility]) Ciprofloxacin 500 MG Oral Tablet ELZA ([facility]) cefdinir 300 MG Oral Capsule ELZA ([facility]) Prednisone 10 MG Oral Tablet ELZA ([facility]) Metronidazole 500 MG Oral Tablet ELZA ([facility]) Ibuprofen 800 MG Oral Tablet ELZA ([facility]) Escitalopram 10 MG Oral Tablet ELZA ([facility]) Clindamycin 300 MG Oral Capsule ELZA ([facility]) Clindamycin 150 MG Oral Capsule ELZA ([facility]) Ciprofloxacin 500 MG Oral Tablet ELZA ([facility]) cefdinir 300 MG Oral Capsule ELZA ([facility]) Prednisone 10 MG Oral Tablet ELZA ([facility]) Metronidazole 500 MG Oral Tablet ELZA ([facility]) Ibuprofen 800 MG Oral Tablet ELZA ([facility]) Escitalopram 10 MG Oral Tablet ELZA ([facility]) Clindamycin 300 MG Oral Capsule ELZA ([facility]) Clindamycin 150 MG Oral Capsule ELZA ([facility]) Ciprofloxacin 500 MG Oral Tablet ELZA ([facility]) cefdinir 300 MG Oral Capsule ELZA ([facility]) Prednisone 10 MG Oral Tablet ELZA ([facility]) Metronidazole 500 MG Oral Tablet ELZA ([facility]) Ibuprofen 800 MG Oral Tablet ELZA ([facility]) Escitalopram 10 MG Oral Tablet ELZA ([facility]) Clindamycin 300 MG Oral Capsule ELZA ([facility]) Clindamycin 150 MG Oral Capsule ELZA ([facility]) Ciprofloxacin 500 MG Oral Tablet ELZA ([facility]) cefdinir 300 MG Oral Capsule ELZA ([facility]) Prednisone 10 MG Oral Tablet ELZA ([facility]) Metronidazole 500 MG Oral Tablet ELZA ([facility]) Ibuprofen 800 MG Oral Tablet ELZA ([facility]) Escitalopram 10 MG Oral Tablet ELZA ([facility]) Clindamycin 300 MG Oral Capsule ELZA ([facility]) Clindamycin 150 MG Oral Capsule ELZA ([facility]) Ciprofloxacin 500 MG Oral Tablet ELZA ([facility]) cefdinir 300 MG Oral Capsule ELZA ([facility]) Prednisone 10 MG Oral Tablet ELZA ([facility]) Metronidazole 500 MG Oral Tablet ELZA ([facility]) Escitalopram 10 MG Oral Tablet ELZA ([facility]) Clindamycin 300 MG Oral Capsule ELZA ([facility]) Clindamycin 150 MG Oral Capsule ELZA ([facility]) Ciprofloxacin 500 MG Oral Tablet ELZA ([facility]) cefdinir 300 MG Oral Capsule ELZA ([facility])
[2021-02-25 00:01] VITALS: BP 150/95
[2021-02-25] MEDS ORDERED: ONDA4TAB6 PO (00:55)
--- NOTE | 2021-02-25 10:30 | ECGEPIP ---
[facility] - ED Test Date: 2021-02-24 Pat Name: OLIVERIO THOAMS Department: Room: - Gender: Female [employer]: [place] : 1990 Requested By: JAEL SIDDIQUI Order Number: [id number] Reading MD: Randi Almanza Measurements Intervals [place] Rate: 77 P: 19 [place]: 138 QRS: 33 QRSD: 76 T: 28 QT: 420 QTc: 475 Interpretive Statements Normal sinus rhythm Low voltage QRS NSTTW abnormalities similar 01/09/20 Electronically Signed on 02-25-2021 10:30:10 EST by Randi Almanza
== END 2021-02-25 01:24 | disposition home or self-care (01) ==
LOC: M ED 15:21
DX: A08.4 Viral intestinal infection, unspecified (principal); U07.1 COVID-19; E20.9 Hypoparathyroidism, unspecified; Z79.899 Other long term (current) drug therapy; Z88.0 Allergy status to penicillin; Z88.8 Allergy status to other drugs, medicaments and biological substances; Z88.5 Allergy status to narcotic agent; Z87.19 Personal history of other diseases of the digestive system; Z90.49 Acquired absence of other specified parts of digestive tract
CPT/HCPCS: 71045; 80047; 80053; 85025; 93005; 94010; 96374; 96375; 99284; J1885; J2405

== ENCOUNTER 2021-02-27 07:55 | Outpatient (CLI) | payer OTHER ==
[~2021-02-27] VITALS: Ht 165.1 cm; Wt 127.3 kg
[~2021-02-27 07:55] MED LIST changes: +ACETAMINOPHEN TAB 650MG DOSE (2X325MG) PO PRN; +ALBUTEROL 90 MCG/ACT 8GM HFA INHALER INH PRN; +ALBUTEROL SULFATE 2.5 MG/0.5 ML INH NEB SOLN INH PRN; +EPINEPHrine INJ 1 MG/ML 1ML AMP IM PRN; +NS 1,000 ML IV SCH; +diphenhydrAMINE 50MG/ML VIAL (J1200) IV PRN; +methylPREDNISolone 125MG 2ML VIAL IV PRN
[2021-02-27] MEDS ORDERED: ALBUTEROL 90 MCG/ACT 8GM HFA INHALER INH PRN (08:00)
[2021-02-27] MEDS ORDERED: CASIRIVIMAB (REGN10933) 600 MG, IMDEVIMAB (REGN10987) 600 MG in NS 250 ML IV ONE (08:00)
[2021-02-27] MEDS ORDERED: diphenhydrAMINE 50MG/ML VIAL (J1200) IV PRN (08:00)
[2021-02-27] MEDS ORDERED: ACETAMINOPHEN TAB 650MG DOSE (2X325MG) PO PRN (08:00)
[2021-02-27] MEDS ORDERED: ALBUTEROL SULFATE 2.5 MG/0.5 ML INH NEB SOLN INH PRN (08:00)
[2021-02-27] MEDS ORDERED: EPINEPHrine INJ 1 MG/ML 1ML AMP IM PRN (08:00)
[2021-02-27] MEDS ORDERED: methylPREDNISolone 125MG 2ML VIAL IV PRN (08:00)
[2021-02-27 09:56] VITALS: BP 146/69
[2021-02-27 10:26] VITALS: BP 124/67
[2021-02-27 10:56] VITALS: BP 110/62
[2021-02-27 11:56] VITALS: BP 129/61
== END 2021-02-27 11:56 | disposition home or self-care (01) ==
LOC: M OPCLI4PR 07:55
PROVIDERS: ATTEND Internal Medicine
DX: U07.1 COVID-19 (principal); Z88.0 Allergy status to penicillin; Z88.5 Allergy status to narcotic agent

== ENCOUNTER 2021-02-27 18:07 | Emergency (ER) | payer OTHER ==
[~2021-02-27] VITALS: Ht 165.1 cm; Wt 126.1 kg
[~2021-02-27 18:07] MED LIST changes: -ACETAMINOPHEN TAB 650MG DOSE (2X325MG) PO PRN; -ALBUTEROL 90 MCG/ACT 8GM HFA INHALER INH PRN; -ALBUTEROL SULFATE 2.5 MG/0.5 ML INH NEB SOLN INH PRN; -EPINEPHrine INJ 1 MG/ML 1ML AMP IM PRN; -NS 1,000 ML IV SCH; -diphenhydrAMINE 50MG/ML VIAL (J1200) IV PRN; -methylPREDNISolone 125MG 2ML VIAL IV PRN
[2021-02-27 18:10] VITALS: BP 139/88
== END 2021-02-27 18:19 | disposition left against medical advice (07) ==
LOC: M ED 18:07
DX: Z53.21 Procedure and treatment not carried out due to patient leaving prior to being seen by health care provider (principal)

== ENCOUNTER → 2021-03-06 | Outpatient (REF) | payer OTHER | LOC: M SFHCWAGY 18:04 | PROVIDERS: ATTEND Nurse Practitioner Women's Health | DX: Z12.4 Encounter for screening for malignant neoplasm of cervix (principal); Z77.9 Other contact with and (suspected) exposures hazardous to health; Z01.419 Encounter for gynecological examination (general) (routine) without abnormal findings ==

== ENCOUNTER → 2021-05-02 | Outpatient (CLI) | payer OTHER | LOC: M WUC 11:47 | PROVIDERS: ATTEND Family Medicine | DX: E83.51 Hypocalcemia (principal) ==

== ENCOUNTER → 2021-06-28 | Outpatient (CLI) | payer OTHER ==
[2021-06-28 16:22] LABS: CALCIUM LEVEL 8.6 MG/DL (8.5-10.1)
[2021-06-28 16:37] LABS: TOTAL 25(OH) VITAMIN D 43.7 NG/ML (30.0-100.0)
[2021-06-28 16:38] LABS: PTH INTACT < 6.3 PG/ML (18.5-88.0)
== END ==
LOC: M WUC 13:59
PROVIDERS: ATTEND Student in an Organized Health Care Education/Training Program
DX: E83.51 Hypocalcemia (principal); E20.0 Idiopathic hypoparathyroidism

== ENCOUNTER → 2022-03-01 | Outpatient (REF) | payer BC, OTHER | LOC: M LAB REF 22:10 | PROVIDERS: ATTEND Physician Assistant | DX: B34.9 Viral infection, unspecified (principal) ==

== ENCOUNTER → 2022-03-13 | Outpatient (CLI) | payer BC, OTHER ==
[2022-03-13 16:40] LABS: ALBUMIN 3.6 G/DL (3.2-5.2); ALKALINE PHOSPHATASE 55 U/L (46-116); ALT/SGPT 59 U/L (7.0-40); AST/SGOT 36 U/L (<34); BILIRUBIN,TOTAL 0.3 MG/DL (0.3-1.2); BLOOD UREA NITROGEN 14 MG/DL (9-23); CALCIUM LEVEL 8.6 MG/DL (8.5-10.1); CARBON DIOXIDE LEVEL 29 MMOL/L (20-31); CHLORIDE LEVEL 106 MMOL/L (98-107); GLOMERULAR FILTRATION RATE > 60.0 (>60); GLUCOSE, FASTING 69 MG/DL (60-100); POTASSIUM SERUM 4.4 MMOL/L (3.5-5.1); SODIUM LEVEL 143 MMOL/L (136-145); TOTAL IRON BINDING CAPACITY 332 UG/DL (250-425); TOTAL PROTEIN 6.7 G/DL (5.7-8.2)
[2022-03-13 16:41] LABS: FOLLICLE STIMULATING HORMONE 6.5 mIU/ML; IRON (FE) 42 UG/DL (50-170); PERCENT SATURATION 12.7 % (13.2-45.0)
[2022-03-13 16:42] LABS: FERRITIN 17.7 NG/ML (7.3-270.7); FREE T4 1.25 NG/DL (0.89-1.76); LUTEINIZING HORMONE 9.3 mIU/ML; THYROID STIMULATING HORMONE 1.629 uIU/ML (0.55-4.78)
[2022-03-13 17:52] LABS: HEMOGLOBIN A1c 4.8 % (4.0-6.0)
== END ==
LOC: M WUC 11:49
PROVIDERS: ATTEND Family Medicine
DX: E83.51 Hypocalcemia (principal); Z86.2 Personal history of diseases of the blood and blood-forming organs and certain disorders involving the immune mechanism; R53.83 Other fatigue; N92.6 Irregular menstruation, unspecified; Z13.1 Encounter for screening for diabetes mellitus

== ENCOUNTER → 2022-08-22 | Outpatient (REF) | payer BC, MEDICAID, OTHER ==
[~2022-08-22] MED LIST changes: -HYDR200T3 PO; +HYDR200T46 PO
[2022-08-22 18:22] LABS: ALBUMIN 3.7 G/DL (3.2-5.2); ALKALINE PHOSPHATASE 59 U/L (46-116); ALT/SGPT 30 U/L (7.0-40); AST/SGOT 24 U/L (<34); BILIRUBIN,TOTAL 0.3 MG/DL (0.3-1.2); BLOOD UREA NITROGEN 17 MG/DL (9-23); CALCIUM LEVEL 7.8 MG/DL (8.5-10.1); CARBON DIOXIDE LEVEL 26 MMOL/L (20-31); CHLORIDE LEVEL 105 MMOL/L (98-107); CHOLESTEROL LEVEL 162 MG/DL (<200); CHOLESTEROL RISK RATIO 4.55 (<5); CREATININE FOR GFR 0.93 MG/DL (0.55-1.30); GLOMERULAR FILTRATION RATE > 60.0 (>60); GLUCOSE, FASTING 80 MG/DL (60-100); HDL CHOLESTEROL 35.6 MG/DL (>40); LDL CHOLESTEROL 96.4 MG/DL (<100); NON-HDL-C 126.4 MG/DL; POTASSIUM SERUM 4.3 MMOL/L (3.5-5.1); SODIUM LEVEL 142 MMOL/L (136-145); TOTAL PROTEIN 6.5 G/DL (5.7-8.2); TRIGLYCERIDES LEVEL 150 MG/DL (<150)
[2022-08-22 18:24] LABS: PTH INTACT < 6.3 PG/ML (18.5-88.0)
== END ==
LOC: M LAB REF 17:33
PROVIDERS: ATTEND Family Medicine Addiction Medicine
DX: E20.9 Hypoparathyroidism, unspecified (principal)

== ENCOUNTER 2023-06-21 18:10 | Emergency (ER) | payer MEDICAID, OTHER ==
[~2023-06-21] VITALS: Ht 165.1 cm; Wt 132.3 kg
[2023-06-21 18:34] VITALS: BP 136/76; TEMP 97.8; O2SAT 98
[2023-06-21] MEDS ORDERED: DOXY-444 PO (20:31)
[2023-06-21] MEDS ORDERED: METR-265 PO (20:31)
[2023-06-21] MEDS: TETANUS/DIPHTHERIA TOX ADSORB ADULT 0.5ML SYR/VIAL IM ONE (20:35)
[2023-06-21] MEDS: DOXYCYCLINE HYCLATE 100MG TABLET PO ONE (20:36)
[2023-06-21] MEDS: metroNIDAZOLE (FLAGYL) 500MG TABLET PO ONE (20:36)
[2023-06-21] MEDS: IBUPROFEN 800 MG TAB PO ONE (20:36)
== END 2023-06-21 20:45 | disposition home or self-care (01) ==
LOC: EDBD 18:10 → M ED 18:10
DX: S00.87XA Other superficial bite of other part of head, initial encounter (principal); W54.0XXA Bitten by dog, initial encounter; Y92.9 Unspecified place or not applicable; Y93.9 Activity, unspecified; Y99.0 Civilian activity done for income or pay; Z79.899 Other long term (current) drug therapy; Z88.0 Allergy status to penicillin; Z88.5 Allergy status to narcotic agent; Z88.8 Allergy status to other drugs, medicaments and biological substances

== ENCOUNTER 2023-07-19 11:44 | Emergency (ER) | payer OTHER ==
[~2023-07-19] VITALS: Ht 165.1 cm; Wt 129.9 kg
[~2023-07-19 11:44] MED LIST changes: +DOXY-444 PO; +METR-265 PO
[2023-07-19 12:59] LABS: BASO % 0.2 % (0.0-1.0); EOS # 0.1 10^3/uL (0.0-0.5); EOS % 0.4 % (0.0-3.0); HEMATOCRIT 40.2 % (36.0-47.0); LYMPH # 0.5 10^3/uL (1.5-5.0); LYMPH % 3.7 % (24.0-44.0); MEAN CORPUSCULAR HEMOGLOBIN 27.5 pg (27.0-33.0); MEAN CORPUSCULAR HGB CONC 32.3 g/dl (32.0-36.5); MONO # 0.3 10^3/uL (0.0-0.8); MONO % 2.8 % (2.0-8.0); NEUTROPHILS # 11.3 10^3/uL (1.5-8.5); NEUTROPHILS % 92.6 % (36.0-66.0); PLATELET COUNT, AUTOMATED 282 10^3/uL (150-450); RED BLOOD COUNT 4.73 10^6/uL (4.00-5.40); WHITE BLOOD COUNT 12.3 10^3/uL (4.0-10.0)
[2023-07-19 13:23] LABS: LIPASE 30 U/L (12-53)
[2023-07-19 13:24] LABS: CPK CREATINE PHOSPHOKINASE 183 U/L (34-145)
[2023-07-19 13:25] LABS: ALBUMIN 3.8 G/DL (3.2-5.2); ALKALINE PHOSPHATASE 66 U/L (46-116); ALT/SGPT 32 U/L (7.0-40); AST/SGOT 21 U/L (<34); BILIRUBIN,DIRECT 0.2 MG/DL (<0.4); BILIRUBIN,TOTAL 0.7 MG/DL (0.3-1.2); BLOOD UREA NITROGEN 17 MG/DL (9-23); CALCIUM LEVEL 7.7 MG/DL (8.5-10.1); CARBON DIOXIDE LEVEL 30 MMOL/L (20-31); CHLORIDE LEVEL 104 MMOL/L (98-107); CK-MB VALUE MASS < 1.0 NG/ML (<3.6); CREATININE FOR GFR 0.85 MG/DL (0.55-1.30); GLOMERULAR FILTRATION RATE > 60.0 (>60); GLUCOSE, FASTING 92 MG/DL (60-100); MB/CK RELATIVE INDEX 0.54 (< OR =4); POTASSIUM SERUM 4.2 MMOL/L (3.5-5.1); SODIUM LEVEL 138 MMOL/L (136-145)
[2023-07-19 14:13] LABS: HCG, SERUM QUALITATIVE NEGATIVE (NEGATIVE)
[2023-07-19] MEDS: NS 500 ML IV ONE (16:25)
[2023-07-19] MEDS ORDERED: ISOVUE-370 76% 100ML VIAL As Ordered ONE (16:30)
[2023-07-19] MEDS: NS 1,000 ML IV ONE (16:30)
[2023-07-19] MEDS: KETOROLAC 30 MG/ML 1ML VIAL IV ONE (16:30)
[2023-07-19] MEDS: ONDANSETRON 4MG 2ML VIAL IV ONE (16:30)
[2023-07-19 18:22] LABS: APPEARANCE, URINE MANUAL HAZY (CLEAR); BILIRUBIN, URINE MANUAL NEGATIVE (NEGATIVE); BLOOD URINE MANUAL POSITIVE (NEGATIVE); COLOR, URINE MANUAL RED (YELLOW); GLUCOSE, URINE (UA) MANUAL NEGATIVE (NEGATIVE); KETONE, URINE MANUAL NEGATIVE (NEGATIVE); LEUKOCYTE ESTERASE, URINE MAN TRACE (NEGATIVE); NITRITE, URINE MANUAL NEGATIVE (NEGATIVE); PROTEIN, URINE MANUAL 1+ mg/dL (NEGATIVE); UROBILINOGEN, URINE MANUAL NORMAL (NORMAL)
[2023-07-19 18:24] LABS: BACTERIA, URINE MOD AMOUNT; HYALINE CAST, URINE NONE SEEN /lpf (0-1); RBC, URINE TNTC /hpf (0-3); SQUAMOUS EPITHELIAL CELL URINE SMALL AMOUNT /hpf (SMALL AMT)
[2023-07-19] MEDS ORDERED: ONDA4TAB6 PO (19:16)
[2023-07-19] MEDS ORDERED: CEPH500C PO (19:16)
[2023-07-19 20:42] VITALS: BP 131/70; TEMP 98.6; O2SAT 98
== END 2023-07-19 20:41 | disposition home or self-care (01) ==
LOC: M ED 11:44
DX: R31.9 Hematuria, unspecified (principal); A08.11 Acute gastroenteropathy due to Norwalk agent; N39.0 Urinary tract infection, site not specified; N83.209 Unspecified ovarian cyst, unspecified side; E66.9 Obesity, unspecified; Z20.9 Contact with and (suspected) exposure to unspecified communicable disease; F41.9 Anxiety disorder, unspecified; F32.A Depression, unspecified; E20.9 Hypoparathyroidism, unspecified; R47.01 Aphasia; F50.89 Other specified eating disorder; K51.90 Ulcerative colitis, unspecified, without complications; E83.51 Hypocalcemia; Z79.899 Other long term (current) drug therapy; Z88.0 Allergy status to penicillin; Z88.5 Allergy status to narcotic agent; Z88.8 Allergy status to other drugs, medicaments and biological substances
CPT/HCPCS: 74177; 80048; 80076; 81000; 82550; 82553; 83690; 84484; 84703; 85025; 87486; 87507; 87581; 87633; 87798; 93005; 96361; 96374; 96375; 99284; J1885; J2405; Q9967

== ENCOUNTER → 2023-08-22 | Outpatient (REF) | payer OTHER ==
[~2023-08-22] MED LIST changes: +CEPH500C PO; +DOXY-440 PO; -DOXY-444 PO
[2023-08-22 14:27] LABS: BASO % 0.4 % (0.0-1.0); EOS # 0.2 10^3/uL (0.0-0.5); HEMOGLOBIN 12.1 g/dl (12.0-15.5); LYMPH % 23.5 % (24.0-44.0); MEAN CORPUSCULAR HEMOGLOBIN 27.9 pg (27.0-33.0); MEAN CORPUSCULAR HGB CONC 32.7 g/dl (32.0-36.5); MEAN CORPUSCULAR VOLUME 85.5 fl (80.0-96.0); MONO # 0.4 10^3/uL (0.0-0.8); MONO % 4.5 % (2.0-8.0); NEUTROPHILS # 5.8 10^3/uL (1.5-8.5); PLATELET COUNT, AUTOMATED 272 10^3/uL (150-450); RED BLOOD COUNT 4.33 10^6/uL (4.00-5.40); WHITE BLOOD COUNT 8.5 10^3/uL (4.0-10.0)
[2023-08-22 14:31] LABS: IRON (FE) 37 UG/DL (50-170); PERCENT SATURATION 11.4 % (13.2-45.0); RHEUMATOID FACTOR QUANT < 3.5 IU/ML (<14); TOTAL IRON BINDING CAPACITY 325 UG/DL (250-425)
[2023-08-22 14:32] LABS: ALBUMIN 3.9 G/DL (3.2-5.2); ALKALINE PHOSPHATASE 65 U/L (46-116); ALT/SGPT 32 U/L (7.0-40); AST/SGOT 18 U/L (<34); BILIRUBIN,TOTAL 0.3 MG/DL (0.3-1.2); BLOOD UREA NITROGEN 15 MG/DL (9-23); CALCIUM LEVEL 8.4 MG/DL (8.5-10.1); CARBON DIOXIDE LEVEL 27 MMOL/L (20-31); CHLORIDE LEVEL 106 MMOL/L (98-107); CHOLESTEROL LEVEL 155 MG/DL (<200); CHOLESTEROL RISK RATIO 5.18 (<5); GLOMERULAR FILTRATION RATE > 60.0 (>60); GLUCOSE, FASTING 116 MG/DL (60-100); HDL CHOLESTEROL 29.9 MG/DL (>40); LDL CHOLESTEROL 95.3 MG/DL (<100); NON-HDL-C 125.1 MG/DL; POTASSIUM SERUM 4.1 MMOL/L (3.5-5.1); SODIUM LEVEL 140 MMOL/L (136-145); TOTAL PROTEIN 6.7 G/DL (5.7-8.2); TRIGLYCERIDES LEVEL 149 MG/DL (<150)
[2023-08-22 14:33] LABS: TOTAL 25(OH) VITAMIN D 47.2 NG/ML (20.0-100.0)
[2023-08-22 14:34] LABS: ERYTHROCYTE SEDIMENTATION RATE 18 mm/hr (0-20); THYROID STIMULATING HORMONE 3.962 uIU/ML (0.55-4.78)
[2023-08-22 14:35] LABS: PTH INTACT < 6.3 PG/ML (18.5-88.0)
[2023-08-22 14:42] LABS: HEMOGLOBIN A1c 5.1 % (4.0-6.0)
[2023-08-23 23:28] LABS: ANA (HEP2) Negative (.); CYCLIC CITRULLINATED PEPTIDE 4 units (0-19); SSA SJOGRENS A <0.2 AI (0.0-0.9); SSB SJOGRENS B 0.9 AI (0.0-0.9); TRANSFERRIN 265 mg/dL (192-364)
== END ==
LOC: M LAB REF 12:36
PROVIDERS: ATTEND Physician Assistant
DX: M25.50 Pain in unspecified joint (principal); D50.9 Iron deficiency anemia, unspecified; E66.01 Morbid (severe) obesity due to excess calories; E55.9 Vitamin D deficiency, unspecified; E20.9 Hypoparathyroidism, unspecified

== ENCOUNTER 2023-10-22 09:30 | Emergency (ER) | payer OTHER ==
[~2023-10-22] VITALS: Ht 165.1 cm; Wt 131.3 kg
[~2023-10-22 09:30] MED LIST changes: +ONDA-282 PO; -ONDA4TAB6 PO
[2023-10-22 09:31] VITALS: TEMP 98.3
[2023-10-22] MEDS ORDERED: FERR1TAB8 PO (09:39)
[2023-10-22] MEDS: NS 1,000 ML IV ONE (11:09)
[2023-10-22 11:13] LABS: BASO % 0.2 % (0.0-1.0); EOS # 0.1 10^3/uL (0.0-0.5); EOS % 1.4 % (0.0-3.0); HEMATOCRIT 34.4 % (36.0-47.0); HEMOGLOBIN 11.4 g/dl (12.0-15.5); LYMPH # 1.6 10^3/uL (1.5-5.0); LYMPH % 18.8 % (24.0-44.0); MEAN CORPUSCULAR HEMOGLOBIN 28.4 pg (27.0-33.0); MEAN CORPUSCULAR HGB CONC 33.1 g/dl (32.0-36.5); MEAN CORPUSCULAR VOLUME 85.6 fl (80.0-96.0); MONO # 0.4 10^3/uL (0.0-0.8); MONO % 4.7 % (2.0-8.0); NEUTROPHILS # 6.2 10^3/uL (1.5-8.5); NEUTROPHILS % 74.4 % (36.0-66.0); PLATELET COUNT, AUTOMATED 219 10^3/uL (150-450); RED BLOOD COUNT 4.02 10^6/uL (4.00-5.40); WHITE BLOOD COUNT 8.4 10^3/uL (4.0-10.0)
[2023-10-22 11:34] LABS: LIPASE 37 U/L (12-53)
[2023-10-22 11:48] LABS: ALBUMIN 3.6 G/DL (3.2-5.2); ALKALINE PHOSPHATASE 66 U/L (46-116); ALT/SGPT 58 U/L (7.0-40); AST/SGOT 43 U/L (<34); BILIRUBIN,DIRECT 0.2 MG/DL (<0.4); BILIRUBIN,TOTAL 0.6 MG/DL (0.3-1.2); BLOOD UREA NITROGEN 17 MG/DL (9-23); CALCIUM LEVEL 5.5 MG/DL (8.5-10.1); CARBON DIOXIDE LEVEL 28 MMOL/L (20-31); CHLORIDE LEVEL 107 MMOL/L (98-107); CREATININE FOR GFR 0.97 MG/DL (0.55-1.30); GLOMERULAR FILTRATION RATE > 60.0 (>60); GLUCOSE, FASTING 80 MG/DL (60-100); MAGNESIUM LEVEL 1.6 MG/DL (1.8-2.4); POTASSIUM SERUM 4.2 MMOL/L (3.5-5.1); SODIUM LEVEL 142 MMOL/L (136-145); TOTAL PROTEIN 6.2 G/DL (5.7-8.2)
[2023-10-22] MEDS: CALCIUM CHLORIDE 10% 1 GM in D5W 100 ML IV ONE (11:49)
[2023-10-22 11:58] LABS: HCG, SERUM QUALITATIVE NEGATIVE (NEGATIVE)
[2023-10-22] MEDS: MAG SULF 1GM/100ML (MAG RUN) 1 GM in IV 1 EA IV ONE (13:02)
[2023-10-22 14:22] VITALS: BP 125/62; O2SAT 95
== END 2023-10-22 14:25 | disposition home or self-care (01) ==
LOC: M ED 09:30
DX: R11.2 Nausea with vomiting, unspecified (principal); R19.7 Diarrhea, unspecified; E83.51 Hypocalcemia; K51.90 Ulcerative colitis, unspecified, without complications; M79.7 Fibromyalgia; D50.9 Iron deficiency anemia, unspecified; M32.9 Systemic lupus erythematosus, unspecified; E66.9 Obesity, unspecified; Z88.0 Allergy status to penicillin; Z88.5 Allergy status to narcotic agent; Z79.899 Other long term (current) drug therapy
CPT/HCPCS: 80048; 80076; 82330; 83690; 83735; 84703; 85025; 93005; 93041; 96365; 96367; 99284; J3475

== ENCOUNTER 2023-10-26 18:47 | Inpatient (IN) | payer OTHER ==
[~2023-10-26] VITALS: Ht 165.1 cm; Wt 131.0 kg
[~2023-10-26 18:47] MED LIST changes: +FERR1TAB8 PO
[2023-10-26 20:15] LABS: IONIZED CALCIUM 3.1 MG/DL (4.5-5.3)
[2023-10-26 20:17] LABS: BASO % 0.2 % (0.0-1.0); EOS # 0.2 10^3/uL (0.0-0.5); EOS % 1.3 % (0.0-3.0); HEMATOCRIT 36.9 % (36.0-47.0); LYMPH # 1.4 10^3/uL (1.5-5.0); LYMPH % 11.5 % (24.0-44.0); MEAN CORPUSCULAR HEMOGLOBIN 27.6 pg (27.0-33.0); MEAN CORPUSCULAR HGB CONC 32.5 g/dl (32.0-36.5); MEAN CORPUSCULAR VOLUME 84.8 fl (80.0-96.0); MONO # 0.5 10^3/uL (0.0-0.8); MONO % 4.2 % (2.0-8.0); NEUTROPHILS # 9.9 10^3/uL (1.5-8.5); NEUTROPHILS % 82.5 % (36.0-66.0); PLATELET COUNT, AUTOMATED 271 10^3/uL (150-450); RED BLOOD COUNT 4.35 10^6/uL (4.00-5.40)
[2023-10-26 20:51] LABS: BLOOD UREA NITROGEN 14 MG/DL (9-23); CALCIUM LEVEL 5.8 MG/DL (8.5-10.1); CARBON DIOXIDE LEVEL 27 MMOL/L (20-31); CHLORIDE LEVEL 107 MMOL/L (98-107); CREATININE FOR GFR 0.93 MG/DL (0.55-1.30); GLOMERULAR FILTRATION RATE > 60.0 (>60); GLUCOSE, FASTING 93 MG/DL (60-100); MAGNESIUM LEVEL 1.6 MG/DL (1.8-2.4); POTASSIUM SERUM 3.7 MMOL/L (3.5-5.1); SODIUM LEVEL 142 MMOL/L (136-145)
[2023-10-26] MEDS ORDERED: ISOVUE-370 76% 100ML VIAL As Ordered ONE (21:05)
[2023-10-26] MEDS: CALCIUM CHLORIDE 10% 1 GM in D5W 100 ML IV ONE (21:16)
[2023-10-26] MEDS: MAG SULF 1GM/100ML (MAG RUN) 1 GM in IV 1 EA IV ONE (22:29)
[2023-10-27] MEDS ORDERED: HOME MED LIST COMPLETE! XX SCH (00:30)
[2023-10-27] MEDS ORDERED: ONDA-282 PO (00:30)
[2023-10-27] MEDS: LOPERAMIDE 2 MG CAPLET PO PRN (01:02)
[2023-10-27] MEDS: CALCIUM CHLORIDE 10% 1 GM in D5W 100 ML IV ONE (01:02)
[2023-10-27] MEDS: NS 1,000 ML IV SCH (01:03)
[2023-10-27 03:00] LABS: BLOOD UREA NITROGEN 12 MG/DL (9-23); CALCIUM LEVEL 7.2 MG/DL (8.5-10.1); CARBON DIOXIDE LEVEL 25 MMOL/L (20-31); CHLORIDE LEVEL 105 MMOL/L (98-107); CREATININE FOR GFR 0.88 MG/DL (0.55-1.30); GLOMERULAR FILTRATION RATE > 60.0 (>60); GLUCOSE, FASTING 99 MG/DL (60-100); MAGNESIUM LEVEL 1.8 MG/DL (1.8-2.4); PHOSPHORUS LEVEL 7.7 MG/DL (2.5-4.9); POTASSIUM SERUM 3.7 MMOL/L (3.5-5.1); SODIUM LEVEL 138 MMOL/L (136-145)
[2023-10-27] MEDS ORDERED: CALCIUM CHLORIDE 10% 1 GM in D5W 100 ML IV ONE (04:00)
[2023-10-27 06:44] LABS: BLOOD UREA NITROGEN 11 MG/DL (9-23); CALCIUM LEVEL 7.2 MG/DL (8.5-10.1); CARBON DIOXIDE LEVEL 24 MMOL/L (20-31); CHLORIDE LEVEL 105 MMOL/L (98-107); GLOMERULAR FILTRATION RATE > 60.0 (>60); GLUCOSE, FASTING 86 MG/DL (60-100); MAGNESIUM LEVEL 1.8 MG/DL (1.8-2.4); PHOSPHORUS LEVEL 7.8 MG/DL (2.5-4.9); POTASSIUM SERUM 3.7 MMOL/L (3.5-5.1); SODIUM LEVEL 140 MMOL/L (136-145)
[2023-10-27 07:30] LABS: HEMATOCRIT 34.9 % (36.0-47.0); HEMOGLOBIN 11.5 g/dl (12.0-15.5); MEAN CORPUSCULAR HEMOGLOBIN 28.1 pg (27.0-33.0); MEAN CORPUSCULAR VOLUME 85.3 fl (80.0-96.0); PLATELET COUNT, AUTOMATED 236 10^3/uL (150-450); RED BLOOD COUNT 4.09 10^6/uL (4.00-5.40)
[2023-10-27 07:34] LABS: CK-MB VALUE MASS < 1.0 NG/ML (<3.6)
[2023-10-27 07:37] LABS: ALBUMIN 3.6 G/DL (3.2-5.2); ALKALINE PHOSPHATASE 74 U/L (46-116); ALT/SGPT 69 U/L (7.0-40); AST/SGOT 37 U/L (<34); BILIRUBIN,TOTAL 0.5 MG/DL (0.3-1.2); CPK CREATINE PHOSPHOKINASE 203 U/L (34-145); MB/CK RELATIVE INDEX 0.49 (< OR =4); TOTAL PROTEIN 6.3 G/DL (5.7-8.2)
[2023-10-27 07:38] LABS: THYROID STIMULATING HORMONE 4.227 uIU/ML (0.55-4.78)
[2023-10-27 07:52] LABS: PTH INTACT < 6.3 PG/ML (18.5-88.0)
[2023-10-27] MEDS: CALCITRIOL 0.25 MCG CAP (S0169) PO SCH (09:00)
[2023-10-27] MEDS ORDERED: CALCIUM CARBONATE 500 MG CHEW U/D PO PRN (09:30)
[2023-10-27] MEDS ORDERED: CALCIUM CARBONATE 500 MG CHEW U/D PO SCH (10:30)
[2023-10-27] MEDS: CALCIUM GLUCONATE 1,000 MG in D5W MINI-BAG PLUS 100 ML IV ONE (11:17)
[2023-10-27] MEDS: CALCIUM CARBONATE 500 MG CHEW U/D PO SCH (12:10)
[2023-10-27 16:05] VITALS: BP 160/90; TEMP 97.7; O2SAT 97
[2023-10-27 16:49] VITALS: BP 105/75
[2023-10-27 20:00] VITALS: BP 127/85; TEMP 97.7; O2SAT 96
[2023-10-27] MEDS: OMEPRAZOLE 20MG CAP PO SCH (21:06)
[2023-10-28 04:00] VITALS: BP 125/78; TEMP 97.5; O2SAT 97
[2023-10-28 07:17] LABS: MEAN CORPUSCULAR HEMOGLOBIN 27.7 pg (27.0-33.0); MEAN CORPUSCULAR HGB CONC 32.4 g/dl (32.0-36.5); MEAN CORPUSCULAR VOLUME 85.6 fl (80.0-96.0); PLATELET COUNT, AUTOMATED 231 10^3/uL (150-450); RED BLOOD COUNT 3.97 10^6/uL (4.00-5.40); WHITE BLOOD COUNT 6.8 10^3/uL (4.0-10.0)
[2023-10-28 07:58] LABS: ALBUMIN 3.5 G/DL (3.2-5.2); ALKALINE PHOSPHATASE 68 U/L (46-116); ALT/SGPT 67 U/L (7.0-40); AST/SGOT 40 U/L (<34); BILIRUBIN,TOTAL 0.4 MG/DL (0.3-1.2); BLOOD UREA NITROGEN 11 MG/DL (9-23); CALCIUM LEVEL 6.7 MG/DL (8.5-10.1); CARBON DIOXIDE LEVEL 27 MMOL/L (20-31); CHLORIDE LEVEL 107 MMOL/L (98-107); CREATININE FOR GFR 0.82 MG/DL (0.55-1.30); GLOMERULAR FILTRATION RATE > 60.0 (>60); GLUCOSE, FASTING 82 MG/DL (60-100); SODIUM LEVEL 141 MMOL/L (136-145)
[2023-10-28 08:17] LABS: MAGNESIUM LEVEL 1.7 MG/DL (1.8-2.4); PHOSPHORUS LEVEL 5.3 MG/DL (2.5-4.9)
[2023-10-28] MEDS: CALCIUM GLUCONATE 1,000 MG in D5W MINI-BAG PLUS 100 ML IV ONE (11:21)
[2023-10-28 11:39] VITALS: BP 125/78; TEMP 97.5; O2SAT 97
[2023-10-28 12:00] VITALS: BP 129/79; TEMP 97.9; O2SAT 96
[2023-10-28] MEDS: CETIRIZINE (ZyrTEC) 10 MG TAB PO SCH (12:04)
[2023-10-28] MEDS: ACETAMINOPHEN TAB 650MG DOSE (2X325MG) PO PRN (13:47)
[2023-10-28] MEDS: ONDANSETRON 4MG ORAL DISINTEGRATING TAB PO PRN (13:48)
[2023-10-28 18:07] LABS: ALBUMIN 3.6 G/DL (3.2-5.2); ALKALINE PHOSPHATASE 70 U/L (46-116); ALT/SGPT 62 U/L (7.0-40); ALT/SGPT 65 U/L (7.0-40); AST/SGOT 33 U/L (<34); AST/SGOT 37 U/L (<34); BILIRUBIN,TOTAL 0.3 MG/DL (0.3-1.2); BLOOD UREA NITROGEN 11 MG/DL (9-23); CALCIUM LEVEL 6.9 MG/DL (8.5-10.1); CARBON DIOXIDE LEVEL 26 MMOL/L (20-31); CARBON DIOXIDE LEVEL 27 MMOL/L (20-31); CHLORIDE LEVEL 106 MMOL/L (98-107); CHLORIDE LEVEL 109 MMOL/L (98-107); CREATININE FOR GFR 0.78 MG/DL (0.55-1.30); GLOMERULAR FILTRATION RATE > 60.0 (>60); GLUCOSE, FASTING 97 MG/DL (60-100); GLUCOSE, FASTING 99 MG/DL (60-100); MAGNESIUM LEVEL 1.7 MG/DL (1.8-2.4); POTASSIUM SERUM 3.9 MMOL/L (3.5-5.1); SODIUM LEVEL 140 MMOL/L (136-145); SODIUM LEVEL 141 MMOL/L (136-145); TOTAL PROTEIN 6.2 G/DL (5.7-8.2)
[2023-10-28] MEDS: MAG SULF 1GM/100ML (MAG RUN) 1 GM in IV 1 EA IV ONE (18:59)
[2023-10-28 20:00] VITALS: BP 126/78; TEMP 97.9; O2SAT 98
[2023-10-28] MEDS: CALCIUM GLUCONATE 1,000 MG in D5W MINI-BAG PLUS 100 ML IV SCH (20:30)
[2023-10-28] MEDS: MAGNESIUM OXIDE 400MG TAB (MAG-OX) PO SCH (20:30)
[2023-10-28] MEDS: ENOXAPARIN 40MG/0.4ML SYRINGE (J1650 PER 10MG) SC SCH (20:31)
[2023-10-29 00:21] LABS: ALBUMIN 3.5 G/DL (3.2-5.2); ALKALINE PHOSPHATASE 72 U/L (46-116); ALT/SGPT 57 U/L (7.0-40); AST/SGOT 29 U/L (<34); BILIRUBIN,TOTAL 0.3 MG/DL (0.3-1.2); BLOOD UREA NITROGEN 10 MG/DL (9-23); CALCIUM LEVEL 7.3 MG/DL (8.5-10.1); CARBON DIOXIDE LEVEL 28 MMOL/L (20-31); CHLORIDE LEVEL 108 MMOL/L (98-107); CREATININE FOR GFR 0.84 MG/DL (0.55-1.30); GLOMERULAR FILTRATION RATE > 60.0 (>60); GLUCOSE, FASTING 100 MG/DL (60-100); POTASSIUM SERUM 3.9 MMOL/L (3.5-5.1); SODIUM LEVEL 142 MMOL/L (136-145); TOTAL PROTEIN 6.1 G/DL (5.7-8.2)
[2023-10-29 04:02] VITALS: BP 112/70; TEMP 97.9; O2SAT 97
[2023-10-29 04:15] LABS: HEMOGLOBIN 10.9 g/dl (12.0-15.5); MEAN CORPUSCULAR HEMOGLOBIN 28.2 pg (27.0-33.0); MEAN CORPUSCULAR VOLUME 85.3 fl (80.0-96.0); PLATELET COUNT, AUTOMATED 230 10^3/uL (150-450); RED BLOOD COUNT 3.87 10^6/uL (4.00-5.40); WHITE BLOOD COUNT 7.7 10^3/uL (4.0-10.0)
[2023-10-29 04:27] LABS: ALBUMIN 3.4 G/DL (3.2-5.2); ALKALINE PHOSPHATASE 65 U/L (46-116); ALT/SGPT 57 U/L (7.0-40); AST/SGOT 29 U/L (<34); BILIRUBIN,TOTAL 0.3 MG/DL (0.3-1.2); BLOOD UREA NITROGEN 13 MG/DL (9-23); CALCIUM LEVEL 6.8 MG/DL (8.5-10.1); CARBON DIOXIDE LEVEL 29 MMOL/L (20-31); CHLORIDE LEVEL 107 MMOL/L (98-107); CREATININE FOR GFR 0.82 MG/DL (0.55-1.30); GLOMERULAR FILTRATION RATE > 60.0 (>60); GLUCOSE, FASTING 98 MG/DL (60-100); MAGNESIUM LEVEL 1.8 MG/DL (1.8-2.4); PHOSPHORUS LEVEL 5.5 MG/DL (2.5-4.9); SODIUM LEVEL 141 MMOL/L (136-145); TOTAL PROTEIN 5.9 G/DL (5.7-8.2)
[2023-10-29 09:18] LABS: ALBUMIN 3.6 G/DL (3.2-5.2); ALKALINE PHOSPHATASE 67 U/L (46-116); ALT/SGPT 62 U/L (7.0-40); AST/SGOT 35 U/L (<34); BILIRUBIN,TOTAL 0.4 MG/DL (0.3-1.2); BLOOD UREA NITROGEN 13 MG/DL (9-23); CALCIUM LEVEL 7.2 MG/DL (8.5-10.1); CARBON DIOXIDE LEVEL 26 MMOL/L (20-31); CHLORIDE LEVEL 107 MMOL/L (98-107); CREATININE FOR GFR 0.82 MG/DL (0.55-1.30); GLOMERULAR FILTRATION RATE > 60.0 (>60); GLUCOSE, FASTING 86 MG/DL (60-100); POTASSIUM SERUM 4.6 MMOL/L (3.5-5.1); SODIUM LEVEL 142 MMOL/L (136-145); TOTAL PROTEIN 6.3 G/DL (5.7-8.2)
[2023-10-29] MEDS: CALCIUM GLUCONATE 1,000 MG in D5W MINI-BAG PLUS 100 ML IV SCH ×4 (09:35→17:57)
[2023-10-29 12:00] VITALS: BP 126/68; TEMP 97.7; O2SAT 97
[2023-10-29 13:03] LABS: ALBUMIN 3.5 G/DL (3.2-5.2); ALKALINE PHOSPHATASE 64 U/L (46-116); ALT/SGPT 60 U/L (7.0-40); AST/SGOT 36 U/L (<34); BILIRUBIN,TOTAL 0.3 MG/DL (0.3-1.2); BLOOD UREA NITROGEN 13 MG/DL (9-23); CALCIUM LEVEL 7.6 MG/DL (8.5-10.1); CARBON DIOXIDE LEVEL 27 MMOL/L (20-31); CHLORIDE LEVEL 106 MMOL/L (98-107); GLOMERULAR FILTRATION RATE > 60.0 (>60); GLUCOSE, FASTING 121 MG/DL (60-100); SODIUM LEVEL 141 MMOL/L (136-145)
[2023-10-29 19:42] LABS: IONIZED CALCIUM 4.2 MG/DL (4.5-5.3)
[2023-10-29 20:03] LABS: ALBUMIN 3.5 G/DL (3.2-5.2); ALKALINE PHOSPHATASE 69 U/L (46-116); ALT/SGPT 59 U/L (7.0-40); AST/SGOT 31 U/L (<34); BILIRUBIN,TOTAL 0.3 MG/DL (0.3-1.2); BLOOD UREA NITROGEN 13 MG/DL (9-23); CALCIUM LEVEL 8.4 MG/DL (8.5-10.1); CARBON DIOXIDE LEVEL 26 MMOL/L (20-31); CHLORIDE LEVEL 105 MMOL/L (98-107); GLOMERULAR FILTRATION RATE > 60.0 (>60); GLUCOSE, FASTING 82 MG/DL (60-100); POTASSIUM SERUM 4.1 MMOL/L (3.5-5.1); SODIUM LEVEL 140 MMOL/L (136-145); TOTAL PROTEIN 6.2 G/DL (5.7-8.2)
[2023-10-29 20:42] VITALS: BP 131/78; TEMP 97.9; O2SAT 96
[2023-10-29 21:07] LABS: ALBUMIN 3.4 G/DL (3.2-5.2); ALKALINE PHOSPHATASE 67 U/L (46-116); ALT/SGPT 56 U/L (7.0-40); AST/SGOT 30 U/L (<34); BILIRUBIN,TOTAL 0.3 MG/DL (0.3-1.2); BLOOD UREA NITROGEN 12 MG/DL (9-23); CALCIUM LEVEL 8.1 MG/DL (8.5-10.1); CARBON DIOXIDE LEVEL 26 MMOL/L (20-31); CHLORIDE LEVEL 106 MMOL/L (98-107); CREATININE FOR GFR 0.96 MG/DL (0.55-1.30); GLOMERULAR FILTRATION RATE > 60.0 (>60); GLUCOSE, FASTING 118 MG/DL (60-100); POTASSIUM SERUM 4.1 MMOL/L (3.5-5.1); SODIUM LEVEL 142 MMOL/L (136-145); TOTAL PROTEIN 6.1 G/DL (5.7-8.2)
[2023-10-29 22:40] VITALS: BP 122/58; TEMP 97.8; O2SAT 97
[2023-10-30 04:00] VITALS: BP 132/88; TEMP 97.2; O2SAT 97
[2023-10-30 06:56] LABS: HEMATOCRIT 34.4 % (36.0-47.0); HEMOGLOBIN 11.2 g/dl (12.0-15.5); MEAN CORPUSCULAR HEMOGLOBIN 27.5 pg (27.0-33.0); MEAN CORPUSCULAR HGB CONC 32.6 g/dl (32.0-36.5); MEAN CORPUSCULAR VOLUME 84.3 fl (80.0-96.0); PLATELET COUNT, AUTOMATED 236 10^3/uL (150-450); RED BLOOD COUNT 4.08 10^6/uL (4.00-5.40); WHITE BLOOD COUNT 7.2 10^3/uL (4.0-10.0)
[2023-10-30 07:19] LABS: BLOOD UREA NITROGEN 14 MG/DL (9-23); CALCIUM LEVEL 8.9 MG/DL (8.5-10.1); CARBON DIOXIDE LEVEL 28 MMOL/L (20-31); CHLORIDE LEVEL 104 MMOL/L (98-107); CREATININE FOR GFR 0.82 MG/DL (0.55-1.30); GLOMERULAR FILTRATION RATE > 60.0 (>60); GLUCOSE, FASTING 115 MG/DL (60-100); MAGNESIUM LEVEL 1.7 MG/DL (1.8-2.4); PHOSPHORUS LEVEL 5.7 MG/DL (2.5-4.9); POTASSIUM SERUM 4.4 MMOL/L (3.5-5.1); SODIUM LEVEL 140 MMOL/L (136-145)
[2023-10-30] MEDS: MAG SULF 1GM/100ML (MAG RUN) 1 GM in IV 1 EA IV ONE (08:27)
[2023-10-30] MEDS ORDERED: MAGN250T6 PO (09:11)
[2023-10-30] MEDS ORDERED: CALC600T60 PO (09:11)
[2023-10-30] MEDS ORDERED: ROCA0.5C PO (09:11)
[2023-10-30] MEDS ORDERED: MAGNESIUM OXIDE 400MG TAB (MAG-OX) PO SCH (21:00)
== END 2023-10-30 11:58 | disposition home or self-care (01) | DRG 249 ==
LOC: M ED 18:47 → M ED INP 23:50 → M MSPAV 10-27 16:15 → M MS4PR 10-29 22:37
PROVIDERS: ADMIT Internal Medicine; ATTEND Internal Medicine Nephrology
DX: A08.39 Other viral enteritis (principal); Z68.42 Body mass index [BMI] 45.0-49.9, adult; K51.90 Ulcerative colitis, unspecified, without complications; E66.01 Morbid (severe) obesity due to excess calories; M79.7 Fibromyalgia; F41.9 Anxiety disorder, unspecified; F32.A Depression, unspecified; R32 Unspecified urinary incontinence; E20.9 Hypoparathyroidism, unspecified; Z90.49 Acquired absence of other specified parts of digestive tract; K21.9 Gastro-esophageal reflux disease without esophagitis; Z79.899 Other long term (current) drug therapy; Z88.0 Allergy status to penicillin; Z88.5 Allergy status to narcotic agent; Z88.8 Allergy status to other drugs, medicaments and biological substances

== ENCOUNTER 2024-01-21 11:02 | Emergency (ER) | payer BC, MEDICAID, OTHER ==
[~2024-01-21] VITALS: Ht 165.1 cm; Wt 134.1 kg
[~2024-01-21 11:02] MED LIST changes: +MAGN250T6 PO
[2024-01-21] MEDS: METOCLOPRAMIDE INJ 10MG/2ML VIAL IV ONE (12:50)
[2024-01-21] MEDS: MECLIZINE 25 MG TABLET PO ONE (12:50)
[2024-01-21] MEDS: NS 500 ML IV ONE (12:50)
[2024-01-21 12:58] LABS: BASO % 0.4 % (0.0-1.0); EOS # 0.2 10^3/uL (0.0-0.5); EOS % 1.9 % (0.0-3.0); HEMATOCRIT 34.4 % (36.0-47.0); HEMOGLOBIN 11.5 g/dl (12.0-15.5); LYMPH # 1.6 10^3/uL (1.5-5.0); LYMPH % 20.3 % (24.0-44.0); MEAN CORPUSCULAR HGB CONC 33.4 g/dl (32.0-36.5); MEAN CORPUSCULAR VOLUME 83.9 fl (80.0-96.0); MONO # 0.5 10^3/uL (0.0-0.8); MONO % 5.8 % (2.0-8.0); NEUTROPHILS # 5.6 10^3/uL (1.5-8.5); PLATELET COUNT, AUTOMATED 244 10^3/uL (150-450); WHITE BLOOD COUNT 7.9 10^3/uL (4.0-10.0)
[2024-01-21 13:33] LABS: BLOOD UREA NITROGEN 14 MG/DL (9-23); CALCIUM LEVEL 7.5 MG/DL (8.5-10.1); CARBON DIOXIDE LEVEL 28 MMOL/L (20-31); CHLORIDE LEVEL 104 MMOL/L (98-107); CREATININE FOR GFR 0.76 MG/DL (0.55-1.30); GLOMERULAR FILTRATION RATE > 60.0 (>60); GLUCOSE, FASTING 91 MG/DL (60-100); POTASSIUM SERUM 4.3 MMOL/L (3.5-5.1); SODIUM LEVEL 138 MMOL/L (136-145)
[2024-01-21 13:47] LABS: HCG, SERUM QUALITATIVE NEGATIVE (NEGATIVE)
[2024-01-21] MEDS ORDERED: MECL-86 PO (15:17)
[2024-01-21 15:27] VITALS: BP 157/95; TEMP 97.5; O2SAT 98
== END 2024-01-21 15:30 | disposition home or self-care (01) ==
LOC: M ED 11:02
DX: R51.9 Headache, unspecified (principal); R42 Dizziness and giddiness; M79.7 Fibromyalgia; E66.9 Obesity, unspecified; F41.9 Anxiety disorder, unspecified; K21.9 Gastro-esophageal reflux disease without esophagitis; E61.1 Iron deficiency; Z79.899 Other long term (current) drug therapy; Z88.0 Allergy status to penicillin; Z88.5 Allergy status to narcotic agent; Z88.8 Allergy status to other drugs, medicaments and biological substances
CPT/HCPCS: 70450; 80048; 83735; 84703; 85025; 93005; 93041; 94760; 96361; 96374; 99285; J2765

== ENCOUNTER → 2024-04-04 | Outpatient (CLI) | payer OTHER ==
[~2024-04-04] MED LIST changes: +MECL-86 PO
== END ==
LOC: M EKG 12:45
PROVIDERS: ATTEND Physician Assistant
DX: Z76.89 Persons encountering health services in other specified circumstances (principal); R94.31 Abnormal electrocardiogram [ECG] [EKG]

== ENCOUNTER 2024-06-10 10:15 | Emergency (ER) | payer MEDICAID, OTHER ==
[2024-06-10 12:15] VITALS: BP 140/87; TEMP 97.5; O2SAT 97
== END 2024-06-10 12:28 | disposition home or self-care (01) ==
LOC: M ED 10:15
DX: J20.9 Acute bronchitis, unspecified (principal); R04.2 Hemoptysis; I10 Essential (primary) hypertension; E20.9 Hypoparathyroidism, unspecified; K51.90 Ulcerative colitis, unspecified, without complications; Z79.899 Other long term (current) drug therapy; Z88.0 Allergy status to penicillin; Z88.5 Allergy status to narcotic agent; Z88.8 Allergy status to other drugs, medicaments and biological substances

== ENCOUNTER → 2024-06-11 | Outpatient (CLI) | payer OTHER | LOC: M LAB 08:45 | PROVIDERS: ATTEND Internal Medicine | DX: E66.01 Morbid (severe) obesity due to excess calories (principal); Z68.42 Body mass index [BMI] 45.0-49.9, adult | CPT/HCPCS: 36415; 82533; G0480 ==

== ENCOUNTER → 2024-08-11 | Outpatient (REF) | payer OTHER, MEDICAID ==
[2024-08-11 13:37] LABS: BASO % 0.5 % (0.0-1.0); EOS # 0.2 10^3/uL (0.0-0.5); EOS % 1.8 % (0.0-3.0); HEMATOCRIT 36.6 % (36.0-47.0); HEMOGLOBIN 12.2 g/dl (12.0-15.5); LYMPH # 1.8 10^3/uL (1.5-5.0); MEAN CORPUSCULAR HEMOGLOBIN 28.3 pg (27.0-33.0); MEAN CORPUSCULAR HGB CONC 33.3 g/dl (32.0-36.5); MEAN CORPUSCULAR VOLUME 84.9 fl (80.0-96.0); MONO # 0.5 10^3/uL (0.0-0.8); MONO % 5.3 % (2.0-8.0); NEUTROPHILS # 6.1 10^3/uL (1.5-8.5); NEUTROPHILS % 70.9 % (36.0-66.0); PLATELET COUNT, AUTOMATED 257 10^3/uL (150-450); RED BLOOD COUNT 4.31 10^6/uL (4.00-5.40); WHITE BLOOD COUNT 8.5 10^3/uL (4.0-10.0)
[2024-08-11 13:44] LABS: FERRITIN 32.6 NG/ML (7.3-270.7)
[2024-08-11 13:45] LABS: TOTAL 25(OH) VITAMIN D 42.8 NG/ML (20.0-100.0)
[2024-08-11 13:48] LABS: ALBUMIN 3.9 G/DL (3.2-5.2); ALKALINE PHOSPHATASE 63 U/L (35-104); ALT/SGPT 32 U/L (7.0-40); AST/SGOT 19 U/L (<34); BILIRUBIN,TOTAL 0.3 MG/DL (0.3-1.2); BLOOD UREA NITROGEN 15 MG/DL (9-23); CALCIUM LEVEL 8.1 MG/DL (8.5-10.1); CARBON DIOXIDE LEVEL 30 MMOL/L (20-31); CHLORIDE LEVEL 102 MMOL/L (98-107); CHOLESTEROL LEVEL 162 MG/DL (<200); CHOLESTEROL RISK RATIO 5.95 (<5); CREATININE FOR GFR 0.86 MG/DL (0.55-1.30); GLOMERULAR FILTRATION RATE > 90.0 (>60); GLUCOSE, FASTING 77 MG/DL (60-100); HDL CHOLESTEROL 27.2 MG/DL (>40); IRON (FE) 43 UG/DL (50-170); LDL CHOLESTEROL 96.8 MG/DL (<100); NON-HDL-C 134.8 MG/DL; PERCENT SATURATION 13.7 % (13.2-45.0); POTASSIUM SERUM 4.2 MMOL/L (3.5-5.1); SODIUM LEVEL 142 MMOL/L (136-145); TOTAL IRON BINDING CAPACITY 313 UG/DL (250-425); TOTAL PROTEIN 6.7 G/DL (5.7-8.2); TRIGLYCERIDES LEVEL 190 MG/DL (<150)
[2024-08-11 14:50] LABS: HEMOGLOBIN A1c 5.1 % (4.0-6.0)
== END ==
LOC: M LAB REF 11:55
PROVIDERS: ATTEND Physician Assistant
DX: R03.0 Elevated blood-pressure reading, without diagnosis of hypertension (principal)

== ENCOUNTER → 2024-12-31 | Outpatient (CLI) | payer OTHER ==
[2024-12-31 12:37] LABS: CALCIUM LEVEL 6.9 MG/DL (8.5-10.1); CARBON DIOXIDE LEVEL 29.0 MMOL/L (20-31); CHLORIDE LEVEL 104.0 MMOL/L (98-107); CREATININE FOR GFR 0.95 MG/DL (0.55-1.30); GLOMERULAR FILTRATION RATE 80.1 (>60); PHOSPHORUS LEVEL 5.8 MG/DL (2.5-4.9); POTASSIUM SERUM 4.0 MMOL/L (3.5-5.1); SODIUM LEVEL 140.0 MMOL/L (136-145)
[2024-12-31 13:22] LABS: CALCIUM, 24 HOUR URINE 201.8 MG/24HR (42-353)
[2024-12-31 13:24] LABS: CREATININE 24 HOUR, URINE 1521.4 MG/24HR (600-1800); CREATININE, URINE 88.2 MG/DL
== END ==
LOC: M WUC 10:26
PROVIDERS: ATTEND Student in an Organized Health Care Education/Training Program
DX: E20.81 Hypoparathyroidism due to impaired parathyroid hormone secretion (principal)

== ENCOUNTER 2025-01-16 16:30 | Inpatient (IN) | payer OTHER ==
[~2025-01-16] VITALS: Ht 165.1 cm; Wt 127.1 kg
[2025-01-16] MEDS: NS (Normal Saline) 0.9% 1,000 ML IV ONE (18:25)
[2025-01-16] MEDS: ONDANSETRON 4MG 2ML VIAL IV ONE (18:26)
[2025-01-16] MEDS: ACETAMINOPHEN *IV* 1,000 MG in IV 1 EA IV ONE (18:26)
[2025-01-16 18:36] LABS: BASO # 0.0 10^3/uL (0.0-0.2); BASO % 0.2 % (0.0-1.0); EOS # 0.0 10^3/uL (0.0-0.5); EOS % 0.5 % (0.0-3.0); LYMPH # 0.4 10^3/uL (1.5-5.0); LYMPH % 4.7 % (24.0-44.0); MONO # 0.2 10^3/uL (0.0-0.8); MONO % 2.6 % (2.0-8.0); NEUTROPHILS # 7.8 10^3/uL (1.5-8.5); NEUTROPHILS % 91.8 % (36.0-66.0); PLATELET COUNT, AUTOMATED 258 10^3/uL (150-450)
[2025-01-16] MEDS: CALCIUM CARBONATE 500 MG CHEW U/D PO ONE (18:49)
[2025-01-16 19:17] LABS: ALT/SGPT 94.0 U/L (7.0-40); AST/SGOT 157.0 U/L (<34); CALCIUM LEVEL 6.7 MG/DL (8.5-10.1); CARBON DIOXIDE LEVEL 26.0 MMOL/L (20-31); CHLORIDE LEVEL 102.0 MMOL/L (98-107); CREATININE FOR GFR 0.92 MG/DL (0.55-1.30); GLOMERULAR FILTRATION RATE 83.3 (>60); MAGNESIUM LEVEL 1.9 MG/DL (1.8-2.4); PHOSPHORUS LEVEL 6.0 MG/DL (2.5-4.9); POTASSIUM SERUM 6.0 MMOL/L (3.5-5.1); SODIUM LEVEL 141.0 MMOL/L (136-145)
[2025-01-16] MEDS: CALCIUM GLUCONATE 1,000 MG in DEXTROSE 5% (D5W) MINI-BAG PLU 100 ML IV ONE (20:05)
[2025-01-16] MEDS ORDERED: MAALOX 30 ML SUSP *UDC PO PRN (20:40)
[2025-01-16] MEDS ORDERED: MOM 30 ML SUSPENSION UDC PO PRN (20:40)
[2025-01-16] MEDS: PANTOPRAZOLE 40MG VIAL IV ONE (21:04)
[2025-01-16] MEDS ORDERED: MECL-86 PO (23:32)
[2025-01-16] MEDS ORDERED: VITA200032 PO (23:32)
[2025-01-16] MEDS ORDERED: LOSA50TA28 PO (23:32)
[2025-01-16] MEDS ORDERED: METF-838 PO (23:32)
[2025-01-16] MEDS ORDERED: MAGN250T17 PO (23:32)
[2025-01-16] MEDS ORDERED: CALC0.5C6 PO (23:32)
[2025-01-16] MEDS ORDERED: HOME MED LIST COMPLETE! XX SCH (23:35)
[2025-01-16 23:55] VITALS: BP 129/58; TEMP 97.2; O2SAT 99
[2025-01-17] MEDS: ACETAMINOPHEN 325 MG TAB PO PRN (00:29)
[2025-01-17] MEDS ORDERED: MINI IV SCH (00:55)
[2025-01-17] MEDS ORDERED: CALCIUM GLUCONATE IV SCH (00:55)
[2025-01-17] MEDS ORDERED: DEXTROSE 5% IV SCH (00:55)
[2025-01-17 01:13] LABS: CALCIUM LEVEL 6.5 MG/DL (8.5-10.1)
[2025-01-17] MEDS: CALCIUM GLUCONATE 1,000 MG in DEXTROSE 5% (D5W) MINI-BAG PLU 100 ML IV SCH (01:34)
[2025-01-17 03:54] VITALS: BP 110/57; TEMP 97.7; O2SAT 93
[2025-01-17 07:16] LABS: PLATELET COUNT, AUTOMATED 206 10^3/uL (150-450)
[2025-01-17 07:48] LABS: ALT/SGPT 67 U/L (7.0-40); AST/SGOT 53 U/L (<34); CALCIUM LEVEL 7.1 MG/DL (8.5-10.1); CARBON DIOXIDE LEVEL 25 MMOL/L (20-31); CHLORIDE LEVEL 105 MMOL/L (98-107); CREATININE FOR GFR 0.86 MG/DL (0.55-1.30); GLOMERULAR FILTRATION RATE > 90.0 (>60); POTASSIUM SERUM 3.9 MMOL/L (3.5-5.1); SODIUM LEVEL 142 MMOL/L (136-145)
[2025-01-17] MEDS ORDERED: HOME MED LIST COMPLETE! XX SCH (07:55)
[2025-01-17 07:57] VITALS: BP 131/66; TEMP 97.4; O2SAT 96
[2025-01-17] MEDS: ENOXAPARIN 40 MG/0.4 ML SYRINGE (J1650 PER 10MG) SC SCH (08:28)
[2025-01-17] MEDS: PANTOPRAZOLE 40MG VIAL IV SCH (08:28)
[2025-01-17] MEDS: CALCIUM CARBONATE 500 MG CHEW U/D PO SCH (08:28)
[2025-01-17] MEDS: LR 1,000 ML IV SCH (08:29)
[2025-01-17 12:00] VITALS: BP 126/74; TEMP 98.2; O2SAT 97
[2025-01-17] MEDS: PINK BISMUTH SUSP 524 MG/30 ML ORAL SYRINGE PO PRN (15:41)
[2025-01-17] MEDS: ONDANSETRON 4MG 2ML VIAL IV PRN (18:34)
[2025-01-17 20:00] VITALS: BP 119/65; TEMP 97.4; O2SAT 98
[2025-01-18] VITALS: BP 135/76; TEMP 97.4; O2SAT 98
[2025-01-18 04:00] VITALS: BP 135/67; TEMP 96.8; O2SAT 98
[2025-01-18 07:13] LABS: PLATELET COUNT, AUTOMATED 212 10^3/uL (150-450)
[2025-01-18 07:45] VITALS: BP 141/69; TEMP 97.3; O2SAT 98
[2025-01-18 08:14] LABS: CALCIUM LEVEL 6.0 MG/DL (8.5-10.1); CARBON DIOXIDE LEVEL 27.0 MMOL/L (20-31); CHLORIDE LEVEL 104.0 MMOL/L (98-107); CREATININE FOR GFR 0.89 MG/DL (0.55-1.30); GLOMERULAR FILTRATION RATE 86.7 (>60); MAGNESIUM LEVEL 1.6 MG/DL (1.8-2.4); POTASSIUM SERUM 3.8 MMOL/L (3.5-5.1); SODIUM LEVEL 144.0 MMOL/L (136-145)
[2025-01-18] MEDS: CALCIUM GLUCONATE 1,000 MG in DEXTROSE 5% (D5W) MINI-BAG PLU 100 ML IV ONE ×2 (08:52→12:32)
[2025-01-18] MEDS: MAG SULF 1GM/100ML (MAG RUN) 1 GM in IV 1 EA IV SCH (10:05)
[2025-01-18 11:46] VITALS: BP 139/69; TEMP 97.6; O2SAT 98
[2025-01-18] MEDS: CALCITRIOL 0.25 MCG CAP (S0169) PO SCH (16:08)
[2025-01-18 16:36] LABS: CALCIUM LEVEL 6.1 MG/DL (8.5-10.1); CARBON DIOXIDE LEVEL 29.0 MMOL/L (20-31); CHLORIDE LEVEL 106.0 MMOL/L (98-107); CREATININE FOR GFR 0.95 MG/DL (0.55-1.30); GLOMERULAR FILTRATION RATE 80.1 (>60); POTASSIUM SERUM 3.9 MMOL/L (3.5-5.1); SODIUM LEVEL 146.0 MMOL/L (136-145)
[2025-01-18] MEDS: CALCIUM GLUCONATE 1,000 MG in DEXTROSE 5% (D5W) MINI-BAG PLU 100 ML IV SCH (18:26)
[2025-01-18 20:08] VITALS: BP 142/62; TEMP 97.3; O2SAT 100
[2025-01-19 00:21] VITALS: BP 130/65; TEMP 98; O2SAT 98
[2025-01-19 01:01] LABS: CALCIUM LEVEL 6.6 MG/DL (8.5-10.1); CARBON DIOXIDE LEVEL 30.0 MMOL/L (20-31); CHLORIDE LEVEL 104.0 MMOL/L (98-107); CREATININE FOR GFR 0.9 MG/DL (0.55-1.30); GLOMERULAR FILTRATION RATE 85.5 (>60); POTASSIUM SERUM 3.7 MMOL/L (3.5-5.1); SODIUM LEVEL 145.0 MMOL/L (136-145)
[2025-01-19] MEDS: CALCIUM GLUCONATE 1,000 MG in DEXTROSE 5% (D5W) MINI-BAG PLU 100 ML IV ONE ×2 (01:41→02:48)
[2025-01-19 03:05] VITALS: BP 111/58; TEMP 97; O2SAT 96
[2025-01-19 07:29] LABS: PLATELET COUNT, AUTOMATED 228 10^3/uL (150-450)
[2025-01-19 08:02] LABS: CALCIUM LEVEL 7.1 MG/DL (8.5-10.1); CARBON DIOXIDE LEVEL 27 MMOL/L (20-31); CHLORIDE LEVEL 104 MMOL/L (98-107); CREATININE FOR GFR 0.83 MG/DL (0.55-1.30); GLOMERULAR FILTRATION RATE > 90.0 (>60); MAGNESIUM LEVEL 1.7 MG/DL (1.8-2.4); POTASSIUM SERUM 4.1 MMOL/L (3.5-5.1); SODIUM LEVEL 145 MMOL/L (136-145)
[2025-01-19] MEDS ORDERED: MAGN400T2 PO (11:29)
== END 2025-01-19 12:19 | disposition home or self-care (01) | DRG 249 ==
LOC: M ED 16:30 → M ED INP 20:36 → M MS4PR 23:53
PROVIDERS: ADMIT Student in an Organized Health Care Education/Training Program; ATTEND Internal Medicine
DX: A08.11 Acute gastroenteropathy due to Norwalk agent (principal); E83.51 Hypocalcemia; E87.5 Hyperkalemia; R19.7 Diarrhea, unspecified; R11.2 Nausea with vomiting, unspecified; Z79.84 Long term (current) use of oral hypoglycemic drugs; Z79.899 Other long term (current) drug therapy; Z88.0 Allergy status to penicillin; Z88.5 Allergy status to narcotic agent; Z88.8 Allergy status to other drugs, medicaments and biological substances

== ENCOUNTER → 2025-02-02 | Outpatient (REF) | payer OTHER, MEDICAID ==
[~2025-02-02] MED LIST changes: +LOSA50TA28 PO; +MAGN250T17 PO; +MAGN400T2 PO; +METF-838 PO; +VITA200032 PO
[2025-02-02 18:01] LABS: CALCIUM LEVEL 7.0 MG/DL (8.5-10.1); CARBON DIOXIDE LEVEL 27.0 MMOL/L (20-31); CHLORIDE LEVEL 103.0 MMOL/L (98-107); CREATININE FOR GFR 0.89 MG/DL (0.55-1.30); GLOMERULAR FILTRATION RATE 86.7 (>60); MAGNESIUM LEVEL 1.8 MG/DL (1.8-2.4); POTASSIUM SERUM 3.9 MMOL/L (3.5-5.1); SODIUM LEVEL 140.0 MMOL/L (136-145)
== END ==
LOC: M LAB REF 16:26
PROVIDERS: ATTEND Physician Assistant
DX: E83.42 Hypomagnesemia (principal); E20.9 Hypoparathyroidism, unspecified

== ENCOUNTER 2025-03-29 03:24 | Emergency (ER) | payer MEDICAID, OTHER ==
[~2025-03-29] VITALS: Ht 165.1 cm; Wt 117.7 kg
[2025-03-29 04:39] LABS: BASO # 0.0 10^3/uL (0.0-0.2); BASO % 0.3 % (0.0-1.0); EOS # 0.1 10^3/uL (0.0-0.5); EOS % 0.7 % (0.0-3.0); LYMPH # 1.0 10^3/uL (1.5-5.0); LYMPH % 11.9 % (24.0-44.0); MONO # 0.6 10^3/uL (0.0-0.8); MONO % 7.1 % (2.0-8.0); NEUTROPHILS # 6.9 10^3/uL (1.5-8.5); NEUTROPHILS % 79.7 % (36.0-66.0); PLATELET COUNT, AUTOMATED 289 10^3/uL (150-450)
[2025-03-29 05:05] LABS: ALT/SGPT 28 U/L (7.0-40); AST/SGOT 27 U/L (<34); CALCIUM LEVEL 6.7 MG/DL (8.5-10.1); CARBON DIOXIDE LEVEL 19 MMOL/L (20-31); CHLORIDE LEVEL 106 MMOL/L (98-107); CREATININE FOR GFR 1.11 MG/DL (0.55-1.30); GLOMERULAR FILTRATION RATE 66.5 (>60); POTASSIUM SERUM 3.9 MMOL/L (3.5-5.1); SODIUM LEVEL 138 MMOL/L (136-145)
[2025-03-29 05:12] LABS: HCG, SERUM QUALITATIVE NEGATIVE (NEGATIVE)
[2025-03-29] MEDS: ONDANSETRON 4MG/2ML VIAL IV ONE (07:48)
[2025-03-29] MEDS: ACETAMINOPHEN *IV* 1,000 MG in IV 1 EA IV ONE (07:48)
[2025-03-29] MEDS: NS (Normal Saline) 0.9% 1,000 ML IV ONE (07:48)
[2025-03-29] MEDS ORDERED: ONDA-282 PO (08:34)
[2025-03-29 09:01] VITALS: BP 134/60
[2025-03-29 09:16] VITALS: O2SAT 99
[2025-03-29 09:22] VITALS: TEMP 98.5
== END 2025-03-29 09:24 | disposition home or self-care (01) ==
LOC: M ED 03:24
DX: R19.7 Diarrhea, unspecified (principal); R10.9 Unspecified abdominal pain; N93.9 Abnormal uterine and vaginal bleeding, unspecified; I10 Essential (primary) hypertension; E20.9 Hypoparathyroidism, unspecified; F41.9 Anxiety disorder, unspecified; F32.A Depression, unspecified; Z79.899 Other long term (current) drug therapy; Z88.0 Allergy status to penicillin; Z88.5 Allergy status to narcotic agent; Z88.8 Allergy status to other drugs, medicaments and biological substances
CPT/HCPCS: 80048; 80076; 83690; 84703; 85025; 87486; 87581; 87633; 87798; 96365; 96375; 99284; J0134; J2405